=== PATIENT | female | born 1980 | race Caucasian/White ===

== ENCOUNTER 2020-11-27 22:05 | Emergency (ER) | payer BC ==
[2020-11-27 22:41] VITALS: BP 113/74; PULSE 91
--- NOTE | 2020-11-27 22:55 | EDM.PDOC ---
ED HPI GENERAL MEDICAL PROBLEM - General Chief Complaint: Gastrointestinal Problem Stated Complaint: VOMITING Time Seen by Provider: 11/27/20 22:55 - History of Present Illness INITIAL COMMENTS - FREE TEXT/NARRATIVE: 40-year-old female presents the emergency room with nausea and vomiting. This started earlier today progressively getting worse she has vomited several times. This became worse with the vomiting several hours ago. Patient denies any abdominal pain and is otherwise doing okay. She is not had any fevers or chills. No diarrhea. Headache Pain Score (Numeric/FACES): 7 - Related Data Allergies Allergy/AdvReac Type Severity Reaction Status Date / Time hydrocodone bitartrate Allergy Hives Verified 05/10/18 11:30 [From Vicodin] ibuprofen Allergy Hives Verified 05/10/18 11:30 nickel [Nickel] Allergy Rash Verified 05/10/18 11:30 cats Allergy Bronchospas Uncoded 05/10/18 11:30 ms mesh pants Allergy Rash Uncoded 05/10/18 11:30 Home Meds: Home Meds Acetaminophen [Pain Reliever] 2 tab PO Q4H PRN 01/19/14 [History] Albuterol Sulfate [Albuterol Sulfate HFA] 1 - 2 puff INH Q4HR PRN 01/19/14 [History] Levothyroxine [Synthroid] 1 tab PO QAM 01/19/14 [History] Multivitamin [Multivitamins] 1 tab PO DAILY 01/19/14 [History] Ondansetron [Zofran Odt] 8 mg PO Q6H PRN #8 tab.rapdis 11/28/20 [Rx] Past Medical History Respiratory History: Reports: Asthma Neurological History: Reports: Migraines Endocrine/Metabolic History: Reports: Hypothyroidism - Past Surgical History GI Surgical History: Reports: Cholecystectomy Female Surgical History: Reports: Section, Hysterectomy Social & Family History - Tobacco Use Tobacco Use Status *Q: Never Tobacco User - Caffeine Use Caffeine Use: Reports: Soda - Recreational Drug Use Recreational Drug Use: No ED ROS GENERAL - Review of Systems Review Of Systems: See Below Constitutional: Reports: No Symptoms HEENT: Reports: No Symptoms Respiratory: Reports: No Symptoms, Cough Endocrine: Reports: No Symptoms GI/Abdominal: Reports: Nausea, Vomiting. Denies: Abdominal Pain, Diarrhea : Reports: No Symptoms Musculoskeletal: Reports: No Symptoms Skin: Reports: No Symptoms ED EXAM, GENERAL - Physical Exam Exam: See Below Exam Limited By: No Limitations General Appearance: Alert, No Apparent Distress Head: Atraumatic, Normocephalic Neck: Normal Inspection, Supple, Non-Tender, Full Range of Motion Respiratory/Chest: No Respiratory Distress, Lungs Clear, Normal Breath Sounds Cardiovascular: Regular Rate, Rhythm, No Edema, No Murmur GI/Abdominal: Normal Bowel Sounds, Soft, Non-Tender, Other (Obese) Course - Vital Signs Last Recorded V/S: Last Vital Signs Temp 36.7 C 11/27/20 22:37 Pulse 91 11/27/20 22:37 Resp 20 11/27/20 22:37 BP 113/74 11/27/20 22:37 Pulse Ox 93 L 11/27/20 22:37 - Orders/Labs/Meds Meds: Medications Discontinued Medications Generic Name Dose Route Start Last Admin Trade Name Imani PRN Reason Stop Dose Admin Ondansetron HCl 4 mg 11/27/20 23:48 11/27/20 23:52 Ondansetron 4 Mg Tab.Dis PO 11/27/20 23:49 4 mg ONETIME ONE Administration - Re-Assessments/Exams Free Text/Narrative Re-Assessment/Exam: 11/28/20 00:44 After the initial evaluation roughly 30 to 45 minutes ago had a discussion and the patient decided to hold off on lab work which is reasonable at this point just give the Zofran to try. She is doing much better at this point she still little belching but she is keeping fluids down and is somewhat insistent on going home at this time. We will go ahead and give her 4 more milligrams of Zofran and send a prescription to her pharmacy. Departure - Departure Time of Disposition: 00:45 Disposition: Home, Self-Care 01 Clinical Impression: Nausea and vomiting - Discharge Information Referrals: Ava Morse PA-C [Primary Care Provider] - Forms: ED Department Discharge Additional Instructions: Return to the emergency room with any questions problems or worsening symptoms return in 24 hours if not improving. Use the Zofran, the nausea medication 1/2 to 1 tablet every 6 hours as needed. Clear liquid diet for the next 24 hours then slowly advance as tolerated. Sepsis Event Note (ED) - Evaluation Sepsis Screening Result: No Definite Risk - Focused Exam Vital Signs: Vital Signs Temp Pulse Resp BP Pulse Ox 05/16/21 22:37 36.7 C 91 20 113/74 93 L
[2020-11-27] MEDS ORDERED: Ondansetron 4 MG Tab.DIS PO ONE (23:48)
[2020-11-28] MEDS ORDERED: Ondansetron 4 MG Tab.DIS PO ONE (00:42)
== END 2020-11-28 01:00 | disposition home or self-care (01) ==
LOC: JD.ED 22:05
DX: R11.2 Nausea with vomiting, unspecified (principal); Z91.048 Other nonmedicinal substance allergy status; Z91.09 Other allergy status, other than to drugs and biological substances; Z88.8 Allergy status to other drugs, medicaments and biological substances; Z79.899 Other long term (current) drug therapy
CPT/HCPCS: 99283; A9270

== ENCOUNTER 2020-12-05 09:32 | Inpatient (IN) | payer BC ==
[2020-12-05] MEDS ORDERED: Sodium Chloride 0.9% 1,000 ML IV ONE (09:48)
[2020-12-05] MEDS ORDERED: Albuterol 6.7 GM Inhaler INH ONE (09:48)
[2020-12-05] MEDS ORDERED: Iopamidol 755 Mg/ML 100 ML Bottle IVPUSH ONE (09:49)
--- NOTE | 2020-12-05 09:51 | EDM.PDOC ---
ED HPI GENERAL MEDICAL PROBLEM - General Chief Complaint: Respiratory Problem Stated Complaint: [facility] Time Seen by Provider: 12/05/20 09:33 Source of Information: Reports: Patient, EMS, Old Records History Limitations: Reports: No Limitations - History of Present Illness INITIAL COMMENTS - FREE TEXT/NARRATIVE: She presents with increasing work of breathing shortness of breath and hypoxia. Patient was diagnosed with Covid on November 20. She thought she was maybe getting a little bit better however then over the last 2 to 3 days she has had increasing work of breathing shortness of breath not sleeping not having much of an appetite having some diarrhea denies any loss of smell or taste but has being a productive cough of green phlegm. No lightheadedness or fainting fainting spell just generally more weak and in condition. No current fevers chills or sweats. Denies , no history of any blood clot problems in the past. Denies any heart problems she does have a history of underlying asthma has not been using any inhalers. - Related Data Allergies Allergy/AdvReac Type Severity Reaction Status Date / Time hydrocodone bitartrate Allergy Hives Verified 12/05/20 09:42 [From Vicodin] ibuprofen Allergy Hives Verified 12/05/20 09:42 nickel [Nickel] Allergy Rash Verified 12/05/20 09:42 cats Allergy Bronchospas Uncoded 05/10/18 11:30 ms mesh pants Allergy Rash Uncoded 05/10/18 11:30 Home Meds: Home Meds Acetaminophen [Pain Reliever] 2 tab PO Q4H PRN 01/19/14 [History] Albuterol Sulfate [Albuterol Sulfate HFA] 1 - 2 puff INH Q4HR PRN 01/19/14 [History] Levothyroxine [Synthroid] 1 tab PO QAM 01/19/14 [History] Multivitamin [Multivitamins] 1 tab PO DAILY 01/19/14 [History] Ondansetron [Zofran Odt] 8 mg PO Q6H PRN #8 tab.rapdis 11/28/20 [Rx] Past Medical History Respiratory History: Reports: Asthma Neurological History: Reports: Migraines Endocrine/Metabolic History: Reports: Hypothyroidism - Past Surgical History GI Surgical History: Reports: Cholecystectomy Female Surgical History: Reports: Section, Hysterectomy Social & Family History - Caffeine Use Caffeine Use: Reports: Soda ED ROS GENERAL - Review of Systems Review Of Systems: See Below Constitutional: Denies: Fever, Chills, Diaphoresis HEENT: Reports: Rhinitis, Throat Pain Respiratory: Reports: Shortness of Breath, Cough, Sputum Cardiovascular: Reports: Dyspnea on Exertion, Orthopnea. Denies: Chest Pain, Edema, PND, Syncope GI/Abdominal: Reports: Diarrhea, Decreased Appetite, Nausea, Vomiting. Denies: Abdominal Pain : Denies: Dysuria, Frequency, Urgency Neurological: Reports: Headache, Weakness Psychiatric: Reports: No Symptoms ED EXAM, GENERAL - Physical Exam Exam: See Below Exam Limited By: No Limitations General Appearance: Alert, Anxious, Moderate Distress, Severe Distress Throat/Mouth: Normal Oropharynx Head: Atraumatic Neck: Supple. No: Lymphadenopathy (L), Lymphadenopathy (R) Respiratory/Chest: Decreased Breath Sounds, Rhonchi, Accessory Muscle Use Cardiovascular: Normal Peripheral Pulses, Regular Rate, Rhythm, No Edema Peripheral Pulses: 2+: Radial (R) GI/Abdominal: Normal Bowel Sounds, Soft, Non-Tender, No Mass Extremities: Normal Inspection Neurological: Alert, Oriented Psychiatric: Anxious Skin Exam: Warm #1 Interpretation EKG Date: 12/05/20 Time: 09:51 Rate (Beats/Min): 109 EKG Interpretation Comments: Reviewed EKG showing sinus tachycardia rate of 109 VT 171 QRS is 74 QT corrected 476 no acute ischemic changes are noted. Course - Vital Signs Text/Narrative:: History of recent Covid rule out Covid pneumonia, common pneumonia, CHF, PE hypoxia tachycardia. Was sent for a CT angiogram work-up and evaluation otherwise will be ruled out for other pneumonia, asthma exacerbation. Last Recorded V/S: Last Vital Signs Temp 98.3 F 12/05/20 09:39 Pulse 112 H 12/05/20 09:39 Resp 20 12/05/20 09:39 BP 119/70 12/05/20 09:39 Pulse Ox 94 L 12/05/20 10:51 - Orders/Labs/Meds Orders: Active Orders 24 hr Category Date Time Status Cardiac Monitoring [RC] . DIRECTED Care 12/05/20 09:47 Active EKG Documentation Completion [RC] STAT Care 12/05/20 09:40 Active Oxygen Therapy [RC] ASDIRECTED Care 12/05/20 10:52 Active RT Post Treatment Assessment [RC] Click to Edit Care 12/05/20 09:50 Active RT Pre-Treatment Assessment [RC] Click to Edit Care 12/05/20 09:50 Active BLOOD GAS VENOUS [BG] Stat Lab 12/05/20 09:47 Ordered FERRITIN [CHEM] Stat Lab 12/05/20 10:19 Received PROCALCITONIN [REF] Stat Lab 12/05/20 10:19 Received RESPIRATORY PANEL Stat Lab 12/05/20 10:25 Received Potassium Chloride [KCl in Water 10 MEQ/100 ML] 10 meq Med 12/05/20 11:45 Active Premix Bag 1 bag IV Q1H Remdesivir 200 mg Med 12/05/20 12:00 Active Sodium Chloride 0.9% [Normal Saline] 250 ml IV ONETIME Sodium Chloride 0.9% [Normal Saline] 100 ml Med 12/05/20 10:00 Active IV ASDIRECTED Sodium Chloride 0.9% [Saline Flush] Med 12/05/20 09:49 Active 10 ml FLUSH ONETIME PRN Isolation [COMM] Routine Oth 12/05/20 09:50 Ordered Medication Orders Sodium Chloride (Normal Saline) 100 mls @ 75 mls/hr IV ASDIRECTED ISAAC Last Admin: 12/05/20 10:14 Dose: 75 mls/hr Documented by: DONAVAN Remdesivir 200 mg/ Sodium (Chloride) 250 mls @ 250 mls/hr IV ONETIME ONE Stop: 12/05/20 12:59 Potassium Chloride 10 meq/ (Premix) 100 mls @ 100 mls/hr IV Q1H ISAAC Stop: 12/05/20 15:44 Sodium Chloride (Sodium Chloride 0.9% 10 Ml Syringe) 10 ml FLUSH ONETIME PRN PRN Reason: IV FLUSH Last Admin: 12/05/20 10:14 Dose: 10 ml Documented by: DONAVAN Labs: Laboratory Tests 12/05/20 12/05/20 12/05/20 Range/Units 09:39 10:19 10:19 WBC 5.92 (3.98-10.04) K/mm3 RBC 4.13 (3.98-5.22) M/mm3 Hgb 12.7 D (11.2-15.7) gm/dl Hct 38.6 (34.1-44.9) % MCV 93.5 D (79.4-94.8) fl MCH 30.8 (25.6-32.2) pg MCHC 32.9 (32.2-35.5) g/dl RDW Std Deviation 44.3 (36.4-46.3) fL Plt Count 256 (182-369) K/mm3 MPV 10.0 (9.4-12.3) fl Neut % (Auto) 65.9 (34.0-71.1) % Lymph % (Auto) 22.1 (19.3-51.7) % [place] % (Auto) 10.0 (4.7-12.5) % Eos % (Auto) 0 L (0.7-5.8) Baso % (Auto) 0.3 (0.1-1.2) % Neut # (Auto) 3.90 (1.56-6.13) K/mm3 Lymph # (Auto) 1.31 (1.18-3.74) K/mm3 [place] # (Auto) 0.59 H (0.24-0.36) K/mm3 Eos # (Auto) 0.00 L (0.04-0.36) K/mm3 Baso # (Auto) 0.02 (0.01-0.08) K/mm3 Manual Slide Review Normal smear D-Dimer, Quantitative (0.19-0.50) mg/L Puncture Site Rt radial ABG pH 7.50 H (7.35-7.45) ABG pCO2 34.8 L (35.0-45.0) mmHg ABG pO2 55.0 L (80.0-100.0) mmHg ABG HCO3 26.8 H (22.0-26.0) meq/L ABG O2 Saturation 90.3 L (96.0-97.0) % ABG Base Excess 4.2 H (-2-2.0) Boom Test Positive O2 Delivery Device Mask Oxygen Flow Rate 10.0 Sodium 131 L D (136-145) mEq/L Potassium 3.0 L (3.5-5.1) mEq/L Chloride 92 L D (98-107) mEq/L Carbon Dioxide 30 (21-32) mEq/L Anion Gap 12.0 (5-15) BUN 16 (7-18) mg/dL Creatinine 1.3 H (0.55-1.02) mg/dL Est Cr Clr Drug Dosing TNP Estimated GFR (MDRD) 45 (>60) mL/min BUN/Creatinine Ratio 12.3 L (14-18) Glucose 117 H (70-99) mg/dL Lactic Acid (0.4-2.0) mmol/L Calcium 8.0 L (8.5-10.1) mg/dL Total Bilirubin 0.6 (0.2-1.0) mg/dL AST 143 H (15-37) U/L ALT 91 H (14-59) U/L Alkaline Phosphatase 76 (46-116) U/L Troponin I < 0.017 (0.00-0.056) ng/mL C-Reactive Protein 26.4 H* (<1.0) mg/dL NT-Pro-B Natriuret Pep (0-125) pg/mL Total Protein 6.5 (6.4-8.2) g/dl Albumin 2.6 L (3.4-5.0) g/dl Globulin 3.9 gm/dL Albumin/Globulin Ratio 0.7 L (1-2) 12/05/20 12/05/20 12/05/20 Range/Units 10:19 10:19 10:19 WBC (3.98-10.04) K/mm3 RBC (3.98-5.22) M/mm3 Hgb (11.2-15.7) gm/dl Hct (34.1-44.9) % MCV (79.4-94.8) fl MCH (25.6-32.2) pg MCHC (32.2-35.5) g/dl RDW Std Deviation (36.4-46.3) fL Plt Count (182-369) K/mm3 MPV (9.4-12.3) fl Neut % (Auto) (34.0-71.1) % Lymph % (Auto) (19.3-51.7) % [place] % (Auto) (4.7-12.5) % Eos % (Auto) (0.7-5.8) Baso % (Auto) (0.1-1.2) % Neut # (Auto) (1.56-6.13) K/mm3 Lymph # (Auto) (1.18-3.74) K/mm3 [place] # (Auto) (0.24-0.36) K/mm3 Eos # (Auto) (0.04-0.36) K/mm3 Baso # (Auto) (0.01-0.08) K/mm3 Manual Slide Review D-Dimer, Quantitative 1.17 H (0.19-0.50) mg/L Puncture Site ABG pH (7.35-7.45) ABG pCO2 (35.0-45.0) mmHg ABG pO2 (80.0-100.0) mmHg ABG HCO3 (22.0-26.0) meq/L ABG O2 Saturation (96.0-97.0) % ABG Base Excess (-2-2.0) Boom Test O2 Delivery Device Oxygen Flow Rate Sodium (136-145) mEq/L Potassium (3.5-5.1) mEq/L Chloride (98-107) mEq/L Carbon Dioxide (21-32) mEq/L Anion Gap (5-15) BUN (7-18) mg/dL Creatinine (0.55-1.02) mg/dL Est Cr Clr Drug Dosing Estimated GFR (MDRD) (>60) mL/min BUN/Creatinine Ratio (14-18) Glucose (70-99) mg/dL Lactic Acid 1.5 (0.4-2.0) mmol/L Calcium (8.5-10.1) mg/dL Total Bilirubin (0.2-1.0) mg/dL AST (15-37) U/L ALT (14-59) U/L Alkaline Phosphatase (46-116) U/L Troponin I (0.00-0.056) ng/mL C-Reactive Protein (<1.0) mg/dL NT-Pro-B Natriuret Pep 120 (0-125) pg/mL Total Protein (6.4-8.2) g/dl Albumin (3.4-5.0) g/dl Globulin gm/dL Albumin/Globulin Ratio (1-2) Blood cell count 5.9 hemoglobin is 12.7 hematocrit 38.6 platelet count is 256,000 lymphocyte 1.31 monocyte 0.59 arterial blood gas shows a pH of 7.5 PCO2 34.8 PaO2 is 55 oxygen saturation is 90% on a nonrebreather mask Sodium 131 potassium 3 chloride 92 CO2 is 30 BUN is 618 creatinine is 1.3 glucose is 117 calcium 8 AST 143 ALT 91 troponin is negative C-reactive protein 26.4 D-dimer 1.17 lactic acid 1.5 BNP 120 Meds: Medications Generic Name Dose Route Start Last Admin Trade Name Freq PRN Reason Stop Dose Admin Sodium Chloride 100 mls @ 75 mls/hr 12/05/20 10:00 12/05/20 10:14 Normal Saline IV 75 mls/hr ASDIRECTED ISAAC Administration Remdesivir 200 mg/ Sodium 250 mls @ 250 mls/hr 12/05/20 12:00 Chloride IV 12/05/20 12:59 ONETIME ONE Potassium Chloride 10 meq/ 100 mls @ 100 mls/hr 12/05/20 11:45 Premix IV 12/05/20 15:44 Q1H ISAAC Sodium Chloride 10 ml 12/05/20 09:49 12/05/20 10:14 Sodium Chloride 0.9% 10 Ml Syringe FLUSH 10 ml ONETIME PRN Administration IV FLUSH Discontinued Medications Generic Name Dose Route Start Last Admin Trade Name Freq PRN Reason Stop Dose Admin Albuterol 0 gm 12/05/20 09:48 12/05/20 10:27 Albuterol 6.7 Gm Inhaler INH 12/05/20 09:49 2 inhalation Q2H ONE Administration Dexamethasone 10 mg 12/05/20 11:11 Dexamethasone 10 Mg/Ml Sdv IVPUSH 12/05/20 11:12 ONETIME ONE Sodium Chloride 1,000 mls @ 500 mls/hr 12/05/20 09:48 12/05/20 10:29 Normal Saline IV 12/05/20 11:47 500 mls/hr ONETIME ONE Administration Iopamidol 100 ml 12/05/20 09:49 12/05/20 10:14 Iopamidol 755 Mg/Ml 100 Ml Bottle IVPUSH 12/05/20 09:50 100 ml ONETIME ONE Administration - Radiology Interpretation Free Text/Narrative:: CT angiogram shows pulmonary artery slightly less and completely optimally opacified however no obvious indication of pulmonary embolism thoracic aorta shows no aneurysm mediastinum shows no adenopathy pericardial thickening is negative diffuse parenchymal densities noted throughout both sides of the chest no pleural effusions are noted no osseous abnormalities highly suspicious for Covid pneumonia. CT Results Date: 12/05/20 CT Results Time: 11:30 - Re-Assessments/Exams Free Text/Narrative Re-Assessment/Exam: 12/05/20 11:51 Patient currently is on high flow nasal cannula and tolerating it well with oxygen saturations stable, treated for Covid given her dose of Decadron 10 mg remdesivir 200 mg, discussed case with Dr. Greenfield for admission and further evaluation. Departure - Departure Time of Disposition: 11:45 Disposition: Admitted As Inpatient 64 Clinical Impression: COVID-19, Hypoxia, Asthma exacerbation - Discharge Information Referrals: Ava Morse PA-C [Primary Care Provider] - Forms: ED Department Discharge Sepsis Event Note (ED) - Evaluation Sepsis Screening Result: No Definite Risk - Focused Exam Vital Signs: Vital Signs Temp Pulse Resp BP Pulse Ox Pulse Ox Pulse Ox 12/05/20 10:51 94 L 12/05/20 10:28 90 L 12/05/20 09:39 98.3 F 112 H 20 119/70 91 L - My Orders Last 24 Hours: My Active Orders 12/05/20 09:40 EKG Documentation Completion [RC] STAT 12/05/20 09:47 Cardiac Monitoring [RC] . DIRECTED BLOOD GAS VENOUS [BG] Stat 12/05/20 09:49 Sodium Chloride 0.9% [Saline Flush] 10 ml FLUSH ONETIME PRN 12/05/20 09:50 RT Post Treatment Assessment [RC] Click to Edit RT Pre-Treatment Assessment [RC] Click to Edit Isolation [COMM] Routine 12/05/20 10:00 Sodium Chloride 0.9% [Normal Saline] 100 ml IV ASDIRECTED 12/05/20 10:19 FERRITIN [CHEM] Stat PROCALCITONIN [REF] Stat 12/05/20 10:25 RESPIRATORY PANEL Stat 12/05/20 10:52 Oxygen Therapy [RC] ASDIRECTED 12/05/20 11:45 Potassium Chloride [KCl in Water 10 MEQ/100 ML] 10 meq Premix Bag 1 bag IV Q1H 12/05/20 12:00 Remdesivir 200 mg Sodium Chloride 0.9% [Normal Saline] 250 ml IV ONETIME - Assessment/Plan Last 24 Hours: My Active Orders 12/05/20 09:40 EKG Documentation Completion [RC] STAT 12/05/20 09:47 Cardiac Monitoring [RC] . DIRECTED BLOOD GAS VENOUS [BG] Stat 12/05/20 09:49 Sodium Chloride 0.9% [Saline Flush] 10 ml FLUSH ONETIME PRN 12/05/20 09:50 RT Post Treatment Assessment [RC] Click to Edit RT Pre-Treatment Assessment [RC] Click to Edit Isolation [COMM] Routine 12/05/20 10:00 Sodium Chloride 0.9% [Normal Saline] 100 ml IV ASDIRECTED 12/05/20 10:19 FERRITIN [CHEM] Stat PROCALCITONIN [REF] Stat 12/05/20 10:25 RESPIRATORY PANEL Stat 12/05/20 10:52 Oxygen Therapy [RC] ASDIRECTED 12/05/20 11:45 Potassium Chloride [KCl in Water 10 MEQ/100 ML] 10 meq Premix Bag 1 bag IV Q1H 12/05/20 12:00 Remdesivir 200 mg Sodium Chloride 0.9% [Normal Saline] 250 ml IV ONETIME
[2020-12-05] MEDS ORDERED: Sodium Chloride 0.9% 100 ML IV SCH (10:00)
[2020-12-05] MEDS: Sodium Chloride 0.9% 10 ML Syringe FLUSH PRN (10:14)
--- NOTE | 2020-12-05 10:32 | CT ---
CT chest Technique: Multiple axial sections were obtained through the chest. Intravenous contrast was utilized. Study has been performed as a pulmonary angiogram protocol. Comparison: No prior chest imaging is available. Findings: Pulmonary arteries are slightly less than optimally opacified. No discrete filling defects are seen to indicate pulmonary embolism. Thoracic aorta shows no aneurysm. Mediastinum shows no adenopathy. No pericardial thickening is seen. Visualized upper abdominal structures appear within normal limits. Diffuse parenchymal densities are noted throughout both sides of the chest. No pleural effusions are noted. No acute osseous abnormality is appreciated. Impression: 1. Diffuse parenchymal densities throughout both sides of the chest raising the possibility of Covid pneumonia. Please correlate. 2. No definite findings of pulmonary embolism are seen. Diagnostic code #3
[2020-12-05] MEDS ORDERED: REMDESIVIR 200 MG in Sodium Chloride 0.9% 250 ML IV ONE ×2 (11:10→12:00)
[2020-12-05] MEDS ORDERED: Dexamethasone 10 MG/ML SDV IVPUSH ONE (11:11)
[2020-12-05] MEDS ORDERED: Potassium Chloride 10 MEQ in Premix Bag 1 BAG IV SCH (11:45)
[2020-12-05] MEDS ORDERED: Ondansetron 4 MG Tab.DIS PO PRN (12:17)
[2020-12-05] MEDS ORDERED: HYDROmorphone 0.5 MG/0.5 ML Syringe IVPUSH PRN (12:17)
[2020-12-05] MEDS ORDERED: Albuterol 0.083% 2.5 MG/3 ML Neb Soln NEB PRN (12:17)
[2020-12-05] MEDS ORDERED: Ketorolac 30 MG/ML SDV IVPUSH PRN (12:17)
--- NOTE | 2020-12-05 12:30 | PCM.HP.2 ---
H&P History of Present Illness - General Date of Service: 12/05/20 Admit Problem/Dx: Admission Diagnosis/Problem Admission Diagnosis/Problem Respiratory failure Source of Information: Patient History Limitations: Reports: No Limitations - History of Present Illness Initial Comments - Free Text/Narative: The patient is a 40-year-old lady who has presented to the emergency department with a complaint of shortness of breath. The patient was picked up by emergency medical services and when at home was found to have pulse oximetry around 60%. The patient did have COVID-19 at the beginning of the month. The patient says that she has had shortness of breath since then. Is gotten worse over the past day or 2. The patient was previously in the emergency department on November 27, 2020 with a complaint of nausea and vomiting. The patient has been complaining of nausea and vomiting and shorted with the shortness of breath. She says that this is pretty much resolved however she still has diarrhea to the point of fecal incontinence when coughing. The patient has denied any fever or chills. She reports that she has not lost her sense of taste or smell. She is coughing but this is been nonproductive of sputum. The patient does not use tobacco. The patient is on medications for nonspecific connective tissue disease to include Plaquenil and has been on methotrexate before. The patient has been taking Plaquenil as prescribed by her dental office assistant. Onset of Symptoms: Reports: Gradual Duration of Symptoms: Reports: Week(s):, Getting Worse Location: Reports: Chest, Abdomen Quality: Reports: Ache, Burning Severity: Moderate Improves with: Reports: Rest, Other (O2) Worsens with: Reports: Breathing Context: Reports: Other (COVID-19) Associated Symptoms: Reports: Cough, Nausea/Vomiting - Related Data Allergies/Adverse Reactions: Allergies Allergy/AdvReac Type Severity Reaction Status Date / Time hydrocodone bitartrate Allergy Hives Verified 12/05/20 09:42 [From Vicodin] ibuprofen Allergy Hives Verified 12/05/20 09:42 nickel [Nickel] Allergy Rash Verified 12/05/20 09:42 cats Allergy Bronchospas Uncoded 05/10/18 11:30 ms mesh pants Allergy Rash Uncoded 05/10/18 11:30 Home Medications: Home Meds Acetaminophen [Tylenol] 1 - 2 tab PO Q4H PRN 12/05/20 [History] Acetaminophen/Butalbital/Caff [Fioricet 325-50-40 MG] 1 - 2 tab PO Q4H PRN 12/05/20 [History] Albuterol [Ventolin HFA] 1 - 2 puff PO Q4H PRN 12/05/20 [History] Ascorbic Acid [C-500] 500 mg PO BID 12/05/20 [History] DULoxetine [Cymbalta] 60 mg PO BID 12/05/20 [History] EPINEPHrine [Epinephrine] 0.3 mg IM ASDIRECTED PRN 12/05/20 [History] Ferrous Sulfate 325 mg PO BID 12/05/20 [History] Folic Acid 1 mg PO DAILY 12/05/20 [History] Galcanezumab-Gnlm [Emgality Pen] 120 mg SUBCUT Q30D 12/05/20 [History] Hydroxychloroquine [Plaquenil] 200 mg PO BID 12/05/20 [History] Levothyroxine [Synthroid] 50 mcg PO ACBREAKFAST 12/05/20 [History] Multivitamin [Multi-Vitamin Daily] 1 tab PO DAILY 12/05/20 [History] Topiramate [Topamax] 100 mg PO BEDTIME 12/05/20 [History] diphenhydrAMINE [Benadryl] 25 mg PO DAILY PRN 12/05/20 [History] tiZANidine HCl [Tizanidine HCl] 4 - 6 mg PO BEDTIME PRN 12/05/20 [History] Past Medical History HEENT History: Reports: None Cardiovascular History: Reports: None Respiratory History: Reports: Asthma Gastrointestinal History: Reports: None Genitourinary History: Reports: None Musculoskeletal History: Reports: Connective Tissue Disease Neurological History: Reports: Migraines Psychiatric History: Reports: None Endocrine/Metabolic History: Reports: Hypothyroidism Hematologic History: Reports: None Immunologic History: Reports: None Oncologic (Cancer) History: Reports: None Dermatologic History: Reports: None - Infectious Disease History Infectious Disease History: Reports: Novel Coronavirus - Past Surgical History GI Surgical History: Reports: Cholecystectomy Female Surgical History: Reports: Section, Hysterectomy Social & Family History - Tobacco Use Tobacco Use Status *Q: Never Tobacco User - Caffeine Use Caffeine Use: Reports: Soda - Alcohol Use Alcohol Use History: No - Living Situation & Occupation Living situation: Reports: , with Spouse Occupation: Employed H&P Review of Systems - Review of Systems: Review Of Systems: See Below General: Reports: Weakness, Fatigue HEENT: Reports: Sore Throat Pulmonary: Reports: Shortness of Breath, Cough Cardiovascular: Reports: Chest Pain Gastrointestinal: Reports: Abdominal Pain, Diarrhea Exam - Exam Exam: See Below - Vital Signs Vital Signs: Last Vital Signs Temp 36.8 C 12/05/20 09:39 Pulse 112 H 12/05/20 09:39 Resp 20 12/05/20 09:39 BP 119/70 12/05/20 09:39 Pulse Ox 94 L 12/05/20 10:51 - Exam Quality Assessment: Supplemental Oxygen General: Alert, Oriented, Cooperative HEENT: Conjunctiva Clear, EACs Clear, EOMI, PERRLA. No: Mucosa Moist & Arp (Dry) Neck: Supple, Trachea Midline Lungs: Decreased Breath Sounds, Crackles, Rales Cardiovascular: Regular Rate, Regular Rhythm GI/Abdominal Exam: Normal Bowel Sounds, Soft, Non-Tender, No Distention (Female) Exam: Deferred Rectal (Female) Exam: Deferred Back Exam: Normal Inspection, Full Range of Motion Extremities: Normal Inspection, Normal Range of Motion, No Pedal Edema Skin: Warm, Dry, Intact Neurological: Cranial Nerves Intact Neuro Extensive - Mental Status: Alert Psychiatric: Alert, Normal Affect, Normal Mood - Patient Data Lab Results Last 24 hrs: Laboratory Results - last 24 hr 12/05/20 12/05/20 12/05/20 Range/Units 09:39 10:19 10:19 WBC 5.92 (3.98-10.04) K/mm3 RBC 4.13 (3.98-5.22) M/mm3 Hgb 12.7 D (11.2-15.7) gm/dl Hct 38.6 (34.1-44.9) % MCV 93.5 D (79.4-94.8) fl MCH 30.8 (25.6-32.2) pg MCHC 32.9 (32.2-35.5) g/dl RDW Std Deviation 44.3 (36.4-46.3) fL Plt Count 256 (182-369) K/mm3 MPV 10.0 (9.4-12.3) fl Neut % (Auto) 65.9 (34.0-71.1) % Lymph % (Auto) 22.1 (19.3-51.7) % [place] % (Auto) 10.0 (4.7-12.5) % Eos % (Auto) 0 L (0.7-5.8) Baso % (Auto) 0.3 (0.1-1.2) % Neut # (Auto) 3.90 (1.56-6.13) K/mm3 Lymph # (Auto) 1.31 (1.18-3.74) K/mm3 [place] # (Auto) 0.59 H (0.24-0.36) K/mm3 Eos # (Auto) 0.00 L (0.04-0.36) K/mm3 Baso # (Auto) 0.02 (0.01-0.08) K/mm3 Manual Slide Review Normal smear D-Dimer, Quantitative (0.19-0.50) mg/L Puncture Site Rt radial ABG pH 7.50 H (7.35-7.45) ABG pCO2 34.8 L (35.0-45.0) mmHg ABG pO2 55.0 L (80.0-100.0) mmHg ABG HCO3 26.8 H (22.0-26.0) meq/L ABG O2 Saturation 90.3 L (96.0-97.0) % ABG Base Excess 4.2 H (-2-2.0) Boom Test Positive O2 Delivery Device Mask Oxygen Flow Rate 10.0 Sodium 131 L D (136-145) mEq/L Potassium 3.0 L (3.5-5.1) mEq/L Chloride 92 L D (98-107) mEq/L Carbon Dioxide 30 (21-32) mEq/L Anion Gap 12.0 (5-15) BUN 16 (7-18) mg/dL Creatinine 1.3 H (0.55-1.02) mg/dL Est Cr Clr Drug Dosing TNP Estimated GFR (MDRD) 45 (>60) mL/min BUN/Creatinine Ratio 12.3 L (14-18) Glucose 117 H (70-99) mg/dL Lactic Acid (0.4-2.0) mmol/L Calcium 8.0 L (8.5-10.1) mg/dL Ferritin (8-252) ng/ml Total Bilirubin 0.6 (0.2-1.0) mg/dL AST 143 H (15-37) U/L ALT 91 H (14-59) U/L Alkaline Phosphatase 76 (46-116) U/L Troponin I < 0.017 (0.00-0.056) ng/mL C-Reactive Protein 26.4 H* (<1.0) mg/dL NT-Pro-B Natriuret Pep (0-125) pg/mL Total Protein 6.5 (6.4-8.2) g/dl Albumin 2.6 L (3.4-5.0) g/dl Globulin 3.9 gm/dL Albumin/Globulin Ratio 0.7 L (1-2) 12/05/20 12/05/20 12/05/20 Range/Units 10:19 10:19 10:19 WBC (3.98-10.04) K/mm3 RBC (3.98-5.22) M/mm3 Hgb (11.2-15.7) gm/dl Hct (34.1-44.9) % MCV (79.4-94.8) fl MCH (25.6-32.2) pg MCHC (32.2-35.5) g/dl RDW Std Deviation (36.4-46.3) fL Plt Count (182-369) K/mm3 MPV (9.4-12.3) fl Neut % (Auto) (34.0-71.1) % Lymph % (Auto) (19.3-51.7) % [place] % (Auto) (4.7-12.5) % Eos % (Auto) (0.7-5.8) Baso % (Auto) (0.1-1.2) % Neut # (Auto) (1.56-6.13) K/mm3 Lymph # (Auto) (1.18-3.74) K/mm3 [place] # (Auto) (0.24-0.36) K/mm3 Eos # (Auto) (0.04-0.36) K/mm3 Baso # (Auto) (0.01-0.08) K/mm3 Manual Slide Review D-Dimer, Quantitative 1.17 H (0.19-0.50) mg/L Puncture Site ABG pH (7.35-7.45) ABG pCO2 (35.0-45.0) mmHg ABG pO2 (80.0-100.0) mmHg ABG HCO3 (22.0-26.0) meq/L ABG O2 Saturation (96.0-97.0) % ABG Base Excess (-2-2.0) Boom Test O2 Delivery Device Oxygen Flow Rate Sodium (136-145) mEq/L Potassium (3.5-5.1) mEq/L Chloride (98-107) mEq/L Carbon Dioxide (21-32) mEq/L Anion Gap (5-15) BUN (7-18) mg/dL Creatinine (0.55-1.02) mg/dL Est Cr Clr Drug Dosing Estimated GFR (MDRD) (>60) mL/min BUN/Creatinine Ratio (14-18) Glucose (70-99) mg/dL Lactic Acid 1.5 (0.4-2.0) mmol/L Calcium (8.5-10.1) mg/dL Ferritin (8-252) ng/ml Total Bilirubin (0.2-1.0) mg/dL AST (15-37) U/L ALT (14-59) U/L Alkaline Phosphatase (46-116) U/L Troponin I (0.00-0.056) ng/mL C-Reactive Protein (<1.0) mg/dL NT-Pro-B Natriuret Pep 120 (0-125) pg/mL Total Protein (6.4-8.2) g/dl Albumin (3.4-5.0) g/dl Globulin gm/dL Albumin/Globulin Ratio (1-2) 12/05/20 Range/Units 10:19 WBC (3.98-10.04) K/mm3 RBC (3.98-5.22) M/mm3 Hgb (11.2-15.7) gm/dl Hct (34.1-44.9) % MCV (79.4-94.8) fl MCH (25.6-32.2) pg MCHC (32.2-35.5) g/dl RDW Std Deviation (36.4-46.3) fL Plt Count (182-369) K/mm3 MPV (9.4-12.3) fl Neut % (Auto) (34.0-71.1) % Lymph % (Auto) (19.3-51.7) % [place] % (Auto) (4.7-12.5) % Eos % (Auto) (0.7-5.8) Baso % (Auto) (0.1-1.2) % Neut # (Auto) (1.56-6.13) K/mm3 Lymph # (Auto) (1.18-3.74) K/mm3 [place] # (Auto) (0.24-0.36) K/mm3 Eos # (Auto) (0.04-0.36) K/mm3 Baso # (Auto) (0.01-0.08) K/mm3 Manual Slide Review D-Dimer, Quantitative (0.19-0.50) mg/L Puncture Site ABG pH (7.35-7.45) ABG pCO2 (35.0-45.0) mmHg ABG pO2 (80.0-100.0) mmHg ABG HCO3 (22.0-26.0) meq/L ABG O2 Saturation (96.0-97.0) % ABG Base Excess (-2-2.0) Boom Test O2 Delivery Device Oxygen Flow Rate Sodium (136-145) mEq/L Potassium (3.5-5.1) mEq/L Chloride (98-107) mEq/L Carbon Dioxide (21-32) mEq/L Anion Gap (5-15) BUN (7-18) mg/dL Creatinine (0.55-1.02) mg/dL Est Cr Clr Drug Dosing Estimated GFR (MDRD) (>60) mL/min BUN/Creatinine Ratio (14-18) Glucose (70-99) mg/dL Lactic Acid (0.4-2.0) mmol/L Calcium (8.5-10.1) mg/dL Ferritin 4038 H (8-252) ng/ml Total Bilirubin (0.2-1.0) mg/dL AST (15-37) U/L ALT (14-59) U/L Alkaline Phosphatase (46-116) U/L Troponin I (0.00-0.056) ng/mL C-Reactive Protein (<1.0) mg/dL NT-Pro-B Natriuret Pep (0-125) pg/mL Total Protein (6.4-8.2) g/dl Albumin (3.4-5.0) g/dl Globulin gm/dL Albumin/Globulin Ratio (1-2) Result Diagrams: 12/05/20 10:19 12/05/20 10:19 Sepsis Event Note - Evaluation Sepsis Screening Result: No Definite Risk - Focused Exam Vital Signs: Vital Signs Temp Pulse Resp BP Pulse Ox Pulse Ox Pulse Ox 12/05/20 10:51 94 L 12/05/20 10:28 90 L 12/05/20 09:39 36.8 C 112 H 20 119/70 91 L - Problem List (1) Acute respiratory failure SNOMED Code(s): 70962188 ICD Code: J96.00 - ACUTE RESPIRATORY FAILURE, UNSP W HYPOXIA OR HYPERCAPNIA Status: Acute Priority: High Current Visit: Yes Qualifiers: Respiratory failure complication: hypoxia Qualified Code(s): J96.01 - Acute respiratory failure with hypoxia (2) Pneumonia due to COVID-19 virus SNOMED Code(s): 553621562396954635 ICD Code: U07.1 - COVID-19; J12.82 - PNEUMONIA DUE TO CORONAVIRUS DISEASE 2019 Status: Acute Priority: High Current Visit: Yes (3) Hypoxia SNOMED Code(s): 954152987 ICD Code: R09.02 - HYPOXEMIA Status: Acute Current Visit: Yes (4) Connective tissue disease, undifferentiated SNOMED Code(s): 902405372 ICD Code: M35.9 - SYSTEMIC INVOLVEMENT OF CONNECTIVE TISSUE, UNSPECIFIED Status: Chronic Priority: High Current Visit: Yes (5) Hypokalemia due to excessive gastrointestinal loss of potassium SNOMED Code(s): 67424990 ICD Code: E87.6 - HYPOKALEMIA Status: Acute Priority: High Current Visit: Yes Problem List Initiated/Reviewed/Updated: Yes Orders Last 24hrs: Active Orders 24 hr Category Date Time Status Patient Status [ADT] Routine ADT 12/05/20 12:17 Ordered Cardiac Monitoring [RC] . DIRECTED Care 12/05/20 09:47 Active EKG Documentation Completion [RC] STAT Care 12/05/20 09:40 Active Oxygen Therapy [RC] ASDIRECTED Care 12/05/20 10:52 Active Oxygen Therapy [RC] PRN Care 12/05/20 12:17 Ordered Pulse Oximetry [RC] CONTINUOUS Care 12/05/20 12:19 Ordered RT Aerosol Therapy [RC] ASDIRECTED Care 12/05/20 12:21 Ordered RT Post Treatment Assessment [RC] Click to Edit Care 12/05/20 09:50 Active RT Pre-Treatment Assessment [RC] Click to Edit Care 12/05/20 09:50 Active Up ad Marguerite [RC] ASDIRECTED Care 12/05/20 12:17 Ordered VTE/DVT Education [RC] PER UNIT ROUTINE Care 12/05/20 12:17 Ordered Vital Signs [RC] Q4H Care 12/05/20 12:17 Ordered Respiratory Care Assess and Treatment [CONS] Routine Cons 12/05/20 12:17 Ordered Regular Diet [DIET] Diet 12/05/20 Dinner Ordered Chest 1V Frontal [CR] AM Exams 12/06/20 05:11 Ordered BLOOD GAS VENOUS [BG] Stat Lab 12/05/20 09:47 Ordered C-REACTIVE PROTEIN [CHEM] AM Lab 12/06/20 05:11 Ordered CBC WITH AUTO DIFF [HEME] AM Lab 12/06/20 05:11 Ordered COMPREHENSIVE METABOLIC PN,CMP [CHEM] AM Lab 12/06/20 05:11 Ordered PROCALCITONIN [REF] Stat Lab 12/05/20 10:19 Received RESPIRATORY PANEL Stat Lab 12/05/20 10:25 Received Acetaminophen [TylenoL] Med 12/05/20 12:17 Ordered 650 mg PO Q4H PRN Albuterol [Proventil Neb Soln] Med 12/05/20 12:17 Ordered 2.5 mg NEB Q2H PRN Azithromycin [Zithromax] 500 mg Med 12/05/20 12:30 Ordered Sodium Chloride 0.9% [Normal Saline (AdvBag)] 250 ml IV Q24H DULoxetine Med 12/05/20 21:00 Ordered 60 mg PO BID Docusate Sodium [Colace] Med 12/05/20 12:17 Ordered 100 mg PO BID PRN Enoxaparin [Lovenox] Med 12/05/20 12:30 Ordered 40 mg SUBCUT DAILY Folic Acid Med 12/06/20 09:00 Ordered 1 mg PO DAILY HYDROmorphone [Dilaudid] Med 12/05/20 12:17 Ordered 0.25 mg IVPUSH Q2H PRN Hydroxychloroquine [Plaquenil] Med 12/05/20 21:00 Ordered 200 mg PO BID Ketorolac [Toradol] Med 12/05/20 12:17 Ordered 30 mg IV Q6H PRN Levothyroxine [Synthroid] Med 12/06/20 06:00 Ordered 50 mcg PO ACBREAKFAST Ondansetron [Zofran ODT] Med 12/05/20 12:17 Ordered 4 mg PO Q4H PRN Potassium Chloride [KCl in Water 10 MEQ/100 ML] 10 meq Med 12/05/20 11:45 Active Premix Bag 1 bag IV Q1H Remdesivir 200 mg Med 12/05/20 12:00 Active Sodium Chloride 0.9% [Normal Saline] 250 ml IV ONETIME Sodium Chloride 0.9% [Normal Saline] 1,000 ml Med 12/05/20 12:30 Ordered IV ASDIRECTED Sodium Chloride 0.9% [Normal Saline] 100 ml Med 12/05/20 10:00 Active IV ASDIRECTED Sodium Chloride 0.9% [Saline Flush] Med 12/05/20 09:49 Active 10 ml FLUSH ONETIME PRN dexAMETHasone Med 12/05/20 12:30 Ordered 6 mg IV DAILY Isolation [COMM] Routine Oth 12/05/20 09:50 Ordered Resuscitation Status Routine Resus Stat 12/05/20 12:17 Ordered Medication Orders Acetaminophen (Acetaminophen 325 Mg Tab) 650 mg PO Q4H PRN PRN Reason: Pain (Mild 1-3)/fever Albuterol (Albuterol 0.083% 2.5 Mg/3 Ml Neb Soln) 2.5 mg NEB Q2H PRN PRN Reason: Shortness Of Breath/wheezing Dexamethasone (Dexamethasone 4 Mg/Ml 5 Ml Mdv) 6 mg IV DAILY [facility] Docusate Sodium (Docusate Sodium 100 Mg Cap) 100 mg PO BID PRN PRN Reason: Constipation Enoxaparin Sodium (Enoxaparin 40 Mg/0.4 Ml Syringe) 40 mg SUBCUT DAILY ISAAC Folic Acid (Folic Acid 1 Mg Tab) 1 mg PO DAILY ISAAC Hydromorphone HCl (Hydromorphone 0.5 Mg/0.5 Ml Syringe) 0.25 mg IVPUSH Q2H PRN PRN Reason: Pain (severe 7-10) Hydroxychloroquine Sulfate (Hydroxychloroquine 200 Mg Tab) 200 mg PO BID ISAAC Sodium Chloride (Normal Saline) 100 mls @ 75 mls/hr IV ASDIRECTED ISAAC Stop: 12/05/20 14:00 Last Admin: 12/05/20 10:14 Dose: 75 mls/hr Documented by: DONAVAN Remdesivir 200 mg/ Sodium (Chloride) 250 mls @ 250 mls/hr IV ONETIME ONE Stop: 12/05/20 12:59 Last Admin: 12/05/20 11:58 Dose: 250 mls/hr Documented by: GAYATHRI Potassium Chloride 10 meq/ (Premix) 100 mls @ 100 mls/hr IV Q1H ISAAC Stop: 12/05/20 15:44 Sodium Chloride (Normal Saline) 1,000 mls @ 75 mls/hr IV ASDIRECTED [facility] Azithromycin 500 mg/ Sodium (Chloride) 250 mls @ 250 mls/hr IV Q24H ISAAC Ketorolac Tromethamine (Ketorolac 30 Mg/Ml Sdv) 30 mg IV Q6H PRN PRN Reason: Pain (moderate 4-6) Levothyroxine Sodium (Levothyroxine 50 Mcg Tab) 50 mcg PO ACBREAKFAST [facility] Non-Formulary Medication (Duloxetine) 60 mg PO BID ISAAC Ondansetron HCl (Ondansetron 4 Mg Tab.Dis) 4 mg PO Q4H PRN PRN Reason: nausea, able to take PO Sodium Chloride (Sodium Chloride 0.9% 10 Ml Syringe) 10 ml FLUSH ONETIME PRN PRN Reason: IV FLUSH Last Admin: 12/05/20 10:14 Dose: 10 ml Documented by: DONAVAN Assessment/Plan Comment:: The patient is a 40-year-old lady who has been admitted to acute inpatient hospitalization primarily due to acute respiratory failure. The patient has been ordered to be on oxygen to keep her saturations around 92%. She does have pneumonia that has been associated with COVID-19. The patient has been placed on a azithromycin 500 mg IV on a daily basis along with dexamethasone. I do not feel that the patient would be a good candidate for remdesivir due to her having first symptoms at the beginning of the month. 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 The patient will be maintained on these and I have also ordered that the patient also continue with folic acid 1 mg p.o. daily. The patient will have regular diet as tolerated. She has been encouraged to ambulate. She is also been ordered to have Lovenox 40 mg subcutaneously daily for DVT prophylaxis. Repeat laboratory studies have been ordered. I have also ordered that the patient have replacement of her potassium. - Mortality Measure Prognosis:: Good
[2020-12-05] MEDS ORDERED: Potassium Chloride 20 MEQ Tab.ER PO ONE (13:17)
[2020-12-05] MEDS: Enoxaparin 40 MG/0.4 ML Syringe SUBCUT SCH (15:21)
[2020-12-05] MEDS: Azithromycin 500 MG in Sodium Chloride 0.9% 250 ML IV SCH (15:21)
[2020-12-05] MEDS: Potassium Chloride 10 MEQ in Premix Bag 1 BAG IV SCH ×4 (15:22→20:03)
[2020-12-05] MEDS: Sodium Chloride 0.9% 1,000 ML IV SCH (17:07)
[2020-12-05 19:47] LABS: BORDETELLA PARAPERT IS1001 Not Detected (Not Detected)
[2020-12-05] MEDS: DULoxetine 30 MG Cap PO SCH (20:04)
[2020-12-05] MEDS ORDERED: Hydroxychloroquine 200 MG Tab PO SCH (21:00)
[2020-12-06] MEDS: Levothyroxine 50 MCG Tab PO SCH (05:52)
[2020-12-06] MEDS: Sodium Chloride 0.9% 1,000 ML IV SCH ×2 (06:00→19:23)
[2020-12-06] MEDS: Folic Acid 1 MG Tab PO SCH (08:45)
[2020-12-06] MEDS: DULoxetine 30 MG Cap PO SCH ×2 (08:45→20:36)
[2020-12-06] MEDS: Enoxaparin 40 MG/0.4 ML Syringe SUBCUT SCH (08:46)
[2020-12-06] MEDS: Albuterol 6.7 GM Inhaler INH PRN ×3 (08:57→20:32)
--- NOTE | 2020-12-06 09:01 | CR ---
Chest: Portable view of the chest was obtained. Comparison: Prior chest CT study of 12/05/20, no prior chest x-ray is available. Diffuse increased density is seen throughout both sides of the chest. Findings are fairly similar to previous chest CT. Heart size and mediastinum are within normal limits for portable technique. No acute osseous abnormality is appreciated. Impression: 1. Findings compatible with fairly severe Covid pneumonia. 2. No appreciable change is seen from prior chest CT. Diagnostic code #3
--- NOTE | 2020-12-06 09:32 | PCM.PN ---
- General Info Date of Service: 12/06/20 Admission Dx/Problem (Free Text): Admission Diagnosis/Problem Admission Diagnosis/Problem Respiratory failure, COVID-19 Pneumonia Subjective Update: The patient is a 40-year-old lady who had been admitted yesterday secondary to COVID-19 pneumonia. She has been on high flow oxygen. The patient also had a viral panel that was completed in the emergency department which showed COVID-19 PCR positive. 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 The patient says that she has been doing somewhat better today. She is still feeling weak. Functional Status: Reports: Pain Controlled, Tolerating Diet - Review of Systems General: Reports: Weakness, Fatigue, Malaise HEENT: Reports: No Symptoms Pulmonary: Reports: Shortness of Breath Cardiovascular: Reports: No Symptoms Gastrointestinal: Reports: No Symptoms Genitourinary: Reports: No Symptoms Musculoskeletal: Reports: No Symptoms Skin: Reports: No Symptoms Neurological: Reports: No Symptoms Psychiatric: Reports: No Symptoms - Patient Data Vitals - Most Recent: Last Vital Signs Temp 36.8 C 12/06/20 08:00 Pulse 85 12/06/20 08:00 Resp 24 H 12/06/20 08:00 BP 124/67 12/06/20 08:00 Pulse Ox 94 L 12/06/20 08:59 Weight - Most Recent: 141.929 kg I&O - Last 24 Hours: Intake & Output 12/05/20 12/06/20 12/06/20 22:59 06:59 14:59 Intake Total 0 1354 Output Total 800 Balance 0 554 Lab Results Last 24 Hours: Laboratory Results - last 24 hr 12/05/20 12/05/20 12/05/20 Range/Units 09:39 10:19 10:19 WBC 5.92 (3.98-10.04) K/mm3 RBC 4.13 (3.98-5.22) M/mm3 Hgb 12.7 D (11.2-15.7) gm/dl Hct 38.6 (34.1-44.9) % MCV 93.5 D (79.4-94.8) fl MCH 30.8 (25.6-32.2) pg MCHC 32.9 (32.2-35.5) g/dl RDW Std Deviation 44.3 (36.4-46.3) fL Plt Count 256 (182-369) K/mm3 MPV 10.0 (9.4-12.3) fl Neut % (Auto) 65.9 (34.0-71.1) % Lymph % (Auto) 22.1 (19.3-51.7) % Foard % (Auto) 10.0 (4.7-12.5) % Eos % (Auto) 0 L (0.7-5.8) Baso % (Auto) 0.3 (0.1-1.2) % Neut # (Auto) 3.90 (1.56-6.13) K/mm3 Lymph # (Auto) 1.31 (1.18-3.74) K/mm3 Foard # (Auto) 0.59 H (0.24-0.36) K/mm3 Eos # (Auto) 0.00 L (0.04-0.36) K/mm3 Baso # (Auto) 0.02 (0.01-0.08) K/mm3 Manual Slide Review Normal smear D-Dimer, Quantitative (0.19-0.50) mg/L Puncture Site Rt radial ABG pH 7.50 H (7.35-7.45) ABG pCO2 34.8 L (35.0-45.0) mmHg ABG pO2 55.0 L (80.0-100.0) mmHg ABG HCO3 26.8 H (22.0-26.0) meq/L ABG O2 Saturation 90.3 L (96.0-97.0) % ABG Base Excess 4.2 H (-2-2.0) Boom Test Positive O2 Delivery Device Mask Oxygen Flow Rate 10.0 Sodium 131 L D (136-145) mEq/L Potassium 3.0 L (3.5-5.1) mEq/L Chloride 92 L D (98-107) mEq/L Carbon Dioxide 30 (21-32) mEq/L Anion Gap 12.0 (5-15) BUN 16 (7-18) mg/dL Creatinine 1.3 H (0.55-1.02) mg/dL Est Cr Clr Drug Dosing TNP Estimated GFR (MDRD) 45 (>60) mL/min BUN/Creatinine Ratio 12.3 L (14-18) Glucose 117 H (70-99) mg/dL Lactic Acid (0.4-2.0) mmol/L Calcium 8.0 L (8.5-10.1) mg/dL Ferritin (8-252) ng/ml Total Bilirubin 0.6 (0.2-1.0) mg/dL AST 143 H (15-37) U/L ALT 91 H (14-59) U/L Alkaline Phosphatase 76 (46-116) U/L Troponin I < 0.017 (0.00-0.056) ng/mL C-Reactive Protein 26.4 H* (<1.0) mg/dL NT-Pro-B Natriuret Pep (0-125) pg/mL Total Protein 6.5 (6.4-8.2) g/dl Albumin 2.6 L (3.4-5.0) g/dl Globulin 3.9 gm/dL Albumin/Globulin Ratio 0.7 L (1-2) Procalcitonin ng/mL Adenovirus (PCR) (Not Detected) B. pertussis DNA (PCR) (Not Detected) B.parapertussis DNA PCR (Not Detected) C. pneumoniae DNA (PCR) (Not Detected) Coronavirus OC43 (PCR) (Not Detected) Coronavirus HKU1 (PCR) (Not Detected) Coronavirus 229E (PCR) (Not Detected) Coronavirus NL63 (PCR) (Not Detected) Human Metapneumovir PCR (Not Detected) Influenza A (RT-PCR) (Not Detected) Influenza B (RT-PCR) (Not Detected) M. pneumoniae (PCR) (Not Detected) Parainfluenza 1 (PCR) (Not Detected) Parainfluenza 2 (PCR) (Not Detected) Parainfluenza 3 (PCR) (Not Detected) Parainfluenza 4 (PCR) (Not Detected) RSV (PCR) (Not Detected) Entero/Rhino (PCR) (Not Detected) SARS-CoV-2 (PCR) (Not Detected) 12/05/20 12/05/20 12/05/20 Range/Units 10:19 10:19 10:19 WBC (3.98-10.04) K/mm3 RBC (3.98-5.22) M/mm3 Hgb (11.2-15.7) gm/dl Hct (34.1-44.9) % MCV (79.4-94.8) fl MCH (25.6-32.2) pg MCHC (32.2-35.5) g/dl RDW Std Deviation (36.4-46.3) fL Plt Count (182-369) K/mm3 MPV (9.4-12.3) fl Neut % (Auto) (34.0-71.1) % Lymph % (Auto) (19.3-51.7) % Foard % (Auto) (4.7-12.5) % Eos % (Auto) (0.7-5.8) Baso % (Auto) (0.1-1.2) % Neut # (Auto) (1.56-6.13) K/mm3 Lymph # (Auto) (1.18-3.74) K/mm3 Foard # (Auto) (0.24-0.36) K/mm3 Eos # (Auto) (0.04-0.36) K/mm3 Baso # (Auto) (0.01-0.08) K/mm3 Manual Slide Review D-Dimer, Quantitative 1.17 H (0.19-0.50) mg/L Puncture Site ABG pH (7.35-7.45) ABG pCO2 (35.0-45.0) mmHg ABG pO2 (80.0-100.0) mmHg ABG HCO3 (22.0-26.0) meq/L ABG O2 Saturation (96.0-97.0) % ABG Base Excess (-2-2.0) Boom Test O2 Delivery Device Oxygen Flow Rate Sodium (136-145) mEq/L Potassium (3.5-5.1) mEq/L Chloride (98-107) mEq/L Carbon Dioxide (21-32) mEq/L Anion Gap (5-15) BUN (7-18) mg/dL Creatinine (0.55-1.02) mg/dL Est Cr Clr Drug Dosing Estimated GFR (MDRD) (>60) mL/min BUN/Creatinine Ratio (14-18) Glucose (70-99) mg/dL Lactic Acid (0.4-2.0) mmol/L Calcium (8.5-10.1) mg/dL Ferritin (8-252) ng/ml Total Bilirubin (0.2-1.0) mg/dL AST (15-37) U/L ALT (14-59) U/L Alkaline Phosphatase (46-116) U/L Troponin I (0.00-0.056) ng/mL C-Reactive Protein (<1.0) mg/dL NT-Pro-B Natriuret Pep 120 (0-125) pg/mL Total Protein (6.4-8.2) g/dl Albumin (3.4-5.0) g/dl Globulin gm/dL Albumin/Globulin Ratio (1-2) Procalcitonin 0.43 H ng/mL Adenovirus (PCR) (Not Detected) B. pertussis DNA (PCR) (Not Detected) B.parapertussis DNA PCR (Not Detected) C. pneumoniae DNA (PCR) (Not Detected) Coronavirus OC43 (PCR) (Not Detected) Coronavirus HKU1 (PCR) (Not Detected) Coronavirus 229E (PCR) (Not Detected) Coronavirus NL63 (PCR) (Not Detected) Human Metapneumovir PCR (Not Detected) Influenza A (RT-PCR) (Not Detected) Influenza B (RT-PCR) (Not Detected) M. pneumoniae (PCR) (Not Detected) Parainfluenza 1 (PCR) (Not Detected) Parainfluenza 2 (PCR) (Not Detected) Parainfluenza 3 (PCR) (Not Detected) Parainfluenza 4 (PCR) (Not Detected) RSV (PCR) (Not Detected) Entero/Rhino (PCR) (Not Detected) SARS-CoV-2 (PCR) (Not Detected) 12/05/20 12/05/20 12/05/20 Range/Units 10:19 10:19 10:25 WBC (3.98-10.04) K/mm3 RBC (3.98-5.22) M/mm3 Hgb (11.2-15.7) gm/dl Hct (34.1-44.9) % MCV (79.4-94.8) fl MCH (25.6-32.2) pg MCHC (32.2-35.5) g/dl RDW Std Deviation (36.4-46.3) fL Plt Count (182-369) K/mm3 MPV (9.4-12.3) fl Neut % (Auto) (34.0-71.1) % Lymph % (Auto) (19.3-51.7) % Foard % (Auto) (4.7-12.5) % Eos % (Auto) (0.7-5.8) Baso % (Auto) (0.1-1.2) % Neut # (Auto) (1.56-6.13) K/mm3 Lymph # (Auto) (1.18-3.74) K/mm3 Foard # (Auto) (0.24-0.36) K/mm3 Eos # (Auto) (0.04-0.36) K/mm3 Baso # (Auto) (0.01-0.08) K/mm3 Manual Slide Review D-Dimer, Quantitative (0.19-0.50) mg/L Puncture Site ABG pH (7.35-7.45) ABG pCO2 (35.0-45.0) mmHg ABG pO2 (80.0-100.0) mmHg ABG HCO3 (22.0-26.0) meq/L ABG O2 Saturation (96.0-97.0) % ABG Base Excess (-2-2.0) Boom Test O2 Delivery Device Oxygen Flow Rate Sodium (136-145) mEq/L Potassium (3.5-5.1) mEq/L Chloride (98-107) mEq/L Carbon Dioxide (21-32) mEq/L Anion Gap (5-15) BUN (7-18) mg/dL Creatinine (0.55-1.02) mg/dL Est Cr Clr Drug Dosing Estimated GFR (MDRD) (>60) mL/min BUN/Creatinine Ratio (14-18) Glucose (70-99) mg/dL Lactic Acid 1.5 (0.4-2.0) mmol/L Calcium (8.5-10.1) mg/dL Ferritin 4038 H (8-252) ng/ml Total Bilirubin (0.2-1.0) mg/dL AST (15-37) U/L ALT (14-59) U/L Alkaline Phosphatase (46-116) U/L Troponin I (0.00-0.056) ng/mL C-Reactive Protein (<1.0) mg/dL NT-Pro-B Natriuret Pep (0-125) pg/mL Total Protein (6.4-8.2) g/dl Albumin (3.4-5.0) g/dl Globulin gm/dL Albumin/Globulin Ratio (1-2) Procalcitonin ng/mL Adenovirus (PCR) Not detected (Not Detected) B. pertussis DNA (PCR) Not detected (Not Detected) B.parapertussis DNA PCR Not detected (Not Detected) C. pneumoniae DNA (PCR) Not detected (Not Detected) Coronavirus OC43 (PCR) Not detected (Not Detected) Coronavirus HKU1 (PCR) Not detected (Not Detected) Coronavirus 229E (PCR) Not detected (Not Detected) Coronavirus NL63 (PCR) Not detected (Not Detected) Human Metapneumovir PCR Not detected (Not Detected) Influenza A (RT-PCR) Not detected (Not Detected) Influenza B (RT-PCR) Not detected (Not Detected) M. pneumoniae (PCR) Not detected (Not Detected) Parainfluenza 1 (PCR) Not detected (Not Detected) Parainfluenza 2 (PCR) Not detected (Not Detected) Parainfluenza 3 (PCR) Not detected (Not Detected) Parainfluenza 4 (PCR) Not detected (Not Detected) RSV (PCR) Not detected (Not Detected) Entero/Rhino (PCR) Not detected (Not Detected) SARS-CoV-2 (PCR) Detected H (Not Detected) 12/06/20 12/06/20 Range/Units 05:14 05:14 WBC 5.19 (3.98-10.04) K/mm3 RBC 4.18 (3.98-5.22) M/mm3 Hgb 12.8 (11.2-15.7) gm/dl Hct 39.6 (34.1-44.9) % MCV 94.7 (79.4-94.8) fl MCH 30.6 (25.6-32.2) pg MCHC 32.3 (32.2-35.5) g/dl RDW Std Deviation 44.3 (36.4-46.3) fL Plt Count 287 (182-369) K/mm3 MPV 10.8 (9.4-12.3) fl Neut % (Auto) 66.8 (34.0-71.1) % Lymph % (Auto) 18.9 L (19.3-51.7) % Foard % (Auto) 10.6 (4.7-12.5) % Eos % (Auto) 0 L (0.7-5.8) Baso % (Auto) 0.4 (0.1-1.2) % Neut # (Auto) 3.47 (1.56-6.13) K/mm3 Lymph # (Auto) 0.98 L (1.18-3.74) K/mm3 Foard # (Auto) 0.55 H (0.24-0.36) K/mm3 Eos # (Auto) 0.00 L (0.04-0.36) K/mm3 Baso # (Auto) 0.02 (0.01-0.08) K/mm3 Manual Slide Review Normal smear D-Dimer, Quantitative (0.19-0.50) mg/L Puncture Site ABG pH (7.35-7.45) ABG pCO2 (35.0-45.0) mmHg ABG pO2 (80.0-100.0) mmHg ABG HCO3 (22.0-26.0) meq/L ABG O2 Saturation (96.0-97.0) % ABG Base Excess (-2-2.0) Boom Test O2 Delivery Device Oxygen Flow Rate Sodium 140 (136-145) mEq/L Potassium 3.7 (3.5-5.1) mEq/L Chloride 103 (98-107) mEq/L Carbon Dioxide 26 (21-32) mEq/L Anion Gap 14.7 (5-15) BUN 14 (7-18) mg/dL Creatinine 0.9 (0.55-1.02) mg/dL Est Cr Clr Drug Dosing 70.32 Estimated GFR (MDRD) > 60 (>60) mL/min BUN/Creatinine Ratio 15.6 (14-18) Glucose 129 H (70-99) mg/dL Lactic Acid (0.4-2.0) mmol/L Calcium 7.7 L (8.5-10.1) mg/dL Ferritin (8-252) ng/ml Total Bilirubin 0.4 (0.2-1.0) mg/dL AST 205 H (15-37) U/L ALT 140 H (14-59) U/L Alkaline Phosphatase 92 (46-116) U/L Troponin I (0.00-0.056) ng/mL C-Reactive Protein 21.3 H* (<1.0) mg/dL NT-Pro-B Natriuret Pep (0-125) pg/mL Total Protein 6.6 (6.4-8.2) g/dl Albumin 2.5 L (3.4-5.0) g/dl Globulin 4.1 gm/dL Albumin/Globulin Ratio 0.6 L (1-2) Procalcitonin ng/mL Adenovirus (PCR) (Not Detected) B. pertussis DNA (PCR) (Not Detected) B.parapertussis DNA PCR (Not Detected) C. pneumoniae DNA (PCR) (Not Detected) Coronavirus OC43 (PCR) (Not Detected) Coronavirus HKU1 (PCR) (Not Detected) Coronavirus 229E (PCR) (Not Detected) Coronavirus NL63 (PCR) (Not Detected) Human Metapneumovir PCR (Not Detected) Influenza A (RT-PCR) (Not Detected) Influenza B (RT-PCR) (Not Detected) M. pneumoniae (PCR) (Not Detected) Parainfluenza 1 (PCR) (Not Detected) Parainfluenza 2 (PCR) (Not Detected) Parainfluenza 3 (PCR) (Not Detected) Parainfluenza 4 (PCR) (Not Detected) RSV (PCR) (Not Detected) Entero/Rhino (PCR) (Not Detected) SARS-CoV-2 (PCR) (Not Detected) Med Orders - Current: Current Medications Acetaminophen (Acetaminophen 325 Mg Tab) 650 mg PO Q4H PRN PRN Reason: Pain (Mild 1-3)/fever Albuterol (Albuterol 6.7 Gm Inhaler) 0 gm INH Q2H PRN PRN Reason: SOB/WHEEZING Last Admin: 12/06/20 08:57 Dose: 2 puff Documented by: Dexamethasone (Dexamethasone 4 Mg/Ml Sdv) 6 mg IV DAILY [facility] Docusate Sodium (Docusate Sodium 100 Mg Cap) 100 mg PO BID PRN PRN Reason: Constipation Duloxetine HCl (Duloxetine 30 Mg Cap) 60 mg PO BID [facility] Last Admin: 12/06/20 08:45 Dose: 60 mg Documented by: Enoxaparin Sodium (Enoxaparin 40 Mg/0.4 Ml Syringe) 40 mg SUBCUT DAILY [facility] Last Admin: 12/06/20 08:46 Dose: 40 mg Documented by: Folic Acid (Folic Acid 1 Mg Tab) 1 mg PO DAILY [facility] Last Admin: 12/06/20 08:45 Dose: 1 mg Documented by: Hydromorphone HCl (Hydromorphone 0.5 Mg/0.5 Ml Syringe) 0.25 mg IVPUSH Q2H PRN PRN Reason: Pain (severe 7-10) Hydroxychloroquine Sulfate (Hydroxychloroquine 200 Mg Tab) 200 mg PO BID [facility] Sodium Chloride (Normal Saline) 1,000 mls @ 75 mls/hr IV ASDIRECTED [facility] Last Admin: 12/06/20 06:00 Dose: 75 mls/hr Documented by: Azithromycin 500 mg/ Sodium (Chloride) 250 mls @ 250 mls/hr IV Q24H [facility] Last Admin: 12/05/20 15:21 Dose: 250 mls/hr Documented by: Remdesivir 100 mg/ Sodium (Chloride) 100 mls @ 100 mls/hr IV Q24H [facility] Stop: 12/09/20 12:59 Ketorolac Tromethamine (Ketorolac 30 Mg/Ml Sdv) 30 mg IVPUSH Q6H PRN PRN Reason: Pain (moderate 4-6) Levothyroxine Sodium (Levothyroxine 50 Mcg Tab) 50 mcg PO ACBREAKFAST [facility] Last Admin: 12/06/20 05:52 Dose: 50 mcg Documented by: Ondansetron HCl (Ondansetron 4 Mg Tab.Dis) 4 mg PO Q4H PRN PRN Reason: nausea, able to take PO Sodium Chloride (Sodium Chloride 0.9% 10 Ml Syringe) 10 ml FLUSH ONETIME PRN PRN Reason: IV FLUSH Last Admin: 12/05/20 10:14 Dose: 10 ml Documented by: Discontinued Medications Albuterol (Albuterol 6.7 Gm Inhaler) 0 gm INH Q2H ONE Stop: 12/05/20 09:49 Last Admin: 12/05/20 10:27 Dose: 2 inhalation Documented by: Albuterol (Albuterol 0.083% 2.5 Mg/3 Ml Neb Soln) 2.5 mg NEB Q2H PRN PRN Reason: Shortness Of Breath/wheezing Dexamethasone (Dexamethasone 10 Mg/Ml Sdv) 10 mg IVPUSH ONETIME ONE Stop: 12/05/20 11:12 Last Admin: 12/05/20 11:56 Dose: 10 mg Documented by: Hydroxychloroquine Sulfate (Hydroxychloroquine 200 Mg Tab) 200 mg PO BID [facility] Last Admin: 12/05/20 20:05 Dose: 200 mg Documented by: Sodium Chloride (Normal Saline) 1,000 mls @ 500 mls/hr IV ONETIME ONE Stop: 12/05/20 11:47 Last Admin: 12/05/20 10:29 Dose: 500 mls/hr Documented by: Sodium Chloride (Normal Saline) 100 mls @ 75 mls/hr IV ASDIRECTED [facility] Stop: 12/05/20 14:00 Last Admin: 12/05/20 10:14 Dose: 75 mls/hr Documented by: Remdesivir 200 mg/ Sodium (Chloride) 250 mls @ 250 mls/hr IV ONETIME ONE Stop: 12/05/20 12:59 Last Admin: 12/05/20 11:58 Dose: 250 mls/hr Documented by: Potassium Chloride 10 meq/ (Premix) 100 mls @ 100 mls/hr IV Q1H [facility] Stop: 12/05/20 18:59 Last Admin: 12/05/20 20:03 Dose: 100 mls/hr Documented by: Iopamidol (Iopamidol 755 Mg/Ml 100 Ml Bottle) 100 ml IVPUSH ONETIME ONE Stop: 12/05/20 09:50 Last Admin: 12/05/20 10:14 Dose: 100 ml Documented by: Potassium Chloride (Potassium Chloride 20 Meq Tab.Er) 20 meq PO ONETIME ONE Stop: 12/05/20 13:18 Last Admin: 12/05/20 15:20 Dose: 20 meq Documented by: - Exam Quality Assessment: Supplemental Oxygen, DVT Prophylaxis General: Alert, Oriented, Cooperative, Other (Morbidly obese) HEENT: Pupils Equal, Pupils Reactive, EOMI, Mucous Membr. Moist/[place] Neck: Supple, Trachea Midline Lungs: Decreased Breath Sounds, Crackles, Rales (Scattered throughout) Cardiovascular: Regular Rate, Regular Rhythm GI/Abdominal Exam: Normal Bowel Sounds, Soft, No Distention (Female) Exam: Deferred Back Exam: Normal Inspection, Full Range of Motion Extremities: Normal Inspection, Normal Range of Motion, No Pedal Edema Skin: Warm, Dry, Intact Neurological: No New Focal Deficit Psy/Mental Status: Alert, Normal Affect - Patient Data Lab Results Last 24 hrs: Laboratory Results - last 24 hr 12/05/20 12/05/20 12/05/20 Range/Units 09:39 10:19 10:19 WBC 5.92 (3.98-10.04) K/mm3 RBC 4.13 (3.98-5.22) M/mm3 Hgb 12.7 D (11.2-15.7) gm/dl Hct 38.6 (34.1-44.9) % MCV 93.5 D (79.4-94.8) fl MCH 30.8 (25.6-32.2) pg MCHC 32.9 (32.2-35.5) g/dl RDW Std Deviation 44.3 (36.4-46.3) fL Plt Count 256 (182-369) K/mm3 MPV 10.0 (9.4-12.3) fl Neut % (Auto) 65.9 (34.0-71.1) % Lymph % (Auto) 22.1 (19.3-51.7) % Foard % (Auto) 10.0 (4.7-12.5) % Eos % (Auto) 0 L (0.7-5.8) Baso % (Auto) 0.3 (0.1-1.2) % Neut # (Auto) 3.90 (1.56-6.13) K/mm3 Lymph # (Auto) 1.31 (1.18-3.74) K/mm3 Foard # (Auto) 0.59 H (0.24-0.36) K/mm3 Eos # (Auto) 0.00 L (0.04-0.36) K/mm3 Baso # (Auto) 0.02 (0.01-0.08) K/mm3 Manual Slide Review Normal smear D-Dimer, Quantitative (0.19-0.50) mg/L Puncture Site Rt radial ABG pH 7.50 H (7.35-7.45) ABG pCO2 34.8 L (35.0-45.0) mmHg ABG pO2 55.0 L (80.0-100.0) mmHg ABG HCO3 26.8 H (22.0-26.0) meq/L ABG O2 Saturation 90.3 L (96.0-97.0) % ABG Base Excess 4.2 H (-2-2.0) Boom Test Positive O2 Delivery Device Mask Oxygen Flow Rate 10.0 Sodium 131 L D (136-145) mEq/L Potassium 3.0 L (3.5-5.1) mEq/L Chloride 92 L D (98-107) mEq/L Carbon Dioxide 30 (21-32) mEq/L Anion Gap 12.0 (5-15) BUN 16 (7-18) mg/dL Creatinine 1.3 H (0.55-1.02) mg/dL Est Cr Clr Drug Dosing TNP Estimated GFR (MDRD) 45 (>60) mL/min BUN/Creatinine Ratio 12.3 L (14-18) Glucose 117 H (70-99) mg/dL Lactic Acid (0.4-2.0) mmol/L Calcium 8.0 L (8.5-10.1) mg/dL Ferritin (8-252) ng/ml Total Bilirubin 0.6 (0.2-1.0) mg/dL AST 143 H (15-37) U/L ALT 91 H (14-59) U/L Alkaline Phosphatase 76 (46-116) U/L Troponin I < 0.017 (0.00-0.056) ng/mL C-Reactive Protein 26.4 H* (<1.0) mg/dL NT-Pro-B Natriuret Pep (0-125) pg/mL Total Protein 6.5 (6.4-8.2) g/dl Albumin 2.6 L (3.4-5.0) g/dl Globulin 3.9 gm/dL Albumin/Globulin Ratio 0.7 L (1-2) Procalcitonin ng/mL Adenovirus (PCR) (Not Detected) B. pertussis DNA (PCR) (Not Detected) B.parapertussis DNA PCR (Not Detected) C. pneumoniae DNA (PCR) (Not Detected) Coronavirus OC43 (PCR) (Not Detected) Coronavirus HKU1 (PCR) (Not Detected) Coronavirus 229E (PCR) (Not Detected) Coronavirus NL63 (PCR) (Not Detected) Human Metapneumovir PCR (Not Detected) Influenza A (RT-PCR) (Not Detected) Influenza B (RT-PCR) (Not Detected) M. pneumoniae (PCR) (Not Detected) Parainfluenza 1 (PCR) (Not Detected) Parainfluenza 2 (PCR) (Not Detected) Parainfluenza 3 (PCR) (Not Detected) Parainfluenza 4 (PCR) (Not Detected) RSV (PCR) (Not Detected) Entero/Rhino (PCR) (Not Detected) SARS-CoV-2 (PCR) (Not Detected) 12/05/20 12/05/20 12/05/20 Range/Units 10:19 10:19 10:19 WBC (3.98-10.04) K/mm3 RBC (3.98-5.22) M/mm3 Hgb (11.2-15.7) gm/dl Hct (34.1-44.9) % MCV (79.4-94.8) fl MCH (25.6-32.2) pg MCHC (32.2-35.5) g/dl RDW Std Deviation (36.4-46.3) fL Plt Count (182-369) K/mm3 MPV (9.4-12.3) fl Neut % (Auto) (34.0-71.1) % Lymph % (Auto) (19.3-51.7) % Foard % (Auto) (4.7-12.5) % Eos % (Auto) (0.7-5.8) Baso % (Auto) (0.1-1.2) % Neut # (Auto) (1.56-6.13) K/mm3 Lymph # (Auto) (1.18-3.74) K/mm3 Foard # (Auto) (0.24-0.36) K/mm3 Eos # (Auto) (0.04-0.36) K/mm3 Baso # (Auto) (0.01-0.08) K/mm3 Manual Slide Review D-Dimer, Quantitative 1.17 H (0.19-0.50) mg/L Puncture Site ABG pH (7.35-7.45) ABG pCO2 (35.0-45.0) mmHg ABG pO2 (80.0-100.0) mmHg ABG HCO3 (22.0-26.0) meq/L ABG O2 Saturation (96.0-97.0) % ABG Base Excess (-2-2.0) Boom Test O2 Delivery Device Oxygen Flow Rate Sodium (136-145) mEq/L Potassium (3.5-5.1) mEq/L Chloride (98-107) mEq/L Carbon Dioxide (21-32) mEq/L Anion Gap (5-15) BUN (7-18) mg/dL Creatinine (0.55-1.02) mg/dL Est Cr Clr Drug Dosing Estimated GFR (MDRD) (>60) mL/min BUN/Creatinine Ratio (14-18) Glucose (70-99) mg/dL Lactic Acid (0.4-2.0) mmol/L Calcium (8.5-10.1) mg/dL Ferritin (8-252) ng/ml Total Bilirubin (0.2-1.0) mg/dL AST (15-37) U/L ALT (14-59) U/L Alkaline Phosphatase (46-116) U/L Troponin I (0.00-0.056) ng/mL C-Reactive Protein (<1.0) mg/dL NT-Pro-B Natriuret Pep 120 (0-125) pg/mL Total Protein (6.4-8.2) g/dl Albumin (3.4-5.0) g/dl Globulin gm/dL Albumin/Globulin Ratio (1-2) Procalcitonin 0.43 H ng/mL Adenovirus (PCR) (Not Detected) B. pertussis DNA (PCR) (Not Detected) B.parapertussis DNA PCR (Not Detected) C. pneumoniae DNA (PCR) (Not Detected) Coronavirus OC43 (PCR) (Not Detected) Coronavirus HKU1 (PCR) (Not Detected) Coronavirus 229E (PCR) (Not Detected) Coronavirus NL63 (PCR) (Not Detected) Human Metapneumovir PCR (Not Detected) Influenza A (RT-PCR) (Not Detected) Influenza B (RT-PCR) (Not Detected) M. pneumoniae (PCR) (Not Detected) Parainfluenza 1 (PCR) (Not Detected) Parainfluenza 2 (PCR) (Not Detected) Parainfluenza 3 (PCR) (Not Detected) Parainfluenza 4 (PCR) (Not Detected) RSV (PCR) (Not Detected) Entero/Rhino (PCR) (Not Detected) SARS-CoV-2 (PCR) (Not Detected) 05/12/05/20 12/05/20 Range/Units 10:19 10:19 10:25 WBC (3.98-10.04) K/mm3 RBC (3.98-5.22) M/mm3 Hgb (11.2-15.7) gm/dl Hct (34.1-44.9) % MCV (79.4-94.8) fl MCH (25.6-32.2) pg MCHC (32.2-35.5) g/dl RDW Std Deviation (36.4-46.3) fL Plt Count (182-369) K/mm3 MPV (9.4-12.3) fl Neut % (Auto) (34.0-71.1) % Lymph % (Auto) (19.3-51.7) % Foard % (Auto) (4.7-12.5) % Eos % (Auto) (0.7-5.8) Baso % (Auto) (0.1-1.2) % Neut # (Auto) (1.56-6.13) K/mm3 Lymph # (Auto) (1.18-3.74) K/mm3 Foard # (Auto) (0.24-0.36) K/mm3 Eos # (Auto) (0.04-0.36) K/mm3 Baso # (Auto) (0.01-0.08) K/mm3 Manual Slide Review D-Dimer, Quantitative (0.19-0.50) mg/L Puncture Site ABG pH (7.35-7.45) ABG pCO2 (35.0-45.0) mmHg ABG pO2 (80.0-100.0) mmHg ABG HCO3 (22.0-26.0) meq/L ABG O2 Saturation (96.0-97.0) % ABG Base Excess (-2-2.0) Boom Test O2 Delivery Device Oxygen Flow Rate Sodium (136-145) mEq/L Potassium (3.5-5.1) mEq/L Chloride (98-107) mEq/L Carbon Dioxide (21-32) mEq/L Anion Gap (5-15) BUN (7-18) mg/dL Creatinine (0.55-1.02) mg/dL Est Cr Clr Drug Dosing Estimated GFR (MDRD) (>60) mL/min BUN/Creatinine Ratio (14-18) Glucose (70-99) mg/dL Lactic Acid 1.5 (0.4-2.0) mmol/L Calcium (8.5-10.1) mg/dL Ferritin 4038 H (8-252) ng/ml Total Bilirubin (0.2-1.0) mg/dL AST (15-37) U/L ALT (14-59) U/L Alkaline Phosphatase (46-116) U/L Troponin I (0.00-0.056) ng/mL C-Reactive Protein (<1.0) mg/dL NT-Pro-B Natriuret Pep (0-125) pg/mL Total Protein (6.4-8.2) g/dl Albumin (3.4-5.0) g/dl Globulin gm/dL Albumin/Globulin Ratio (1-2) Procalcitonin ng/mL Adenovirus (PCR) Not detected (Not Detected) B. pertussis DNA (PCR) Not detected (Not Detected) B.parapertussis DNA PCR Not detected (Not Detected) C. pneumoniae DNA (PCR) Not detected (Not Detected) Coronavirus OC43 (PCR) Not detected (Not Detected) Coronavirus HKU1 (PCR) Not detected (Not Detected) Coronavirus 229E (PCR) Not detected (Not Detected) Coronavirus NL63 (PCR) Not detected (Not Detected) Human Metapneumovir PCR Not detected (Not Detected) Influenza A (RT-PCR) Not detected (Not Detected) Influenza B (RT-PCR) Not detected (Not Detected) M. pneumoniae (PCR) Not detected (Not Detected) Parainfluenza 1 (PCR) Not detected (Not Detected) Parainfluenza 2 (PCR) Not detected (Not Detected) Parainfluenza 3 (PCR) Not detected (Not Detected) Parainfluenza 4 (PCR) Not detected (Not Detected) RSV (PCR) Not detected (Not Detected) Entero/Rhino (PCR) Not detected (Not Detected) SARS-CoV-2 (PCR) Detected H (Not Detected) 12/06/20 12/06/20 Range/Units 05:14 05:14 WBC 5.19 (3.98-10.04) K/mm3 RBC 4.18 (3.98-5.22) M/mm3 Hgb 12.8 (11.2-15.7) gm/dl Hct 39.6 (34.1-44.9) % MCV 94.7 (79.4-94.8) fl MCH 30.6 (25.6-32.2) pg MCHC 32.3 (32.2-35.5) g/dl RDW Std Deviation 44.3 (36.4-46.3) fL Plt Count 287 (182-369) K/mm3 MPV 10.8 (9.4-12.3) fl Neut % (Auto) 66.8 (34.0-71.1) % Lymph % (Auto) 18.9 L (19.3-51.7) % Foard % (Auto) 10.6 (4.7-12.5) % Eos % (Auto) 0 L (0.7-5.8) Baso % (Auto) 0.4 (0.1-1.2) % Neut # (Auto) 3.47 (1.56-6.13) K/mm3 Lymph # (Auto) 0.98 L (1.18-3.74) K/mm3 Foard # (Auto) 0.55 H (0.24-0.36) K/mm3 Eos # (Auto) 0.00 L (0.04-0.36) K/mm3 Baso # (Auto) 0.02 (0.01-0.08) K/mm3 Manual Slide Review Normal smear D-Dimer, Quantitative (0.19-0.50) mg/L Puncture Site ABG pH (7.35-7.45) ABG pCO2 (35.0-45.0) mmHg ABG pO2 (80.0-100.0) mmHg ABG HCO3 (22.0-26.0) meq/L ABG O2 Saturation (96.0-97.0) % ABG Base Excess (-2-2.0) Boom Test O2 Delivery Device Oxygen Flow Rate Sodium 140 (136-145) mEq/L Potassium 3.7 (3.5-5.1) mEq/L Chloride 103 (98-107) mEq/L Carbon Dioxide 26 (21-32) mEq/L Anion Gap 14.7 (5-15) BUN 14 (7-18) mg/dL Creatinine 0.9 (0.55-1.02) mg/dL Est Cr Clr Drug Dosing 70.32 Estimated GFR (MDRD) > 60 (>60) mL/min BUN/Creatinine Ratio 15.6 (14-18) Glucose 129 H (70-99) mg/dL Lactic Acid (0.4-2.0) mmol/L Calcium 7.7 L (8.5-10.1) mg/dL Ferritin (8-252) ng/ml Total Bilirubin 0.4 (0.2-1.0) mg/dL AST 205 H (15-37) U/L ALT 140 H (14-59) U/L Alkaline Phosphatase 92 (46-116) U/L Troponin I (0.00-0.056) ng/mL C-Reactive Protein 21.3 H* (<1.0) mg/dL NT-Pro-B Natriuret Pep (0-125) pg/mL Total Protein 6.6 (6.4-8.2) g/dl Albumin 2.5 L (3.4-5.0) g/dl Globulin 4.1 gm/dL Albumin/Globulin Ratio 0.6 L (1-2) Procalcitonin ng/mL Adenovirus (PCR) (Not Detected) B. pertussis DNA (PCR) (Not Detected) B.parapertussis DNA PCR (Not Detected) C. pneumoniae DNA (PCR) (Not Detected) Coronavirus OC43 (PCR) (Not Detected) Coronavirus HKU1 (PCR) (Not Detected) Coronavirus 229E (PCR) (Not Detected) Coronavirus NL63 (PCR) (Not Detected) Human Metapneumovir PCR (Not Detected) Influenza A (RT-PCR) (Not Detected) Influenza B (RT-PCR) (Not Detected) M. pneumoniae (PCR) (Not Detected) Parainfluenza 1 (PCR) (Not Detected) Parainfluenza 2 (PCR) (Not Detected) Parainfluenza 3 (PCR) (Not Detected) Parainfluenza 4 (PCR) (Not Detected) RSV (PCR) (Not Detected) Entero/Rhino (PCR) (Not Detected) SARS-CoV-2 (PCR) (Not Detected) Result Diagrams: 12/06/20 05:14 12/06/20 05:14 Sepsis Event Note - Evaluation Sepsis Screening Result: No Definite Risk - Focused Exam Vital Signs: Vital Signs Temp Pulse Resp BP Pulse Ox Pulse Ox 12/06/20 08:59 94 L 12/06/20 08:00 36.8 C 85 24 H 124/67 97 12/06/20 03:55 36.4 C 83 20 102/59 L 95 12/06/20 00:53 36.6 C 89 20 139/61 90 L - Problem List & Annotations (1) Acute respiratory failure SNOMED Code(s): 30346980 Code(s): J96.00 - ACUTE RESPIRATORY FAILURE, UNSP W HYPOXIA OR HYPERCAPNIA Status: Acute Priority: High Current Visit: Yes Qualifiers: Respiratory failure complication: hypoxia Qualified Code(s): J96.01 - Acute respiratory failure with hypoxia (2) Pneumonia due to COVID-19 virus SNOMED Code(s): 140412108319929158 Code(s): U07.1 - COVID-19; J12.82 - PNEUMONIA DUE TO CORONAVIRUS DISEASE 2019 Status: Acute Priority: High Current Visit: Yes (3) Hypoxia SNOMED Code(s): 463986364 Code(s): R09.02 - HYPOXEMIA Status: Acute Current Visit: Yes (4) Connective tissue disease, undifferentiated SNOMED Code(s): 468576263 Code(s): M35.9 - SYSTEMIC INVOLVEMENT OF CONNECTIVE TISSUE, UNSPECIFIED Status: Chronic Priority: High Current Visit: Yes (5) Hypokalemia due to excessive gastrointestinal loss of potassium SNOMED Code(s): 17377511 Code(s): E87.6 - HYPOKALEMIA Status: Acute Priority: High Current Visit: Yes - Problem List Review Problem List Initiated/Reviewed/Updated: Yes - My Orders Last 24 Hours: My Active Orders 12/05/20 12:17 Patient Status [ADT] Routine Oxygen Therapy [RC] PRN Up ad Marguerite [RC] ASDIRECTED VTE/DVT Education [RC] PER UNIT ROUTINE Respiratory Care Assess and Treatment [CONS] Routine Acetaminophen [TylenoL] 650 mg PO Q4H PRN Docusate Sodium [Colace] 100 mg PO BID PRN HYDROmorphone [Dilaudid] 0.25 mg IVPUSH Q2H PRN Ketorolac [Toradol] 30 mg IVPUSH Q6H PRN Ondansetron [Zofran ODT] 4 mg PO Q4H PRN Resuscitation Status Routine 12/05/20 12:19 Pulse Oximetry [RC] CONTINUOUS 12/05/20 12:21 RT Aerosol Therapy [RC] ASDIRECTED 12/05/20 12:30 Sodium Chloride 0.9% [Normal Saline] 1,000 ml IV ASDIRECTED 12/05/20 13:30 Enoxaparin [Lovenox] 40 mg SUBCUT DAILY 12/05/20 14:00 Azithromycin [Zithromax] 500 mg Sodium Chloride 0.9% [Normal Saline (AdvBag)] 250 ml IV Q24H 12/05/20 Dinner Regular Diet [DIET] 12/05/20 21:00 DULoxetine [Cymbalta] 60 mg PO BID 12/06/20 06:00 Levothyroxine [Synthroid] 50 mcg PO ACBREAKFAST 12/06/20 07:39 Chest Physiotherapy [RT Chest Physiotherapy] [RC] ASDIRECTED RT Incentive Spirometry [RC] ASDIRECTED 12/06/20 07:43 RT Post Treatment Assessment [RC] Click to Edit RT Pre-Treatment Assessment [RC] Click to Edit Albuterol [Proventil HFA] See Dose Instructions INH Q2H PRN 12/06/20 09:00 Folic Acid 1 mg PO DAILY Hydroxychloroquine [Plaquenil] 200 mg PO BID dexAMETHasone [Decadron] 6 mg IV DAILY 12/06/20 12:00 Remdesivir 100 mg Sodium Chloride 0.9% [Normal Saline] 100 ml IV Q24H - Assessment Assessment:: The patient is a 40-year-old lady who had a chest x-ray this morning which shows "rather severe" COVID-19 pneumonia as per radiology. I have decided to initiate remdesivir in addition to azithromycin and steroids. The patient's Plaquenil has been discontinued temporarily as there would be a drug drug interaction with remdesivir. The patient's oxygen will be continued to keep her saturations around 92%. She has been encouraged to ambulate. The patient's CRP has also been markedly elevated although is trending downward. The patient will have rep eat laboratory studies and repeat CRP. She is currently on Lovenox at 40 mg subcutaneously daily for DVT prophylaxis this will be continued. The patient should at least have 4 more days of remdesivir prior to discharge. The patient should be appropriate for discharge in 4 to 5 days. - Plan Plan:: The patient is a 40-year-old lady who has been admitted to acute inpatient hospitalization primarily due to acute respiratory failure. The patient has been ordered to be on oxygen to keep her saturations around 92%. She does have pneumonia that has been associated with COVID-19. The patient has been placed on a azithromycin 500 mg IV on a daily basis along with dexamethasone. I do not feel that the patient would be a good candidate for remdesivir due to her having first symptoms at the beginning of the month. 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 The patient will be maintained on these and I have also ordered that the patient also continue with folic acid 1 mg p.o. daily. The patient will have regular diet as tolerated. She has been encouraged to ambulate. She is also been ordered to have Lovenox 40 mg subcutaneously daily for DVT prophylaxis. Repeat laboratory studies have been ordered. I have also ordered that the patient have replacement of her potassium.
[2020-12-06] MEDS: Dexamethasone 4 MG/ML SDV IV SCH (09:52)
[2020-12-06] MEDS: REMDESIVIR 100 MG in Sodium Chloride 0.9% 100 ML IV SCH (12:23)
[2020-12-06] MEDS: Azithromycin 500 MG in Sodium Chloride 0.9% 250 ML IV SCH (14:44)
[2020-12-07] MEDS: Levothyroxine 50 MCG Tab PO SCH (05:52)
[2020-12-07] MEDS: Albuterol 6.7 GM Inhaler INH PRN ×2 (07:52→13:46)
--- NOTE | 2020-12-07 08:01 | PCM.PN ---
- General Info Date of Service: 12/07/20 Admission Dx/Problem (Free Text): Admission Diagnosis/Problem Admission Diagnosis/Problem Respiratory failure, COVID-19 Pneumonia Subjective Update: The patient is a 40-year-old lady who was admitted to acute hospitalization s econdary to COVID-19 pneumonia. The patient had been hypoxic and she had required high flow oxygen via nasal cannula. Chest x-ray yesterday showed severe patchy densities consistent with Covid pneumonia. The patient today says that she is doing better. She is breathing somewhat better. She is having a nonproductive cough. The patient has been tolerating her diet. She has denied any pain. Functional Status: Reports: Pain Controlled, Tolerating Diet, Incentive Zeferino metry - Review of Systems General: Reports: Weakness, Fatigue HEENT: Reports: No Symptoms Pulmonary: Reports: Shortness of Breath, Cough. Denies: Sputum Cardiovascular: Reports: No Symptoms, Chest Pain Gastrointestinal: Reports: No Symptoms Genitourinary: Reports: No Symptoms Musculoskeletal: Reports: Back Pain Skin: Reports: No Symptoms Neurological: Reports: No Symptoms Psychiatric: Reports: No Symptoms - Patient Data Vitals - Most Recent: Last Vital Signs Temp 36.6 C 12/07/20 05:54 Pulse 83 12/07/20 05:54 Resp 22 H 12/07/20 05:54 BP 120/60 12/07/20 05:54 Pulse Ox 97 12/07/20 07:53 Weight - Most Recent: 142.473 kg I&O - Last 24 Hours: Intake & Output 12/06/20 12/07/20 12/07/20 22:59 06:59 14:59 Intake Total 1515 300 Output Total 600 900 Balance 915 -600 Lab Results Last 24 Hours: Laboratory Results - last 24 hr 12/07/20 12/07/20 Range/Units 06:19 06:19 WBC 8.52 (3.98-10.04) K/mm3 RBC 4.16 (3.98-5.22) M/mm3 Hgb 12.8 (11.2-15.7) gm/dl Hct 39.9 (34.1-44.9) % MCV 95.9 H (79.4-94.8) fl MCH 30.8 (25.6-32.2) pg MCHC 32.1 L (32.2-35.5) g/dl RDW Std Deviation 45.6 (36.4-46.3) fL Plt Count 348 (182-369) K/mm3 MPV 10.2 (9.4-12.3) fl Neut % (Auto) 74.3 H (34.0-71.1) % Lymph % (Auto) 12.6 L (19.3-51.7) % Mcleod % (Auto) 9.9 (4.7-12.5) % Eos % (Auto) 0 L (0.7-5.8) Baso % (Auto) 0.6 (0.1-1.2) % Neut # (Auto) 6.34 H (1.56-6.13) K/mm3 Lymph # (Auto) 1.07 L (1.18-3.74) K/mm3 Mcleod # (Auto) 0.84 H (0.24-0.36) K/mm3 Eos # (Auto) 0.00 L (0.04-0.36) K/mm3 Baso # (Auto) 0.05 (0.01-0.08) K/mm3 Manual Slide Review Normal smear Sodium 141 (136-145) mEq/L Potassium 3.6 (3.5-5.1) mEq/L Chloride 106 (98-107) mEq/L Carbon Dioxide 27 (21-32) mEq/L Anion Gap 11.6 (5-15) BUN 15 (7-18) mg/dL Creatinine 0.9 (0.55-1.02) mg/dL Est Cr Clr Drug Dosing 70.32 mL/min Estimated GFR (MDRD) > 60 (>60) mL/min BUN/Creatinine Ratio 16.7 (14-18) Glucose 141 H (70-99) mg/dL Calcium 7.8 L (8.5-10.1) mg/dL Magnesium 2.4 (1.8-2.4) mg/dL Total Bilirubin 0.5 (0.2-1.0) mg/dL AST 92 H (15-37) U/L ALT 103 H (14-59) U/L Alkaline Phosphatase 86 (46-116) U/L C-Reactive Protein 9.5 H* (<1.0) mg/dL Total Protein 6.0 L (6.4-8.2) g/dl Albumin 2.4 L (3.4-5.0) g/dl Globulin 3.6 gm/dL Albumin/Globulin Ratio 0.7 L (1-2) Med Orders - Current: Current Medications Acetaminophen (Acetaminophen 325 Mg Tab) 650 mg PO Q4H PRN PRN Reason: Pain (Mild 1-3)/fever Albuterol (Albuterol 6.7 Gm Inhaler) 0 gm INH Q2H PRN PRN Reason: SOB/WHEEZING Last Admin: 12/07/20 07:52 Dose: 2 puff Documented by: Dexamethasone (Dexamethasone 4 Mg/Ml Sdv) 6 mg IV DAILY [facility] Last Admin: 12/06/20 09:52 Dose: 6 mg Documented by: Docusate Sodium (Docusate Sodium 100 Mg Cap) 100 mg PO BID PRN PRN Reason: Constipation Duloxetine HCl (Duloxetine 30 Mg Cap) 60 mg PO BID [facility] Last Admin: 12/06/20 20:36 Dose: 60 mg Documented by: Enoxaparin Sodium (Enoxaparin 40 Mg/0.4 Ml Syringe) 40 mg SUBCUT DAILY [facility] Last Admin: 12/06/20 08:46 Dose: 40 mg Documented by: Folic Acid (Folic Acid 1 Mg Tab) 1 mg PO DAILY [facility] Last Admin: 12/06/20 08:45 Dose: 1 mg Documented by: Hydromorphone HCl (Hydromorphone 0.5 Mg/0.5 Ml Syringe) 0.25 mg IVPUSH Q2H PRN PRN Reason: Pain (severe 7-10) Sodium Chloride (Normal Saline) 1,000 mls @ 75 mls/hr IV ASDIRECTED [facility] Last Admin: 12/06/20 19:23 Dose: 75 mls/hr Documented by: Azithromycin 500 mg/ Sodium (Chloride) 250 mls @ 250 mls/hr IV Q24H [facility] Last Admin: 12/06/20 14:44 Dose: 250 mls/hr Documented by: Remdesivir 100 mg/ Sodium (Chloride) 100 mls @ 100 mls/hr IV Q24H [facility] Stop: 12/09/20 12:59 Last Admin: 12/06/20 12:23 Dose: 100 mls/hr Documented by: Ketorolac Tromethamine (Ketorolac 30 Mg/Ml Sdv) 30 mg IVPUSH Q6H PRN PRN Reason: Pain (moderate 4-6) Levothyroxine Sodium (Levothyroxine 50 Mcg Tab) 50 mcg PO ACBREAKFAST IS[facility] Last Admin: 12/07/20 05:52 Dose: 50 mcg Documented by: Ondansetron HCl (Ondansetron 4 Mg Tab.Dis) 4 mg PO Q4H PRN PRN Reason: nausea, able to take PO Sodium Chloride (Sodium Chloride 0.9% 10 Ml Syringe) 10 ml FLUSH ONETIME PRN PRN Reason: IV FLUSH Last Admin: 12/05/20 10:14 Dose: 10 ml Documented by: Discontinued Medications Albuterol (Albuterol 6.7 Gm Inhaler) 0 gm INH Q2H ONE Stop: 12/05/20 09:49 Last Admin: 12/05/20 10:27 Dose: 2 inhalation Documented by: Albuterol (Albuterol 0.083% 2.5 Mg/3 Ml Neb Soln) 2.5 mg NEB Q2H PRN PRN Reason: Shortness Of Breath/wheezing Dexamethasone (Dexamethasone 10 Mg/Ml Sdv) 10 mg IVPUSH ONETIME ONE Stop: 12/05/20 11:12 Last Admin: 12/05/20 11:56 Dose: 10 mg Documented by: Hydroxychloroquine Sulfate (Hydroxychloroquine 200 Mg Tab) 200 mg PO BID [facility] Last Admin: 12/05/20 20:05 Dose: 200 mg Documented by: Hydroxychloroquine Sulfate (Hydroxychloroquine 200 Mg Tab) 200 mg PO BID [facility] Sodium Chloride (Normal Saline) 1,000 mls @ 500 mls/hr IV ONETIME ONE Stop: 12/05/20 11:47 Last Admin: 12/05/20 10:29 Dose: 500 mls/hr Documented by: Sodium Chloride (Normal Saline) 100 mls @ 75 mls/hr IV ASDIRECTED [facility] Stop: 12/05/20 14:00 Last Admin: 12/05/20 10:14 Dose: 75 mls/hr Documented by: Remdesivir 200 mg/ Sodium (Chloride) 250 mls @ 250 mls/hr IV ONETIME ONE Stop: 12/05/20 12:59 Last Admin: 12/05/20 11:58 Dose: 250 mls/hr Documented by: Potassium Chloride 10 meq/ (Premix) 100 mls @ 100 mls/hr IV Q1H [facility] Stop: 12/05/20 18:59 Last Admin: 12/05/20 20:03 Dose: 100 mls/hr Documented by: Iopamidol (Iopamidol 755 Mg/Ml 100 Ml Bottle) 100 ml IVPUSH ONETIME ONE Stop: 12/05/20 09:50 Last Admin: 12/05/20 10:14 Dose: 100 ml Documented by: Potassium Chloride (Potassium Chloride 20 Meq Tab.Er) 20 meq PO ONETIME ONE Stop: 12/05/20 13:18 Last Admin: 12/05/20 15:20 Dose: 20 meq Documented by: - Exam Quality Assessment: Supplemental Oxygen, DVT Prophylaxis General: Alert, Oriented, Cooperative, No Acute Distress HEENT: Pupils Equal, Pupils Reactive, EOMI, Mucous Membr. Moist/Shedd Neck: Supple, Trachea Midline Lungs: Decreased Breath Sounds (Improved from yesterday), Crackles, Rales Cardiovascular: Regular Rate, Regular Rhythm GI/Abdominal Exam: Normal Bowel Sounds, Soft, Non-Tender, No Distention (Female) Exam: Deferred Back Exam: Normal Inspection, Full Range of Motion Extremities: Normal Inspection, No Pedal Edema Skin: Warm, Dry, Intact Neurological: No New Focal Deficit Psy/Mental Status: Alert, Normal Affect, Normal Mood - Patient Data Lab Results Last 24 hrs: Laboratory Results - last 24 hr 12/07/20 12/07/20 Range/Units 06:19 06:19 WBC 8.52 (3.98-10.04) K/mm3 RBC 4.16 (3.98-5.22) M/mm3 Hgb 12.8 (11.2-15.7) gm/dl Hct 39.9 (34.1-44.9) % MCV 95.9 H (79.4-94.8) fl MCH 30.8 (25.6-32.2) pg MCHC 32.1 L (32.2-35.5) g/dl RDW Std Deviation 45.6 (36.4-46.3) fL Plt Count 348 (182-369) K/mm3 MPV 10.2 (9.4-12.3) fl Neut % (Auto) 74.3 H (34.0-71.1) % Lymph % (Auto) 12.6 L (19.3-51.7) % Mcleod % (Auto) 9.9 (4.7-12.5) % Eos % (Auto) 0 L (0.7-5.8) Baso % (Auto) 0.6 (0.1-1.2) % Neut # (Auto) 6.34 H (1.56-6.13) K/mm3 Lymph # (Auto) 1.07 L (1.18-3.74) K/mm3 Mcleod # (Auto) 0.84 H (0.24-0.36) K/mm3 Eos # (Auto) 0.00 L (0.04-0.36) K/mm3 Baso # (Auto) 0.05 (0.01-0.08) K/mm3 Manual Slide Review Normal smear Sodium 141 (136-145) mEq/L Potassium 3.6 (3.5-5.1) mEq/L Chloride 106 (98-107) mEq/L Carbon Dioxide 27 (21-32) mEq/L Anion Gap 11.6 (5-15) BUN 15 (7-18) mg/dL Creatinine 0.9 (0.55-1.02) mg/dL Est Cr Clr Drug Dosing 70.32 mL/min Estimated GFR (MDRD) > 60 (>60) mL/min BUN/Creatinine Ratio 16.7 (14-18) Glucose 141 H (70-99) mg/dL Calcium 7.8 L (8.5-10.1) mg/dL Magnesium 2.4 (1.8-2.4) mg/dL Total Bilirubin 0.5 (0.2-1.0) mg/dL AST 92 H (15-37) U/L ALT 103 H (14-59) U/L Alkaline Phosphatase 86 (46-116) U/L C-Reactive Protein 9.5 H* (<1.0) mg/dL Total Protein 6.0 L (6.4-8.2) g/dl Albumin 2.4 L (3.4-5.0) g/dl Globulin 3.6 gm/dL Albumin/Globulin Ratio 0.7 L (1-2) Result Diagrams: 12/07/20 06:19 12/07/20 06:19 Sepsis Event Note - Evaluation Sepsis Screening Result: No Definite Risk - Focused Exam Vital Signs: Vital Signs Temp Pulse Resp BP Pulse Ox Pulse Ox 12/07/20 07:53 97 12/07/20 07:52 97 12/07/20 06:20 96 12/07/20 05:54 36.6 C 83 22 H 120/60 92 L 12/06/20 22:41 98 12/06/20 20:32 97 - Problem List & Annotations (1) Acute respiratory failure SNOMED Code(s): 02300563 Code(s): J96.00 - ACUTE RESPIRATORY FAILURE, UNSP W HYPOXIA OR HYPERCAPNIA Status: Acute Priority: High Current Visit: Yes Qualifiers: Respiratory failure complication: hypoxia Qualified Code(s): J96.01 - Acute respiratory failure with hypoxia (2) Pneumonia due to COVID-19 virus SNOMED Code(s): 454617261118063627 Code(s): U07.1 - COVID-19; J12.82 - PNEUMONIA DUE TO CORONAVIRUS DISEASE 2019 Status: Acute Priority: High Current Visit: Yes (3) Hypoxia SNOMED Code(s): 170961429 Code(s): R09.02 - HYPOXEMIA Status: Acute Current Visit: Yes (4) Connective tissue disease, undifferentiated SNOMED Code(s): 000907059 Code(s): M35.9 - SYSTEMIC INVOLVEMENT OF CONNECTIVE TISSUE, UNSPECIFIED Status: Chronic Priority: High Current Visit: Yes (5) Hypokalemia due to excessive gastrointestinal loss of potassium SNOMED Code(s): 00860975 Code(s): E87.6 - HYPOKALEMIA Status: Acute Priority: High Current Visit: Yes - Problem List Review Problem List Initiated/Reviewed/Updated: Yes - My Orders Last 24 Hours: My Active Orders 12/06/20 07:39 Chest Physiotherapy [RT Chest Physiotherapy] [RC] ASDIRECTED RT Incentive Spirometry [RC] ASDIRECTED 12/06/20 07:43 RT Post Treatment Assessment [RC] Click to Edit RT Pre-Treatment Assessment [RC] Click to Edit Albuterol [Proventil HFA] See Dose Instructions INH Q2H PRN 12/06/20 09:00 Folic Acid 1 mg PO DAILY dexAMETHasone [Decadron] 6 mg IV DAILY 12/06/20 12:00 Remdesivir 100 mg Sodium Chloride 0.9% [Normal Saline] 100 ml IV Q24H - Assessment Assessment:: The patient is a 40-year-old lady who had a chest x-ray this morning which shows "rather severe" COVID-19 pneumonia as per radiology. I have decided to initiate remdesivir in addition to azithromycin and steroids. The patient's Plaquenil has been discontinued temporarily as there would be a drug drug interaction with remdesivir. The patient's oxygen will be continued to keep her saturations around 92%. She has been encouraged to ambulate. The patient's CRP has also been markedly elevated although is trending downward. The patient will have repeat laboratory studies and repeat CRP. She is currently on Lovenox at 40 mg subcutaneously daily for DVT prophylaxis this will be continued. The patient should at least have 4 more days of remdesivir prior to discharge. The patient should be appropriate for discharge in 4 to 5 days. 12/07/2020 The patient is a 40-year-old lady who is still undergoing antibiotics and remdesivir for COVID-19 pneumonia. The patient has had some improvement. The patient's azithromycin will be continued. I have ordered repeat laboratory studies for the morning. Patient's oxygen will continue and keep her saturations around 92%. The patient has been encouraged to ambulate. Patient's CRP has been trending down and I have ordered repeat of this in the morning. Repeat chest x-ray will likely be appropriate tomorrow morning. Patient is currently on Lovenox for DVT prophylaxis this will be continued. The patient should be appropriate for discharge in 4 days. - Plan Plan:: The patient is a 40-year-old lady who has been admitted to acute inpatient hospitalization primarily due to acute respiratory failure. The patient has been ordered to be on oxygen to keep her saturations around 92%. She does have pneumonia that has been associated with COVID-19. The patient has been placed on a azithromycin 500 mg IV on a daily basis along with dexamethasone. I do not feel that the patient would be a good candidate for remdesivir due to her having first symptoms at the beginning of the month. 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 The pa tient will be maintained on these and I have also ordered that the patient also continue with folic acid 1 mg p.o. daily. The patient will have regular diet as tolerated. She has been encouraged to ambulate. She is also been ordered to have Lovenox 40 mg subcutaneously daily for DVT prophylaxis. Repeat laboratory studies have been ordered. I have also ordered that the patient have replacement of her potassium.
[2020-12-07] MEDS: Sodium Chloride 0.9% 1,000 ML IV SCH ×2 (09:16→22:58)
[2020-12-07] MEDS: Folic Acid 1 MG Tab PO SCH (09:20)
[2020-12-07] MEDS: Enoxaparin 40 MG/0.4 ML Syringe SUBCUT SCH (09:20)
[2020-12-07] MEDS: DULoxetine 30 MG Cap PO SCH ×2 (09:20→20:40)
[2020-12-07] MEDS: Dexamethasone 4 MG/ML SDV IV SCH (09:21)
[2020-12-07] MEDS ORDERED: Sodium Chloride 0.9% 0 ML ONE (12:02)
[2020-12-07] MEDS: REMDESIVIR 100 MG in Sodium Chloride 0.9% 100 ML IV SCH (12:10)
[2020-12-07] MEDS: Azithromycin 250 MG Tab PO SCH (14:22)
[2020-12-08] MEDS: Levothyroxine 50 MCG Tab PO SCH (05:31)
[2020-12-08] MEDS: DULoxetine 30 MG Cap PO SCH ×2 (08:57→20:57)
[2020-12-08] MEDS: Folic Acid 1 MG Tab PO SCH (08:58)
[2020-12-08] MEDS: Dexamethasone 4 MG Tab PO SCH (08:58)
[2020-12-08] MEDS: Enoxaparin 40 MG/0.4 ML Syringe SUBCUT SCH (08:59)
--- NOTE | 2020-12-08 09:08 | PCM.PN ---
- General Info Date of Service: 12/08/20 Admission Dx/Problem (Free Text): Admission Diagnosis/Problem Admission Diagnosis/Problem Respiratory failure, COVID-19 Pneumonia Subjective Update: The patient is a 40-year-old lady who was admitted on December 05, 2020 for COVID-19 pneumonia. The patient still requires high flow oxygen but the patient overall is doing better. She had some nausea earlier but otherwise has been tolerating her diet. She is denied any pain. Functional Status: Reports: Pain Controlled, Tolerating Diet - Review of Systems General: Reports: Weakness, Fatigue HEENT: Reports: No Symptoms Pulmonary: Reports: Shortness of Breath Cardiovascular: Reports: No Symptoms Gastrointestinal: Reports: No Symptoms Genitourinary: Reports: No Symptoms Musculoskeletal: Reports: No Symptoms Skin: Reports: No Symptoms Neurological: Reports: No Symptoms Psychiatric: Reports: No Symptoms - Patient Data Vitals - Most Recent: Last Vital Signs Temp 36.9 C 12/08/20 05:33 Pulse 72 12/08/20 05:28 Resp 20 12/08/20 05:28 BP 126/73 12/08/20 05:33 Pulse Ox 95 12/08/20 06:14 Weight - Most Recent: 144.469 kg I&O - Last 24 Hours: Intake & Output 12/07/20 12/08/20 12/08/20 22:59 06:59 14:59 Intake Total 2020 1316 Output Total 700 300 Balance 1320 1016 Lab Results Last 24 Hours: Laboratory Results - last 24 hr 12/08/20 12/08/20 Range/Units 05:45 05:45 WBC 15.33 H (3.98-10.04) K/mm3 RBC 4.29 (3.98-5.22) M/mm3 Hgb 13.4 (11.2-15.7) gm/dl Hct 41.4 (34.1-44.9) % MCV 96.5 H (79.4-94.8) fl MCH 31.2 (25.6-32.2) pg MCHC 32.4 (32.2-35.5) g/dl RDW Std Deviation 46.3 (36.4-46.3) fL Plt Count 448 H D (182-369) K/mm3 MPV 10.3 (9.4-12.3) fl Neut % (Auto) 72.7 H (34.0-71.1) % Lymph % (Auto) 14.2 L (19.3-51.7) % Wells % (Auto) 7.4 (4.7-12.5) % Eos % (Auto) 0 L (0.7-5.8) Baso % (Auto) 0.3 (0.1-1.2) % Neut # (Auto) 11.14 H (1.56-6.13) K/mm3 Lymph # (Auto) 2.17 (1.18-3.74) K/mm3 Wells # (Auto) 1.14 H (0.24-0.36) K/mm3 Eos # (Auto) 0.00 L (0.04-0.36) K/mm3 Baso # (Auto) 0.05 (0.01-0.08) K/mm3 Manual Slide Review Normal smear Sodium 143 (136-145) mEq/L Potassium 3.3 L (3.5-5.1) mEq/L Chloride 106 (98-107) mEq/L Carbon Dioxide 26 (21-32) mEq/L Anion Gap 14.3 (5-15) BUN 16 (7-18) mg/dL Creatinine 1.2 H (0.55-1.02) mg/dL Est Cr Clr Drug Dosing 52.74 mL/min Estimated GFR (MDRD) 49 (>60) mL/min BUN/Creatinine Ratio 13.3 L (14-18) Glucose 97 (70-99) mg/dL Calcium 7.7 L (8.5-10.1) mg/dL Total Bilirubin 0.7 (0.2-1.0) mg/dL AST 55 H (15-37) U/L ALT 101 H (14-59) U/L Alkaline Phosphatase 89 (46-116) U/L C-Reactive Protein 5.9 H* (<1.0) mg/dL Total Protein 6.2 L (6.4-8.2) g/dl Albumin 2.6 L (3.4-5.0) g/dl Globulin 3.6 gm/dL Albumin/Globulin Ratio 0.7 L (1-2) Med Orders - Current: Current Medications Acetaminophen (Acetaminophen 325 Mg Tab) 650 mg PO Q4H PRN PRN Reason: Pain (Mild 1-3)/fever Albuterol (Albuterol 6.7 Gm Inhaler) 0 gm INH Q2H PRN PRN Reason: SOB/WHEEZING Last Admin: 12/07/20 13:46 Dose: 2 puff Documented by: Azithromycin (Azithromycin 250 Mg Tab) 500 mg PO Q24H [facility] Last Admin: 12/07/20 14:22 Dose: 500 mg Documented by: Dexamethasone (Dexamethasone 4 Mg Tab) 6 mg PO DAILY [facility] Stop: 12/14/20 09:01 Last Admin: 12/08/20 08:58 Dose: 6 mg Documented by: Docusate Sodium (Docusate Sodium 100 Mg Cap) 100 mg PO BID PRN PRN Reason: Constipation Duloxetine HCl (Duloxetine 30 Mg Cap) 60 mg PO BID [facility] Last Admin: 12/08/20 08:57 Dose: 60 mg Documented by: Enoxaparin Sodium (Enoxaparin 40 Mg/0.4 Ml Syringe) 40 mg SUBCUT DAILY [facility] Last Admin: 12/08/20 08:59 Dose: 40 mg Documented by: Folic Acid (Folic Acid 1 Mg Tab) 1 mg PO DAILY [facility] Last Admin: 12/08/20 08:58 Dose: 1 mg Documented by: Hydromorphone HCl (Hydromorphone 0.5 Mg/0.5 Ml Syringe) 0.25 mg IVPUSH Q2H PRN PRN Reason: Pain (severe 7-10) Sodium Chloride (Normal Saline) 1,000 mls @ 75 mls/hr IV ASDIRECTED [facility] Last Admin: 12/07/20 22:58 Dose: 75 mls/hr Documented by: Remdesivir 100 mg/ Sodium (Chloride) 100 mls @ 100 mls/hr IV Q24H [facility] Stop: 12/09/20 12:59 Last Admin: 12/07/20 12:10 Dose: 100 mls/hr Documented by: Ketorolac Tromethamine (Ketorolac 30 Mg/Ml Sdv) 30 mg IVPUSH Q6H PRN PRN Reason: Pain (moderate 4-6) Levothyroxine Sodium (Levothyroxine 50 Mcg Tab) 50 mcg PO ACBREAKFAST [facility] Last Admin: 12/08/20 05:31 Dose: 50 mcg Documented by: Ondansetron HCl (Ondansetron 4 Mg Tab.Dis) 4 mg PO Q4H PRN PRN Reason: nausea, able to take PO Sodium Chloride (Sodium Chloride 0.9% 10 Ml Syringe) 10 ml FLUSH ONETIME PRN PRN Reason: IV FLUSH Last Admin: 12/05/20 10:14 Dose: 10 ml Documented by: Discontinued Medications Albuterol (Albuterol 6.7 Gm Inhaler) 0 gm INH Q2H ONE Stop: 12/05/20 09:49 Last Admin: 12/05/20 10:27 Dose: 2 inhalation Documented by: Albuterol (Albuterol 0.083% 2.5 Mg/3 Ml Neb Soln) 2.5 mg NEB Q2H PRN PRN Reason: Shortness Of Breath/wheezing Dexamethasone (Dexamethasone 10 Mg/Ml Sdv) 10 mg IVPUSH ONETIME ONE Stop: 12/05/20 11:12 Last Admin: 12/05/20 11:56 Dose: 10 mg Documented by: Dexamethasone (Dexamethasone 4 Mg/Ml Sdv) 6 mg IV DAILY [facility] Last Admin: 12/07/20 09:21 Dose: 6 mg Documented by: Hydroxychloroquine Sulfate (Hydroxychloroquine 200 Mg Tab) 200 mg PO BID [facility] Last Admin: 12/05/20 20:05 Dose: 200 mg Documented by: Hydroxychloroquine Sulfate (Hydroxychloroquine 200 Mg Tab) 200 mg PO BID [facility] Sodium Chloride (Normal Saline) 1,000 mls @ 500 mls/hr IV ONETIME ONE Stop: 12/05/20 11:47 Last Admin: 12/05/20 10:29 Dose: 500 mls/hr Documented by: Sodium Chloride (Normal Saline) 100 mls @ 75 mls/hr IV ASDIRECTED [facility] Stop: 12/05/20 14:00 Last Admin: 12/05/20 10:14 Dose: 75 mls/hr Documented by: Remdesivir 200 mg/ Sodium (Chloride) 250 mls @ 250 mls/hr IV ONETIME ONE Stop: 12/05/20 12:59 Last Admin: 12/05/20 11:58 Dose: 250 mls/hr Documented by: Azithromycin 500 mg/ Sodium (Chloride) 250 mls @ 250 mls/hr IV Q24H [facility] Last Admin: 12/06/20 14:44 Dose: 250 mls/hr Documented by: Potassium Chloride 10 meq/ (Premix) 100 mls @ 100 mls/hr IV Q1H [facility] Stop: 12/05/20 18:59 Last Admin: 12/05/20 20:03 Dose: 100 mls/hr Documented by: Sodium Chloride (Normal Saline) Confirm Administered Dose 100 mls @ as directed .ROUTE .STK-MED ONE Stop: 12/07/20 12:03 Last Admin: 12/07/20 13:49 Dose: Not Given Documented by: Iopamidol (Iopamidol 755 Mg/Ml 100 Ml Bottle) 100 ml IVPUSH ONETIME ONE Stop: 12/05/20 09:50 Last Admin: 12/05/20 10:14 Dose: 100 ml Documented by: Potassium Chloride (Potassium Chloride 20 Meq Tab.Er) 20 meq PO ONETIME ONE Stop: 12/05/20 13:18 Last Admin: 12/05/20 15:20 Dose: 20 meq Documented by: - Exam Quality Assessment: Supplemental Oxygen, DVT Prophylaxis General: Alert, Oriented, Cooperative HEENT: Pupils Equal, Pupils Reactive, EOMI, Mucous Membr. Moist/[place] Neck: Supple, Trachea Midline Lungs: Clear to Auscultation (Markedly improved), Normal Respiratory Effort Cardiovascular: Regular Rate, Regular Rhythm GI/Abdominal Exam: Normal Bowel Sounds, Soft, Non-Tender, No Distention (Female) Exam: Deferred Back Exam: Normal Inspection, Full Range of Motion Extremities: Normal Inspection, Normal Range of Motion, No Pedal Edema Skin: Warm, Dry, Intact Neurological: No New Focal Deficit Psy/Mental Status: Alert, Normal Affect - Patient Data Lab Results Last 24 hrs: Laboratory Results - last 24 hr 12/08/20 12/08/20 Range/Units 05:45 05:45 WBC 15.33 H (3.98-10.04) K/mm3 RBC 4.29 (3.98-5.22) M/mm3 Hgb 13.4 (11.2-15.7) gm/dl Hct 41.4 (34.1-44.9) % MCV 96.5 H (79.4-94.8) fl MCH 31.2 (25.6-32.2) pg MCHC 32.4 (32.2-35.5) g/dl RDW Std Deviation 46.3 (36.4-46.3) fL Plt Count 448 H D (182-369) K/mm3 MPV 10.3 (9.4-12.3) fl Neut % (Auto) 72.7 H (34.0-71.1) % Lymph % (Auto) 14.2 L (19.3-51.7) % Wells % (Auto) 7.4 (4.7-12.5) % Eos % (Auto) 0 L (0.7-5.8) Baso % (Auto) 0.3 (0.1-1.2) % Neut # (Auto) 11.14 H (1.56-6.13) K/mm3 Lymph # (Auto) 2.17 (1.18-3.74) K/mm3 Wells # (Auto) 1.14 H (0.24-0.36) K/mm3 Eos # (Auto) 0.00 L (0.04-0.36) K/mm3 Baso # (Auto) 0.05 (0.01-0.08) K/mm3 Manual Slide Review Normal smear Sodium 143 (136-145) mEq/L Potassium 3.3 L (3.5-5.1) mEq/L Chloride 106 (98-107) mEq/L Carbon Dioxide 26 (21-32) mEq/L Anion Gap 14.3 (5-15) BUN 16 (7-18) mg/dL Creatinine 1.2 H (0.55-1.02) mg/dL Est Cr Clr Drug Dosing 52.74 mL/min Estimated GFR (MDRD) 49 (>60) mL/min BUN/Creatinine Ratio 13.3 L (14-18) Glucose 97 (70-99) mg/dL Calcium 7.7 L (8.5-10.1) mg/dL Total Bilirubin 0.7 (0.2-1.0) mg/dL AST 55 H (15-37) U/L ALT 101 H (14-59) U/L Alkaline Phosphatase 89 (46-116) U/L C-Reactive Protein 5.9 H* (<1.0) mg/dL Total Protein 6.2 L (6.4-8.2) g/dl Albumin 2.6 L (3.4-5.0) g/dl Globulin 3.6 gm/dL Albumin/Globulin Ratio 0.7 L (1-2) Result Diagrams: 12/08/20 05:45 12/08/20 05:45 Sepsis Event Note - Evaluation Sepsis Screening Result: No Definite Risk - Focused Exam Vital Signs: Vital Signs Temp Temp Pulse Resp BP Pulse Ox Pulse Ox 12/08/20 06:14 95 12/08/20 05:33 36.9 C 126/73 92 L 12/08/20 05:28 72 20 12/07/20 23:04 36.8 C 93 20 93 L - Problem List & Annotations (1) Acute respiratory failure SNOMED Code(s): 17608768 Code(s): J96.00 - ACUTE RESPIRATORY FAILURE, UNSP W HYPOXIA OR HYPERCAPNIA Status: Acute Priority: High Current Visit: Yes Qualifiers: Respiratory failure complication: hypoxia Qualified Code(s): J96.01 - Acute respiratory failure with hypoxia (2) Pneumonia due to COVID-19 virus SNOMED Code(s): 003987508746035398 Code(s): U07.1 - COVID-19; J12.82 - PNEUMONIA DUE TO CORONAVIRUS DISEASE 2019 Status: Acute Priority: High Current Visit: Yes (3) Hypoxia SNOMED Code(s): 935199475 Code(s): R09.02 - HYPOXEMIA Status: Acute Priority: High Current Visit: Yes (4) Connective tissue disease, undifferentiated SNOMED Code(s): 872346248 Code(s): M35.9 - SYSTEMIC INVOLVEMENT OF CONNECTIVE TISSUE, UNSPECIFIED Status: Chronic Priority: High Current Visit: Yes (5) Hypokalemia due to excessive gastrointestinal loss of potassium SNOMED Code(s): 98480014 Code(s): E87.6 - HYPOKALEMIA Status: Acute Priority: High Current Visit: Yes - Problem List Review Problem List Initiated/Reviewed/Updated: Yes - My Orders Last 24 Hours: My Active Orders 12/07/20 14:00 Azithromycin [Zithromax] 500 mg PO Q24H 12/08/20 08:00 CXR [Chest 1V Frontal] [CR] Routine 12/08/20 09:00 dexAMETHasone 6 mg PO DAILY - Assessment Assessment:: The patient is a 40-year-old lady who had a chest x-ray this morning which shows "rather severe" COVID-19 pneumonia as per radiology. I have decided to initiate remdesivir in addition to azithromycin and steroids. The patient's Plaquenil has been discontinued temporarily as there would be a drug drug interaction with remdesivir. The patient's oxygen will be continued to keep her saturations around 92%. She has been encouraged to ambulate. The patient's CRP has also been markedly elevated although is trending downward. The patient will have repeat laboratory studies and repeat CRP. She is currently on Lovenox at 40 mg subcutaneously daily for DVT prophylaxis this will be continued. The patient should at least have 4 more days of remdesivir prior to discharge. The patient should be appropriate for discharge in 4 to 5 days. 12/07/2020 The patient is a 40-year-old lady who is still undergoing antibiotics and remdesivir for COVID-19 pneumonia. The patient has had some improvement. The patient's azithromycin will be continued. I have ordered repeat laboratory studies for the morning. Patient's oxygen will continue and keep her saturations around 92%. The patient has been encouraged to ambulate. Patient's CRP has been trending down and I have ordered repeat of this in the morning. Repeat chest x-ray will likely be appropriate tomorrow morning. Patient is currently on Lovenox for DVT prophylaxis this will be continued. The patient should be appropriate for discharge in 4 days. 12/08/2020 The patient is a 40-year-old lady who is doing better today. She is still requiring oxygen at at least 2-1/2 L/min high flow. She says that she is feeling better today. Subjectively she has improved physical examination. I have reviewed her x-ray. The patient will continue to have diet as tolerated. She is also on remdesivir and this will be continued for at least 3 more days. I have ordered repeat laboratory studies. Patient has been encouraged to ambulate. The patient also be continued on appropriate diet. Vital signs will be monitored and her medications will be adjusted as needed. - Plan Plan:: The patient is a 40-year-old lady who has been admitted to acute inpatient [facility] primarily due to acute respiratory failure. The patient has been ordered to be on oxygen to keep her saturations around 92%. She does have pneumonia that has been associated with COVID-19. The patient has been placed on a azithromycin 500 mg IV on a daily basis along with dexamethasone. I do not feel that the patient would be a good candidate for remdesivir due to her having first symptoms at the beginning of the month. 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 The patient will be maintained on these and I have also ordered that the patient also continue with folic acid 1 mg p.o. daily. The patient will have regular diet as tolerated. She has been encouraged to ambulate. She is also been ordered to have Lovenox 40 mg subcutaneously daily for DVT prophylaxis. Repeat laboratory studies have been ordered. I have also ordered that the patient have replacement of her potassium.
--- NOTE | 2020-12-08 09:26 | CR ---
Chest: Portable view of the chest was obtained. Comparison: Prior chest x-ray of 12/06/20. Diffuse parenchymal change is seen within both lungs. Findings are felt to be fairly similar to prior study when allowing for differences in technique. Heart size and mediastinum are normal. Bony structures show nothing acute. Impression: 1. Diffuse parenchymal change within both lungs. Findings felt to be fairly stable from most recent chest x-ray. Findings are compatible with continuing Covid pneumonia. 2. Nothing acute is otherwise appreciated from prior chest x-ray. Diagnostic code #3
[2020-12-08] MEDS: REMDESIVIR 100 MG in Sodium Chloride 0.9% 100 ML IV SCH (11:58)
[2020-12-08] MEDS: Sodium Chloride 0.9% 1,000 ML IV SCH (11:58)
[2020-12-08] MEDS ORDERED: Potassium Bicarbonate/Cit Ac 20 MEQ Effervescent Tab PO ONE (12:00)
[2020-12-08] MEDS ORDERED: Potassium Chloride 20 MEQ Tab.ER PO ONE (12:00)
[2020-12-08] MEDS: Azithromycin 250 MG Tab PO SCH (13:14)
[2020-12-09] MEDS: Sodium Chloride 0.9% 1,000 ML IV SCH ×2 (01:20→14:56)
[2020-12-09] MEDS: Levothyroxine 50 MCG Tab PO SCH (05:46)
[2020-12-09] MEDS: DULoxetine 30 MG Cap PO SCH ×2 (08:13→20:02)
[2020-12-09] MEDS: Dexamethasone 4 MG Tab PO SCH (08:13)
[2020-12-09] MEDS: Folic Acid 1 MG Tab PO SCH (08:13)
[2020-12-09] MEDS: Enoxaparin 40 MG/0.4 ML Syringe SUBCUT SCH (08:14)
--- NOTE | 2020-12-09 09:37 | PCM.PN ---
- General Info Date of Service: 12/09/20 Admission Dx/Problem (Free Text): Admission Diagnosis/Problem Admission Diagnosis/Problem Respiratory failure, COVID-19 Pneumonia Subjective Update: The patient is a 40-year-old lady who was admitted to acute hospitalization for COVID-19 pneumonia. She was admitted on Dec 05 2020. The patient was started on high flow oxygen and she also has been started on remdesivir. The patient previously had monoclonal antibodies. The patient today says that she feels somewhat short of breath. She gets exhausted when walking to the bathroom. The patient says that she has been tolerating her diet. She has denied any pain. Functional Status: Reports: Pain Controlled, Tolerating Diet - Review of Systems General: Reports: Weakness, Fatigue HEENT: Reports: No Symptoms Pulmonary: Reports: Shortness of Breath, Cough. Denies: Sputum Cardiovascular: Reports: No Symptoms Gastrointestinal: Reports: No Symptoms Genitourinary: Reports: No Symptoms Musculoskeletal: Reports: No Symptoms Skin: Reports: No Symptoms Neurological: Reports: No Symptoms Psychiatric: Reports: No Symptoms - Patient Data Vitals - Most Recent: Last Vital Signs Temp 36.6 C 12/09/20 05:51 Pulse 85 12/09/20 05:51 Resp 22 H 12/09/20 05:51 BP 136/77 12/09/20 05:51 Pulse Ox 88 L 12/09/20 08:30 Weight - Most Recent: 144.016 kg I&O - Last 24 Hours: Intake & Output 12/08/20 12/09/20 12/09/20 22:59 06:59 14:59 Intake Total 1925 1664 Output Total 700 900 Balance 1225 764 Lab Results Last 24 Hours: Laboratory Results - last 24 hr 12/09/20 12/09/20 Range/Units 05:08 05:08 WBC 12.74 H (3.98-10.04) K/mm3 RBC 4.12 (3.98-5.22) M/mm3 Hgb 12.5 (11.2-15.7) gm/dl Hct 39.5 (34.1-44.9) % MCV 95.9 H (79.4-94.8) fl MCH 30.3 (25.6-32.2) pg MCHC 31.6 L (32.2-35.5) g/dl RDW Std Deviation 44.4 (36.4-46.3) fL Plt Count 311 D (182-369) K/mm3 MPV 10.1 (9.4-12.3) fl Neut % (Auto) 73.3 H (34.0-71.1) % Lymph % (Auto) 13.7 L (19.3-51.7) % [place] % (Auto) 7.2 (4.7-12.5) % Eos % (Auto) 0.2 L (0.7-5.8) Baso % (Auto) 0.3 (0.1-1.2) % Neut # (Auto) 9.34 H (1.56-6.13) K/mm3 Lymph # (Auto) 1.74 (1.18-3.74) K/mm3 [place] # (Auto) 0.92 H (0.24-0.36) K/mm3 Eos # (Auto) 0.02 L (0.04-0.36) K/mm3 Baso # (Auto) 0.04 (0.01-0.08) K/mm3 Manual Slide Review Abnormal smear Sodium 143 (136-145) mEq/L Potassium 3.6 (3.5-5.1) mEq/L Chloride 107 (98-107) mEq/L Carbon Dioxide 26 (21-32) mEq/L Anion Gap 13.6 (5-15) BUN 15 (7-18) mg/dL Creatinine 0.9 (0.55-1.02) mg/dL Est Cr Clr Drug Dosing 70.32 mL/min Estimated GFR (MDRD) > 60 (>60) mL/min BUN/Creatinine Ratio 16.7 (14-18) Glucose 91 (70-99) mg/dL Calcium 7.8 L (8.5-10.1) mg/dL Magnesium 1.9 (1.8-2.4) mg/dL Total Bilirubin 0.7 (0.2-1.0) mg/dL AST 34 (15-37) U/L ALT 72 H (14-59) U/L Alkaline Phosphatase 77 (46-116) U/L C-Reactive Protein 13.1 H* (<1.0) mg/dL Total Protein 6.0 L (6.4-8.2) g/dl Albumin 2.4 L (3.4-5.0) g/dl Globulin 3.6 gm/dL Albumin/Globulin Ratio 0.7 L (1-2) Med Orders - Current: Current Medications Acetaminophen (Acetaminophen 325 Mg Tab) 650 mg PO Q4H PRN PRN Reason: Pain (Mild 1-3)/fever Albuterol (Albuterol 6.7 Gm Inhaler) 0 gm INH Q2H PRN PRN Reason: SOB/WHEEZING Last Admin: 12/07/20 13:46 Dose: 2 puff Documented by: Azithromycin (Azithromycin 250 Mg Tab) 500 mg PO Q24H [facility] Last Admin: 12/08/20 13:14 Dose: 500 mg Documented by: Dexamethasone (Dexamethasone 4 Mg Tab) 6 mg PO DAILY [facility] Stop: 12/14/20 09:01 Last Admin: 12/09/20 08:13 Dose: 6 mg Documented by: Docusate Sodium (Docusate Sodium 100 Mg Cap) 100 mg PO BID PRN PRN Reason: Constipation Duloxetine HCl (Duloxetine 30 Mg Cap) 60 mg PO BID [facility] Last Admin: 12/09/20 08:13 Dose: 60 mg Documented by: Enoxaparin Sodium (Enoxaparin 40 Mg/0.4 Ml Syringe) 40 mg SUBCUT DAILY [facility] Last Admin: 12/09/20 08:14 Dose: 40 mg Documented by: Folic Acid (Folic Acid 1 Mg Tab) 1 mg PO DAILY [facility] Last Admin: 12/09/20 08:13 Dose: 1 mg Documented by: Hydromorphone HCl (Hydromorphone 0.5 Mg/0.5 Ml Syringe) 0.25 mg IVPUSH Q2H PRN PRN Reason: Pain (severe 7-10) Sodium Chloride (Normal Saline) 1,000 mls @ 75 mls/hr IV ASDIRECTED [facility] Last Admin: 12/09/20 01:20 Dose: 75 mls/hr Documented by: Remdesivir 100 mg/ Sodium (Chloride) 100 mls @ 100 mls/hr IV Q24H [facility] Stop: 12/09/20 12:59 Last Admin: 12/08/20 11:58 Dose: 100 mls/hr Documented by: Ketorolac Tromethamine (Ketorolac 30 Mg/Ml Sdv) 30 mg IVPUSH Q6H PRN PRN Reason: Pain (moderate 4-6) Levothyroxine Sodium (Levothyroxine 50 Mcg Tab) 50 mcg PO ACBREAKFAST [facility] Last Admin: 12/09/20 05:46 Dose: 50 mcg Documented by: Ondansetron HCl (Ondansetron 4 Mg Tab.Dis) 4 mg PO Q4H PRN PRN Reason: nausea, able to take PO Sodium Chloride (Sodium Chloride 0.9% 10 Ml Syringe) 10 ml FLUSH ONETIME PRN PRN Reason: IV FLUSH Last Admin: 12/05/20 10:14 Dose: 10 ml Documented by: Discontinued Medications Albuterol (Albuterol 6.7 Gm Inhaler) 0 gm INH Q2H ONE Stop: 12/05/20 09:49 Last Admin: 12/05/20 10:27 Dose: 2 inhalation Documented by: Albuterol (Albuterol 0.083% 2.5 Mg/3 Ml Neb Soln) 2.5 mg NEB Q2H PRN PRN Reason: Shortness Of Breath/wheezing Dexamethasone (Dexamethasone 10 Mg/Ml Sdv) 10 mg IVPUSH ONETIME ONE Stop: 12/05/20 11:12 Last Admin: 12/05/20 11:56 Dose: 10 mg Documented by: Dexamethasone (Dexamethasone 4 Mg/Ml Sdv) 6 mg IV DAILY [facility] Last Admin: 12/07/20 09:21 Dose: 6 mg Documented by: Hydroxychloroquine Sulfate (Hydroxychloroquine 200 Mg Tab) 200 mg PO BID [facility] Last Admin: 12/05/20 20:05 Dose: 200 mg Documented by: Hydroxychloroquine Sulfate (Hydroxychloroquine 200 Mg Tab) 200 mg PO BID [facility] Sodium Chloride (Normal Saline) 1,000 mls @ 500 mls/hr IV ONETIME ONE Stop: 12/05/20 11:47 Last Admin: 12/05/20 10:29 Dose: 500 mls/hr Documented by: Sodium Chloride (Normal Saline) 100 mls @ 75 mls/hr IV ASDIRECTED [facility] Stop: 12/05/20 14:00 Last Admin: 12/05/20 10:14 Dose: 75 mls/hr Documented by: Remdesivir 200 mg/ Sodium (Chloride) 250 mls @ 250 mls/hr IV ONETIME ONE Stop: 12/05/20 12:59 Last Admin: 12/05/20 11:58 Dose: 250 mls/hr Documented by: Azithromycin 500 mg/ Sodium (Chloride) 250 mls @ 250 mls/hr IV Q24H [facility] Last Admin: 12/06/20 14:44 Dose: 250 mls/hr Documented by: Potassium Chloride 10 meq/ (Premix) 100 mls @ 100 mls/hr IV Q1H [facility] Stop: 12/05/20 18:59 Last Admin: 12/05/20 20:03 Dose: 100 mls/hr Documented by: Sodium Chloride (Normal Saline) Confirm Administered Dose 100 mls @ as directed .ROUTE .STK-MED ONE Stop: 12/07/20 12:03 Last Admin: 12/07/20 13:49 Dose: Not Given Documented by: Iopamidol (Iopamidol 755 Mg/Ml 100 Ml Bottle) 100 ml IVPUSH ONETIME ONE Stop: 12/05/20 09:50 Last Admin: 12/05/20 10:14 Dose: 100 ml Documented by: Potassium Chloride (Potassium Chloride 20 Meq Tab.Er) 20 meq PO ONETIME ONE Stop: 12/05/20 13:18 Last Admin: 12/05/20 15:20 Dose: 20 meq Documented by: Potassium Chloride (Potassium Chloride 20 Meq Tab.Er) 20 meq PO ONETIME ONE Stop: 12/08/20 12:01 Last Admin: 12/08/20 11:58 Dose: 20 meq Documented by: - Exam Quality Assessment: Supplemental Oxygen, DVT Prophylaxis General: Alert, Oriented, Cooperative HEENT: Pupils Equal, Pupils Reactive, EOMI, Mucous Membr. Moist/[place]: Supple, Trachea Midline Lungs: Normal Respiratory Effort, Crackles, Rales Cardiovascular: Regular Rate, Regular Rhythm GI/Abdominal Exam: Normal Bowel Sounds, Soft, Non-Tender, No Distention (Female) Exam: Deferred Back Exam: Normal Inspection, Full Range of Motion Extremities: Normal Inspection, Normal Range of Motion, No Pedal Edema Skin: Warm, Dry, Intact Neurological: No New Focal Deficit Psy/Mental Status: Alert, Normal Affect, Normal Mood - Patient Data Lab Results Last 24 hrs: Laboratory Results - last 24 hr 12/09/20 12/09/20 Range/Units 05:08 05:08 WBC 12.74 H (3.98-10.04) K/mm3 RBC 4.12 (3.98-5.22) M/mm3 Hgb 12.5 (11.2-15.7) gm/dl Hct 39.5 (34.1-44.9) % MCV 95.9 H (79.4-94.8) fl MCH 30.3 (25.6-32.2) pg MCHC 31.6 L (32.2-35.5) g/dl RDW Std Deviation 44.4 (36.4-46.3) fL Plt Count 311 D (182-369) K/mm3 MPV 10.1 (9.4-12.3) fl Neut % (Auto) 73.3 H (34.0-71.1) % Lymph % (Auto) 13.7 L (19.3-51.7) % [place] % (Auto) 7.2 (4.7-12.5) % Eos % (Auto) 0.2 L (0.7-5.8) Baso % (Auto) 0.3 (0.1-1.2) % Neut # (Auto) 9.34 H (1.56-6.13) K/mm3 Lymph # (Auto) 1.74 (1.18-3.74) K/mm3 [place] # (Auto) 0.92 H (0.24-0.36) K/mm3 Eos # (Auto) 0.02 L (0.04-0.36) K/mm3 Baso # (Auto) 0.04 (0.01-0.08) K/mm3 Manual Slide Review Abnormal smear Sodium 143 (136-145) mEq/L Potassium 3.6 (3.5-5.1) mEq/L Chloride 107 (98-107) mEq/L Carbon Dioxide 26 (21-32) mEq/L Anion Gap 13.6 (5-15) BUN 15 (7-18) mg/dL Creatinine 0.9 (0.55-1.02) mg/dL Est Cr Clr Drug Dosing 70.32 mL/min Estimated GFR (MDRD) > 60 (>60) mL/min BUN/Creatinine Ratio 16.7 (14-18) Glucose 91 (70-99) mg/dL Calcium 7.8 L (8.5-10.1) mg/dL Magnesium 1.9 (1.8-2.4) mg/dL Total Bilirubin 0.7 (0.2-1.0) mg/dL AST 34 (15-37) U/L ALT 72 H (14-59) U/L Alkaline Phosphatase 77 (46-116) U/L C-Reactive Protein 13.1 H* (<1.0) mg/dL Total Protein 6.0 L (6.4-8.2) g/dl Albumin 2.4 L (3.4-5.0) g/dl Globulin 3.6 gm/dL Albumin/Globulin Ratio 0.7 L (1-2) Result Diagrams: 12/09/20 05:08 12/09/20 05:08 Sepsis Event Note - Evaluation Sepsis Screening Result: Sepsis Risk - Focused Exam Vital Signs: Vital Signs Temp Pulse Resp BP Pulse Ox Pulse Ox 12/09/20 08:30 88 L 12/09/20 08:25 86 L 12/09/20 06:07 93 L 12/09/20 05:51 36.6 C 85 22 H 136/77 89 L - Problem List & Annotations (1) Acute respiratory failure SNOMED Code(s): 92215294 Code(s): J96.00 - ACUTE RESPIRATORY FAILURE, UNSP W HYPOXIA OR HYPERCAPNIA Status: Acute Priority: High Current Visit: Yes Qualifiers: Respiratory failure complication: hypoxia Qualified Code(s): J96.01 - Acute respiratory failure with hypoxia (2) Pneumonia due to COVID-19 virus SNOMED Code(s): 122763468598470403 Code(s): U07.1 - COVID-19; J12.82 - PNEUMONIA DUE TO CORONAVIRUS DISEASE 2019 Status: Acute Priority: High Current Visit: Yes (3) Hypoxia SNOMED Code(s): 439520262 Code(s): R09.02 - HYPOXEMIA Status: Acute Priority: High Current Visit: Yes (4) Connective tissue disease, undifferentiated SNOMED Code(s): 917491010 Code(s): M35.9 - SYSTEMIC INVOLVEMENT OF CONNECTIVE TISSUE, UNSPECIFIED Status: Chronic Priority: High Current Visit: Yes (5) Hypokalemia due to excessive gastrointestinal loss of potassium SNOMED Code(s): 77694784 Code(s): E87.6 - HYPOKALEMIA Status: Acute Priority: High Current Visit: Yes - Problem List Review Problem List Initiated/Reviewed/Updated: Yes - My Orders Last 24 Hours: My Active Orders 12/08/20 09:00 dexAMETHasone 6 mg PO DAILY - Assessment Assessment:: The patient is a 40-year-old lady who had a chest x-ray this morning which shows "rather severe" COVID-19 pneumonia as per radiology. I have decided to initiate remdesivir in addition to azithromycin and steroids. The patient's Plaquenil has been discontinued temporarily as there would be a drug drug interaction with remdesivir. The patient's oxygen will be continued to keep her saturations around 92%. She has been encouraged to ambulate. The patient's CRP has also been markedly elevated although is trending downward. The patient will have repeat laboratory studies and repeat CRP. She is currently on Lovenox at 40 mg subcutaneously daily for DVT prophylaxis this will be continued. The patient should at least have 4 more days of remdesivir prior to discharge. The patient should be appropriate for discharge in 4 to 5 days. 12/07/2020 The patient is a 40-year-old lady who is still undergoing antibiotics and remdesivir for COVID-19 pneumonia. The patient has had some improvement. The patient's azithromycin will be continued. I have ordered repeat laboratory studies for the morning. Patient's oxygen will continue and keep her saturations around 92%. The patient has been encouraged to ambulate. Patient's CRP has been trending down and I have ordered repeat of this in the morning. Repeat chest x-ray will likely be appropriate tomorrow morning. Patient is currently on Lovenox for DVT prophylaxis this will be continued. The patient should be appropriate for discharge in 4 days. 12/08/2020 The patient is a 40-year-old lady who is doing better today. She is still requiring oxygen at at least 2-1/2 L/min high flow. She says that she is feeling better today. Subjectively she has improved physical examination. I lopez ve reviewed her x-ray. The patient will continue to have diet as tolerated. She is also on remdesivir and this will be continued for at least 3 more days. I have ordered repeat laboratory studies. Patient has been encouraged to ambulate. The patient also be continued on appropriate diet. Vital signs will be monitored and her medications will be adjusted as needed. 12/09/2020 The patient is a 40-year-old lady who is still requiring high flow oxygen. The oxygen will continue as per respiratory therapy to keep her saturations around 92%. I have ordered repeat chest x-ray for tomorrow. The patient should continue with her remdesivir, antibiotics and steroids. The patient has exhibited leukocytosis which is likely the result of steroid usage. DVT prophylaxis will continue for this patient. I have encouraged patient to ambulate. PT OT has also been ordered for the patient. Repeat laboratory studies have been ordered. The patient will have regular diet as tolerated. The patient may be appropriate for discharge in 1 to 2 days depending upon her oxygen needs or if she is worsening may have to consider intubation. We will continue to monitor the patient's work of breathing. - Plan Plan:: The patient is a 40-year-old lady who has been admitted to acute inpatient hospitalization primarily due to acute respiratory failure. The patient has been ordered to be on oxygen to keep her saturations around 92%. She does have pneumonia that has been associated with COVID-19. The patient has been placed on a azithromycin 500 mg IV on a daily basis along with dexamethasone. I do not feel that the patient would be a good candidate for remdesivir due to her having first symptoms at the beginning of the month. 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 The patient will be maintained on these and I have also ordered that the patient also continue with folic acid 1 mg p.o. daily. The patient will have regular diet as tolerated. She has been encouraged to ambulate. She is also been ordered to have Lovenox 40 mg subcutaneously daily for DVT prophylaxis. Repeat laboratory studies have been ordered. I have also ordered that the patient have replacement of her potassium.
[2020-12-09] MEDS: REMDESIVIR 100 MG in Sodium Chloride 0.9% 100 ML IV SCH (12:15)
[2020-12-09] MEDS: Azithromycin 250 MG Tab PO SCH (13:21)
[2020-12-10] MEDS: Sodium Chloride 0.9% 1,000 ML IV SCH (03:57)
[2020-12-10] MEDS: Levothyroxine 50 MCG Tab PO SCH (06:18)
--- NOTE | 2020-12-10 07:05 | PCM.PN ---
- General Info Date of Service: 12/10/20 Admission Dx/Problem (Free Text): Admission Diagnosis/Problem Admission Diagnosis/Problem Respiratory failure, COVID-19 Pneumonia Subjective Update: The patient is a 40-year-old lady who was admitted to acute hospitalization on December 05, 2020 due to acute respiratory failure due to COVID-19 pneumonia. The patient today is doing a little bit better. She is still requiring oxygen. The patient has been tolerating her diet. The patient says that she has no other pain issues. Functional Status: Reports: Pain Controlled, Tolerating Diet - Review of Systems General: Reports: Fatigue HEENT: Reports: No Symptoms Pulmonary: Reports: Shortness of Breath Cardiovascular: Reports: No Symptoms Gastrointestinal: Reports: No Symptoms Genitourinary: Reports: No Symptoms Musculoskeletal: Reports: No Symptoms Skin: Reports: No Symptoms Neurological: Reports: No Symptoms Psychiatric: Reports: No Symptoms - Patient Data Vitals - Most Recent: Last Vital Signs Temp 36.6 C 12/10/20 01:28 Pulse 90 12/10/20 01:28 Resp 20 12/10/20 01:28 BP 143/93 H 12/10/20 01:28 Pulse Ox 90 L 12/10/20 01:28 Weight - Most Recent: 145.331 kg I&O - Last 24 Hours: Intake & Output 12/09/20 12/10/20 12/10/20 22:59 06:59 14:59 Intake Total 1860 1500 Output Total 950 1100 Balance 910 400 Med Orders - Current: Current Medications Acetaminophen (Acetaminophen 325 Mg Tab) 650 mg PO Q4H PRN PRN Reason: Pain (Mild 1-3)/fever Albuterol (Albuterol 6.7 Gm Inhaler) 0 gm INH Q2H PRN PRN Reason: SOB/WHEEZING Last Admin: 12/07/20 13:46 Dose: 2 puff Documented by: Azithromycin (Azithromycin 250 Mg Tab) 500 mg PO Q24H ISAAC Last Admin: 12/09/20 13:21 Dose: 500 mg Documented by: Dexamethasone (Dexamethasone 4 Mg Tab) 6 mg PO DAILY [facility] Stop: 12/14/20 09:01 Last Admin: 12/09/20 08:13 Dose: 6 mg Documented by: Docusate Sodium (Docusate Sodium 100 Mg Cap) 100 mg PO BID PRN PRN Reason: Constipation Duloxetine HCl (Duloxetine 30 Mg Cap) 60 mg PO BID [facility] Last Admin: 12/09/20 20:02 Dose: 60 mg Documented by: Enoxaparin Sodium (Enoxaparin 40 Mg/0.4 Ml Syringe) 40 mg SUBCUT DAILY [facility] Last Admin: 12/09/20 08:14 Dose: 40 mg Documented by: Folic Acid (Folic Acid 1 Mg Tab) 1 mg PO DAILY [facility] Last Admin: 12/09/20 08:13 Dose: 1 mg Documented by: Hydromorphone HCl (Hydromorphone 0.5 Mg/0.5 Ml Syringe) 0.25 mg IVPUSH Q2H PRN PRN Reason: Pain (severe 7-10) Sodium Chloride (Normal Saline) 1,000 mls @ 75 mls/hr IV ASDIRECTED [facility] Last Admin: 12/10/20 03:57 Dose: 75 mls/hr Documented by: Ketorolac Tromethamine (Ketorolac 30 Mg/Ml Sdv) 30 mg IVPUSH Q6H PRN PRN Reason: Pain (moderate 4-6) Levothyroxine Sodium (Levothyroxine 50 Mcg Tab) 50 mcg PO ACBREAKFAST [facility] Last Admin: 12/10/20 06:18 Dose: 50 mcg Documented by: Ondansetron HCl (Ondansetron 4 Mg Tab.Dis) 4 mg PO Q4H PRN PRN Reason: nausea, able to take PO Sodium Chloride (Sodium Chloride 0.9% 10 Ml Syringe) 10 ml FLUSH ONETIME PRN PRN Reason: IV FLUSH Last Admin: 12/05/20 10:14 Dose: 10 ml Documented by: Discontinued Medications Albuterol (Albuterol 6.7 Gm Inhaler) 0 gm INH Q2H ONE Stop: 12/05/20 09:49 Last Admin: 12/05/20 10:27 Dose: 2 inhalation Documented by: Albuterol (Albuterol 0.083% 2.5 Mg/3 Ml Neb Soln) 2.5 mg NEB Q2H PRN PRN Reason: Shortness Of Breath/wheezing Dexamethasone (Dexamethasone 10 Mg/Ml Sdv) 10 mg IVPUSH ONETIME ONE Stop: 12/05/20 11:12 Last Admin: 12/05/20 11:56 Dose: 10 mg Documented by: Dexamethasone (Dexamethasone 4 Mg/Ml Sdv) 6 mg IV DAILY [facility] Last Admin: 12/07/20 09:21 Dose: 6 mg Documented by: Hydroxychloroquine Sulfate (Hydroxychloroquine 200 Mg Tab) 200 mg PO BID [facility] Last Admin: 12/05/20 20:05 Dose: 200 mg Documented by: Hydroxychloroquine Sulfate (Hydroxychloroquine 200 Mg Tab) 200 mg PO BID [facility] Sodium Chloride (Normal Saline) 1,000 mls @ 500 mls/hr IV ONETIME ONE Stop: 12/05/20 11:47 Last Admin: 12/05/20 10:29 Dose: 500 mls/hr Documented by: Sodium Chloride (Normal Saline) 100 mls @ 75 mls/hr IV ASDIRECTED [facility] Stop: 12/05/20 14:00 Last Admin: 12/05/20 10:14 Dose: 75 mls/hr Documented by: Remdesivir 200 mg/ Sodium (Chloride) 250 mls @ 250 mls/hr IV ONETIME ONE Stop: 12/05/20 12:59 Last Admin: 12/05/20 11:58 Dose: 250 mls/hr Documented by: Azithromycin 500 mg/ Sodium (Chloride) 250 mls @ 250 mls/hr IV Q24H [facility] Last Admin: 12/06/20 14:44 Dose: 250 mls/hr Documented by: Potassium Chloride 10 meq/ (Premix) 100 mls @ 100 mls/hr IV Q1H [facility] Stop: 12/05/20 18:59 Last Admin: 12/05/20 20:03 Dose: 100 mls/hr Documented by: Remdesivir 100 mg/ Sodium (Chloride) 100 mls @ 100 mls/hr IV Q24H [facility] Stop: 12/09/20 12:59 Last Admin: 12/09/20 12:15 Dose: 100 mls/hr Documented by: Sodium Chloride (Normal Saline) Confirm Administered Dose 100 mls @ as directed .ROUTE .STK-MED ONE Stop: 12/07/20 12:03 Last Admin: 12/07/20 13:49 Dose: Not Given Documented by: Iopamidol (Iopamidol 755 Mg/Ml 100 Ml Bottle) 100 ml IVPUSH ONETIME ONE Stop: 12/05/20 09:50 Last Admin: 12/05/20 10:14 Dose: 100 ml Documented by: Potassium Chloride (Potassium Chloride 20 Meq Tab.Er) 20 meq PO ONETIME ONE Stop: 12/05/20 13:18 Last Admin: 12/05/20 15:20 Dose: 20 meq Documented by: Potassium Chloride (Potassium Chloride 20 Meq Tab.Er) 20 meq PO ONETIME ONE Stop: 12/08/20 12:01 Last Admin: 12/08/20 11:58 Dose: 20 meq Documented by: - Exam Quality Assessment: Supplemental Oxygen, DVT Prophylaxis General: Alert, Oriented, Cooperative, No Acute Distress HEENT: Pupils Equal, Pupils Reactive, EOMI Neck: Supple, Trachea Midline Lungs: Decreased Breath Sounds, Crackles Cardiovascular: Regular Rate, Regular Rhythm GI/Abdominal Exam: Normal Bowel Sounds, Soft, Non-Tender, No Distention (Female) Exam: Deferred Back Exam: Normal Inspection, Full Range of Motion Extremities: Normal Inspection, Normal Range of Motion, No Pedal Edema Skin: Warm, Dry, Intact Neurological: No New Focal Deficit Psy/Mental Status: Alert, Normal Affect, Normal Mood - Patient Data Result Diagrams: 12/10/20 07:30 12/10/20 07:30 Sepsis Event Note - Evaluation Sepsis Screening Result: No Definite Risk - Focused Exam Vital Signs: Vital Signs Temp Pulse Resp BP Pulse Ox Pulse Ox 12/10/20 01:28 36.6 C 90 20 143/93 H 90 L 12/09/20 21:43 94 L 12/09/20 20:27 36.8 C 83 20 127/84 89 L - Problem List & Annotations (1) Acute respiratory failure SNOMED Code(s): 94004142 Code(s): J96.00 - ACUTE RESPIRATORY FAILURE, UNSP W HYPOXIA OR HYPERCAPNIA Status: Acute Priority: High Current Visit: Yes Qualifiers: Respiratory failure complication: hypoxia Qualified Code(s): J96.01 - Acute respiratory failure with hypoxia (2) Pneumonia due to COVID-19 virus SNOMED Code(s): 650895261110513313 Code(s): U07.1 - COVID-19; J12.82 - PNEUMONIA DUE TO CORONAVIRUS DISEASE 2019 Status: Acute Priority: High Current Visit: Yes (3) Hypoxia SNOMED Code(s): 772940490 Code(s): R09.02 - HYPOXEMIA Status: Acute Priority: High Current Visit: Yes (4) Connective tissue disease, undifferentiated SNOMED Code(s): 874448764 Code(s): M35.9 - SYSTEMIC INVOLVEMENT OF CONNECTIVE TISSUE, UNSPECIFIED Sta tus: Chronic Priority: High Current Visit: Yes (5) Hypokalemia due to excessive gastrointestinal loss of potassium SNOMED Code(s): 40550970 Code(s): E87.6 - HYPOKALEMIA Status: Acute Priority: High Current Visit: Yes - Problem List Review Problem List Initiated/Reviewed/Updated: Yes - My Orders Last 24 Hours: My Active Orders 12/09/20 09:49 OT Evaluation and Treatment [CONS] Routine PT Evaluation and Treatment [CONS] Routine 12/09/20 Lunch Regular Diet [DIET] 12/10/20 05:11 C-REACTIVE PROTEIN [CHEM] AM CBC WITH AUTO DIFF [HEME] AM COMPREHENSIVE METABOLIC PN,CMP [CHEM] AM MAGNESIUM [CHEM] AM 12/10/20 08:00 CXR [Chest 1V Frontal] [CR] Routine - Assessment Assessment:: The patient is a 40-year-old lady who had a chest x-ray this morning which shows "rather severe" COVID-19 pneumonia as per radiology. I have decided to initiate remdesivir in addition to azithromycin and steroids. The patient's Plaquenil has been discontinued temporarily as there would be a drug drug interaction with remdesivir. The patient's oxygen will be continued to keep her saturations around 92%. She has been encouraged to ambulate. The patient's CRP has also been markedly elevated although is trending downward. The patient will have repeat laboratory studies and repeat CRP. She is currently on Lovenox at 40 mg subcutaneously daily for DVT prophylaxis this will be continued. The patient should at least have 4 more days of remdesivir prior to discharge. The patient should be appropriate for discharge in 4 to 5 days. 12/07/2020 The patient is a 40-year-old lady who is still undergoing antibiotics and remdesivir for COVID-19 pneumonia. The patient has had some improvement. The patient's azithromycin will be continued. I have ordered repeat laboratory studies for the morning. Patient's oxygen will continue and keep her saturations around 92%. The patient has been encouraged to ambulate. Patient's CRP has been trending down and I have ordered repeat of this in the morning. Repeat chest x-ray will likely be appropriate tomorrow morning. Patient is currently on Lovenox for DVT prophylaxis this will be continued. The patient should be appropriate for discharge in 4 days. 12/08/2020 The patient is a 40-year-old lady who is doing better today. She is still requiring oxygen at at least 2-1/2 L/min high flow. She says that she is feeling better today. Subjectively she has improved physical examination. I have reviewed her x-ray. The patient will continue to have diet as tolerated. She is also on remdesivir and this will be continued for at least 3 more days. I have ordered repeat laboratory studies. Patient has been encouraged to ambulate. The patient also be continued on appropriate diet. Vital signs will be monitored and her medications will be adjusted as needed. 12/09/2020 The patient is a 40-year-old lady who is still requiring high flow oxygen. The oxygen will continue as per respiratory therapy to keep her saturations around 92%. I have ordered repeat chest x-ray for tomorrow. The patient should continue with her remdesivir, antibiotics and steroids. The patient has exhibited leukocytosis which is likely the result of steroid usage. DVT prophylaxis will continue for this patient. I have encouraged patient to ambulate. PT OT has also been ordered for the patient. Repeat laboratory studies have been ordered. The patient will have regular diet as tolerated. The patient may be appropriate for discharge in 1 to 2 days depending upon her oxygen needs or if she is worsening may have to consider intubation. We will continue to monitor the patient's work of breathing. 12/10/2020 The patient is a 40-year-old lady who is still having some shortness of breath. The patient had finished her remdesivir and she is still having shortness of breath. The patient's Plaquenil was held due to drug drug interaction with remdesivir. I have ordered restart of her Plaquenil. 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 I have ordered repeat laboratory studies for the morning. She should have a new chest x-ray tomorrow. The patient has been encouraged to ambulate. She is on DVT prophylaxis with the use of Lovenox. The patient should be appropriate for discharge once her oxygen demands have improved sufficiently. We will continue to titrate her oxygen to keep her saturations around 92%. - Plan Plan:: The patient is a 40-year-old lady who has been admitted to acute inpatient hospitalization primarily due to acute respiratory failure. The patient has been ordered to be on oxygen to keep her saturations around 92%. She does have pneumonia that has been associated with COVID-19. The patient has been placed on a azithromycin 500 mg IV on a daily basis along with dexamethasone. I do not feel that the patient would be a good candidate for remdesivir due to her having first symptoms at the beginning of the month. 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 The patient will be maintained on these and I have also ordered that the patient also continue with folic acid 1 mg p.o. daily. The patient will have regular diet as tolerated. She has been encouraged to ambulate. She is also been ordered to have Lovenox 40 mg subcutaneously daily for DVT prophylaxis. Repeat laboratory studies have been ordered. I have also ordered that the patient have replacement of her potassium.
[2020-12-10] MEDS: DULoxetine 30 MG Cap PO SCH ×2 (08:16→21:39)
[2020-12-10] MEDS: Dexamethasone 4 MG Tab PO SCH (08:18)
[2020-12-10] MEDS: Folic Acid 1 MG Tab PO SCH (08:18)
[2020-12-10] MEDS: Enoxaparin 40 MG/0.4 ML Syringe SUBCUT SCH (08:18)
[2020-12-10] MEDS ORDERED: Hydroxychloroquine 200 MG Tab PO SCH (09:00)
[2020-12-10] MEDS: Azithromycin 250 MG Tab PO SCH (15:23)
[2020-12-10] MEDS ORDERED: Potassium Chloride 20 MEQ Tab.ER PO ONE (17:21)
[2020-12-10] MEDS: Hydroxychloroquine 200 MG Tab PO SCH (21:59)
[2020-12-10] MEDS: Albuterol 6.7 GM Inhaler INH PRN (22:44)
[2020-12-11] MEDS: Levothyroxine 50 MCG Tab PO SCH (05:41)
--- NOTE | 2020-12-11 08:39 | PCM.PN ---
- General Info Date of Service: 12/11/20 Admission Dx/Problem (Free Text): Admission Diagnosis/Problem Admission Diagnosis/Problem Respiratory failure, COVID-19 Pneumonia Subjective Update: The patient is a 40-year-old lady who was admitted on 12/05/2020 due to COVID-19 pneumonia. The patient is still requiring high flow oxygen. Subjectively the patient says that she feels better. Less coughing. The patient had finished remdesivir. She was started back on the Plaquenil. She has been tolerating her diet. She has denied any pain. Functional Status: Reports: Pain Controlled, Tolerating Diet - Review of Systems General: Reports: Weakness, Fatigue HEENT: Reports: No Symptoms Pulmonary: Reports: Shortness of Breath Cardiovascular: Reports: No Symptoms Gastrointestinal: Reports: No Symptoms Genitourinary: Reports: No Symptoms Musculoskeletal: Reports: No Symptoms Skin: Reports: No Symptoms Neurological: Reports: No Symptoms Psychiatric: Reports: No Symptoms - Patient Data Vitals - Most Recent: Last Vital Signs Temp 36.8 C 12/11/20 08:26 Pulse 92 12/11/20 08:26 Resp 24 H 12/11/20 08:26 BP 147/68 H 12/11/20 08:26 Pulse Ox 93 L 12/11/20 08:11 Weight - Most Recent: 145.422 kg I&O - Last 24 Hours: Intake & Output 12/10/20 12/11/20 12/11/20 22:59 06:59 14:59 Intake Total 2560 400 Output Total 1800 1400 Balance 760 -1000 Lab Results Last 24 Hours: Laboratory Results - last 24 hr 12/10/20 Range/Units 07:30 Manual Slide Review Abnormal smear Med Orders - Current: Current Medications Acetaminophen (Acetaminophen 325 Mg Tab) 650 mg PO Q4H PRN PRN Reason: Pain (Mild 1-3)/fever Albuterol (Albuterol 6.7 Gm Inhaler) 0 gm INH Q2H PRN PRN Reason: SOB/WHEEZING Last Admin: 12/10/20 22:44 Dose: 2 puff Documented by: Azithromycin (Azithromycin 250 Mg Tab) 500 mg PO Q24H ISAAC Last Admin: 12/10/20 15:23 Dose: 500 mg Documented by: Dexamethasone (Dexamethasone 4 Mg Tab) 6 mg PO DAILY ISAAC Stop: 12/14/20 09:01 Last Admin: 12/10/20 08:18 Dose: 6 mg Documented by: Docusate Sodium (Docusate Sodium 100 Mg Cap) 100 mg PO BID PRN PRN Reason: Constipation Duloxetine HCl (Duloxetine 30 Mg Cap) 60 mg PO BID [facility] Last Admin: 12/10/20 21:39 Dose: 60 mg Documented by: Enoxaparin Sodium (Enoxaparin 40 Mg/0.4 Ml Syringe) 40 mg SUBCUT DAILY [facility] Last Admin: 12/10/20 08:18 Dose: 40 mg Documented by: Folic Acid (Folic Acid 1 Mg Tab) 1 mg PO DAILY [facility] Last Admin: 12/10/20 08:18 Dose: 1 mg Documented by: Hydromorphone HCl (Hydromorphone 0.5 Mg/0.5 Ml Syringe) 0.25 mg IVPUSH Q2H PRN PRN Reason: Pain (severe 7-10) Hydroxychloroquine Sulfate (Hydroxychloroquine 200 Mg Tab) 200 mg PO BID [facility] Last Admin: 12/10/20 21:59 Dose: Not Given Documented by: Ketorolac Tromethamine (Ketorolac 30 Mg/Ml Sdv) 30 mg IVPUSH Q6H PRN PRN Reason: Pain (moderate 4-6) Levothyroxine Sodium (Levothyroxine 50 Mcg Tab) 50 mcg PO ACBREAKFAST [facility] Last Admin: 12/11/20 05:41 Dose: 50 mcg Documented by: Ondansetron HCl (Ondansetron 4 Mg Tab.Dis) 4 mg PO Q4H PRN PRN Reason: nausea, able to take PO Sodium Chloride (Sodium Chloride 0.9% 10 Ml Syringe) 10 ml FLUSH ONETIME PRN PRN Reason: IV FLUSH Last Admin: 12/05/20 10:14 Dose: 10 ml Documented by: Discontinued Medications Albuterol (Albuterol 6.7 Gm Inhaler) 0 gm INH Q2H ONE Stop: 12/05/20 09:49 Last Admin: 12/05/20 10:27 Dose: 2 inhalation Documented by: Albuterol (Albuterol 0.083% 2.5 Mg/3 Ml Neb Soln) 2.5 mg NEB Q2H PRN PRN Reason: Shortness Of Breath/wheezing Dexamethasone (Dexamethasone 10 Mg/Ml Sdv) 10 mg IVPUSH ONETIME ONE Stop: 12/05/20 11:12 Last Admin: 12/05/20 11:56 Dose: 10 mg Documented by: Dexamethasone (Dexamethasone 4 Mg/Ml Sdv) 6 mg IV DAILY [facility] Last Admin: 12/07/20 09:21 Dose: 6 mg Documented by: Hydroxychloroquine Sulfate (Hydroxychloroquine 200 Mg Tab) 200 mg PO BID [facility] Last Admin: 12/05/20 20:05 Dose: 200 mg Documented by: Hydroxychloroquine Sulfate (Hydroxychloroquine 200 Mg Tab) 200 mg PO BID [facility] Sodium Chloride (Normal Saline) 1,000 mls @ 500 mls/hr IV ONETIME ONE Stop: 12/05/20 11:47 Last Admin: 12/05/20 10:29 Dose: 500 mls/hr Documented by: Sodium Chloride (Normal Saline) 100 mls @ 75 mls/hr IV ASDIRECTED [facility] Stop: 12/05/20 14:00 Last Admin: 12/05/20 10:14 Dose: 75 mls/hr Documented by: Remdesivir 200 mg/ Sodium (Chloride) 250 mls @ 250 mls/hr IV ONETIME ONE Stop: 12/05/20 12:59 Last Admin: 12/05/20 11:58 Dose: 250 mls/hr Documented by: Sodium Chloride (Normal Saline) 1,000 mls @ 75 mls/hr IV ASDIRECTED [facility] Last Admin: 12/10/20 03:57 Dose: 75 mls/hr Documented by: Azithromycin 500 mg/ Sodium (Chloride) 250 mls @ 250 mls/hr IV Q24H [facility] Last Admin: 12/06/20 14:44 Dose: 250 mls/hr Documented by: Potassium Chloride 10 meq/ (Premix) 100 mls @ 100 mls/hr IV Q1H [facility] Stop: 12/05/20 18:59 Last Admin: 12/05/20 20:03 Dose: 100 mls/hr Documented by: Remdesivir 100 mg/ Sodium (Chloride) 100 mls @ 100 mls/hr IV Q24H [facility] Stop: 12/09/20 12:59 Last Admin: 12/09/20 12:15 Dose: 100 mls/hr Documented by: Sodium Chloride (Normal Saline) Confirm Administered Dose 100 mls @ as directed .ROUTE .STK-MED ONE Stop: 12/07/20 12:03 Last Admin: 12/07/20 13:49 Dose: Not Given Documented by: Iopamidol (Iopamidol 755 Mg/Ml 100 Ml Bottle) 100 ml IVPUSH ONETIME ONE Stop: 12/05/20 09:50 Last Admin: 12/05/20 10:14 Dose: 100 ml Documented by: Potassium Chloride (Potassium Chloride 20 Meq Tab.Er) 20 meq PO ONETIME ONE Stop: 12/05/20 13:18 Last Admin: 12/05/20 15:20 Dose: 20 meq Documented by: Potassium Chloride (Potassium Chloride 20 Meq Tab.Er) 20 meq PO ONETIME ONE Stop: 12/08/20 12:01 Last Admin: 12/08/20 11:58 Dose: 20 meq Documented by: Potassium Chloride (Potassium Chloride 20 Meq Tab.Er) 20 meq PO ONETIME ONE Stop: 12/10/20 17:22 Last Admin: 12/10/20 17:38 Dose: 20 meq Documented by: - Exam Quality Assessment: Supplemental Oxygen, DVT Prophylaxis General: Alert, Oriented, Cooperative, No Acute Distress HEENT: Pupils Equal, Pupils Reactive, EOMI, Mucous Membr. Moist/[place] Neck: Supple, Trachea Midline Lungs: Normal Respiratory Effort, Crackles, Rales Cardiovascular: Regular Rate, Regular Rhythm GI/Abdominal Exam: Normal Bowel Sounds, Soft, Non-Tender, No Distention (Female) Exam: Deferred Back Exam: Normal Inspection, Full Range of Motion Extremities: Normal Inspection, No Pedal Edema Skin: Warm, Dry, Intact Neurological: No New Focal Deficit Psy/Mental Status: Alert, Normal Affect, Normal Mood - Patient Data Lab Results Last 24 hrs: Laboratory Results - last 24 hr 12/10/20 Range/Units 07:30 Manual Slide Review Abnormal smear Result Diagrams: 12/10/20 07:30 12/10/20 07:30 Sepsis Event Note - Evaluation Sepsis Screening Result: No Definite Risk - Focused Exam Vital Signs: Vital Signs Temp Pulse Pulse Resp BP Pulse Ox Pulse Ox 12/11/20 08:26 36.8 C 89 24 H 147/68 H 12/11/20 08:11 93 L 12/11/20 05:38 36.9 C 84 20 131/75 93 L 12/11/20 05:19 95 12/11/20 01:12 68 28 H 132/74 95 12/10/20 22:45 86 L 12/10/20 21:37 37.0 C 83 20 137/81 94 L 12/10/20 20:47 88 L - Problem List & Annotations (1) Acute respiratory failure SNOMED Code(s): 51971542 Code(s): J96.00 - ACUTE RESPIRATORY FAILURE, UNSP W HYPOXIA OR HYPERCAPNIA Status: Acute Priority: High Current Visit: Yes Qualifiers: Respiratory failure complication: hypoxia Qualified Code(s): J96.01 - Acute respiratory failure with hypoxia (2) Pneumonia due to COVID-19 virus SNOMED Code(s): 905320280782123591 Code(s): U07.1 - COVID-19; J12.82 - PNEUMONIA DUE TO CORONAVIRUS DISEASE 2019 Status: Acute Priority: High Current Visit: Yes (3) Hypoxia SNOMED Code(s): 924071183 Code(s): R09.02 - HYPOXEMIA Status: Acute Priority: High Current Visit: Yes (4) Connective tissue disease, undifferentiated SNOMED Code(s): 654031941 Code(s): M35.9 - SYSTEMIC INVOLVEMENT OF CONNECTIVE TISSUE, UNSPECIFIED Status: Chronic Priority: High Current Visit: Yes (5) Hypokalemia due to excessive gastrointestinal loss of potassium SNOMED Code(s): 54527040 Code(s): E87.6 - HYPOKALEMIA Status: Acute Priority: High Current Visit: Yes - Problem List Review Problem List Initiated/Reviewed/Updated: Yes - My Orders Last 24 Hours: My Active Orders 12/10/20 08:00 CXR [Chest 1V Frontal] [CR] Routine 12/10/20 21:00 Hydroxychloroquine [Plaquenil] 200 mg PO BID - Assessment Assessment:: The patient is a 40-year-old lady who had a chest x-ray this morning which shows "rather severe" COVID-19 pneumonia as per radiology. I have decided to initiate remdesivir in addition to azithromycin and steroids. The patient's Plaquenil has been discontinued temporarily as there would be a drug drug interaction with remdesivir. The patient's oxygen will be continued to keep her saturations around 92%. She has been encouraged to ambulate. The patient's CRP has also been markedly elevated although is trending downward. The patient will have repeat laboratory studies and repeat CRP. She is currently on Lovenox at 40 mg subcutaneously daily for DVT prophylaxis this will be continued. The patient should at least have 4 more days of remdesivir prior to discharge. The patient should be appropriate for discharge in 4 to 5 days. 12/07/2020 The patient is a 40-year-old lady who is still undergoing antibiotics and remdesivir for COVID-19 pneumonia. The patient has had some improvement. The patient's azithromycin will be continued. I have ordered repeat laboratory studies for the morning. Patient's oxygen will continue and keep her saturations around 92%. The patient has been encouraged to ambulate. Patient's CRP has been trending down and I have ordered repeat of this in the morning. Repeat chest x-ray will likely be appropriate tomorrow morning. Patient is currently on Lovenox for DVT prophylaxis this will be continued. The patient should be appropriate for discharge in 4 days. 12/08/2020 The patient is a 40-year-old lady who is doing better today. She is still requiring oxygen at at least 2-1/2 L/min high flow. She says that she is feeling better today. Subjectively she has improved physical examination. I have reviewed her x-ray. The patient will continue to have diet as tolerated. She is also on remdesivir and this will be continued for at least 3 more days. I have ordered repeat laboratory studies. Patient has been encouraged to ambulate. The patient also be continued on appropriate diet. Vital signs will be monitored and her medications will be adjusted as needed. 12/09/2020 The patient is a 40-year-old lady who is still requiring high flow oxygen. The oxygen will continue as per respiratory therapy to keep her saturations around 92%. I have ordered repeat chest x-ray for tomorrow. The patient should continue with her remdesivir, antibiotics and steroids. The patient has exhibited leukocytosis which is likely the result of steroid usage. DVT prophylaxis will continue for this patient. I have encouraged patient to ambulate. PT OT has also been ordered for the patient. Repeat laboratory studies have been ordered. The patient will have regular diet as tolerated. The patient may be appropriate for discharge in 1 to 2 days depending upon her oxygen needs or if she is worsening may have to consider intubation. We will continue to monitor the patient's work of breathing. 12/10/2020 The patient is a 40-year-old lady who is still having some shortness of breath. The patient had finished her remdesivir and she is still having shortness of breath. The patient's Plaquenil was held due to drug drug interaction with remdesivir. I have ordered restart of her Plaquenil. 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 I have ordered repeat laboratory studies for the morning. She should have a new chest x-ray tomorrow. The patient has been encouraged to ambulate. She is on DVT prophylaxis with the use of Lovenox. The patient should be appropriate for discharge once her oxygen demands have improved sufficiently. We will continue to titrate her oxygen to keep her saturations around 92%. - Plan Plan:: The patient is a 40-year-old lady who has been admitted to acute inpatient hospitalization primarily due to acute respiratory failure. The patient has bee n ordered to be on oxygen to keep her saturations around 92%. She does have pneumonia that has been associated with COVID-19. The patient has been placed on a azithromycin 500 mg IV on a daily basis along with dexamethasone. I do not feel that the patient would be a good candidate for remdesivir due to her having first symptoms at the beginning of the month. 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 The patient will be maintained on these and I have also ordered that the patient also continue with folic acid 1 mg p.o. daily. The patient will have regular diet as tolerated. She has been encouraged to ambulate. She is also been ordered to have Lovenox 40 mg subcutaneously daily for DVT prophylaxis. Repeat laboratory studies have been ordered. I have also ordered that the patient have replacement of her potassium. 12/11/2020 The patient is a 40-year-old lady who is still requiring high flow oxygen. We will continue the patient's Plaquenil. The patient's antibiotics have also been discontinued. She has been encouraged to ambulate. The patient will have replacement of her electrolytes as necessary. I have ordered repeat laboratories for the morning. The patient should be appropriate for discharged after her oxygen requirements have decreased. She is also on DVT prophylaxis with 40 mg of Lovenox subcutaneous daily. The patient's oxygen will be continued to keep her saturations around 92%. Regular diet as tolerated.
[2020-12-11] MEDS: Dexamethasone 4 MG Tab PO SCH (08:40)
[2020-12-11] MEDS: Hydroxychloroquine 200 MG Tab PO SCH ×2 (08:40→20:43)
[2020-12-11] MEDS: Enoxaparin 40 MG/0.4 ML Syringe SUBCUT SCH (08:40)
[2020-12-11] MEDS: Folic Acid 1 MG Tab PO SCH (08:41)
[2020-12-11] MEDS: DULoxetine 30 MG Cap PO SCH ×2 (08:41→20:43)
[2020-12-11] MEDS: Azithromycin 250 MG Tab PO SCH (13:49)
--- NOTE | 2020-12-11 17:04 | CR ---
Chest: Portable view of the chest was obtained. Comparison: Prior chest x-ray of 12/08/20. Diffuse increased density is seen on both sides of the chest, worse on the right side. Findings have increased in prominence from previous study on the right side. Left side appears fairly stable. Heart size and mediastinum are normal. No acute osseous finding is appreciated. Impression: 1. Diffuse increased density on both sides of the chest, worse on the right side. 2. Findings on the right side have slightly increased in prominence from prior chest x-ray. Diagnostic code #3 Minimally disagree with preliminary report from [facility], finalized on 12/10/20, 10:49 AM CDT, code 2
[2020-12-11] MEDS: Albuterol 6.7 GM Inhaler INH PRN (20:35)
[2020-12-12] MEDS: Albuterol 6.7 GM Inhaler INH PRN ×2 (05:27→21:01)
[2020-12-12] MEDS: Levothyroxine 50 MCG Tab PO SCH (05:55)
[2020-12-12] MEDS: Folic Acid 1 MG Tab PO SCH (09:28)
[2020-12-12] MEDS: Dexamethasone 4 MG Tab PO SCH (09:28)
[2020-12-12] MEDS: DULoxetine 30 MG Cap PO SCH ×2 (09:28→20:36)
[2020-12-12] MEDS: Enoxaparin 40 MG/0.4 ML Syringe SUBCUT SCH (09:29)
[2020-12-12] MEDS: Hydroxychloroquine 200 MG Tab PO SCH ×2 (09:29→20:36)
--- NOTE | 2020-12-12 09:30 | CR ---
Chest: Portable view of the chest was obtained. Comparison: Prior chest x-ray on 11/30/20. Diffuse parenchymal densities are seen throughout both lungs, worse on the right side. Findings are fairly stable from prior exam when allowing for slight differences in technique. Heart size and mediastinum are normal. Bony structures are grossly intact. Impression: 1. Diffuse parenchymal change within both lungs which appears to be fairly stable from prior chest x-ray when allowing for slight differences in technique. 2. Nothing acute is otherwise seen when compared to prior chest x-ray. Diagnostic code #3
--- NOTE | 2020-12-12 10:37 | PCM.PN ---
- General Info Date of Service: 12/12/20 Admission Dx/Problem (Free Text): Admission Diagnosis/Problem Admission Diagnosis/Problem Respiratory failure, COVID-19 Pneumonia Subjective Update: The patient is a 40-year-old lady who had been admitted to acute hospitalization secondary to Covid pneumonia. She has had a slow recovery. The patient is currently on oxygen via nasal cannula at 6 L/min. Patient says that she is breathing somewhat better. She has been tolerating her diet. She has denied any pain today. Functional Status: Reports: Pain Controlled, Tolerating Diet - Review of Systems General: Reports: No Symptoms HEENT: Reports: No Symptoms Pulmonary: Reports: Shortness of Breath, Cough Cardiovascular: Reports: No Symptoms Gastrointestinal: Reports: No Symptoms Genitourinary: Reports: No Symptoms Musculoskeletal: Reports: No Symptoms Skin: Reports: No Symptoms Neurological: Reports: No Symptoms Psychiatric: Reports: No Symptoms - Patient Data Vitals - Most Recent: Last Vital Signs Temp 36.9 C 12/12/20 07:49 Pulse 88 12/12/20 07:49 Resp 24 H 12/12/20 07:49 BP 130/76 12/12/20 07:49 Pulse Ox 93 L 12/12/20 08:54 Weight - Most Recent: 145.104 kg I&O - Last 24 Hours: Intake & Output 12/11/20 12/12/20 12/12/20 22:59 06:59 14:59 Intake Total 840 600 Output Total 400 1100 Balance 440 -500 Lab Results Last 24 Hours: Laboratory Results - last 24 hr 12/12/20 12/12/20 Range/Units 05:38 05:38 WBC 14.42 H (3.98-10.04) K/mm3 RBC 4.02 (3.98-5.22) M/mm3 Hgb 12.2 (11.2-15.7) gm/dl Hct 38.6 (34.1-44.9) % MCV 96.0 H (79.4-94.8) fl MCH 30.3 (25.6-32.2) pg MCHC 31.6 L (32.2-35.5) g/dl RDW Std Deviation 45.6 (36.4-46.3) fL Plt Count 355 (182-369) K/mm3 MPV 10.2 (9.4-12.3) fl Neut % (Auto) 78.8 H (34.0-71.1) % Lymph % (Auto) 8.5 L (19.3-51.7) % [place] % (Auto) 7.7 (4.7-12.5) % Eos % (Auto) 0.3 L (0.7-5.8) Baso % (Auto) 0.2 (0.1-1.2) % Neut # (Auto) 11.37 H (1.56-6.13) K/mm3 Lymph # (Auto) 1.22 (1.18-3.74) K/mm3 [place] # (Auto) 1.11 H (0.24-0.36) K/mm3 Eos # (Auto) 0.04 (0.04-0.36) K/mm3 Baso # (Auto) 0.03 (0.01-0.08) K/mm3 Manual Slide Review Abnormal smear Sodium 139 (136-145) mEq/L Potassium 3.9 (3.5-5.1) mEq/L Chloride 105 (98-107) mEq/L Carbon Dioxide 28 (21-32) mEq/L Anion Gap 9.9 (5-15) BUN 14 (7-18) mg/dL Creatinine 0.9 (0.55-1.02) mg/dL Est Cr Clr Drug Dosing 70.32 mL/min Estimated GFR (MDRD) > 60 (>60) mL/min BUN/Creatinine Ratio 15.6 (14-18) Glucose 106 H (70-99) mg/dL Calcium 8.4 L (8.5-10.1) mg/dL Magnesium 2.1 (1.8-2.4) mg/dL Total Bilirubin 0.5 (0.2-1.0) mg/dL AST 39 H (15-37) U/L ALT 66 H (14-59) U/L Alkaline Phosphatase 65 (46-116) U/L C-Reactive Protein 17.4 H* (<1.0) mg/dL Total Protein 6.3 L (6.4-8.2) g/dl Albumin 2.1 L (3.4-5.0) g/dl Globulin 4.2 gm/dL Albumin/Globulin Ratio 0.5 L (1-2) Med Orders - Current: Current Medications Acetaminophen (Acetaminophen 325 Mg Tab) 650 mg PO Q4H PRN PRN Reason: Pain (Mild 1-3)/fever Albuterol (Albuterol 6.7 Gm Inhaler) 0 gm INH Q2H PRN PRN Reason: SOB/WHEEZING Last Admin: 12/12/20 05:27 Dose: 2 puff Documented by: Azithromycin (Azithromycin 250 Mg Tab) 500 mg PO Q24H [facility] Last Admin: 12/11/20 13:49 Dose: 500 mg Documented by: Dexamethasone (Dexamethasone 4 Mg Tab) 6 mg PO DAILY [facility] Stop: 12/14/20 09:01 Last Admin: 12/12/20 09:28 Dose: 6 mg Documented by: Docusate Sodium (Docusate Sodium 100 Mg Cap) 100 mg PO BID PRN PRN Reason: Constipation Duloxetine HCl (Duloxetine 30 Mg Cap) 60 mg PO BID [facility] Last Admin: 12/12/20 09:28 Dose: 60 mg Documented by: Enoxaparin Sodium (Enoxaparin 40 Mg/0.4 Ml Syringe) 40 mg SUBCUT DAILY [facility] Last Admin: 12/12/20 09:29 Dose: 40 mg Documented by: Folic Acid (Folic Acid 1 Mg Tab) 1 mg PO DAILY [facility] Last Admin: 12/12/20 09:28 Dose: 1 mg Documented by: Hydromorphone HCl (Hydromorphone 0.5 Mg/0.5 Ml Syringe) 0.25 mg IVPUSH Q2H PRN PRN Reason: Pain (severe 7-10) Hydroxychloroquine Sulfate (Hydroxychloroquine 200 Mg Tab) 200 mg PO BID [facility] Last Admin: 12/12/20 09:29 Dose: 200 mg Documented by: Ketorolac Tromethamine (Ketorolac 30 Mg/Ml Sdv) 30 mg IVPUSH Q6H PRN PRN Reason: Pain (moderate 4-6) Levothyroxine Sodium (Levothyroxine 50 Mcg Tab) 50 mcg PO ACBREAKFAST [facility] Last Admin: 12/12/20 05:55 Dose: 50 mcg Documented by: Ondansetron HCl (Ondansetron 4 Mg Tab.Dis) 4 mg PO Q4H PRN PRN Reason: nausea, able to take PO Sodium Chloride (Sodium Chloride 0.9% 10 Ml Syringe) 10 ml FLUSH ONETIME PRN PRN Reason: IV FLUSH Last Admin: 12/05/20 10:14 Dose: 10 ml Documented by: Discontinued Medications Albuterol (Albuterol 6.7 Gm Inhaler) 0 gm INH Q2H ONE Stop: 12/05/20 09:49 Last Admin: 12/05/20 10:27 Dose: 2 inhalation Documented by: Albuterol (Albuterol 0.083% 2.5 Mg/3 Ml Neb Soln) 2.5 mg NEB Q2H PRN PRN Reason: Shortness Of Breath/wheezing Dexamethasone (Dexamethasone 10 Mg/Ml Sdv) 10 mg IVPUSH ONETIME ONE Stop: 12/05/20 11:12 Last Admin: 12/05/20 11:56 Dose: 10 mg Documented by: Dexamethasone (Dexamethasone 4 Mg/Ml Sdv) 6 mg IV DAILY [facility] Last Admin: 12/07/20 09:21 Dose: 6 mg Documented by: Hydroxychloroquine Sulfate (Hydroxychloroquine 200 Mg Tab) 200 mg PO BID [facility] Last Admin: 12/05/20 20:05 Dose: 200 mg Documented by: Hydroxychloroquine Sulfate (Hydroxychloroquine 200 Mg Tab) 200 mg PO BID [facility] Sodium Chloride (Normal Saline) 1,000 mls @ 500 mls/hr IV ONETIME ONE Stop: 12/05/20 11:47 Last Admin: 12/05/20 10:29 Dose: 500 mls/hr Documented by: Sodium Chloride (Normal Saline) 100 mls @ 75 mls/hr IV ASDIRECTED [facility] Stop: 12/05/20 14:00 Last Admin: 12/05/20 10:14 Dose: 75 mls/hr Documented by: Remdesivir 200 mg/ Sodium (Chloride) 250 mls @ 250 mls/hr IV ONETIME ONE Stop: 12/05/20 12:59 Last Admin: 12/05/20 11:58 Dose: 250 mls/hr Documented by: Sodium Chloride (Normal Saline) 1,000 mls @ 75 mls/hr IV ASDIRECTED [facility] Last Admin: 12/10/20 03:57 Dose: 75 mls/hr Documented by: Azithromycin 500 mg/ Sodium (Chloride) 250 mls @ 250 mls/hr IV Q24H [facility] Last Admin: 12/06/20 14:44 Dose: 250 mls/hr Documented by: Potassium Chloride 10 meq/ (Premix) 100 mls @ 100 mls/hr IV Q1H [facility] Stop: 12/05/20 18:59 Last Admin: 12/05/20 20:03 Dose: 100 mls/hr Documented by: Remdesivir 100 mg/ Sodium (Chloride) 100 mls @ 100 mls/hr IV Q24H [facility] Stop: 12/09/20 12:59 Last Admin: 12/09/20 12:15 Dose: 100 mls/hr Documented by: Sodium Chloride (Normal Saline) Confirm Administered Dose 100 mls @ as directed .ROUTE .STK-MED ONE Stop: 12/07/20 12:03 Last Admin: 12/07/20 13:49 Dose: Not Given Documented by: Iopamidol (Iopamidol 755 Mg/Ml 100 Ml Bottle) 100 ml IVPUSH ONETIME ONE Stop: 12/05/20 09:50 Last Admin: 12/05/20 10:14 Dose: 100 ml Documented by: Potassium Chloride (Potassium Chloride 20 Meq Tab.Er) 20 meq PO ONETIME ONE Stop: 12/05/20 13:18 Last Admin: 12/05/20 15:20 Dose: 20 meq Documented by: Potassium Chloride (Potassium Chloride 20 Meq Tab.Er) 20 meq PO ONETIME ONE Stop: 12/08/20 12:01 Last Admin: 12/08/20 11:58 Dose: 20 meq Documented by: Potassium Chloride (Potassium Chloride 20 Meq Tab.Er) 20 meq PO ONETIME ONE Stop: 12/10/20 17:22 Last Admin: 12/10/20 17:38 Dose: 20 meq Documented by: - Exam Quality Assessment: Supplemental Oxygen, DVT Prophylaxis General: Alert, Oriented, Cooperative, No Acute Distress HEENT: Pupils Equal, Pupils Reactive, EOMI, Mucous Membr. Moist/[place] Neck: Supple, Trachea Midline Lungs: Decreased Breath Sounds, Crackles, Rales (Bibasilar) Cardiovascular: Regular Rate, Regular Rhythm GI/Abdominal Exam: Normal Bowel Sounds, Soft, Non-Tender, No Distention (Female) Exam: Deferred Back Exam: Normal Inspection, Full Range of Motion Extremities: Normal Inspection, Normal Range of Motion, No Pedal Edema Skin: Warm, Dry, Intact Neurological: No New Focal Deficit, Normal Gait, Normal Speech Psy/Mental Status: Alert, Normal Affect, Normal Mood - Patient Data Lab Results Last 24 hrs: Laboratory Results - last 24 hr 12/12/20 12/12/20 Range/Units 05:38 05:38 WBC 14.42 H (3.98-10.04) K/mm3 RBC 4.02 (3.98-5.22) M/mm3 Hgb 12.2 (11.2-15.7) gm/dl Hct 38.6 (34.1-44.9) % MCV 96.0 H (79.4-94.8) fl MCH 30.3 (25.6-32.2) pg MCHC 31.6 L (32.2-35.5) g/dl RDW Std Deviation 45.6 (36.4-46.3) fL Plt Count 355 (182-369) K/mm3 MPV 10.2 (9.4-12.3) fl Neut % (Auto) 78.8 H (34.0-71.1) % Lymph % (Auto) 8.5 L (19.3-51.7) % [place] % (Auto) 7.7 (4.7-12.5) % Eos % (Auto) 0.3 L (0.7-5.8) Baso % (Auto) 0.2 (0.1-1.2) % Neut # (Auto) 11.37 H (1.56-6.13) K/mm3 Lymph # (Auto) 1.22 (1.18-3.74) K/mm3 [place] # (Auto) 1.11 H (0.24-0.36) K/mm3 Eos # (Auto) 0.04 (0.04-0.36) K/mm3 Baso # (Auto) 0.03 (0.01-0.08) K/mm3 Manual Slide Review Abnormal smear Sodium 139 (136-145) mEq/L Potassium 3.9 (3.5-5.1) mEq/L Chloride 105 (98-107) mEq/L Carbon Dioxide 28 (21-32) mEq/L Anion Gap 9.9 (5-15) BUN 14 (7-18) mg/dL Creatinine 0.9 (0.55-1.02) mg/dL Est Cr Clr Drug Dosing 70.32 mL/min Estimated GFR (MDRD) > 60 (>60) mL/min BUN/Creatinine Ratio 15.6 (14-18) Glucose 106 H (70-99) mg/dL Calcium 8.4 L (8.5-10.1) mg/dL Magnesium 2.1 (1.8-2.4) mg/dL Total Bilirubin 0.5 (0.2-1.0) mg/dL AST 39 H (15-37) U/L ALT 66 H (14-59) U/L Alkaline Phosphatase 65 (46-116) U/L C-Reactive Protein 17.4 H* (<1.0) mg/dL Total Protein 6.3 L (6.4-8.2) g/dl Albumin 2.1 L (3.4-5.0) g/dl Globulin 4.2 gm/dL Albumin/Globulin Ratio 0.5 L (1-2) Result Diagrams: 12/12/20 05:38 12/12/20 05:38 Sepsis Event Note - Evaluation Sepsis Screening Result: Sepsis Risk - Focused Exam Vital Signs: Vital Signs Temp Pulse Resp BP Pulse Ox Pulse Ox Pulse Ox 12/12/20 08:54 93 L 12/12/20 07:49 36.9 C 88 24 H 130/76 94 L 12/12/20 05:28 88 L 12/12/20 04:02 36.8 C 77 24 H 132/72 91 L 12/11/20 23:56 36.9 C 85 22 H 125/83 96 - Problem List & Annotations (1) Acute respiratory failure SNOMED Code(s): 74929660 Code(s): J96.00 - ACUTE RESPIRATORY FAILURE, UNSP W HYPOXIA OR HYPERCAPNIA Status: Acute Priority: High Current Visit: Yes Qualifiers: Respiratory failure complication: hypoxia Qualified Code(s): J96.01 - Acute respiratory failure with hypoxia (2) Pneumonia due to COVID-19 virus SNOMED Code(s): 632356487915303461 Code(s): U07.1 - COVID-19; J12.82 - PNEUMONIA DUE TO CORONAVIRUS DISEASE 2019 Status: Acute Priority: High Current Visit: Yes (3) Hypoxia SNOMED Code(s): 014534642 Code(s): R09.02 - HYPOXEMIA Status: Acute Priority: High Current Visit: Yes (4) Connective tissue disease, undifferentiated SNOMED Code(s): 048290089 Code(s): M35.9 - SYSTEMIC INVOLVEMENT OF CONNECTIVE TISSUE, UNSPECIFIED Status: Chronic Priority: High Current Visit: Yes (5) Hypokalemia due to excessive gastrointestinal loss of potassium SNOMED Code(s): 40260324 Code(s): E87.6 - HYPOKALEMIA Status: Acute Priority: High Current Visit: Yes - Problem List Review Problem List Initiated/Reviewed/Updated: Yes - Assessment Assessment:: The patient is a 40-year-old lady who had a chest x-ray this morning which shows "rather severe" COVID-19 pneumonia as per radiology. I have decided to initiate remdesivir in addition to azithromycin and steroids. The patient's Plaquenil has been discontinued temporarily as there would be a drug drug interaction with remdesivir. The patient's oxygen will be continued to keep her saturations around 92%. She has been encouraged to ambulate. The patient's CRP has also be en markedly elevated although is trending downward. The patient will have repeat laboratory studies and repeat CRP. She is currently on Lovenox at 40 mg subcutaneously daily for DVT prophylaxis this will be continued. The patient should at least have 4 more days of remdesivir prior to discharge. The patient should be appropriate for discharge in 4 to 5 days. 12/07/2020 The patient is a 40-year-old lady who is still undergoing antibiotics and remdesivir for COVID-19 pneumonia. The patient has had some improvement. The patient's azithromycin will be continued. I have ordered repeat laboratory studies for the morning. Patient's oxygen will continue and keep her saturations around 92%. The patient has been encouraged to ambulate. Patient's CRP has been trending down and I have ordered repeat of this in the morning. Repeat chest x-ray will likely be appropriate tomorrow morning. Patient is currently on Lovenox for DVT prophylaxis this will be continued. The patient should be appropriate for discharge in 4 days. 12/08/2020 The patient is a 40-year-old lady who is doing better today. She is still requiring oxygen at at least 2-1/2 L/min high flow. She says that she is feeling better today. Subjectively she has improved physical examination. I have reviewed her x-ray. The patient will continue to have diet as tolerated. She is also on remdesivir and this will be continued for at least 3 more days. I have ordered repeat laboratory studies. Patient has been encouraged to ambulate. The patient also be continued on appropriate diet. Vital signs will be monitored and her medications will be adjusted as needed. 12/09/2020 The patient is a 40-year-old lady who is still requiring high flow oxygen. The oxygen will continue as per respiratory therapy to keep her saturations around 9 2%. I have ordered repeat chest x-ray for tomorrow. The patient should continue with her remdesivir, antibiotics and steroids. The patient has exhibited leukocytosis which is likely the result of steroid usage. DVT prophylaxis will continue for this patient. I have encouraged patient to ambulate. PT OT has also been ordered for the patient. Repeat laboratory studies have been ordered. The patient will have regular diet as tolerated. The patient may be appropriate for discharge in 1 to 2 days depending upon her oxygen needs or if she is worsening may have to consider intubation. We will continue to monitor the patient's work of breathing. 12/10/2020 The patient is a 40-year-old lady who is still having some shortness of breath. The patient had finished her remdesivir and she is still having shortness of breath. The patient's Plaquenil was held due to drug drug interaction with remdesivir. I have ordered restart of her Plaquenil. 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 I have ordered repeat laboratory studies for the morning. She should have a new chest x-ray tomorrow. The patient has been encouraged to ambulate. She is on DVT prophylaxis with the use of Lovenox. The patient should be appropriate for discharge once her oxygen demands have improved sufficiently. We will continue to titrate her oxygen to keep her saturations around 92%. - Plan Plan:: The patient is a 40-year-old lady who has been admitted to acute inpatient hospitalization primarily due to acute respiratory failure. The patient has been ordered to be on oxygen to keep her saturations around 92%. She does have pneumonia that has been associated with COVID-19. The patient has been placed on a azithromycin 500 mg IV on a daily basis along with dexamethasone. I do not feel that the patient would be a good candidate for remdesivir due to her having first symptoms at the beginning of the month. 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 The patient will be maintained on these and I have also ordered that the patient also continue with folic acid 1 mg p.o. daily. The patient will have regular diet as tolerated. She has been encouraged to ambulate. She is also been ordered to have Lovenox 40 mg subcutaneously daily for DVT prophylaxis. Repeat laboratory studies have been ordered. I have also ordered that the patient have replacement of her potassium. 12/11/2020 The patient is a 40-year-old lady who is still requiring high flow oxygen. We will continue the patient's Plaquenil. The patient's antibiotics have also been discontinued. She has been encouraged to ambulate. The patient will have replacement of her electrolytes as necessary. I have ordered repeat labor atories for the morning. The patient should be appropriate for discharged after her oxygen requirements have decreased. She is also on DVT prophylaxis with 40 mg of Lovenox subcutaneous daily. The patient's oxygen will be continued to keep her saturations around 92%. Regular diet as tolerated. 12/12/2020 The patient is a 40-year-old lady who is improving very slowly. She is still requiring high oxygen levels via nasal cannula. Yesterday the patient's Plaquenil was started for her connective tissue disease and she has been tolerating this. Repeat laboratory studies have been ordered for the morning. Her electrolytes will be replaced as necessary. The patient is also having DVT prophylaxis with the use of Lovenox at 40 mg subcutaneous daily. Patient's oxy gen will be titrated to help wean her off the oxygen by nasal cannula. Once the patient has been able to tolerate low oxygen flows she should be appropriate for discharge. This may take 1 to 2 days.
[2020-12-12] MEDS: Azithromycin 250 MG Tab PO SCH (14:38)
[2020-12-13] MEDS: Levothyroxine 50 MCG Tab PO SCH (05:30)
[2020-12-13] MEDS: Enoxaparin 40 MG/0.4 ML Syringe SUBCUT SCH (08:17)
[2020-12-13] MEDS: Hydroxychloroquine 200 MG Tab PO SCH ×2 (08:17→21:57)
[2020-12-13] MEDS: Folic Acid 1 MG Tab PO SCH (08:17)
[2020-12-13] MEDS: DULoxetine 30 MG Cap PO SCH ×2 (08:18→21:57)
[2020-12-13] MEDS: Dexamethasone 4 MG Tab PO SCH (08:18)
[2020-12-13] MEDS: Azithromycin 250 MG Tab PO SCH (13:34)
--- NOTE | 2020-12-13 16:05 | PCM.PN ---
- General Info Date of Service: 12/13/20 Subjective Update: patient oxygen requirements on 4-5 liters supplemental oxygen SOB and cough improved denies chest pain no fever overnight - Review of Systems Pulmonary: Reports: Shortness of Breath, Pleuritic Chest Pain, Cough Cardiovascular: Reports: No Symptoms Genitourinary: Reports: No Symptoms Skin: Reports: No Symptoms Neurological: Reports: No Symptoms - Patient Data Vitals - Most Recent: Last Vital Signs Temp 98.4 F 12/13/20 15:47 Pulse 93 12/13/20 15:47 Resp 18 12/13/20 15:47 BP 118/70 12/13/20 15:47 Pulse Ox 95 12/13/20 15:47 Weight - Most Recent: 308 lb I&O - Last 24 Hours: Intake & Output 12/13/20 12/13/20 12/13/20 06:59 14:59 22:59 Intake Total 600 Output Total 1300 Balance -700 Lab Results Last 24 Hours: Laboratory Results - last 24 hr 12/13/20 12/13/20 Range/Units 05:27 05:27 WBC 12.83 H (3.98-10.04) K/mm3 RBC 3.67 L (3.98-5.22) M/mm3 Hgb 11.4 (11.2-15.7) gm/dl Hct 35.7 (34.1-44.9) % MCV 97.3 H (79.4-94.8) fl MCH 31.1 (25.6-32.2) pg MCHC 31.9 L (32.2-35.5) g/dl RDW Std Deviation 45.3 (36.4-46.3) fL Plt Count 332 (182-369) K/mm3 MPV 10.3 (9.4-12.3) fl Neut % (Auto) 74.2 H (34.0-71.1) % Lymph % (Auto) 11.5 L (19.3-51.7) % [place] % (Auto) 10.1 (4.7-12.5) % Eos % (Auto) 0.2 L (0.7-5.8) Baso % (Auto) 0.2 (0.1-1.2) % Neut # (Auto) 9.52 H (1.56-6.13) K/mm3 Lymph # (Auto) 1.47 (1.18-3.74) K/mm3 [place] # (Auto) 1.30 H (0.24-0.36) K/mm3 Eos # (Auto) 0.03 L (0.04-0.36) K/mm3 Baso # (Auto) 0.02 (0.01-0.08) K/mm3 Manual Slide Review Abnormal smear Sodium 141 (136-145) mEq/L Potassium 3.9 (3.5-5.1) mEq/L Chloride 105 (98-107) mEq/L Carbon Dioxide 29 (21-32) mEq/L Anion Gap 10.9 (5-15) BUN 12 (7-18) mg/dL Creatinine 0.8 (0.55-1.02) mg/dL Est Cr Clr Drug Dosing 79.11 mL/min Estimated GFR (MDRD) > 60 (>60) mL/min BUN/Creatinine Ratio 15.0 (14-18) Glucose 91 (70-99) mg/dL Calcium 8.1 L (8.5-10.1) mg/dL Magnesium 2.0 (1.8-2.4) mg/dL Total Bilirubin 0.5 (0.2-1.0) mg/dL AST 28 (15-37) U/L ALT 58 (14-59) U/L Alkaline Phosphatase 67 (46-116) U/L C-Reactive Protein 16.7 H* (<1.0) mg/dL Total Protein 6.0 L (6.4-8.2) g/dl Albumin 2.0 L (3.4-5.0) g/dl Globulin 4.0 gm/dL Albumin/Globulin Ratio 0.5 L (1-2) Med Orders - Current: Current Medications Acetaminophen (Acetaminophen 325 Mg Tab) 650 mg PO Q4H PRN PRN Reason: Pain (Mild 1-3)/fever Albuterol (Albuterol 6.7 Gm Inhaler) 0 gm INH Q2H PRN PRN Reason: SOB/WHEEZING Last Admin: 12/12/20 21:01 Dose: 2 puff Documented by: Azithromycin (Azithromycin 250 Mg Tab) 500 mg PO Q24H ISAAC Last Admin: 12/13/20 13:34 Dose: 500 mg Documented by: Dexamethasone (Dexamethasone 4 Mg Tab) 6 mg PO DAILY [facility] Stop: 12/14/20 09:01 Last Admin: 12/13/20 08:18 Dose: 6 mg Documented by: Docusate Sodium (Docusate Sodium 100 Mg Cap) 100 mg PO BID PRN PRN Reason: Constipation Duloxetine HCl (Duloxetine 30 Mg Cap) 60 mg PO BID [facility] Last Admin: 12/13/20 08:18 Dose: 60 mg Documented by: Enoxaparin Sodium (Enoxaparin 40 Mg/0.4 Ml Syringe) 40 mg SUBCUT DAILY [facility] Last Admin: 12/13/20 08:17 Dose: 40 mg Documented by: Folic Acid (Folic Acid 1 Mg Tab) 1 mg PO DAILY [facility] Last Admin: 12/13/20 08:17 Dose: 1 mg Documented by: Hydromorphone HCl (Hydromorphone 0.5 Mg/0.5 Ml Syringe) 0.25 mg IVPUSH Q2H PRN PRN Reason: Pain (severe 7-10) Hydroxychloroquine Sulfate (Hydroxychloroquine 200 Mg Tab) 200 mg PO BID [facility] Last Admin: 12/13/20 08:17 Dose: 200 mg Documented by: Ketorolac Tromethamine (Ketorolac 30 Mg/Ml Sdv) 30 mg IVPUSH Q6H PRN PRN Reason: Pain (moderate 4-6) Levothyroxine Sodium (Levothyroxine 50 Mcg Tab) 50 mcg PO ACBREAKFAST [facility] Last Admin: 12/13/20 05:30 Dose: 50 mcg Documented by: Ondansetron HCl (Ondansetron 4 Mg Tab.Dis) 4 mg PO Q4H PRN PRN Reason: nausea, able to take PO Sodium Chloride (Sodium Chloride 0.9% 10 Ml Syringe) 10 ml FLUSH ONETIME PRN PRN Reason: IV FLUSH Last Admin: 12/05/20 10:14 Dose: 10 ml Documented by: Discontinued Medications Albuterol (Albuterol 6.7 Gm Inhaler) 0 gm INH Q2H ONE Stop: 12/05/20 09:49 Last Admin: 12/05/20 10:27 Dose: 2 inhalation Documented by: Albuterol (Albuterol 0.083% 2.5 Mg/3 Ml Neb Soln) 2.5 mg NEB Q2H PRN PRN Reason: Shortness Of Breath/wheezing Dexamethasone (Dexamethasone 10 Mg/Ml Sdv) 10 mg IVPUSH ONETIME ONE Stop: 12/05/20 11:12 Last Admin: 12/05/20 11:56 Dose: 10 mg Documented by: Dexamethasone (Dexamethasone 4 Mg/Ml Sdv) 6 mg IV DAILY [facility] Last Admin: 12/07/20 09:21 Dose: 6 mg Documented by: Hydroxychloroquine Sulfate (Hydroxychloroquine 200 Mg Tab) 200 mg PO BID [facility] Last Admin: 12/05/20 20:05 Dose: 200 mg Documented by: Hydroxychloroquine Sulfate (Hydroxychloroquine 200 Mg Tab) 200 mg PO BID [facility] Sodium Chloride (Normal Saline) 1,000 mls @ 500 mls/hr IV ONETIME ONE Stop: 12/05/20 11:47 Last Admin: 12/05/20 10:29 Dose: 500 mls/hr Documented by: Sodium Chloride (Normal Saline) 100 mls @ 75 mls/hr IV ASDIRECTED [facility] Stop: 12/05/20 14:00 Last Admin: 12/05/20 10:14 Dose: 75 mls/hr Documented by: Remdesivir 200 mg/ Sodium (Chloride) 250 mls @ 250 mls/hr IV ONETIME ONE Stop: 12/05/20 12:59 Last Admin: 12/05/20 11:58 Dose: 250 mls/hr Documented by: Sodium Chloride (Normal Saline) 1,000 mls @ 75 mls/hr IV ASDIRECTED [facility] Last Admin: 12/10/20 03:57 Dose: 75 mls/hr Documented by: Azithromycin 500 mg/ Sodium (Chloride) 250 mls @ 250 mls/hr IV Q24H [facility] Last Admin: 12/06/20 14:44 Dose: 250 mls/hr Documented by: Potassium Chloride 10 meq/ (Premix) 100 mls @ 100 mls/hr IV Q1H [facility] Stop: 12/05/20 18:59 Last Admin: 12/05/20 20:03 Dose: 100 mls/hr Documented by: Remdesivir 100 mg/ Sodium (Chloride) 100 mls @ 100 mls/hr IV Q24H [facility] Stop: 12/09/20 12:59 Last Admin: 12/09/20 12:15 Dose: 100 mls/hr Documented by: Sodium Chloride (Normal Saline) Confirm Administered Dose 100 mls @ as directed .ROUTE .STK-MED ONE Stop: 12/07/20 12:03 Last Admin: 12/07/20 13:49 Dose: Not Given Documented by: Iopamidol (Iopamidol 755 Mg/Ml 100 Ml Bottle) 100 ml IVPUSH ONETIME ONE Stop: 12/05/20 09:50 Last Admin: 12/05/20 10:14 Dose: 100 ml Documented by: Potassium Chloride (Potassium Chloride 20 Meq Tab.Er) 20 meq PO ONETIME ONE Stop: 12/05/20 13:18 Last Admin: 12/05/20 15:20 Dose: 20 meq Documented by: Potassium Chloride (Potassium Chloride 20 Meq Tab.Er) 20 meq PO ONETIME ONE Stop: 12/08/20 12:01 Last Admin: 12/08/20 11:58 Dose: 20 meq Documented by: Potassium Chloride (Potassium Chloride 20 Meq Tab.Er) 20 meq PO ONETIME ONE Stop: 12/10/20 17:22 Last Admin: 12/10/20 17:38 Dose: 20 meq Documented by: - Exam Physical Findings Comments:: Gen: no acute distress HEENT: NCAT EOMI MMM CV: RRR normal s1 s2 Lungs: Coarse breath sounds Neuro: AOX3 nonfocal screening exam - Patient Data Lab Results Last 24 hrs: Laboratory Results - last 24 hr 12/13/20 12/13/20 Range/Units 05:27 05:27 WBC 12.83 H (3.98-10.04) K/mm3 RBC 3.67 L (3.98-5.22) M/mm3 Hgb 11.4 (11.2-15.7) gm/dl Hct 35.7 (34.1-44.9) % MCV 97.3 H (79.4-94.8) fl MCH 31.1 (25.6-32.2) pg MCHC 31.9 L (32.2-35.5) g/dl RDW Std Deviation 45.3 (36.4-46.3) fL Plt Count 332 (182-369) K/mm3 MPV 10.3 (9.4-12.3) fl Neut % (Auto) 74.2 H (34.0-71.1) % Lymph % (Auto) 11.5 L (19.3-51.7) % [place] % (Auto) 10.1 (4.7-12.5) % Eos % (Auto) 0.2 L (0.7-5.8) Baso % (Auto) 0.2 (0.1-1.2) % Neut # (Auto) 9.52 H (1.56-6.13) K/mm3 Lymph # (Auto) 1.47 (1.18-3.74) K/mm3 [place] # (Auto) 1.30 H (0.24-0.36) K/mm3 Eos # (Auto) 0.03 L (0.04-0.36) K/mm3 Baso # (Auto) 0.02 (0.01-0.08) K/mm3 Manual Slide Review Abnormal smear Sodium 141 (136-145) mEq/L Potassium 3.9 (3.5-5.1) mEq/L Chloride 105 (98-107) mEq/L Carbon Dioxide 29 (21-32) mEq/L Anion Gap 10.9 (5-15) BUN 12 (7-18) mg/dL Creatinine 0.8 (0.55-1.02) mg/dL Est Cr Clr Drug Dosing 79.11 mL/min Estimated GFR (MDRD) > 60 (>60) mL/min BUN/Creatinine Ratio 15.0 (14-18) Glucose 91 (70-99) mg/dL Calcium 8.1 L (8.5-10.1) mg/dL Magnesium 2.0 (1.8-2.4) mg/dL Total Bilirubin 0.5 (0.2-1.0) mg/dL AST 28 (15-37) U/L ALT 58 (14-59) U/L Alkaline Phosphatase 67 (46-116) U/L C-Reactive Protein 16.7 H* (<1.0) mg/dL Total Protein 6.0 L (6.4-8.2) g/dl Albumin 2.0 L (3.4-5.0) g/dl Globulin 4.0 gm/dL Albumin/Globulin Ratio 0.5 L (1-2) Result Diagrams: 12/13/20 05:27 12/13/20 05:27 Sepsis Event Note - Evaluation Sepsis Screening Result: No Definite Risk - Focused Exam Vital Signs: Vital Signs Temp Pulse Resp BP Pulse Ox Pulse Ox 12/13/20 15:47 98.4 F 93 18 118/70 95 12/13/20 13:35 98.6 F 106 H 18 129/74 93 L 12/13/20 13:11 93 L 12/13/20 13:00 92 L 12/13/20 08:38 93 L 12/13/20 08:18 98.1 F 87 20 138/79 91 L 12/13/20 04:28 98.2 F 77 20 117/73 92 L - Problem List Review Problem List Initiated/Reviewed/Updated: Yes - Assessment Assessment:: The patient is a 40-year-old lady who had a chest x-ray this morning which shows "rather severe" COVID-19 pneumonia as per radiology. I have decided to initiate remdesivir in addition to azithromycin and steroids. The patient's Plaquenil has been discontinued temporarily as there would be a drug drug interaction with remdesivir. The patient's oxygen will be continued to keep her saturations around 92%. She has been encouraged to ambulate. The patient's CRP has also been markedly elevated although is trending downward. The patient will have repeat laboratory studies and repeat CRP. She is currently on Lovenox at 40 mg subcutaneously daily for DVT prophylaxis this will be continued. The patient should at least have 4 more days of remdesivir prior to discharge. The patient should be appropriate for discharge in 4 to 5 days. 12/07/2020 The patient is a 40-year-old lady who is still undergoing antibiotics and remdesivir for COVID-19 pneumonia. The patient has had some improvement. The patient's azithromycin will be continued. I have ordered repeat laboratory studies for the morning. Patient's oxygen will continue and keep her saturations around 92%. The patient has been encouraged to ambulate. Patient's CRP has been trending down and I have ordered repeat of this in the morning. Repeat chest x-ray will likely be appropriate tomorrow morning. Patient is currently on Lovenox for DVT prophylaxis this will be continued. The patient should be appropriate for discharge in 4 days. 12/08/2020 The patient is a 40-year-old lady who is doing better today. She is still requiring oxygen at at least 2-1/2 L/min high flow. She says that she is feeling better today. Subjectively she has improved physical examination. I have reviewed her x-ray. The patient will continue to have diet as tolerated. She is also on remdesivir and this will be continued for at least 3 more days. I have ordered repeat laboratory studies. Patient has been encouraged to ambulate. The patient also be continued on appropriate diet. Vital signs will be monitored and her medications will be adjusted as needed. 12/09/2020 The patient is a 40-year-old lady who is still requiring high flow oxygen. The oxygen will continue as per respiratory therapy to keep her saturations around 92%. I have ordered repeat chest x-ray for tomorrow. The patient should continue with her remdesivir, antibiotics and steroids. The patient has exh ibited leukocytosis which is likely the result of steroid usage. DVT prophylaxis will continue for this patient. I have encouraged patient to ambulate. PT OT has also been ordered for the patient. Repeat laboratory studies have been ordered. The patient will have regular diet as tolerated. The patient may be appropriate for discharge in 1 to 2 days depending upon her oxygen needs or if she is worsening may have to consider intubation. We will continue to monitor the patient's work of breathing. 12/10/2020 The patient is a 40-year-old lady who is still having some shortness of breath. The patient had finished her remdesivir and she is still having shortness of breath. The patient's Plaquenil was held due to drug drug interaction with remdesivir. I have ordered restart of her Plaquenil. 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 I have ordered repeat laboratory studies for the morning. She should have a new chest x-ray tomorrow. The patient has been encouraged to ambulate. She is on DVT prophylaxis with the use of Lovenox. The patient should be appropriate for discharge once her oxygen demands have improved sufficiently. We will continue to titrate her oxygen to keep her saturations around 92%. - Plan Plan:: The patient is a 40-year-old lady who has been admitted to acute inpatient hospitalization primarily due to acute respiratory failure. The patient has been ordered to be on oxygen to keep her saturations around 92%. She does have pneumonia that has been associated with COVID-19. The patient has been placed on a azithromycin 500 mg IV on a daily basis along with dexamethasone. I do not feel that the patient would be a good candidate for remdesivir due to her having first symptoms at the beginning of the month. 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 The patient will be maintained on these and I have also ordered that the patient also continue with folic acid 1 mg p.o. daily. The patient will have regular diet as tolerated. She has been encouraged to ambulate. She is also been ordered to have Lovenox 40 mg subcutaneously daily for DVT prophylaxis. Repeat laboratory studies have been ordered. I have also ordered that the patient have replacement of her potassium. 12/11/2020 The patient is a 40-year-old lady who is still requiring high flow oxygen. We will continue the patient's Plaquenil. The patient's antibiotics have also been discontinued. She has been encouraged to ambulate. The patient will have replacement of her electrolytes as necessary. I have ordered repeat laboratories for the morning. The patient should be appropriate for discharged after her oxygen requirements have decreased. She is also on DVT prophylaxis with 40 mg of Lovenox subcutaneous daily. The patient's oxygen will be continued to keep her saturations around 92%. Regular diet as tolerated. 12/12/2020 The patient is a 40-year-old lady who is improving very slowly. She is still requiring high oxygen levels via nasal cannula. Yesterday the patient's Plaquenil was started for her connective tissue disease and she has been tolerating this. Repeat laboratory studies have been ordered for the morning. Her electrolytes will be replaced as necessary. The patient is also having DVT prophylaxis with the use of Lovenox at 40 mg subcutaneous daily. Patient's oxygen will be titrated to help wean her off the oxygen by nasal cannula. Once the patient has been able to tolerate low oxygen flows she should be appropriate for discharge. This may take 1 to 2 days. 12/13/20 1. Acute hypoxic respiratory failure secondary to COVID 19 PNA -continue weaning supplemental oxygen -RT following -may need home oxygen -may consider repeat CXR in AM pending oxygen levels 2. Hx of MCTD -continue plaquenil 3. DVT ppx -lovenox 4. Code status-Full code 5. Dispo: likely home 1-2 days once on room air or may require home oxygen therapy; would like to see oxygen requirements around 1-2 liters prior to discharge
[2020-12-14] MEDS: Levothyroxine 50 MCG Tab PO SCH (05:17)
[2020-12-14] MEDS: Enoxaparin 40 MG/0.4 ML Syringe SUBCUT SCH (08:18)
[2020-12-14] MEDS: Hydroxychloroquine 200 MG Tab PO SCH ×2 (08:18→21:21)
[2020-12-14] MEDS: DULoxetine 30 MG Cap PO SCH ×2 (08:18→21:20)
[2020-12-14] MEDS: Dexamethasone 4 MG Tab PO SCH (08:18)
[2020-12-14] MEDS: Folic Acid 1 MG Tab PO SCH (08:18)
[2020-12-14] MEDS: Albuterol 6.7 GM Inhaler INH PRN (08:29)
--- NOTE | 2020-12-14 12:43 | PCM.PN ---
- General Info Date of Service: 12/14/20 Admission Dx/Problem (Free Text): SUBJECTIVE patient down to 4 liters of oxygen endorses JONES and SOB endorses pleuritic chest pain denies calf pain cough unchanged - Review of Systems Systems Review Comment:: negative except as noted in hpi - Patient Data Vitals - Most Recent: Last Vital Signs Temp 98.2 F 12/14/20 08:13 Pulse 92 12/14/20 08:13 Resp 16 12/14/20 08:13 BP 138/62 12/14/20 08:13 Pulse Ox 91 L 12/14/20 08:29 Weight - Most Recent: 310 lb 14.4 oz I&O - Last 24 Hours: Intake & Output 12/13/20 12/14/20 12/14/20 22:59 06:59 14:59 Intake Total 480 1300 Output Total 1900 Balance 480 -600 Lab Results Last 24 Hours: Laboratory Results - last 24 hr 12/14/20 12/14/20 Range/Units 04:42 04:42 WBC 14.61 H (3.98-10.04) K/mm3 RBC 3.81 L (3.98-5.22) M/mm3 Hgb 11.7 (11.2-15.7) gm/dl Hct 36.9 (34.1-44.9) % MCV 96.9 H (79.4-94.8) fl MCH 30.7 (25.6-32.2) pg MCHC 31.7 L (32.2-35.5) g/dl RDW Std Deviation 45.0 (36.4-46.3) fL Plt Count 323 (182-369) K/mm3 MPV 10.4 (9.4-12.3) fl Sodium 140 (136-145) mEq/L Potassium 4.1 (3.5-5.1) mEq/L Chloride 104 (98-107) mEq/L Carbon Dioxide 30 (21-32) mEq/L Anion Gap 10.1 (5-15) BUN 12 (7-18) mg/dL Creatinine 0.8 (0.55-1.02) mg/dL Est Cr Clr Drug Dosing 79.11 mL/min Estimated GFR (MDRD) > 60 (>60) mL/min BUN/Creatinine Ratio 15.0 (14-18) Glucose 88 (70-99) mg/dL Calcium 8.2 L (8.5-10.1) mg/dL Med Orders - Current: Current Medications Acetaminophen (Acetaminophen 325 Mg Tab) 650 mg PO Q4H PRN PRN Reason: Pain (Mild 1-3)/fever Albuterol (Albuterol 6.7 Gm Inhaler) 0 gm INH Q2H PRN PRN Reason: SOB/WHEEZING Last Admin: 12/14/20 08:29 Dose: 2 puff Documented by: Docusate Sodium (Docusate Sodium 100 Mg Cap) 100 mg PO BID PRN PRN Reason: Constipation Duloxetine HCl (Duloxetine 30 Mg Cap) 60 mg PO BID [facility] Last Admin: 12/14/20 08:18 Dose: 60 mg Documented by: Enoxaparin Sodium (Enoxaparin 40 Mg/0.4 Ml Syringe) 40 mg SUBCUT DAILY [facility] Last Admin: 12/14/20 08:18 Dose: 40 mg Documented by: Folic Acid (Folic Acid 1 Mg Tab) 1 mg PO DAILY [facility] Last Admin: 12/14/20 08:18 Dose: 1 mg Documented by: Hydromorphone HCl (Hydromorphone 0.5 Mg/0.5 Ml Syringe) 0.25 mg IVPUSH Q2H PRN PRN Reason: Pain (severe 7-10) Hydroxychloroquine Sulfate (Hydroxychloroquine 200 Mg Tab) 200 mg PO BID [facility] Last Admin: 12/14/20 08:18 Dose: 200 mg Documented by: Ketorolac Tromethamine (Ketorolac 30 Mg/Ml Sdv) 30 mg IVPUSH Q6H PRN PRN Reason: Pain (moderate 4-6) Levothyroxine Sodium (Levothyroxine 50 Mcg Tab) 50 mcg PO ACBREAKFAST [facility] Last Admin: 12/14/20 05:17 Dose: 50 mcg Documented by: Ondansetron HCl (Ondansetron 4 Mg Tab.Dis) 4 mg PO Q4H PRN PRN Reason: nausea, able to take PO Sodium Chloride (Sodium Chloride 0.9% 10 Ml Syringe) 10 ml FLUSH ONETIME PRN PRN Reason: IV FLUSH Last Admin: 12/05/20 10:14 Dose: 10 ml Documented by: Discontinued Medications Albuterol (Albuterol 6.7 Gm Inhaler) 0 gm INH Q2H ONE Stop: 12/05/20 09:49 Last Admin: 12/05/20 10:27 Dose: 2 inhalation Documented by: Albuterol (Albuterol 0.083% 2.5 Mg/3 Ml Neb Soln) 2.5 mg NEB Q2H PRN PRN Reason: Shortness Of Breath/wheezing Azithromycin (Azithromycin 250 Mg Tab) 500 mg PO Q24H [facility] Last Admin: 12/13/20 13:34 Dose: 500 mg Documented by: Dexamethasone (Dexamethasone 10 Mg/Ml Sdv) 10 mg IVPUSH ONETIME ONE Stop: 12/05/20 11:12 Last Admin: 12/05/20 11:56 Dose: 10 mg Documented by: Dexamethasone (Dexamethasone 4 Mg/Ml Sdv) 6 mg IV DAILY [facility] Last Admin: 12/07/20 09:21 Dose: 6 mg Documented by: Dexamethasone (Dexamethasone 4 Mg Tab) 6 mg PO DAILY [facility] Stop: 12/14/20 09:01 Last Admin: 12/14/20 08:18 Dose: 6 mg Documented by: Hydroxychloroquine Sulfate (Hydroxychloroquine 200 Mg Tab) 200 mg PO BID [facility] Last Admin: 12/05/20 20:05 Dose: 200 mg Documented by: Hydroxychloroquine Sulfate (Hydroxychloroquine 200 Mg Tab) 200 mg PO BID [facility] Sodium Chloride (Normal Saline) 1,000 mls @ 500 mls/hr IV ONETIME ONE Stop: 12/05/20 11:47 Last Admin: 12/05/20 10:29 Dose: 500 mls/hr Documented by: Sodium Chloride (Normal Saline) 100 mls @ 75 mls/hr IV ASDIRECTED [facility] Stop: 12/05/20 14:00 Last Admin: 12/05/20 10:14 Dose: 75 mls/hr Documented by: Remdesivir 200 mg/ Sodium (Chloride) 250 mls @ 250 mls/hr IV ONETIME ONE Stop: 12/05/20 12:59 Last Admin: 12/05/20 11:58 Dose: 250 mls/hr Documented by: Sodium Chloride (Normal Saline) 1,000 mls @ 75 mls/hr IV ASDIRECTED [facility] Last Admin: 12/10/20 03:57 Dose: 75 mls/hr Documented by: Azithromycin 500 mg/ Sodium (Chloride) 250 mls @ 250 mls/hr IV Q24H [facility] Last Admin: 12/06/20 14:44 Dose: 250 mls/hr Documented by: Potassium Chloride 10 meq/ (Premix) 100 mls @ 100 mls/hr IV Q1H [facility] Stop: 12/05/20 18:59 Last Admin: 12/05/20 20:03 Dose: 100 mls/hr Documented by: Remdesivir 100 mg/ Sodium (Chloride) 100 mls @ 100 mls/hr IV Q24H [facility] Stop: 12/09/20 12:59 Last Admin: 12/09/20 12:15 Dose: 100 mls/hr Documented by: Sodium Chloride (Normal Saline) Confirm Administered Dose 100 mls @ as directed .ROUTE .STK-MED ONE Stop: 12/07/20 12:03 Last Admin: 12/07/20 13:49 Dose: Not Given Documented by: Iopamidol (Iopamidol 755 Mg/Ml 100 Ml Bottle) 100 ml IVPUSH ONETIME ONE Stop: 12/05/20 09:50 Last Admin: 12/05/20 10:14 Dose: 100 ml Documented by: Potassium Chloride (Potassium Chloride 20 Meq Tab.Er) 20 meq PO ONETIME ONE Stop: 12/05/20 13:18 Last Admin: 12/05/20 15:20 Dose: 20 meq Documented by: Potassium Chloride (Potassium Chloride 20 Meq Tab.Er) 20 meq PO ONETIME ONE Stop: 12/08/20 12:01 Last Admin: 12/08/20 11:58 Dose: 20 meq Documented by: Potassium Chloride (Potassium Chloride 20 Meq Tab.Er) 20 meq PO ONETIME ONE Stop: 12/10/20 17:22 Last Admin: 12/10/20 17:38 Dose: 20 meq Documented by: - Patient Data Lab Results Last 24 hrs: Laboratory Results - last 24 hr 12/14/20 12/14/20 Range/Units 04:42 04:42 WBC 14.61 H (3.98-10.04) K/mm3 RBC 3.81 L (3.98-5.22) M/mm3 Hgb 11.7 (11.2-15.7) gm/dl Hct 36.9 (34.1-44.9) % MCV 96.9 H (79.4-94.8) fl MCH 30.7 (25.6-32.2) pg MCHC 31.7 L (32.2-35.5) g/dl RDW Std Deviation 45.0 (36.4-46.3) fL Plt Count 323 (182-369) K/mm3 MPV 10.4 (9.4-12.3) fl Sodium 140 (136-145) mEq/L Potassium 4.1 (3.5-5.1) mEq/L Chloride 104 (98-107) mEq/L Carbon Dioxide 30 (21-32) mEq/L Anion Gap 10.1 (5-15) BUN 12 (7-18) mg/dL Creatinine 0.8 (0.55-1.02) mg/dL Est Cr Clr Drug Dosing 79.11 mL/min Estimated GFR (MDRD) > 60 (>60) mL/min BUN/Creatinine Ratio 15.0 (14-18) Glucose 88 (70-99) mg/dL Calcium 8.2 L (8.5-10.1) mg/dL Result Diagrams: 12/14/20 04:42 12/14/20 04:42 Sepsis Event Note - Evaluation Sepsis Screening Result: Sepsis Risk - Focused Exam Vital Signs: Vital Signs Temp Pulse Resp BP Pulse Ox Pulse Ox 12/14/20 08:29 91 L 12/14/20 08:13 98.2 F 92 16 138/62 90 L 12/14/20 07:07 91 L 12/14/20 05:21 98.2 F 98 20 124/68 82 L 12/14/20 00:46 98.2 F 77 20 128/74 91 L - Problem List Review Problem List Initiated/Reviewed/Updated: Yes - Assessment Assessment:: The patient is a 40-year-old lady who had a chest x-ray this morning which shows "rather severe" COVID-19 pneumonia as per radiology. I have decided to initiate remdesivir in addition to azithromycin and steroids. The patient's Plaquenil has been discontinued temporarily as there would be a drug drug interaction with remdesivir. The patient's oxygen will be continued to keep her saturations around 92%. She has been encouraged to ambulate. The patient's CRP has also been markedly elevated although is trending downward. The patient will have repeat laboratory studies and repeat CRP. She is currently on Lovenox at 40 mg subcutaneously daily for DVT prophylaxis this will be continued. The patient should at least have 4 more days of remdesivir prior to discharge. The patient should be appropriate for discharge in 4 to 5 days. 12/07/2020 The patient is a 40-year-old lady who is still undergoing antibiotics and remdesivir for COVID-19 pneumonia. The patient has had some improvement. The patient's azithromycin will be continued. I have ordered repeat laboratory studies for the morning. Patient's oxygen will continue and keep her saturations around 92%. The patient has been encouraged to ambulate. Patient's CRP has been trending down and I have ordered repeat of this in the morning. Repeat chest x-ray will likely be appropriate tomorrow morning. Patient is currently on Lovenox for DVT prophylaxis this will be continued. The patient should be appropriate for discharge in 4 days. 12/08/2020 The patient is a 40-year-old lady who is doing better today. She is still requiring oxygen at at least 2-1/2 L/min high flow. She says that she is feeling better today. Subjectively she has improved physical examination. I have reviewed her x-ray. The patient will continue to have diet as tolerated. She is also on remdesivir and this will be continued for at least 3 more days. I have ordered repeat laboratory studies. Patient has been encouraged to ambulate. The patient also be continued on appropriate diet. Vital signs will be monitored and her medications will be adjusted as needed. 12/09/2020 The patient is a 40-year-old lady who is still requiring high flow oxygen. The oxygen will continue as per respiratory therapy to keep her saturations around 92%. I have ordered repeat chest x-ray for tomorrow. The patient should continue with her remdesivir, antibiotics and steroids. The patient has exhibited leukocytosis which is likely the result of steroid usage. DVT prophylaxis will continue for this patient. I have encouraged patient to ambulate. PT OT has also been ordered for the patient. Repeat laboratory stud ies have been ordered. The patient will have regular diet as tolerated. The patient may be appropriate for discharge in 1 to 2 days depending upon her oxygen needs or if she is worsening may have to consider intubation. We will continue to monitor the patient's work of breathing. 12/10/2020 The patient is a 40-year-old lady who is still having some shortness of breath. The patient had finished her remdesivir and she is still having shortness of breath. The patient's Plaquenil was held due to drug drug interaction with remdesivir. I have ordered restart of her Plaquenil. 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 I have ordered repeat laboratory studies for the morning. She should have a new chest x-ray tomorrow. The patient has been encouraged to ambulate. She is on DVT prophylaxis with the use of Lovenox. The patient should be appropriate for discharge once her oxygen demands have improved sufficiently. We will continue to titrate her oxygen to keep her saturations around 92%. - Plan Plan:: The patient is a 40-year-old lady who has been admitted to acute inpatient hospitalization primarily due to acute respiratory failure. The patient has been ordered to be on oxygen to keep her saturations around 92%. She does have pneumonia that has been associated with COVID-19. The patient has been placed on a azithromycin 500 mg IV on a daily basis along with dexamethasone. I do not feel that the patient would be a good candidate for remdesivir due to her having first symptoms at the beginning of the month. 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 The patient will be maintained on these and I have also ordered that the patient also continue with folic acid 1 mg p.o. daily. The patient will have regular diet as tolerated. She has been encouraged to ambulate. She is also been ordered to have Lovenox 40 mg subcutaneously daily for DVT prophylaxis. Repeat laboratory studies have been ordered. I have also ordered that the patient have replacement of her potassium. 12/11/2020 The patient is a 40-year-old lady who is still requiring high flow oxygen. We will continue the patient's Plaquenil. The patient's antibiotics have also been discontinued. She has been encouraged to ambulate. The patient will have replacement of her electrolytes as necessary. I have ordered repeat laboratories for the morning. The patient should be appropriate for discharged after her oxygen requirements have decreased. She is also on DVT prophylaxis with 40 mg of Lovenox subcutaneous daily. The patient's oxygen will be continued to keep her saturations around 92%. Regular diet as tolerated. 12/12/2020 The patient is a 40-year-old lady who is improving very slowly. She is still requiring high oxygen levels via nasal cannula. Yesterday the patient's Plaquenil was started for her connective tissue disease and she has been tolerating this. Repeat laboratory studies have been ordered for the morning. Her electrolytes will be replaced as necessary. The patient is also having DVT prophylaxis with the use of Lovenox at 40 mg subcutaneous daily. Patient's oxygen will be titrated to help wean her off the oxygen by nasal cannula. Once the patient has been able to tolerate low oxygen flows she should be appropriate for discharge. This may take 1 to 2 days. 12/14/20 1. Acute hypoxic respiratory failure secondary to COVID 19 PNA -continue weaning supplemental oxygen -RT following -may need home oxygen -CT PE study to rule out PE given pleuritic chest pain 2. Hx of MCTD -continue plaquenil 3. DVT ppx -lovenox 4. Code status-Full code 5. Dispo: likely home 1-2 days once on room air or may require home oxygen therapy; would like to see oxygen requirements around 1-2 liters prior to discharge
[2020-12-14] MEDS ORDERED: Iopamidol 755 Mg/ML 100 ML Bottle IVPUSH ONE (12:54)
[2020-12-14] MEDS ORDERED: Sodium Chloride 0.9% 10 ML Syringe FLUSH ONE (12:54)
[2020-12-14] MEDS ORDERED: Sodium Chloride 0.9% 100 ML IV SCH (13:00)
[2020-12-14] MEDS: Sodium Chloride 0.9% 10 ML Syringe FLUSH PRN (13:06)
--- NOTE | 2020-12-14 13:42 | CT ---
CT chest Technique: Multiple axial sections through the chest were obtained. Intravenous contrast was utilized. Study has been performed as a pulmonary angiogram protocol. Comparison: Prior chest CT study of 12/05/20. Findings: Small filling defects are seen within the segmental and subsegmental branch of the left lower lung compatible with pulmonary embolism. No other discrete filling defects are seen within the pulmonary arteries. Thoracic aorta shows no aneurysm. No mediastinal adenopathy is seen. No pericardial thickening is seen. Visualized upper abdominal structures show prior cholecystectomy without acute abnormality. Small bilateral pleural effusions are noted. Diffuse parenchymal densities are seen throughout both sides of the chest, worse on the right side. Impression: 1. Mild areas of pulmonary embolism within the left lower lung segmental and subsegmental pulmonary arterial branches. These findings are an interval change from prior chest CT. 2. Diffuse parenchymal infiltrates are seen on both sides of the chest, worse on the right side. Parenchymal change has slightly worsened from prior chest CT on the right side but slightly improved on the left side from prior chest CT. 3. Small bilateral pleural effusions. Pleural effusions have also slightly increased from prior chest CT. Diagnostic code #5
[2020-12-14] MEDS: Apixaban 5 MG Tab PO SCH (21:20)
[2020-12-14] MEDS: Acetaminophen 325 MG Tab PO PRN (21:27)
[2020-12-15] MEDS: Albuterol 6.7 GM Inhaler INH PRN ×3 (02:27→14:21)
[2020-12-15] MEDS: Levothyroxine 50 MCG Tab PO SCH (05:12)
[2020-12-15] MEDS: DULoxetine 30 MG Cap PO SCH ×2 (08:02→21:05)
[2020-12-15] MEDS: Hydroxychloroquine 200 MG Tab PO SCH ×2 (08:03→21:06)
[2020-12-15] MEDS: Apixaban 5 MG Tab PO SCH ×2 (08:03→21:05)
[2020-12-15] MEDS: Folic Acid 1 MG Tab PO SCH (08:03)
--- NOTE | 2020-12-15 09:23 | PCM.PN ---
- General Info Date of Service: 12/15/20 Admission Dx/Problem (Free Text): Acute hypoxic respiratory failure. COVID-19 pneumonitis Subjective Update: No acute overnight events. No new nursing concerns. CT examination of the chest indicates acute pulmonary embolism. Started on full anticoagulation with Eliquis yesterday. Patient continues to complain about pleuritic chest discomfort. Oxygen therapy remains at 4 to 5 L per nasal cannula. Patient continues to have cough but without sputum or hematemesis. Denies any nausea/vomiting, abdominal discomfort or difficulties with voiding. Functional Status: Reports: Tolerating Diet - Review of Systems Pulmonary: Reports: Shortness of Breath, Pleuritic Chest Pain, Cough. Denies: Sputum, Hemoptysis, Wheezing Cardiovascular: Reports: No Symptoms Gastrointestinal: Reports: No Symptoms - Patient Data Vitals - Most Recent: Last Vital Signs Temp 98.2 F 12/15/20 08:11 Pulse 88 12/15/20 08:11 Resp 19 12/15/20 08:11 BP 134/69 12/15/20 08:11 Pulse Ox 72 L 12/15/20 09:10 Weight - Most Recent: 313 lb 1.6 oz I&O - Last 24 Hours: Intake & Output 12/14/20 12/15/20 12/15/20 22:59 06:59 14:59 Intake Total 2200 1300 Output Total 850 1800 Balance 1350 -500 Lab Results Last 24 Hours: Laboratory Results - last 24 hr 12/15/20 12/15/20 Range/Units 06:30 06:30 WBC 14.84 H (3.98-10.04) K/mm3 RBC 3.89 L (3.98-5.22) M/mm3 Hgb 11.9 (11.2-15.7) gm/dl Hct 37.7 (34.1-44.9) % MCV 96.9 H (79.4-94.8) fl MCH 30.6 (25.6-32.2) pg MCHC 31.6 L (32.2-35.5) g/dl RDW Std Deviation 45.7 (36.4-46.3) fL Plt Count 323 (182-369) K/mm3 MPV 10.2 (9.4-12.3) fl Neut % (Auto) 78.5 H (34.0-71.1) % Lymph % (Auto) 9.8 L (19.3-51.7) % [place] % (Auto) 8.5 (4.7-12.5) % Eos % (Auto) 0.5 L (0.7-5.8) Baso % (Auto) 0.1 (0.1-1.2) % Neut # (Auto) 11.64 H (1.56-6.13) K/mm3 Lymph # (Auto) 1.46 (1.18-3.74) K/mm3 [place] # (Auto) 1.26 H (0.24-0.36) K/mm3 Eos # (Auto) 0.07 (0.04-0.36) K/mm3 Baso # (Auto) 0.02 (0.01-0.08) K/mm3 Manual Slide Review Abnormal smear Sodium 138 (136-145) mEq/L Potassium 4.2 (3.5-5.1) mEq/L Chloride 104 (98-107) mEq/L Carbon Dioxide 28 (21-32) mEq/L Anion Gap 10.2 (5-15) BUN 13 (7-18) mg/dL Creatinine 0.8 (0.55-1.02) mg/dL Est Cr Clr Drug Dosing 79.11 mL/min Estimated GFR (MDRD) > 60 (>60) mL/min BUN/Creatinine Ratio 16.3 (14-18) Glucose 90 (70-99) mg/dL Calcium 8.5 (8.5-10.1) mg/dL Med Orders - Current: Current Medications Acetaminophen (Acetaminophen 325 Mg Tab) 650 mg PO Q4H PRN PRN Reason: Pain (Mild 1-3)/fever Last Admin: 12/14/20 21:27 Dose: 650 mg Documented by: Albuterol (Albuterol 6.7 Gm Inhaler) 0 gm INH Q2H PRN PRN Reason: SOB/WHEEZING Last Admin: 12/15/20 09:01 Dose: 2 puff Documented by: Apixaban (Apixaban 5 Mg Tab) 10 mg PO BID [facility] Last Admin: 12/15/20 08:03 Dose: 10 mg Documented by: Ascorbic Acid (Ascorbic Acid 500 Mg Tab) 500 mg PO BID [facility] Docusate Sodium (Docusate Sodium 100 Mg Cap) 100 mg PO BID PRN PRN Reason: Constipation Duloxetine HCl (Duloxetine 30 Mg Cap) 60 mg PO BID [facility] Last Admin: 12/15/20 08:02 Dose: 60 mg Documented by: Folic Acid (Folic Acid 1 Mg Tab) 1 mg PO DAILY [facility] Last Admin: 12/15/20 08:03 Dose: 1 mg Documented by: Hydromorphone HCl (Hydromorphone 0.5 Mg/0.5 Ml Syringe) 0.25 mg IVPUSH Q2H PRN PRN Reason: Pain (severe 7-10) Hydroxychloroquine Sulfate (Hydroxychloroquine 200 Mg Tab) 200 mg PO BID [facility] Last Admin: 12/15/20 08:03 Dose: 200 mg Documented by: Levothyroxine Sodium (Levothyroxine 50 Mcg Tab) 50 mcg PO ACBREAKFAST [facility] Last Admin: 12/15/20 05:12 Dose: 50 mcg Documented by: Ondansetron HCl (Ondansetron 4 Mg Tab.Dis) 4 mg PO Q4H PRN PRN Reason: nausea, able to take PO Zinc Sulfate (Zinc Sulfate 220 Mg Cap) 220 mg PO DAILY [facility] Discontinued Medications Albuterol (Albuterol 6.7 Gm Inhaler) 0 gm INH Q2H ONE Stop: 12/05/20 09:49 Last Admin: 12/05/20 10:27 Dose: 2 inhalation Documented by: Albuterol (Albuterol 0.083% 2.5 Mg/3 Ml Neb Soln) 2.5 mg NEB Q2H PRN PRN Reason: Shortness Of Breath/wheezing Azithromycin (Azithromycin 250 Mg Tab) 500 mg PO Q24H [facility] Last Admin: 12/13/20 13:34 Dose: 500 mg Documented by: Dexamethasone (Dexamethasone 10 Mg/Ml Sdv) 10 mg IVPUSH ONETIME ONE Stop: 12/05/20 11:12 Last Admin: 12/05/20 11:56 Dose: 10 mg Documented by: Dexamethasone (Dexamethasone 4 Mg/Ml Sdv) 6 mg IV DAILY [facility] Last Admin: 12/07/20 09:21 Dose: 6 mg Documented by: Dexamethasone (Dexamethasone 4 Mg Tab) 6 mg PO DAILY [facility] Stop: 12/14/20 09:01 Last Admin: 12/14/20 08:18 Dose: 6 mg Documented by: Enoxaparin Sodium (Enoxaparin 40 Mg/0.4 Ml Syringe) 40 mg SUBCUT DAILY [facility] Last Admin: 12/14/20 08:18 Dose: 40 mg Documented by: Hydroxychloroquine Sulfate (Hydroxychloroquine 200 Mg Tab) 200 mg PO BID [facility] Last Admin: 12/05/20 20:05 Dose: 200 mg Documented by: Hydroxychloroquine Sulfate (Hydroxychloroquine 200 Mg Tab) 200 mg PO BID [facility] Sodium Chloride (Normal Saline) 1,000 mls @ 500 mls/hr IV ONETIME ONE Stop: 12/05/20 11:47 Last Admin: 12/05/20 10:29 Dose: 500 mls/hr Documented by: Sodium Chloride (Normal Saline) 100 mls @ 75 mls/hr IV ASDIRECTED [facility] Stop: 12/05/20 14:00 Last Admin: 12/05/20 10:14 Dose: 75 mls/hr Documented by: Remdesivir 200 mg/ Sodium (Chloride) 250 mls @ 250 mls/hr IV ONETIME ONE Stop: 12/05/20 12:59 Last Admin: 12/05/20 11:58 Dose: 250 mls/hr Documented by: Sodium Chloride (Normal Saline) 1,000 mls @ 75 mls/hr IV ASDIRECTED [facility] Last Admin: 12/10/20 03:57 Dose: 75 mls/hr Documented by: Azithromycin 500 mg/ Sodium (Chloride) 250 mls @ 250 mls/hr IV Q24H [facility] Last Admin: 12/06/20 14:44 Dose: 250 mls/hr Documented by: Potassium Chloride 10 meq/ (Premix) 100 mls @ 100 mls/hr IV Q1H [facility] Stop: 12/05/20 18:59 Last Admin: 12/05/20 20:03 Dose: 100 mls/hr Documented by: Remdesivir 100 mg/ Sodium (Chloride) 100 mls @ 100 mls/hr IV Q24H [facility] Stop: 12/09/20 12:59 Last Admin: 12/09/20 12:15 Dose: 100 mls/hr Documented by: Sodium Chloride (Normal Saline) Confirm Administered Dose 100 mls @ as directed .ROUTE .STK-MED ONE Stop: 12/07/20 12:03 Last Admin: 12/07/20 13:49 Dose: Not Given Documented by: Sodium Chloride (Normal Saline) 100 mls @ 60 mls/hr IV ASDIRECTED [facility] Last Admin: 12/14/20 13:06 Dose: 60 mls/hr Documented by: Iopamidol (Iopamidol 755 Mg/Ml 100 Ml Bottle) 100 ml IVPUSH ONETIME ONE Stop: 12/05/20 09:50 Last Admin: 12/05/20 10:14 Dose: 100 ml Documented by: Iopamidol (Iopamidol 755 Mg/Ml 100 Ml Bottle) 100 ml IVPUSH ONETIME ONE Stop: 12/14/20 12:55 Last Admin: 12/14/20 13:06 Dose: 100 ml Documented by: Ketorolac Tromethamine (Ketorolac 30 Mg/Ml Sdv) 30 mg IVPUSH Q6H PRN PRN Reason: Pain (moderate 4-6) Potassium Chloride (Potassium Chloride 20 Meq Tab.Er) 20 meq PO ONETIME ONE Stop: 12/05/20 13:18 Last Admin: 12/05/20 15:20 Dose: 20 meq Documented by: Potassium Chloride (Potassium Chloride 20 Meq Tab.Er) 20 meq PO ONETIME ONE Stop: 12/08/20 12:01 Last Admin: 12/08/20 11:58 Dose: 20 meq Documented by: Potassium Chloride (Potassium Chloride 20 Meq Tab.Er) 20 meq PO ONETIME ONE Stop: 12/10/20 17:22 Last Admin: 12/10/20 17:38 Dose: 20 meq Documented by: Sodium Chloride (Sodium Chloride 0.9% 10 Ml Syringe) 10 ml FLUSH ONETIME PRN PRN Reason: IV FLUSH Last Admin: 12/14/20 13:06 Dose: 10 ml Documented by: Sodium Chloride (Sodium Chloride 0.9% 10 Ml Syringe) 10 ml FLUSH ONETIME ONE Stop: 12/14/20 12:55 Last Admin: 12/14/20 18:38 Dose: Not Given Documented by: - Exam Quality Assessment: Supplemental Oxygen General: Alert, No Acute Distress HEENT: Mucous Membr. Moist/Reservoir Neck: Supple, Trachea Midline (No stridor) Lungs: Clear to Auscultation, Decreased Breath Sounds Cardiovascular: Tachycardia (Tachycardia) GI/Abdominal Exam: Normal Bowel Sounds, Soft, Non-Tender Extremities: Normal Inspection, No Pedal Edema Skin: Warm, Dry Psy/Mental Status: Alert, Normal Mood - Patient Data Lab Results Last 24 hrs: Laboratory Results - last 24 hr 12/15/20 12/15/20 Range/Units 06:30 06:30 WBC 14.84 H (3.98-10.04) K/mm3 RBC 3.89 L (3.98-5.22) M/mm3 Hgb 11.9 (11.2-15.7) gm/dl Hct 37.7 (34.1-44.9) % MCV 96.9 H (79.4-94.8) fl MCH 30.6 (25.6-32.2) pg MCHC 31.6 L (32.2-35.5) g/dl RDW Std Deviation 45.7 (36.4-46.3) fL Plt Count 323 (182-369) K/mm3 MPV 10.2 (9.4-12.3) fl Neut % (Auto) 78.5 H (34.0-71.1) % Lymph % (Auto) 9.8 L (19.3-51.7) % [place] % (Auto) 8.5 (4.7-12.5) % Eos % (Auto) 0.5 L (0.7-5.8) Baso % (Auto) 0.1 (0.1-1.2) % Neut # (Auto) 11.64 H (1.56-6.13) K/mm3 Lymph # (Auto) 1.46 (1.18-3.74) K/mm3 [place] # (Auto) 1.26 H (0.24-0.36) K/mm3 Eos # (Auto) 0.07 (0.04-0.36) K/mm3 Baso # (Auto) 0.02 (0.01-0.08) K/mm3 Manual Slide Review Abnormal smear Sodium 138 (136-145) mEq/L Potassium 4.2 (3.5-5.1) mEq/L Chloride 104 (98-107) mEq/L Carbon Dioxide 28 (21-32) mEq/L Anion Gap 10.2 (5-15) BUN 13 (7-18) mg/dL Creatinine 0.8 (0.55-1.02) mg/dL Est Cr Clr Drug Dosing 79.11 mL/min Estimated GFR (MDRD) > 60 (>60) mL/min BUN/Creatinine Ratio 16.3 (14-18) Glucose 90 (70-99) mg/dL Calcium 8.5 (8.5-10.1) mg/dL Result Diagrams: 12/15/20 06:30 12/15/20 06:30 Sepsis Event Note - Evaluation Sepsis Screening Result: No Definite Risk - Focused Exam Vital Signs: Vital Signs Temp Pulse Resp BP Pulse Ox Pulse Ox 12/15/20 09:10 72 L 12/15/20 09:01 60 L 12/15/20 08:11 98.2 F 88 19 134/69 91 L 12/15/20 05:12 98.2 F 83 16 117/73 88 L 12/15/20 02:28 90 L 12/15/20 02:09 79 89 L - Problem List Review Problem List Initiated/Reviewed/Updated: Yes - My Orders Last 24 Hours: My Active Orders 12/15/20 21:00 Ascorbic Acid [Vitamin C] 500 mg PO BID 12/16/20 09:00 Zinc Sulfate [Zincate] 220 mg PO DAILY - Plan Plan:: 12/15/2020. 1. Acute hypoxic respiratory failure 2. Acute COVID-19 pneumonitis 3. Acute pulmonary embolus associated with hypercoagulable state in setting of acute COVID-19 Patient continues to require oxygen. Would at this point anticipate discharge planning for temporary home oxygen. Continue Tylenol and will add on tramadol for pleuritic chest discomfort. Continue incentive spirometry and RT treatments. Status post remdesivir, corticosteroids, and currently receiving hydroxychloroquine. She did not receive convalescent plasma or Tocilizumab. We will add on supplemental zinc and vitamin C. Continue Eliquis for 6 to 9 months with follow-up with PCP for acute pulmonary embolus. CODE STATUS: Full code. DVT prophylaxis; systemic anticoagulation with Eliquis.
--- NOTE | 2020-12-15 09:27 | US ---
Bilateral lower extremity deep venous ultrasound: Duplex and color Doppler evaluation was obtained of the right and left common femoral, proximal greater saphenous, superficial femoral, popliteal, posterior tibial and peroneal veins. Comparison: Prior CT pulmonary angiogram is 12/14/20, no prior venous imaging is available Findings: Normal phasic flow, augmentation and compression is seen. Impression: 1. No findings of deep venous thrombosis is seen within the right or left lower extremity. Diagnostic code #1
[2020-12-15] MEDS: Zinc Sulfate 220 MG Cap PO SCH (12:48)
[2020-12-15] MEDS: Acetaminophen 325 MG Tab PO PRN (12:54)
[2020-12-15] MEDS: Lidocaine 4% 1 each Patch TOP SCH (14:54)
[2020-12-15] MEDS: Ascorbic Acid 500 MG Tab PO SCH (21:05)
[2020-12-16] MEDS: Levothyroxine 50 MCG Tab PO SCH (05:16)
[2020-12-16] MEDS: Albuterol 6.7 GM Inhaler INH PRN (08:52)
[2020-12-16] MEDS: Apixaban 5 MG Tab PO SCH ×2 (09:09→20:37)
[2020-12-16] MEDS: Folic Acid 1 MG Tab PO SCH (09:10)
[2020-12-16] MEDS: Ascorbic Acid 500 MG Tab PO SCH ×2 (09:10→20:38)
[2020-12-16] MEDS: Acetaminophen 325 MG Tab PO PRN ×2 (09:10→15:48)
[2020-12-16] MEDS ORDERED: Furosemide 40 MG/4 ML VIAL IVPUSH ONE (09:10)
[2020-12-16] MEDS: Lidocaine 4% 1 each Patch TOP SCH (09:11)
[2020-12-16] MEDS: DULoxetine 30 MG Cap PO SCH ×2 (09:12→20:37)
--- NOTE | 2020-12-16 09:20 | PCM.PN ---
- General Info Date of Service: 12/16/20 Admission Dx/Problem (Free Text): Acute hypoxic respiratory failure. COVID-19 related pneumonitis Subjective Update: No acute overnight events. No new nursing concerns. Continues to have significant desaturations with mild activity, even including going to the bathroom. Prolonged times of recovery. No recorded fever. Remains tachypneic. Patient laid prone gently throughout the night. Never for more than 20 minutes at a time. Sign has denied any pleuritic chest discomfort. Has not required another lidocaine patch. Repeat inflammatory present studies are pending this morning. Repeat chest x-ray for maintenance examination pending this morning. Functional Status: Reports: Pain Controlled - Review of Systems Pulmonary: Reports: Shortness of Breath, Cough. Denies: Pleuritic Chest Pain, Sputum, Hemoptysis, Wheezing - Patient Data Vitals - Most Recent: Last Vital Signs Temp 98.2 F 12/16/20 05:20 Pulse 106 H 12/16/20 05:20 Resp 20 12/16/20 05:20 BP 130/40 L 12/16/20 05:20 Pulse Ox 88 L 12/16/20 08:52 Weight - Most Recent: 312 lb 6.4 oz I&O - Last 24 Hours: Intake & Output 12/15/20 12/16/20 12/16/20 22:59 06:59 14:59 Intake Total 590 1000 Output Total 900 900 Balance -310 100 Med Orders - Current: Current Medications Acetaminophen (Acetaminophen 325 Mg Tab) 650 mg PO Q4H PRN PRN Reason: Pain (Mild 1-3)/fever Last Admin: 12/16/20 09:10 Dose: 650 mg Documented by: Albuterol (Albuterol 6.7 Gm Inhaler) 0 gm INH Q2H PRN PRN Reason: SOB/WHEEZING Last Admin: 12/16/20 08:52 Dose: 2 puff Documented by: Apixaban (Apixaban 5 Mg Tab) 10 mg PO BID [facility] Last Admin: 12/16/20 09:09 Dose: 10 mg Documented by: Ascorbic Acid (Ascorbic Acid 500 Mg Tab) 500 mg PO BID [facility] Last Admin: 12/16/20 09:10 Dose: 500 mg Documented by: Docusate Sodium (Docusate Sodium 100 Mg Cap) 100 mg PO BID PRN PRN Reason: Constipation Duloxetine HCl (Duloxetine 30 Mg Cap) 60 mg PO BID [facility] Last Admin: 12/16/20 09:12 Dose: 60 mg Documented by: Folic Acid (Folic Acid 1 Mg Tab) 1 mg PO DAILY [facility] Last Admin: 12/16/20 09:10 Dose: 1 mg Documented by: Hydromorphone HCl (Hydromorphone 0.5 Mg/0.5 Ml Syringe) 0.25 mg IVPUSH Q2H PRN PRN Reason: Pain (severe 7-10) Hydroxychloroquine Sulfate (Hydroxychloroquine 200 Mg Tab) 200 mg PO BID [facility] Last Admin: 12/15/20 21:06 Dose: 200 mg Documented by: Levothyroxine Sodium (Levothyroxine 50 Mcg Tab) 50 mcg PO ACBREAKFAST [facility] Last Admin: 12/16/20 05:16 Dose: 50 mcg Documented by: Lidocaine (Lidocaine 4% 1 Each Patch) 1 each TOP DAILY [facility] Last Admin: 12/16/20 09:11 Dose: 1 each Documented by: Miscellaneous Information (Remove Lidocaine Patch) 1 ea TRDERM Q24H [facility] Last Admin: 12/15/20 21:06 Dose: 1 ea Documented by: Ondansetron HCl (Ondansetron 4 Mg Tab.Dis) 4 mg PO Q4H PRN PRN Reason: nausea, able to take PO Zinc Sulfate (Zinc Sulfate 220 Mg Cap) 220 mg PO 1200 [facility] Last Admin: 12/15/20 12:48 Dose: 220 mg Documented by: Discontinued Medications Albuterol (Albuterol 6.7 Gm Inhaler) 0 gm INH Q2H ONE Stop: 12/05/20 09:49 Last Admin: 12/05/20 10:27 Dose: 2 inhalation Documented by: Albuterol (Albuterol 0.083% 2.5 Mg/3 Ml Neb Soln) 2.5 mg NEB Q2H PRN PRN Reason: Shortness Of Breath/wheezing Azithromycin (Azithromycin 250 Mg Tab) 500 mg PO Q24H [facility] Last Admin: 12/13/20 13:34 Dose: 500 mg Documented by: Dexamethasone (Dexamethasone 10 Mg/Ml Sdv) 10 mg IVPUSH ONETIME ONE Stop: 12/05/20 11:12 Last Admin: 12/05/20 11:56 Dose: 10 mg Documented by: Dexamethasone (Dexamethasone 4 Mg/Ml Sdv) 6 mg IV DAILY [facility] Last Admin: 12/07/20 09:21 Dose: 6 mg Documented by: Dexamethasone (Dexamethasone 4 Mg Tab) 6 mg PO DAILY [facility] Stop: 12/14/20 09:01 Last Admin: 12/14/20 08:18 Dose: 6 mg Documented by: Enoxaparin Sodium (Enoxaparin 40 Mg/0.4 Ml Syringe) 40 mg SUBCUT DAILY [facility] Last Admin: 12/14/20 08:18 Dose: 40 mg Documented by: Furosemide (Furosemide 40 Mg/4 Ml Vial) 40 mg IVPUSH NOW ONE Stop: 12/16/20 09:11 Hydroxychloroquine Sulfate (Hydroxychloroquine 200 Mg Tab) 200 mg PO BID [facility] Last Admin: 12/05/20 20:05 Dose: 200 mg Documented by: Hydroxychloroquine Sulfate (Hydroxychloroquine 200 Mg Tab) 200 mg PO BID [facility] Sodium Chloride (Normal Saline) 1,000 mls @ 500 mls/hr IV ONETIME ONE Stop: 12/05/20 11:47 Last Admin: 12/05/20 10:29 Dose: 500 mls/hr Documented by: Sodium Chloride (Normal Saline) 100 mls @ 75 mls/hr IV ASDIRECTED [facility] Stop: 12/05/20 14:00 Last Admin: 12/05/20 10:14 Dose: 75 mls/hr Documented by: Remdesivir 200 mg/ Sodium (Chloride) 250 mls @ 250 mls/hr IV ONETIME ONE Stop: 12/05/20 12:59 Last Admin: 12/05/20 11:58 Dose: 250 mls/hr Documented by: Sodium Chloride (Normal Saline) 1,000 mls @ 75 mls/hr IV ASDIRECTED [facility] Last Admin: 12/10/20 03:57 Dose: 75 mls/hr Documented by: Azithromycin 500 mg/ Sodium (Chloride) 250 mls @ 250 mls/hr IV Q24H [facility] Last Admin: 12/06/20 14:44 Dose: 250 mls/hr Documented by: Potassium Chloride 10 meq/ (Premix) 100 mls @ 100 mls/hr IV Q1H [facility] Stop: 12/05/20 18:59 Last Admin: 12/05/20 20:03 Dose: 100 mls/hr Documented by: Remdesivir 100 mg/ Sodium (Chloride) 100 mls @ 100 mls/hr IV Q24H [facility] Stop: 12/09/20 12:59 Last Admin: 12/09/20 12:15 Dose: 100 mls/hr Documented by: Sodium Chloride (Normal Saline) Confirm Administered Dose 100 mls @ as directed .ROUTE .STK-MED ONE Stop: 12/07/20 12:03 Last Admin: 12/07/20 13:49 Dose: Not Given Documented by: Sodium Chloride (Normal Saline) 100 mls @ 60 mls/hr IV ASDIRECTED [facility] Last Admin: 12/14/20 13:06 Dose: 60 mls/hr Documented by: Iopamidol (Iopamidol 755 Mg/Ml 100 Ml Bottle) 100 ml IVPUSH ONETIME ONE Stop: 12/05/20 09:50 Last Admin: 12/05/20 10:14 Dose: 100 ml Documented by: Iopamidol (Iopamidol 755 Mg/Ml 100 Ml Bottle) 100 ml IVPUSH ONETIME ONE Stop: 12/14/20 12:55 Last Admin: 12/14/20 13:06 Dose: 100 ml Documented by: Ketorolac Tromethamine (Ketorolac 30 Mg/Ml Sdv) 30 mg IVPUSH Q6H PRN PRN Reason: Pain (moderate 4-6) Potassium Chloride (Potassium Chloride 20 Meq Tab.Er) 20 meq PO ONETIME ONE Stop: 12/05/20 13:18 Last Admin: 12/05/20 15:20 Dose: 20 meq Documented by: Potassium Chloride (Potassium Chloride 20 Meq Tab.Er) 20 meq PO ONETIME ONE Stop: 12/08/20 12:01 Last Admin: 12/08/20 11:58 Dose: 20 meq Documented by: Potassium Chloride (Potassium Chloride 20 Meq Tab.Er) 20 meq PO ONETIME ONE Stop: 12/10/20 17:22 Last Admin: 12/10/20 17:38 Dose: 20 meq Documented by: Sodium Chloride (Sodium Chloride 0.9% 10 Ml Syringe) 10 ml FLUSH ONETIME PRN PRN Reason: IV FLUSH Last Admin: 12/14/20 13:06 Dose: 10 ml Documented by: Sodium Chloride (Sodium Chloride 0.9% 10 Ml Syringe) 10 ml FLUSH ONETIME ONE Stop: 12/14/20 12:55 Last Admin: 12/14/20 18:38 Dose: Not Given Documented by: - Exam Quality Assessment: Supplemental Oxygen, DVT Prophylaxis General: Alert Lungs: Decreased Breath Sounds, Rales (Lateral lower kline). No: Normal Respiratory Effort (Tachypneic), Wheezing Cardiovascular: Regular Rate GI/Abdominal Exam: Normal Bowel Sounds, Soft, Non-Tender, Other (Morbidly obese) Extremities: Normal Inspection, No Pedal Edema Skin: Warm, Dry Psy/Mental Status: Depressed - Patient Data Result Diagrams: 12/15/20 06:30 12/15/20 06:30 Sepsis Event Note - Evaluation Sepsis Screening Result: Sepsis Risk - Focused Exam Vital Signs: Vital Signs Temp Pulse Resp BP Pulse Ox Pulse Ox 12/16/20 08:52 88 L 12/16/20 06:04 91 L 12/16/20 05:20 98.2 F 106 H 20 130/40 L 90 L 12/15/20 21:22 95 - Problem List Review Problem List Initiated/Reviewed/Updated: Yes - My Orders Last 24 Hours: My Active Orders 12/15/20 12:00 Zinc Sulfate [Zincate] 220 mg PO 1200 12/15/20 14:00 Chest Physiotherapy [RT Chest Physiotherapy] [RC] ASDIRECTED 12/15/20 14:30 Lidocaine 4% [Aspercreme 4%] 1 each TOP DAILY 12/15/20 21:00 Ascorbic Acid [Vitamin C] 500 mg PO BID Remove Patch 1 ea TRDERM Q24H 12/16/20 09:11 C-REACTIVE PROTEIN [CHEM] Stat D-DIMER QUANTITATIVE [COAG] Stat FERRITIN [CHEM] Routine LACTATE DEHYDROGENASE,LDH [CHEM] Stat PROCALCITONIN [REF] Stat PTT,PARTIAL THROMBOPLSTIN TIME [COAG] Routine 12/16/20 09:13 Chest 1V Frontal [CR] Stat INR,PT,PROTHROMBIN TIME [COAG] Routine 12/17/20 06:00 CBC WITH AUTO DIFF [HEME] Routine CMP [COMPREHENSIVE METABOLIC PN,CMP] [CHEM] Routine - Plan Plan:: 1. Acute hypoxic respiratory failure 2. Acute COVID-19 pneumonitis 3. Acute pulmonary embolus associated with hypercoagulable state in setting of acute COVID-19 4. Bilateral pleural effusions Patient continues to require oxygen wean 4 and 6 L/min. Would at this point anticipate discharge planning for temporary home oxygen. Continue Tylenol and will add on tramadol for pleuritic chest discomfort, as well as as needed lidocaine patch Continue incentive spirometry and RT treatments, will change from albuterol to DuoNeb's. Status post remdesivir, corticosteroids, and currently receiving hydroxychloroquine. She did not receive convalescent plasma or Tocilizumab. Sinew supplemental zinc and vitamin C Continue Eliquis for 6 to 9 months with follow-up with PCP for acute pulmonary embolus. Inflammatory markers today. Repeat chest x-ray for maintenance examination. Milligrams IV Lasix administered this morning for increasing bilateral pleural effusions and rales on auscultative exam. Your proning is much as possible. CODE STATUS: Full code. DVT prophylaxis; systemic anticoagulation with Eliquis.
[2020-12-16] MEDS: Hydroxychloroquine 200 MG Tab PO SCH ×2 (09:29→20:38)
--- NOTE | 2020-12-16 10:00 | CR ---
Chest: Portable view of the chest was obtained. Comparison: Prior chest x-ray of 12/12/20. Diffuse increased density is seen throughout both sides of the chest. Findings remain fairly similar to prior chest x-ray. Heart size and mediastinum are normal. Bony structures are grossly intact. Impression: 1. Stable chest x-ray from prior exam of 04/12/21. 2. Nothing acute is otherwise seen. Diagnostic code #3
[2020-12-16] MEDS: Zinc Sulfate 220 MG Cap PO SCH (12:00)
[2020-12-16] MEDS: Docusate Sodium 100 MG Cap PO PRN (20:39)
[2020-12-17] MEDS: Levothyroxine 50 MCG Tab PO SCH (06:55)
--- NOTE | 2020-12-17 08:16 | PCM.PN ---
- General Info Date of Service: 12/17/20 Admission Dx/Problem (Free Text): Acute hypoxic respiratory failure. COVID-19 related pneumonitis Subjective Update: Patient seen and examined at bedside. Hospital day 12. Continues to have significant desaturations with minimal activity, up to the bat hroom. Which has been expected. Chest x-ray shows improvement in comparison to original time of admission. Still with significant interstitial infiltrates. Requiring anywhere between 8 to 10 L supplemental oxygen. Patient feels comfortable. No pleurisy. Continues with nonproductive cough. Sometimes with central chest discomfort because of it. Antitussives seem to be helping. No fever. Appetite is good. Patient continues to do prone multiple times a day for prolonged periods of time. No specific new nursing concerns. - Patient Data Vitals - Most Recent: Last Vital Signs Temp 98.2 F 12/17/20 02:44 Pulse 97 12/17/20 02:44 Resp 22 H 12/17/20 02:44 BP 143/94 H 12/17/20 02:44 Pulse Ox 92 L 12/17/20 06:10 Weight - Most Recent: 301 lb 3.2 oz I&O - Last 24 Hours: Intake & Output 12/16/20 12/17/20 12/17/20 22:59 06:59 14:59 Intake Total 1290 800 Output Total 800 1250 Balance 490 -450 Lab Results Last 24 Hours: Laboratory Results - last 24 hr 12/16/20 12/16/20 12/16/20 Range/Units 09:36 09:36 09:36 WBC (3.98-10.04) K/mm3 RBC (3.98-5.22) M/mm3 Hgb (11.2-15.7) gm/dl Hct (34.1-44.9) % MCV (79.4-94.8) fl MCH (25.6-32.2) pg MCHC (32.2-35.5) g/dl RDW Std Deviation (36.4-46.3) fL Plt Count (182-369) K/mm3 MPV (9.4-12.3) fl Neut % (Auto) (34.0-71.1) % Lymph % (Auto) (19.3-51.7) % [place] % (Auto) (4.7-12.5) % Eos % (Auto) (0.7-5.8) Baso % (Auto) (0.1-1.2) % Neut # (Auto) (1.56-6.13) K/mm3 Lymph # (Auto) (1.18-3.74) K/mm3 [place] # (Auto) (0.24-0.36) K/mm3 Eos # (Auto) (0.04-0.36) K/mm3 Baso # (Auto) (0.01-0.08) K/mm3 Manual Slide Review PT (9.7-12.0) SECONDS INR APTT 31.4 (21.7-31.4) SECONDS D-Dimer, Quantitative 4.23 H (0.19-0.50) mg/L Sodium (136-145) mEq/L Potassium (3.5-5.1) mEq/L Chloride (98-107) mEq/L Carbon Dioxide (21-32) mEq/L Anion Gap (5-15) BUN (7-18) mg/dL Creatinine (0.55-1.02) mg/dL Est Cr Clr Drug Dosing mL/min Estimated GFR (MDRD) (>60) mL/min BUN/Creatinine Ratio (14-18) Glucose (70-99) mg/dL Calcium (8.5-10.1) mg/dL Ferritin 1620 H (8-252) ng/ml Total Bilirubin (0.2-1.0) mg/dL AST (15-37) U/L ALT (14-59) U/L Alkaline Phosphatase (46-116) U/L Lactate Dehydrogenase (81-234) U/L C-Reactive Protein (<1.0) mg/dL Total Protein (6.4-8.2) g/dl Albumin (3.4-5.0) g/dl Globulin gm/dL Albumin/Globulin Ratio (1-2) Procalcitonin ng/mL 12/16/20 12/16/20 12/16/20 Range/Units 09:36 09:36 09:36 WBC (3.98-10.04) K/mm3 RBC (3.98-5.22) M/mm3 Hgb (11.2-15.7) gm/dl Hct (34.1-44.9) % MCV (79.4-94.8) fl MCH (25.6-32.2) pg MCHC (32.2-35.5) g/dl RDW Std Deviation (36.4-46.3) fL Plt Count (182-369) K/mm3 MPV (9.4-12.3) fl Neut % (Auto) (34.0-71.1) % Lymph % (Auto) (19.3-51.7) % [place] % (Auto) (4.7-12.5) % Eos % (Auto) (0.7-5.8) Baso % (Auto) (0.1-1.2) % Neut # (Auto) (1.56-6.13) K/mm3 Lymph # (Auto) (1.18-3.74) K/mm3 [place] # (Auto) (0.24-0.36) K/mm3 Eos # (Auto) (0.04-0.36) K/mm3 Baso # (Auto) (0.01-0.08) K/mm3 Manual Slide Review PT 12.3 H (9.7-12.0) SECONDS INR 1.15 APTT (21.7-31.4) SECONDS D-Dimer, Quantitative (0.19-0.50) mg/L Sodium (136-145) mEq/L Potassium (3.5-5.1) mEq/L Chloride (98-107) mEq/L Carbon Dioxide (21-32) mEq/L Anion Gap (5-15) BUN (7-18) mg/dL Creatinine (0.55-1.02) mg/dL Est Cr Clr Drug Dosing mL/min Estimated GFR (MDRD) (>60) mL/min BUN/Creatinine Ratio (14-18) Glucose (70-99) mg/dL Calcium (8.5-10.1) mg/dL Ferritin (8-252) ng/ml Total Bilirubin (0.2-1.0) mg/dL AST (15-37) U/L ALT (14-59) U/L Alkaline Phosphatase (46-116) U/L Lactate Dehydrogenase 419 H (81-234) U/L C-Reactive Protein 24.8 H* (<1.0) mg/dL Total Protein (6.4-8.2) g/dl Albumin (3.4-5.0) g/dl Globulin gm/dL Albumin/Globulin Ratio (1-2) Procalcitonin 0.12 H ng/mL 12/17/20 12/17/20 Range/Units 05:45 05:45 WBC 11.21 H (3.98-10.04) K/mm3 RBC 4.18 (3.98-5.22) M/mm3 Hgb 12.7 (11.2-15.7) gm/dl Hct 41.1 (34.1-44.9) % MCV 98.3 H (79.4-94.8) fl MCH 30.4 (25.6-32.2) pg MCHC 30.9 L (32.2-35.5) g/dl RDW Std Deviation 47.5 H (36.4-46.3) fL Plt Count 267 (182-369) K/mm3 MPV 10.2 (9.4-12.3) fl Neut % (Auto) 75.8 H (34.0-71.1) % Lymph % (Auto) 12.8 L (19.3-51.7) % [place] % (Auto) 5.5 (4.7-12.5) % Eos % (Auto) 3.5 (0.7-5.8) Baso % (Auto) 0.3 (0.1-1.2) % Neut # (Auto) 8.50 H (1.56-6.13) K/mm3 Lymph # (Auto) 1.44 (1.18-3.74) K/mm3 [place] # (Auto) 0.62 H (0.24-0.36) K/mm3 Eos # (Auto) 0.39 H (0.04-0.36) K/mm3 Baso # (Auto) 0.03 (0.01-0.08) K/mm3 Manual Slide Review Abnormal smear PT (9.7-12.0) SECONDS INR APTT (21.7-31.4) SECONDS D-Dimer, Quantitative (0.19-0.50) mg/L Sodium 138 (136-145) mEq/L Potassium 4.4 (3.5-5.1) mEq/L Chloride 103 (98-107) mEq/L Carbon Dioxide 30 (21-32) mEq/L Anion Gap 9.4 (5-15) BUN 11 (7-18) mg/dL Creatinine 0.9 (0.55-1.02) mg/dL Est Cr Clr Drug Dosing 70.32 mL/min Estimated GFR (MDRD) > 60 (>60) mL/min BUN/Creatinine Ratio 12.2 L (14-18) Glucose 101 H (70-99) mg/dL Calcium 8.8 (8.5-10.1) mg/dL Ferritin (8-252) ng/ml Total Bilirubin 0.4 (0.2-1.0) mg/dL AST 43 H (15-37) U/L ALT 90 H (14-59) U/L Alkaline Phosphatase 87 (46-116) U/L Lactate Dehydrogenase (81-234) U/L C-Reactive Protein (<1.0) mg/dL Total Protein 6.8 (6.4-8.2) g/dl Albumin 2.2 L (3.4-5.0) g/dl Globulin 4.6 gm/dL Albumin/Globulin Ratio 0.5 L (1-2) Procalcitonin ng/mL Med Orders - Current: Current Medications Acetaminophen (Acetaminophen 325 Mg Tab) 650 mg PO Q4H PRN PRN Reason: Pain (Mild 1-3)/fever Last Admin: 12/16/20 15:48 Dose: 650 mg Documented by: Albuterol (Albuterol 6.7 Gm Inhaler) 0 gm INH Q2H PRN PRN Reason: SOB/WHEEZING Last Admin: 12/16/20 08:52 Dose: 2 puff Documented by: Apixaban (Apixaban 5 Mg Tab) 10 mg PO BID [facility] Last Admin: 12/16/20 20:37 Dose: 10 mg Documented by: Ascorbic Acid (Ascorbic Acid 500 Mg Tab) 500 mg PO BID [facility] Last Admin: 12/16/20 20:38 Dose: 500 mg Documented by: Docusate Sodium (Docusate Sodium 100 Mg Cap) 100 mg PO BID PRN PRN Reason: Constipation Last Admin: 12/16/20 20:39 Dose: 100 mg Documented by: Duloxetine HCl (Duloxetine 30 Mg Cap) 60 mg PO BID [facility] Last Admin: 12/16/20 20:37 Dose: 60 mg Documented by: Folic Acid (Folic Acid 1 Mg Tab) 1 mg PO DAILY [facility] Last Admin: 12/16/20 09:10 Dose: 1 mg Documented by: Hydromorphone HCl (Hydromorphone 0.5 Mg/0.5 Ml Syringe) 0.25 mg IVPUSH Q2H PRN PRN Reason: Pain (severe 7-10) Hydroxychloroquine Sulfate (Hydroxychloroquine 200 Mg Tab) 200 mg PO BID [facility] Last Admin: 12/16/20 20:38 Dose: 200 mg Documented by: Levothyroxine Sodium (Levothyroxine 50 Mcg Tab) 50 mcg PO ACBREAKFAST [facility] Last Admin: 12/17/20 06:55 Dose: 50 mcg Documented by: Lidocaine (Lidocaine 4% 1 Each Patch) 1 each TOP DAILY [facility] Last Admin: 12/16/20 09:11 Dose: 1 each Documented by: Miscellaneous Information (Remove Lidocaine Patch) 1 ea TRDERM Q24H [facility] Last Admin: 12/16/20 20:38 Dose: 1 ea Documented by: Ondansetron HCl (Ondansetron 4 Mg Tab.Dis) 4 mg PO Q4H PRN PRN Reason: nausea, able to take PO Zinc Sulfate (Zinc Sulfate 220 Mg Cap) 220 mg PO 1200 [facility] Last Admin: 12/16/20 12:00 Dose: 220 mg Documented by: Discontinued Medications Albuterol (Albuterol 6.7 Gm Inhaler) 0 gm INH Q2H ONE Stop: 12/05/20 09:49 Last Admin: 12/05/20 10:27 Dose: 2 inhalation Documented by: Albuterol (Albuterol 0.083% 2.5 Mg/3 Ml Neb Soln) 2.5 mg NEB Q2H PRN PRN Reason: Shortness Of Breath/wheezing Azithromycin (Azithromycin 250 Mg Tab) 500 mg PO Q24H [facility] Last Admin: 12/13/20 13:34 Dose: 500 mg Documented by: Dexamethasone (Dexamethasone 10 Mg/Ml Sdv) 10 mg IVPUSH ONETIME ONE Stop: 12/05/20 11:12 Last Admin: 12/05/20 11:56 Dose: 10 mg Documented by: Dexamethasone (Dexamethasone 4 Mg/Ml Sdv) 6 mg IV DAILY [facility] Last Admin: 12/07/20 09:21 Dose: 6 mg Documented by: Dexamethasone (Dexamethasone 4 Mg Tab) 6 mg PO DAILY [facility] Stop: 12/14/20 09:01 Last Admin: 12/14/20 08:18 Dose: 6 mg Documented by: Enoxaparin Sodium (Enoxaparin 40 Mg/0.4 Ml Syringe) 40 mg SUBCUT DAILY [facility] Last Admin: 12/14/20 08:18 Dose: 40 mg Documented by: Furosemide (Furosemide 40 Mg/4 Ml Vial) 40 mg IVPUSH NOW ONE Stop: 12/16/20 09:11 Last Admin: 12/16/20 09:29 Dose: 40 mg Documented by: Hydroxychloroquine Sulfate (Hydroxychloroquine 200 Mg Tab) 200 mg PO BID [facility] Last Admin: 12/05/20 20:05 Dose: 200 mg Documented by: Hydroxychloroquine Sulfate (Hydroxychloroquine 200 Mg Tab) 200 mg PO BID [facility] Sodium Chloride (Normal Saline) 1,000 mls @ 500 mls/hr IV ONETIME ONE Stop: 12/05/20 11:47 Last Admin: 12/05/20 10:29 Dose: 500 mls/hr Documented by: Sodium Chloride (Normal Saline) 100 mls @ 75 mls/hr IV ASDIRECTED [facility] Stop: 12/05/20 14:00 Last Admin: 12/05/20 10:14 Dose: 75 mls/hr Documented by: Remdesivir 200 mg/ Sodium (Chloride) 250 mls @ 250 mls/hr IV ONETIME ONE Stop: 12/05/20 12:59 Last Admin: 12/05/20 11:58 Dose: 250 mls/hr Documented by: Sodium Chloride (Normal Saline) 1,000 mls @ 75 mls/hr IV ASDIRECTED [facility] Last Admin: 12/10/20 03:57 Dose: 75 mls/hr Documented by: Azithromycin 500 mg/ Sodium (Chloride) 250 mls @ 250 mls/hr IV Q24H [facility] Last Admin: 12/06/20 14:44 Dose: 250 mls/hr Documented by: Potassium Chloride 10 meq/ (Premix) 100 mls @ 100 mls/hr IV Q1H [facility] Stop: 12/05/20 18:59 Last Admin: 12/05/20 20:03 Dose: 100 mls/hr Documented by: Remdesivir 100 mg/ Sodium (Chloride) 100 mls @ 100 mls/hr IV Q24H [facility] Stop: 12/09/20 12:59 Last Admin: 12/09/20 12:15 Dose: 100 mls/hr Documented by: Sodium Chloride (Normal Saline) Confirm Administered Dose 100 mls @ as directed .ROUTE .STK-MED ONE Stop: 12/07/20 12:03 Last Admin: 12/07/20 13:49 Dose: Not Given Documented by: Sodium Chloride (Normal Saline) 100 mls @ 60 mls/hr IV ASDIRECTED ISAAC Last Admin: 12/14/20 13:06 Dose: 60 mls/hr Documented by: Tocilizumab 800 mg/ Sodium (Chloride) 100 mls @ 100 mls/hr IV ONETIME ONE Stop: 12/16/20 11:29 Last Admin: 12/16/20 10:59 Dose: 100 mls/hr Documented by: Iopamidol (Iopamidol 755 Mg/Ml 100 Ml Bottle) 100 ml IVPUSH ONETIME ONE Stop: 12/05/20 09:50 Last Admin: 12/05/20 10:14 Dose: 100 ml Documented by: Iopamidol (Iopamidol 755 Mg/Ml 100 Ml Bottle) 100 ml IVPUSH ONETIME ONE Stop: 12/14/20 12:55 Last Admin: 12/14/20 13:06 Dose: 100 ml Documented by: Ketorolac Tromethamine (Ketorolac 30 Mg/Ml Sdv) 30 mg IVPUSH Q6H PRN PRN Reason: Pain (moderate 4-6) Potassium Chloride (Potassium Chloride 20 Meq Tab.Er) 20 meq PO ONETIME ONE Stop: 12/05/20 13:18 Last Admin: 12/05/20 15:20 Dose: 20 meq Documented by: Potassium Chloride (Potassium Chloride 20 Meq Tab.Er) 20 meq PO ONETIME ONE Stop: 12/08/20 12:01 Last Admin: 12/08/20 11:58 Dose: 20 meq Documented by: Potassium Chloride (Potassium Chloride 20 Meq Tab.Er) 20 meq PO ONETIME ONE Stop: 12/10/20 17:22 Last Admin: 12/10/20 17:38 Dose: 20 meq Documented by: Sodium Chloride (Sodium Chloride 0.9% 10 Ml Syringe) 10 ml FLUSH ONETIME PRN PRN Reason: IV FLUSH Last Admin: 12/14/20 13:06 Dose: 10 ml Documented by: Sodium Chloride (Sodium Chloride 0.9% 10 Ml Syringe) 10 ml FLUSH ONETIME ONE Stop: 12/14/20 12:55 Last Admin: 12/14/20 18:38 Dose: Not Given Documented by: - Exam General: Alert Lungs: Decreased Breath Sounds (Mostly in right lung kline today. Left lung improved.), Crackles Cardiovascular: Regular Rate GI/Abdominal Exam: Normal Bowel Sounds, Soft, Non-Tender Extremities: Normal Inspection, No Pedal Edema Skin: Warm, Dry - Patient Data Lab Results Last 24 hrs: Laboratory Results - last 24 hr 12/16/20 12/16/20 12/16/20 Range/Units 09:36 09:36 09:36 WBC (3.98-10.04) K/mm3 RBC (3.98-5.22) M/mm3 Hgb (11.2-15.7) gm/dl Hct (34.1-44.9) % MCV (79.4-94.8) fl MCH (25.6-32.2) pg MCHC (32.2-35.5) g/dl RDW Std Deviation (36.4-46.3) fL Plt Count (182-369) K/mm3 MPV (9.4-12.3) fl Neut % (Auto) (34.0-71.1) % Lymph % (Auto) (19.3-51.7) % [place] % (Auto) (4.7-12.5) % Eos % (Auto) (0.7-5.8) Baso % (Auto) (0.1-1.2) % Neut # (Auto) (1.56-6.13) K/mm3 Lymph # (Auto) (1.18-3.74) K/mm3 [place] # (Auto) (0.24-0.36) K/mm3 Eos # (Auto) (0.04-0.36) K/mm3 Baso # (Auto) (0.01-0.08) K/mm3 Manual Slide Review PT (9.7-12.0) SECONDS INR APTT 31.4 (21.7-31.4) SECONDS D-Dimer, Quantitative 4.23 H (0.19-0.50) mg/L Sodium (136-145) mEq/L Potassium (3.5-5.1) mEq/L Chloride (98-107) mEq/L Carbon Dioxide (21-32) mEq/L Anion Gap (5-15) BUN (7-18) mg/dL Creatinine (0.55-1.02) mg/dL Est Cr Clr Drug Dosing mL/min Estimated GFR (MDRD) (>60) mL/min BUN/Creatinine Ratio (14-18) Glucose (70-99) mg/dL Calcium (8.5-10.1) mg/dL Ferritin 1620 H (8-252) ng/ml Total Bilirubin (0.2-1.0) mg/dL AST (15-37) U/L ALT (14-59) U/L Alkaline Phosphatase (46-116) U/L Lactate Dehydrogenase (81-234) U/L C-Reactive Protein (<1.0) mg/dL Total Protein (6.4-8.2) g/dl Albumin (3.4-5.0) g/dl Globulin gm/dL Albumin/Globulin Ratio (1-2) Procalcitonin ng/mL 12/16/20 12/16/20 12/16/20 Range/Units 09:36 09:36 09:36 WBC (3.98-10.04) K/mm3 RBC (3.98-5.22) M/mm3 Hgb (11.2-15.7) gm/dl Hct (34.1-44.9) % MCV (79.4-94.8) fl MCH (25.6-32.2) pg MCHC (32.2-35.5) g/dl RDW Std Deviation (36.4-46.3) fL Plt Count (182-369) K/mm3 MPV (9.4-12.3) fl Neut % (Auto) (34.0-71.1) % Lymph % (Auto) (19.3-51.7) % [place] % (Auto) (4.7-12.5) % Eos % (Auto) (0.7-5.8) Baso % (Auto) (0.1-1.2) % Neut # (Auto) (1.56-6.13) K/mm3 Lymph # (Auto) (1.18-3.74) K/mm3 [place] # (Auto) (0.24-0.36) K/mm3 Eos # (Auto) (0.04-0.36) K/mm3 Baso # (Auto) (0.01-0.08) K/mm3 Manual Slide Review PT 12.3 H (9.7-12.0) SECONDS INR 1.15 APTT (21.7-31.4) SECONDS D-Dimer, Quantitative (0.19-0.50) mg/L Sodium (136-145) mEq/L Potassium (3.5-5.1) mEq/L Chloride (98-107) mEq/L Carbon Dioxide (21-32) mEq/L Anion Gap (5-15) BUN (7-18) mg/dL Creatinine (0.55-1.02) mg/dL Est Cr Clr Drug Dosing mL/min Estimated GFR (MDRD) (>60) mL/min BUN/Creatinine Ratio (14-18) Glucose (70-99) mg/dL Calcium (8.5-10.1) mg/dL Ferritin (8-252) ng/ml Total Bilirubin (0.2-1.0) mg/dL AST (15-37) U/L ALT (14-59) U/L Alkaline Phosphatase (46-116) U/L Lactate Dehydrogenase 419 H (81-234) U/L C-Reactive Protein 24.8 H* (<1.0) mg/dL Total Protein (6.4-8.2) g/dl Albumin (3.4-5.0) g/dl Globulin gm/dL Albumin/Globulin Ratio (1-2) Procalcitonin 0.12 H ng/mL 12/17/20 12/17/20 Range/Units 05:45 05:45 WBC 11.21 H (3.98-10.04) K/mm3 RBC 4.18 (3.98-5.22) M/mm3 Hgb 12.7 (11.2-15.7) gm/dl Hct 41.1 (34.1-44.9) % MCV 98.3 H (79.4-94.8) fl MCH 30.4 (25.6-32.2) pg MCHC 30.9 L (32.2-35.5) g/dl RDW Std Deviation 47.5 H (36.4-46.3) fL Plt Count 267 (182-369) K/mm3 MPV 10.2 (9.4-12.3) fl Neut % (Auto) 75.8 H (34.0-71.1) % Lymph % (Auto) 12.8 L (19.3-51.7) % [place] % (Auto) 5.5 (4.7-12.5) % Eos % (Auto) 3.5 (0.7-5.8) Baso % (Auto) 0.3 (0.1-1.2) % Neut # (Auto) 8.50 H (1.56-6.13) K/mm3 Lymph # (Auto) 1.44 (1.18-3.74) K/mm3 [place] # (Auto) 0.62 H (0.24-0.36) K/mm3 Eos # (Auto) 0.39 H (0.04-0.36) K/mm3 Baso # (Auto) 0.03 (0.01-0.08) K/mm3 Manual Slide Review Abnormal smear PT (9.7-12.0) SECONDS INR APTT (21.7-31.4) SECONDS D-Dimer, Quantitative (0.19-0.50) mg/L Sodium 138 (136-145) mEq/L Potassium 4.4 (3.5-5.1) mEq/L Chloride 103 (98-107) mEq/L Carbon Dioxide 30 (21-32) mEq/L Anion Gap 9.4 (5-15) BUN 11 (7-18) mg/dL Creatinine 0.9 (0.55-1.02) mg/dL Est Cr Clr Drug Dosing 70.32 mL/min Estimated GFR (MDRD) > 60 (>60) mL/min BUN/Creatinine Ratio 12.2 L (14-18) Glucose 101 H (70-99) mg/dL Calcium 8.8 (8.5-10.1) mg/dL Ferritin (8-252) ng/ml Total Bilirubin 0.4 (0.2-1.0) mg/dL AST 43 H (15-37) U/L ALT 90 H (14-59) U/L Alkaline Phosphatase 87 (46-116) U/L Lactate Dehydrogenase (81-234) U/L C-Reactive Protein (<1.0) mg/dL Total Protein 6.8 (6.4-8.2) g/dl Albumin 2.2 L (3.4-5.0) g/dl Globulin 4.6 gm/dL Albumin/Globulin Ratio 0.5 L (1-2) Procalcitonin ng/mL Result Diagrams: 12/17/20 05:45 12/17/20 05:45 Sepsis Event Note - Evaluation Sepsis Screening Result: Sepsis Risk - Focused Exam Vital Signs: Vital Signs Temp Pulse Resp BP BP Pulse Ox Pulse Ox 12/17/20 06:10 92 L 12/17/20 02:52 88 L 12/17/20 02:44 98.2 F 97 22 H 143/94 H 83 L 12/16/20 23:58 93 L 12/16/20 20:34 98.1 F 93 18 143/97 H 92 L - Problem List Review Problem List Initiated/Reviewed/Updated: Yes - Plan Plan:: 1. Acute hypoxic respiratory failure 2. Acute COVID-19 pneumonitis 3. Acute pulmonary embolus associated with hypercoagulable state in setting of acute COVID-19 4. Bilateral pleural effusions Patient continues to require supplemental oxygen. Sometimes exceeding 8 to 10 L.. Would at this point anticipate discharge planning for temporary home oxygen. Continue Tylenol and tramadol for pleuritic chest discomfort, as well as as needed lidocaine patch Continue incentive spirometry and RT treatments, will change from albuterol to DuoNeb's. Status post remdesivir, corticosteroids, and currently receiving hydroxychloroquine. She did not receive convalescent plasma upon admission. Patient administered Tocilizumab yesterday without any reaction. Tolerated well. Continue supplemental zinc and vitamin C Continue Eliquis for 6 to 9 months with follow-up with PCP for acute pulmonary embolus. Repeat chest x-ray on Saturday for maintenance examination. Continue proning is much as possible. CODE STATUS: Full code. DVT prophylaxis; systemic anticoagulation with Eliquis.
[2020-12-17] MEDS: Hydroxychloroquine 200 MG Tab PO SCH ×2 (09:50→20:43)
[2020-12-17] MEDS: Apixaban 5 MG Tab PO SCH ×2 (09:50→20:43)
[2020-12-17] MEDS: Folic Acid 1 MG Tab PO SCH (09:50)
[2020-12-17] MEDS: DULoxetine 30 MG Cap PO SCH ×2 (09:50→20:43)
[2020-12-17] MEDS: Ascorbic Acid 500 MG Tab PO SCH ×2 (09:50→20:44)
[2020-12-17] MEDS: Lidocaine 4% 1 each Patch TOP SCH (09:51)
[2020-12-17] MEDS: Docusate Sodium 100 MG Cap PO PRN (11:45)
[2020-12-17] MEDS: Zinc Sulfate 220 MG Cap PO SCH (11:45)
[2020-12-17] MEDS: Albuterol 6.7 GM Inhaler INH PRN (21:38)
[2020-12-18] MEDS: Levothyroxine 50 MCG Tab PO SCH (05:11)
--- NOTE | 2020-12-18 08:17 | PCM.PN ---
- General Info Date of Service: 12/18/20 Admission Dx/Problem (Free Text): Acute hypoxic respiratory failure. COVID-19 related pneumonitis Subjective Update: Patient seen and examined at bedside. Hospital day 13. No acute events overnight. No new nursing concerns. Still has prolonged periods of desaturation with ambulation to and from the bathroom. Patient does not feel any worse while this occurs. Patient feels somewhat status quo and perhaps a little bit better in comparison to the past couple of days. Producing more sputum at this point. No evidence of hemoptysis. - Patient Data Vitals - Most Recent: Last Vital Signs Temp 98.2 F 12/18/20 05:09 Pulse 97 12/18/20 05:09 Resp 18 12/18/20 05:09 BP 114/66 12/18/20 05:09 Pulse Ox 94 L 12/18/20 05:09 Weight - Most Recent: 302 lb 6.4 oz I&O - Last 24 Hours: Intake & Output 12/17/20 12/18/20 12/18/20 22:59 06:59 14:59 Intake Total 380 600 Output Total 300 1000 Balance 80 -400 Med Orders - Current: Current Medications Acetaminophen (Acetaminophen 325 Mg Tab) 650 mg PO Q4H PRN PRN Reason: Pain (Mild 1-3)/fever Last Admin: 12/16/20 15:48 Dose: 650 mg Documented by: Albuterol (Albuterol 6.7 Gm Inhaler) 0 gm INH Q2H PRN PRN Reason: SOB/WHEEZING Last Admin: 12/17/20 21:38 Dose: 2 puff Documented by: Apixaban (Apixaban 5 Mg Tab) 10 mg PO BID REPLACED BY [facility] Last Admin: 12/17/20 20:43 Dose: 10 mg Documented by: Ascorbic Acid (Ascorbic Acid 500 Mg Tab) 500 mg PO BID REPLACED BY [facility] Last Admin: 12/17/20 20:44 Dose: 500 mg Documented by: Docusate Sodium (Docusate Sodium 100 Mg Cap) 100 mg PO BID PRN PRN Reason: Constipation Last Admin: 12/17/20 11:45 Dose: 100 mg Documented by: Duloxetine HCl (Duloxetine 30 Mg Cap) 60 mg PO BID REPLACED BY [facility] Last Admin: 12/17/20 20:43 Dose: 60 mg Documented by: Folic Acid (Folic Acid 1 Mg Tab) 1 mg PO DAILY REPLACED BY [facility] Last Admin: 12/17/20 09:50 Dose: 1 mg Documented by: Hydromorphone HCl (Hydromorphone 0.5 Mg/0.5 Ml Syringe) 0.25 mg IVPUSH Q2H PRN PRN Reason: Pain (severe 7-10) Hydroxychloroquine Sulfate (Hydroxychloroquine 200 Mg Tab) 200 mg PO BID REPLACED BY [facility] Last Admin: 12/17/20 20:43 Dose: 200 mg Documented by: Levothyroxine Sodium (Levothyroxine 50 Mcg Tab) 50 mcg PO ACBREAKFAST REPLACED BY [facility] Last Admin: 12/18/20 05:11 Dose: 50 mcg Documented by: Lidocaine (Lidocaine 4% 1 Each Patch) 1 each TOP DAILY REPLACED BY [facility] Last Admin: 12/17/20 09:51 Dose: 1 each Documented by: Miscellaneous Information (Remove Lidocaine Patch) 1 ea TRDERM Q24H REPLACED BY [facility] Last Admin: 12/17/20 20:44 Dose: 1 ea Documented by: Ondansetron HCl (Ondansetron 4 Mg Tab.Dis) 4 mg PO Q4H PRN PRN Reason: nausea, able to take PO Zinc Sulfate (Zinc Sulfate 220 Mg Cap) 220 mg PO 1200 REPLACED BY [facility] Last Admin: 12/17/20 11:45 Dose: 220 mg Documented by: Discontinued Medications Albuterol (Albuterol 6.7 Gm Inhaler) 0 gm INH Q2H ONE Stop: 12/05/20 09:49 Last Admin: 12/05/20 10:27 Dose: 2 inhalation Documented by: Albuterol (Albuterol 0.083% 2.5 Mg/3 Ml Neb Soln) 2.5 mg NEB Q2H PRN PRN Reason: Shortness Of Breath/wheezing Azithromycin (Azithromycin 250 Mg Tab) 500 mg PO Q24H REPLACED BY [facility] Last Admin: 12/13/20 13:34 Dose: 500 mg Documented by: Dexamethasone (Dexamethasone 10 Mg/Ml Sdv) 10 mg IVPUSH ONETIME ONE Stop: 12/05/20 11:12 Last Admin: 12/05/20 11:56 Dose: 10 mg Documented by: Dexamethasone (Dexamethasone 4 Mg/Ml Sdv) 6 mg IV DAILY REPLACED BY [facility] Last Admin: 12/07/20 09:21 Dose: 6 mg Documented by: Dexamethasone (Dexamethasone 4 Mg Tab) 6 mg PO DAILY REPLACED BY [facility] Stop: 12/14/20 09:01 Last Admin: 12/14/20 08:18 Dose: 6 mg Documented by: Enoxaparin Sodium (Enoxaparin 40 Mg/0.4 Ml Syringe) 40 mg SUBCUT DAILY REPLACED BY [facility] Last Admin: 12/14/20 08:18 Dose: 40 mg Documented by: Furosemide (Furosemide 40 Mg/4 Ml Vial) 40 mg IVPUSH NOW ONE Stop: 12/16/20 09:11 Last Admin: 12/16/20 09:29 Dose: 40 mg Documented by: Hydroxychloroquine Sulfate (Hydroxychloroquine 200 Mg Tab) 200 mg PO BID REPLACED BY [facility] Last Admin: 12/05/20 20:05 Dose: 200 mg Documented by: Hydroxychloroquine Sulfate (Hydroxychloroquine 200 Mg Tab) 200 mg PO BID REPLACED BY [facility] Sodium Chloride (Normal Saline) 1,000 mls @ 500 mls/hr IV ONETIME ONE Stop: 12/05/20 11:47 Last Admin: 12/05/20 10:29 Dose: 500 mls/hr Documented by: Sodium Chloride (Normal Saline) 100 mls @ 75 mls/hr IV ASDIRECTED REPLACED BY [facility] Stop: 12/05/20 14:00 Last Admin: 12/05/20 10:14 Dose: 75 mls/hr Documented by: Remdesivir 200 mg/ Sodium (Chloride) 250 mls @ 250 mls/hr IV ONETIME ONE Stop: 12/05/20 12:59 Last Admin: 12/05/20 11:58 Dose: 250 mls/hr Documented by: Sodium Chloride (Normal Saline) 1,000 mls @ 75 mls/hr IV ASDIRECTED REPLACED BY [facility] Last Admin: 12/10/20 03:57 Dose: 75 mls/hr Documented by: Azithromycin 500 mg/ Sodium (Chloride) 250 mls @ 250 mls/hr IV Q24H REPLACED BY [facility] Last Admin: 12/06/20 14:44 Dose: 250 mls/hr Documented by: Potassium Chloride 10 meq/ (Premix) 100 mls @ 100 mls/hr IV Q1H REPLACED BY [facility] Stop: 12/05/20 18:59 Last Admin: 12/05/20 20:03 Dose: 100 mls/hr Documented by: Remdesivir 100 mg/ Sodium (Chloride) 100 mls @ 100 mls/hr IV Q24H REPLACED BY [facility] Stop: 12/09/20 12:59 Last Admin: 12/09/20 12:15 Dose: 100 mls/hr Documented by: Sodium Chloride (Normal Saline) Confirm Administered Dose 100 mls @ as directed .ROUTE .STK-MED ONE Stop: 12/07/20 12:03 Last Admin: 12/07/20 13:49 Dose: Not Given Documented by: Sodium Chloride (Normal Saline) 100 mls @ 60 mls/hr IV ASDIRECTED [facility] Last Admin: 12/14/20 13:06 Dose: 60 mls/hr Documented by: Tocilizumab 800 mg/ Sodium (Chloride) 100 mls @ 100 mls/hr IV ONETIME ONE Stop: 12/16/20 11:29 Last Admin: 12/16/20 10:59 Dose: 100 mls/hr Documented by: Iopamidol (Iopamidol 755 Mg/Ml 100 Ml Bottle) 100 ml IVPUSH ONETIME ONE Stop: 12/05/20 09:50 Last Admin: 12/05/20 10:14 Dose: 100 ml Documented by: Iopamidol (Iopamidol 755 Mg/Ml 100 Ml Bottle) 100 ml IVPUSH ONETIME ONE Stop: 12/14/20 12:55 Last Admin: 12/14/20 13:06 Dose: 100 ml Documented by: Ketorolac Tromethamine (Ketorolac 30 Mg/Ml Sdv) 30 mg IVPUSH Q6H PRN PRN Reason: Pain (moderate 4-6) Potassium Chloride (Potassium Chloride 20 Meq Tab.Er) 20 meq PO ONETIME ONE Stop: 12/05/20 13:18 Last Admin: 12/05/20 15:20 Dose: 20 meq Documented by: Potassium Chloride (Potassium Chloride 20 Meq Tab.Er) 20 meq PO ONETIME ONE Stop: 12/08/20 12:01 Last Admin: 12/08/20 11:58 Dose: 20 meq Documented by: Potassium Chloride (Potassium Chloride 20 Meq Tab.Er) 20 meq PO ONETIME ONE Stop: 12/10/20 17:22 Last Admin: 12/10/20 17:38 Dose: 20 meq Documented by: Sodium Chloride (Sodium Chloride 0.9% 10 Ml Syringe) 10 ml FLUSH ONETIME PRN PRN Reason: IV FLUSH Last Admin: 12/14/20 13:06 Dose: 10 ml Documented by: Sodium Chloride (Sodium Chloride 0.9% 10 Ml Syringe) 10 ml FLUSH ONETIME ONE Stop: 12/14/20 12:55 Last Admin: 12/14/20 18:38 Dose: Not Given Documented by: - Exam General: Alert Lungs: Decreased Breath Sounds (At bases with rales.), Rales, Other (Overall better air movement both with inspiration and expiration in the upper and middle kline bilaterally.) GI/Abdominal Exam: Normal Bowel Sounds, Soft, Non-Tender Extremities: Normal Inspection, No Pedal Edema Skin: Warm Psy/Mental Status: Normal Affect, Normal Mood - Patient Data Result Diagrams: 12/17/20 05:45 12/17/20 05:45 Sepsis Event Note - Evaluation Sepsis Screening Result: No Definite Risk - Focused Exam Vital Signs: Vital Signs Temp Pulse Pulse Resp BP Pulse Ox Pulse Ox 12/18/20 05:09 98.2 F 97 18 114/66 94 L 12/18/20 00:00 102 H 18 91 L 12/17/20 21:40 94 L 12/17/20 20:40 98.2 F 99 20 93 L - Problem List Review Problem List Initiated/Reviewed/Updated: Yes - Plan Plan:: 1. Acute hypoxic respiratory failure 2. Acute COVID-19 pneumonitis 3. Acute pulmonary embolus associated with hypercoagulable state in setting of acute COVID-19 4. Bilateral pleural effusions Requiring 8 to 10 L. Will be more proactive with trying to wean today. Would anticipate the need for home O2 at time of discharge. Continue Tylenol and tramadol for pleuritic chest discomfort, as well as as needed lidocaine patch Continue incentive spirometry and RT treatments. Status post remdesivir, corticosteroids, and currently receiving hydroxychloroquine. She did not receive convalescent plasma upon admission. Administered Tocilizumab 12/16/2020 without any reaction. Tolerated well. Continue supplemental zinc and vitamin C Continue Eliquis for 6 to 9 months with follow-up with PCP for acute pulmonary embolus. Repeat chest x-ray tomorrow for maintenance examination. Continue proning is much as possible. CODE STATUS: Full code. DVT prophylaxis; systemic anticoagulation with Eliquis.
[2020-12-18] MEDS: DULoxetine 30 MG Cap PO SCH ×2 (08:50→20:45)
[2020-12-18] MEDS: Hydroxychloroquine 200 MG Tab PO SCH ×2 (08:50→20:44)
[2020-12-18] MEDS: Ascorbic Acid 500 MG Tab PO SCH ×2 (08:51→20:44)
[2020-12-18] MEDS: Folic Acid 1 MG Tab PO SCH (08:51)
[2020-12-18] MEDS: Apixaban 5 MG Tab PO SCH ×2 (08:51→20:44)
[2020-12-18] MEDS: Lidocaine 4% 1 each Patch TOP SCH (08:51)
[2020-12-18] MEDS: Zinc Sulfate 220 MG Cap PO SCH (13:02)
[2020-12-18] MEDS: Albuterol 6.7 GM Inhaler INH PRN (20:33)
[2020-12-18] MEDS: Acetaminophen 325 MG Tab PO PRN (20:48)
[2020-12-19] MEDS: Levothyroxine 50 MCG Tab PO SCH (07:04)
--- NOTE | 2020-12-19 08:03 | CR ---
Chest: Portable view of the chest was obtained. Comparison: Prior chest x-ray of 12/16/20. Diffuse increased density is seen on both sides of the chest. Findings are felt to be fairly stable from most recent exam. Heart size and mediastinum are normal. No acute osseous abnormality is appreciated. Impression: 1. Diffuse increased density on both sides of the chest compatible with stable Covid 19 pneumonia. 2. Nothing acute is otherwise seen. Diagnostic code #3
[2020-12-19] MEDS: Lidocaine 4% 1 each Patch TOP SCH (08:58)
--- NOTE | 2020-12-19 08:58 | PCM.PN ---
- General Info Date of Service: 12/19/20 Admission Dx/Problem (Free Text): Acute hypoxic respiratory failure. COVID-19 related pneumonitis Subjective Update: Patient seen and examined at bedside. Hospital day 14. No acute events overnight. No new nursing concerns. Overall no change in respiratory status. Still requiring 8 to 10 L. Patient feels better wearing a simple mask rather than nasal cannula. Repeat chest x-ray this morning in comparison to 3 days ago shows stable bilateral husain 19 related pneumonitis with perhaps some increase in densities bilaterally. Overall the same. Patient denies any fever. Pleurisy is not as painful now. Continues to prone as much as possible. - Patient Data Vitals - Most Recent: Last Vital Signs Temp 98.2 F 12/19/20 04:18 Pulse 92 12/19/20 07:51 Resp 16 12/19/20 07:51 BP 146/94 H 12/19/20 07:51 Pulse Ox 90 L 12/19/20 07:51 Weight - Most Recent: 301 lb 14.4 oz I&O - Last 24 Hours: Intake & Output 12/18/20 12/19/20 12/19/20 22:59 06:59 14:59 Intake Total 900 400 Output Total 1000 650 Balance -100 -250 Med Orders - Current: Current Medications Acetaminophen (Acetaminophen 325 Mg Tab) 650 mg PO Q4H PRN PRN Reason: Pain (Mild 1-3)/fever Last Admin: 12/18/20 20:48 Dose: 650 mg Documented by: Albuterol (Albuterol 6.7 Gm Inhaler) 0 gm INH Q2H PRN PRN Reason: SOB/WHEEZING Last Admin: 12/18/20 20:33 Dose: 2 puff Documented by: Apixaban (Apixaban 5 Mg Tab) 10 mg PO BID [facility] Last Admin: 12/18/20 20:44 Dose: 10 mg Documented by: Ascorbic Acid (Ascorbic Acid 500 Mg Tab) 500 mg PO BID [facility] Last Admin: 12/18/20 20:44 Dose: 500 mg Documented by: Docusate Sodium (Docusate Sodium 100 Mg Cap) 100 mg PO BID PRN PRN Reason: Constipation Last Admin: 12/17/20 11:45 Dose: 100 mg Documented by: Duloxetine HCl (Duloxetine 30 Mg Cap) 60 mg PO BID [facility] Last Admin: 12/18/20 20:45 Dose: 60 mg Documented by: Folic Acid (Folic Acid 1 Mg Tab) 1 mg PO DAILY [facility] Last Admin: 12/18/20 08:51 Dose: 1 mg Documented by: Hydromorphone HCl (Hydromorphone 0.5 Mg/0.5 Ml Syringe) 0.25 mg IVPUSH Q2H PRN PRN Reason: Pain (severe 7-10) Hydroxychloroquine Sulfate (Hydroxychloroquine 200 Mg Tab) 200 mg PO BID [facility] Last Admin: 12/18/20 20:44 Dose: 200 mg Documented by: Levothyroxine Sodium (Levothyroxine 50 Mcg Tab) 50 mcg PO ACBREAKFAST [facility] Last Admin: 12/19/20 07:04 Dose: 50 mcg Documented by: Lidocaine (Lidocaine 4% 1 Each Patch) 1 each TOP DAILY [facility] Last Admin: 12/18/20 08:51 Dose: 1 each Documented by: Miscellaneous Information (Remove Lidocaine Patch) 1 ea TRDERM Q24H [facility] Last Admin: 12/18/20 20:45 Dose: 1 ea Documented by: Ondansetron HCl (Ondansetron 4 Mg Tab.Dis) 4 mg PO Q4H PRN PRN Reason: nausea, able to take PO Zinc Sulfate (Zinc Sulfate 220 Mg Cap) 220 mg PO 1200 [facility] Last Admin: 12/18/20 13:02 Dose: 220 mg Documented by: Discontinued Medications Albuterol (Albuterol 6.7 Gm Inhaler) 0 gm INH Q2H ONE Stop: 12/05/20 09:49 Last Admin: 12/05/20 10:27 Dose: 2 inhalation Documented by: Albuterol (Albuterol 0.083% 2.5 Mg/3 Ml Neb Soln) 2.5 mg NEB Q2H PRN PRN Reason: Shortness Of Breath/wheezing Azithromycin (Azithromycin 250 Mg Tab) 500 mg PO Q24H [facility] Last Admin: 12/13/20 13:34 Dose: 500 mg Documented by: Dexamethasone (Dexamethasone 10 Mg/Ml Sdv) 10 mg IVPUSH ONETIME ONE Stop: 12/05/20 11:12 Last Admin: 12/05/20 11:56 Dose: 10 mg Documented by: Dexamethasone (Dexamethasone 4 Mg/Ml Sdv) 6 mg IV DAILY [facility] Last Admin: 12/07/20 09:21 Dose: 6 mg Documented by: Dexamethasone (Dexamethasone 4 Mg Tab) 6 mg PO DAILY [facility] Stop: 12/14/20 09:01 Last Admin: 12/14/20 08:18 Dose: 6 mg Documented by: Enoxaparin Sodium (Enoxaparin 40 Mg/0.4 Ml Syringe) 40 mg SUBCUT DAILY [facility] Last Admin: 12/14/20 08:18 Dose: 40 mg Documented by: Furosemide (Furosemide 40 Mg/4 Ml Vial) 40 mg IVPUSH NOW ONE Stop: 12/16/20 09:11 Last Admin: 12/16/20 09:29 Dose: 40 mg Documented by: Hydroxychloroquine Sulfate (Hydroxychloroquine 200 Mg Tab) 200 mg PO BID [facility] Last Admin: 12/05/20 20:05 Dose: 200 mg Documented by: Hydroxychloroquine Sulfate (Hydroxychloroquine 200 Mg Tab) 200 mg PO BID [facility] Sodium Chloride (Normal Saline) 1,000 mls @ 500 mls/hr IV ONETIME ONE Stop: 12/05/20 11:47 Last Admin: 12/05/20 10:29 Dose: 500 mls/hr Documented by: Sodium Chloride (Normal Saline) 100 mls @ 75 mls/hr IV ASDIRECTED [facility] Stop: 12/05/20 14:00 Last Admin: 12/05/20 10:14 Dose: 75 mls/hr Documented by: Remdesivir 200 mg/ Sodium (Chloride) 250 mls @ 250 mls/hr IV ONETIME ONE Stop: 12/05/20 12:59 Last Admin: 12/05/20 11:58 Dose: 250 mls/hr Documented by: Sodium Chloride (Normal Saline) 1,000 mls @ 75 mls/hr IV ASDIRECTED [facility] Last Admin: 12/10/20 03:57 Dose: 75 mls/hr Documented by: Azithromycin 500 mg/ Sodium (Chloride) 250 mls @ 250 mls/hr IV Q24H [facility] Last Admin: 12/06/20 14:44 Dose: 250 mls/hr Documented by: Potassium Chloride 10 meq/ (Premix) 100 mls @ 100 mls/hr IV Q1H [facility] Stop: 12/05/20 18:59 Last Admin: 12/05/20 20:03 Dose: 100 mls/hr Documented by: Remdesivir 100 mg/ Sodium (Chloride) 100 mls @ 100 mls/hr IV Q24H [facility] Stop: 12/09/20 12:59 Last Admin: 12/09/20 12:15 Dose: 100 mls/hr Documented by: Sodium Chloride (Normal Saline) Confirm Administered Dose 100 mls @ as directed .ROUTE .STK-MED ONE Stop: 12/07/20 12:03 Last Admin: 12/07/20 13:49 Dose: Not Given Documented by: Sodium Chloride (Normal Saline) 100 mls @ 60 mls/hr IV ASDIRECTED [facility] Last Admin: 12/14/20 13:06 Dose: 60 mls/hr Documented by: Tocilizumab 800 mg/ Sodium (Chloride) 100 mls @ 100 mls/hr IV ONETIME ONE Stop: 12/16/20 11:29 Last Admin: 12/16/20 10:59 Dose: 100 mls/hr Documented by: Iopamidol (Iopamidol 755 Mg/Ml 100 Ml Bottle) 100 ml IVPUSH ONETIME ONE Stop: 12/05/20 09:50 Last Admin: 12/05/20 10:14 Dose: 100 ml Documented by: Iopamidol (Iopamidol 755 Mg/Ml 100 Ml Bottle) 100 ml IVPUSH ONETIME ONE Stop: 12/14/20 12:55 Last Admin: 12/14/20 13:06 Dose: 100 ml Documented by: Ketorolac Tromethamine (Ketorolac 30 Mg/Ml Sdv) 30 mg IVPUSH Q6H PRN PRN Reason: Pain (moderate 4-6) Potassium Chloride (Potassium Chloride 20 Meq Tab.Er) 20 meq PO ONETIME ONE Stop: 12/05/20 13:18 Last Admin: 12/05/20 15:20 Dose: 20 meq Documented by: Potassium Chloride (Potassium Chloride 20 Meq Tab.Er) 20 meq PO ONETIME ONE Stop: 12/08/20 12:01 Last Admin: 12/08/20 11:58 Dose: 20 meq Documented by: Potassium Chloride (Potassium Chloride 20 Meq Tab.Er) 20 meq PO ONETIME ONE Stop: 12/10/20 17:22 Last Admin: 12/10/20 17:38 Dose: 20 meq Documented by: Sodium Chloride (Sodium Chloride 0.9% 10 Ml Syringe) 10 ml FLUSH ONETIME PRN PRN Reason: IV FLUSH Last Admin: 12/14/20 13:06 Dose: 10 ml Documented by: Sodium Chloride (Sodium Chloride 0.9% 10 Ml Syringe) 10 ml FLUSH ONETIME ONE Stop: 12/14/20 12:55 Last Admin: 12/14/20 18:38 Dose: Not Given Documented by: - Exam Quality Assessment: Supplemental Oxygen, DVT Prophylaxis General: Alert, No Acute Distress Lungs: Decreased Breath Sounds, Rales (Bilaterally in mid and lower kline.) Cardiovascular: Regular Rate GI/Abdominal Exam: Normal Bowel Sounds, Soft, Non-Tender Skin: Warm, Dry Psy/Mental Status: Depressed - Patient Data Result Diagrams: 12/17/20 05:45 12/17/20 05:45 Sepsis Event Note - Evaluation Sepsis Screening Result: No Definite Risk - Focused Exam Vital Signs: Vital Signs Temp Pulse Pulse Resp BP BP Pulse Ox 12/19/20 07:51 89 16 146/94 H 90 L 12/19/20 04:18 98.2 F 99 18 105/60 95 12/19/20 00:00 98 20 92 L - Problem List Review Problem List Initiated/Reviewed/Updated: Yes - Plan Plan:: 1. Acute hypoxic respiratory failure 2. Acute COVID-19 pneumonitis 3. Acute pulmonary embolus associated with hypercoagulable state in setting of acute COVID-19 4. Bilateral pleural effusions Still requiring 8 to 10 L, without any obvious overall improvement radiographically. Continue Tylenol and tramadol for pleuritic chest discomfort, as well as as needed lidocaine patch Continue incentive spirometry and RT treatments. Status post remdesivir, corticosteroids, and currently receiving hydroxychloroquine. She did not receive convalescent plasma upon admission. Administered Tocilizumab 12/16/2020 without any reaction. Tolerated well. Continue supplemental zinc and vitamin C Continue Eliquis for 6 to 9 months with follow-up with PCP for acute pulmonary embolus. Repeat chest x-ray in 3 days for maintenance evaluation. Continue proning is much as possible. Echocardiogram reviewed. Patient has normal ejection fraction. No concerning valvulopathy's. CODE STATUS: Full code. DVT prophylaxis; systemic anticoagulation with Eliquis.
[2020-12-19] MEDS: Ascorbic Acid 500 MG Tab PO SCH ×2 (09:00→20:56)
[2020-12-19] MEDS: Apixaban 5 MG Tab PO SCH ×2 (09:01→20:55)
[2020-12-19] MEDS: Folic Acid 1 MG Tab PO SCH (09:01)
[2020-12-19] MEDS: DULoxetine 30 MG Cap PO SCH ×2 (09:01→20:55)
[2020-12-19] MEDS: Hydroxychloroquine 200 MG Tab PO SCH ×2 (09:01→20:56)
[2020-12-19] MEDS: methylPREDNISolone Sodium Succinate 40 MG/1 ML SDV IVPUSH SCH ×3 (09:49→20:55)
[2020-12-19] MEDS: Albuterol 6.7 GM Inhaler INH PRN ×3 (09:53→20:14)
[2020-12-19] MEDS: Zinc Sulfate 220 MG Cap PO SCH (12:13)
[2020-12-20] MEDS: Levothyroxine 50 MCG Tab PO SCH (05:12)
[2020-12-20] MEDS: methylPREDNISolone Sodium Succinate 40 MG/1 ML SDV IVPUSH SCH ×4 (05:12→22:11)
--- NOTE | 2020-12-20 08:19 | PCM.PN ---
- General Info Date of Service: 12/20/20 Admission Dx/Problem (Free Text): Acute hypoxic respiratory failure. COVID-19 related pneumonitis Subjective Update: No acute events overnight. No new nursing concerns. For the first time that I have been seeing this patient, she states that she is feeling better quite better today. Still complaining of cough but is happy that she is bringing up sputum. No discoloration or hemoptysis noted. Has been up to the chair during the day. Will desaturate significantly but will recover. Denies any fever. Occasional mild pleuritic chest discomfort associated with PE. - Patient Data Vitals - Most Recent: Last Vital Signs Temp 98.1 F 12/20/20 07:46 Pulse 89 12/20/20 07:46 Resp 36 H 12/20/20 07:46 BP 129/86 12/20/20 07:46 Pulse Ox 87 L 12/20/20 08:14 Weight - Most Recent: 303 lb 3.2 oz I&O - Last 24 Hours: Intake & Output 12/19/20 12/20/20 12/20/20 22:59 06:59 14:59 Intake Total 1040 400 Output Total 800 700 Balance 240 -300 Med Orders - Current: Current Medications Acetaminophen (Acetaminophen 325 Mg Tab) 650 mg PO Q4H PRN PRN Reason: Pain (Mild 1-3)/fever Last Admin: 12/18/20 20:48 Dose: 650 mg Documented by: Albuterol (Albuterol 6.7 Gm Inhaler) 0 gm INH Q2H PRN PRN Reason: SOB/WHEEZING Last Admin: 12/19/20 20:14 Dose: 2 puff Documented by: Apixaban (Apixaban 5 Mg Tab) 10 mg PO BID [facility] Last Admin: 12/19/20 20:55 Dose: 10 mg Documented by: Ascorbic Acid (Ascorbic Acid 500 Mg Tab) 500 mg PO BID [facility] Last Admin: 12/19/20 20:56 Dose: 500 mg Documented by: Docusate Sodium (Docusate Sodium 100 Mg Cap) 100 mg PO BID PRN PRN Reason: Constipation Last Admin: 12/17/20 11:45 Dose: 100 mg Documented by: Duloxetine HCl (Duloxetine 30 Mg Cap) 60 mg PO BID [facility] Last Admin: 12/19/20 20:55 Dose: 60 mg Documented by: Folic Acid (Folic Acid 1 Mg Tab) 1 mg PO DAILY [facility] Last Admin: 12/19/20 09:01 Dose: 1 mg Documented by: Hydromorphone HCl (Hydromorphone 0.5 Mg/0.5 Ml Syringe) 0.25 mg IVPUSH Q2H PRN PRN Reason: Pain (severe 7-10) Hydroxychloroquine Sulfate (Hydroxychloroquine 200 Mg Tab) 200 mg PO BID [facility] Last Admin: 12/19/20 20:56 Dose: 200 mg Documented by: Levothyroxine Sodium (Levothyroxine 50 Mcg Tab) 50 mcg PO ACBREAKFAST [facility] Last Admin: 12/20/20 05:12 Dose: 50 mcg Documented by: Lidocaine (Lidocaine 4% 1 Each Patch) 1 each TOP DAILY [facility] Last Admin: 12/19/20 08:58 Dose: 1 each Documented by: Methylprednisolone Sodium Succinate (Methylprednisolone Sodium Succinate 40 Mg/1 Ml Sdv) 60 mg IVPUSH Q6H [facility] Last Admin: 12/20/20 05:12 Dose: 60 mg Documented by: Miscellaneous Information (Remove Lidocaine Patch) 1 ea TRDERM Q24H [facility] Last Admin: 12/19/20 20:56 Dose: 1 ea Documented by: Ondansetron HCl (Ondansetron 4 Mg Tab.Dis) 4 mg PO Q4H PRN PRN Reason: nausea, able to take PO Zinc Sulfate (Zinc Sulfate 220 Mg Cap) 220 mg PO 1200 [facility] Last Admin: 12/19/20 12:13 Dose: 220 mg Documented by: Discontinued Medications Albuterol (Albuterol 6.7 Gm Inhaler) 0 gm INH Q2H ONE Stop: 12/05/20 09:49 Last Admin: 12/05/20 10:27 Dose: 2 inhalation Documented by: Albuterol (Albuterol 0.083% 2.5 Mg/3 Ml Neb Soln) 2.5 mg NEB Q2H PRN PRN Reason: Shortness Of Breath/wheezing Azithromycin (Azithromycin 250 Mg Tab) 500 mg PO Q24H [facility] Last Admin: 12/13/20 13:34 Dose: 500 mg Documented by: Dexamethasone (Dexamethasone 10 Mg/Ml Sdv) 10 mg IVPUSH ONETIME ONE Stop: 12/05/20 11:12 Last Admin: 12/05/20 11:56 Dose: 10 mg Documented by: Dexamethasone (Dexamethasone 4 Mg/Ml Sdv) 6 mg IV DAILY [facility] Last Admin: 12/07/20 09:21 Dose: 6 mg Documented by: Dexamethasone (Dexamethasone 4 Mg Tab) 6 mg PO DAILY [facility] Stop: 12/14/20 09:01 Last Admin: 12/14/20 08:18 Dose: 6 mg Documented by: Enoxaparin Sodium (Enoxaparin 40 Mg/0.4 Ml Syringe) 40 mg SUBCUT DAILY [facility] Last Admin: 12/14/20 08:18 Dose: 40 mg Documented by: Furosemide (Furosemide 40 Mg/4 Ml Vial) 40 mg IVPUSH NOW ONE Stop: 12/16/20 09:11 Last Admin: 12/16/20 09:29 Dose: 40 mg Documented by: Hydroxychloroquine Sulfate (Hydroxychloroquine 200 Mg Tab) 200 mg PO BID [facility] Last Admin: 12/05/20 20:05 Dose: 200 mg Documented by: Hydroxychloroquine Sulfate (Hydroxychloroquine 200 Mg Tab) 200 mg PO BID [facility] Sodium Chloride (Normal Saline) 1,000 mls @ 500 mls/hr IV ONETIME ONE Stop: 12/05/20 11:47 Last Admin: 12/05/20 10:29 Dose: 500 mls/hr Documented by: Sodium Chloride (Normal Saline) 100 mls @ 75 mls/hr IV ASDIRECTED [facility] Stop: 12/05/20 14:00 Last Admin: 12/05/20 10:14 Dose: 75 mls/hr Documented by: Remdesivir 200 mg/ Sodium (Chloride) 250 mls @ 250 mls/hr IV ONETIME ONE Stop: 12/05/20 12:59 Last Admin: 12/05/20 11:58 Dose: 250 mls/hr Documented by: Sodium Chloride (Normal Saline) 1,000 mls @ 75 mls/hr IV ASDIRECTED [facility] Last Admin: 12/10/20 03:57 Dose: 75 mls/hr Documented by: Azithromycin 500 mg/ Sodium (Chloride) 250 mls @ 250 mls/hr IV Q24H [facility] Last Admin: 12/06/20 14:44 Dose: 250 mls/hr Documented by: Potassium Chloride 10 meq/ (Premix) 100 mls @ 100 mls/hr IV Q1H [facility] Stop: 12/05/20 18:59 Last Admin: 12/05/20 20:03 Dose: 100 mls/hr Documented by: Remdesivir 100 mg/ Sodium (Chloride) 100 mls @ 100 mls/hr IV Q24H [facility] Stop: 12/09/20 12:59 Last Admin: 12/09/20 12:15 Dose: 100 mls/hr Documented by: Sodium Chloride (Normal Saline) Confirm Administered Dose 100 mls @ as directed .ROUTE .STK-MED ONE Stop: 12/07/20 12:03 Last Admin: 12/07/20 13:49 Dose: Not Given Documented by: Sodium Chloride (Normal Saline) 100 mls @ 60 mls/hr IV ASDIRECTED [facility] Last Admin: 12/14/20 13:06 Dose: 60 mls/hr Documented by: Tocilizumab 800 mg/ Sodium (Chloride) 100 mls @ 100 mls/hr IV ONETIME ONE Stop: 12/16/20 11:29 Last Admin: 12/16/20 10:59 Dose: 100 mls/hr Documented by: Iopamidol (Iopamidol 755 Mg/Ml 100 Ml Bottle) 100 ml IVPUSH ONETIME ONE Stop: 12/05/20 09:50 Last Admin: 12/05/20 10:14 Dose: 100 ml Documented by: Iopamidol (Iopamidol 755 Mg/Ml 100 Ml Bottle) 100 ml IVPUSH ONETIME ONE Stop: 12/14/20 12:55 Last Admin: 12/14/20 13:06 Dose: 100 ml Documented by: Ketorolac Tromethamine (Ketorolac 30 Mg/Ml Sdv) 30 mg IVPUSH Q6H PRN PRN Reason: Pain (moderate 4-6) Potassium Chloride (Potassium Chloride 20 Meq Tab.Er) 20 meq PO ONETIME ONE Stop: 12/05/20 13:18 Last Admin: 12/05/20 15:20 Dose: 20 meq Documented by: Potassium Chloride (Potassium Chloride 20 Meq Tab.Er) 20 meq PO ONETIME ONE Stop: 12/08/20 12:01 Last Admin: 12/08/20 11:58 Dose: 20 meq Documented by: Potassium Chloride (Potassium Chloride 20 Meq Tab.Er) 20 meq PO ONETIME ONE Stop: 12/10/20 17:22 Last Admin: 12/10/20 17:38 Dose: 20 meq Documented by: Sodium Chloride (Sodium Chloride 0.9% 10 Ml Syringe) 10 ml FLUSH ONETIME PRN PRN Reason: IV FLUSH Last Admin: 12/14/20 13:06 Dose: 10 ml Documented by: Sodium Chloride (Sodium Chloride 0.9% 10 Ml Syringe) 10 ml FLUSH ONETIME ONE Stop: 12/14/20 12:55 Last Admin: 12/14/20 18:38 Dose: Not Given Documented by: - Exam Quality Assessment: Supplemental Oxygen, DVT Prophylaxis General: Alert Lungs: Decreased Breath Sounds, Rales Cardiovascular: Regular Rate, Regular Rhythm GI/Abdominal Exam: Normal Bowel Sounds, Soft, Non-Tender Extremities: Normal Inspection, No Pedal Edema Skin: Warm, Dry Psy/Mental Status: Normal Mood - Patient Data Result Diagrams: 12/17/20 05:45 12/17/20 05:45 Sepsis Event Note - Evaluation Sepsis Screening Result: No Definite Risk - Focused Exam Vital Signs: Vital Signs Temp Pulse Resp BP Pulse Ox Pulse Ox 12/20/20 08:14 87 L 12/20/20 07:46 98.1 F 89 36 H 129/86 89 L 12/20/20 05:50 89 L 12/20/20 05:18 92 114/59 L 90 L 12/20/20 02:08 102 H 88 L 12/19/20 21:07 117 H 89 L 12/19/20 21:04 98.1 F 119 H 20 137/65 85 L - Problem List Review Problem List Initiated/Reviewed/Updated: Yes - My Orders Last 24 Hours: My Active Orders 12/19/20 09:45 methylPREDNISolone Sod Succ [Solu-MEDROL] 60 mg IVPUSH Q6H - Plan Plan:: 1. Acute hypoxic respiratory failure 2. Acute COVID-19 pneumonitis 3. Acute pulmonary embolus associated with hypercoagulable state in setting of acute COVID-19 4. Bilateral pleural effusions Still requiring 8L O2. Continue Tylenol and tramadol for pleuritic chest discomfort, as well as as needed lidocaine patch Continue incentive spirometry and RT treatments. Status post remdesivir, and currently receiving hydroxychloroquine. She did not receive convalescent plasma upon admission. Administered Tocilizumab 12/16/2020 without any reaction. Tolerated well. Continue supplemental zinc and vitamin C Continue Eliquis for 6 to 9 months with follow-up with PCP for acute pulmonary embolus. Repeat chest x-ray in 2 days for maintenance evaluation. Continue proning is much as possible. Initiated high-dose Solu-Medrol with the hopes that in conjunction with Tocilizumab she may start to turn around. CODE STATUS: Full code. DVT prophylaxis; systemic anticoagulation with Eliquis.
[2020-12-20] MEDS: Lidocaine 4% 1 each Patch TOP SCH (09:30)
[2020-12-20] MEDS: Apixaban 5 MG Tab PO SCH ×2 (09:30→22:11)
[2020-12-20] MEDS: Hydroxychloroquine 200 MG Tab PO SCH ×2 (09:31→22:12)
[2020-12-20] MEDS: Ascorbic Acid 500 MG Tab PO SCH ×2 (09:31→22:12)
[2020-12-20] MEDS: DULoxetine 30 MG Cap PO SCH ×2 (09:31→22:12)
[2020-12-20] MEDS: Folic Acid 1 MG Tab PO SCH (09:31)
[2020-12-20] MEDS: Zinc Sulfate 220 MG Cap PO SCH (12:31)
[2020-12-20] MEDS: Albuterol 6.7 GM Inhaler INH PRN (19:47)
[2020-12-21] MEDS: methylPREDNISolone Sodium Succinate 40 MG/1 ML SDV IVPUSH SCH ×4 (03:12→21:22)
[2020-12-21] MEDS: Levothyroxine 50 MCG Tab PO SCH (06:13)
[2020-12-21] MEDS: Apixaban 5 MG Tab PO SCH ×2 (08:23→21:22)
[2020-12-21] MEDS: DULoxetine 30 MG Cap PO SCH ×2 (08:24→21:22)
[2020-12-21] MEDS: Folic Acid 1 MG Tab PO SCH (08:24)
[2020-12-21] MEDS: Ascorbic Acid 500 MG Tab PO SCH ×2 (08:24→21:21)
[2020-12-21] MEDS: Hydroxychloroquine 200 MG Tab PO SCH ×2 (08:24→21:21)
[2020-12-21] MEDS: Lidocaine 4% 1 each Patch TOP SCH (08:24)
--- NOTE | 2020-12-21 08:53 | PCM.PN ---
- General Info Date of Service: 12/21/20 Admission Dx/Problem (Free Text): Acute hypoxic respiratory failure. COVID-19 related pneumonitis Subjective Update: No acute events overnight. No new nursing concerns. Still requiring high amounts of oxygen, but the patient feels significantly better this morning. She has noticed that she is getting more words out at a time without having to take a deep breath. Pleurisy is less. Denies any fever. Continues to expectorate thick white sputum. She has not appeared toxic to nursing staff. Continues to prone at night. Having a little difficulty sleeping since starting high-dose steroids. - Patient Data Vitals - Most Recent: Last Vital Signs Temp 98.1 F 12/21/20 04:05 Pulse 72 12/21/20 04:05 Resp 20 12/21/20 04:05 BP 122/51 L 12/21/20 04:05 Pulse Ox 91 L 12/21/20 06:08 Weight - Most Recent: 297 lb 12.8 oz I&O - Last 24 Hours: Intake & Output 12/20/20 12/21/20 12/21/20 22:59 06:59 14:59 Intake Total 1060 300 Output Total 1300 200 Balance -240 100 Lab Results Last 24 Hours: Laboratory Results - last 24 hr 12/21/20 12/21/20 Range/Units 05:45 05:45 WBC 24.08 H (3.98-10.04) K/mm3 RBC 4.14 (3.98-5.22) M/mm3 Hgb 12.9 (11.2-15.7) gm/dl Hct 40.5 (34.1-44.9) % MCV 97.8 H (79.4-94.8) fl MCH 31.2 (25.6-32.2) pg MCHC 31.9 L (32.2-35.5) g/dl RDW Std Deviation 45.7 (36.4-46.3) fL Plt Count 302 (182-369) K/mm3 MPV 9.8 (9.4-12.3) fl Neut % (Auto) 87.4 H (34.0-71.1) % Lymph % (Auto) 7.7 L (19.3-51.7) % Whiteside % (Auto) 3.9 L (4.7-12.5) % Eos % (Auto) 0 L (0.7-5.8) Baso % (Auto) 0.0 L (0.1-1.2) % Neut # (Auto) 21.04 H (1.56-6.13) K/mm3 Lymph # (Auto) 1.85 (1.18-3.74) K/mm3 Whiteside # (Auto) 0.93 H (0.24-0.36) K/mm3 Eos # (Auto) 0.00 L (0.04-0.36) K/mm3 Baso # (Auto) 0.01 (0.01-0.08) K/mm3 Manual Slide Review Abnormal smear Sodium 139 (136-145) mEq/L Potassium 5.2 H (3.5-5.1) mEq/L Chloride 103 (98-107) mEq/L Carbon Dioxide 29 (21-32) mEq/L Anion Gap 12.2 (5-15) BUN 16 (7-18) mg/dL Creatinine 1.0 (0.55-1.02) mg/dL Est Cr Clr Drug Dosing 63.28 mL/min Estimated GFR (MDRD) > 60 (>60) mL/min BUN/Creatinine Ratio 16.0 (14-18) Glucose 144 H (70-99) mg/dL Calcium 9.1 (8.5-10.1) mg/dL Med Orders - Current: Current Medications Acetaminophen (Acetaminophen 325 Mg Tab) 650 mg PO Q4H PRN PRN Reason: Pain (Mild 1-3)/fever Last Admin: 12/18/20 20:48 Dose: 650 mg Documented by: Albuterol (Albuterol 6.7 Gm Inhaler) 0 gm INH Q2H PRN PRN Reason: SOB/WHEEZING Last Admin: 12/20/20 19:47 Dose: 2 puff Documented by: Apixaban (Apixaban 5 Mg Tab) 10 mg PO BID [facility] Stop: 12/21/20 09:01 Last Admin: 12/21/20 08:23 Dose: 10 mg Documented by: Apixaban (Apixaban 5 Mg Tab) 5 mg PO BID [facility] Ascorbic Acid (Ascorbic Acid 500 Mg Tab) 500 mg PO BID [facility] Last Admin: 12/21/20 08:24 Dose: 500 mg Documented by: Docusate Sodium (Docusate Sodium 100 Mg Cap) 100 mg PO BID PRN PRN Reason: Constipation Last Admin: 12/17/20 11:45 Dose: 100 mg Documented by: Duloxetine HCl (Duloxetine 30 Mg Cap) 60 mg PO BID [facility] Last Admin: 12/21/20 08:24 Dose: 60 mg Documented by: Folic Acid (Folic Acid 1 Mg Tab) 1 mg PO DAILY [facility] Last Admin: 12/21/20 08:24 Dose: 1 mg Documented by: Hydromorphone HCl (Hydromorphone 0.5 Mg/0.5 Ml Syringe) 0.25 mg IVPUSH Q2H PRN PRN Reason: Pain (severe 7-10) Hydroxychloroquine Sulfate (Hydroxychloroquine 200 Mg Tab) 200 mg PO BID [facility] Last Admin: 12/21/20 08:24 Dose: 200 mg Documented by: Levothyroxine Sodium (Levothyroxine 50 Mcg Tab) 50 mcg PO ACBREAKFAST [facility] Last Admin: 12/21/20 06:13 Dose: 50 mcg Documented by: Lidocaine (Lidocaine 4% 1 Each Patch) 1 each TOP DAILY [facility] Last Admin: 12/21/20 08:24 Dose: 1 each Documented by: Methylprednisolone Sodium Succinate (Methylprednisolone Sodium Succinate 40 Mg/1 Ml Sdv) 60 mg IVPUSH Q6H [facility] Last Admin: 12/21/20 03:12 Dose: 60 mg Documented by: Miscellaneous Information (Remove Lidocaine Patch) 1 ea TRDERM Q24H [facility] Last Admin: 12/20/20 22:13 Dose: 1 ea Documented by: Ondansetron HCl (Ondansetron 4 Mg Tab.Dis) 4 mg PO Q4H PRN PRN Reason: nausea, able to take PO Zinc Sulfate (Zinc Sulfate 220 Mg Cap) 220 mg PO 1200 [facility] Last Admin: 12/20/20 12:31 Dose: 220 mg Documented by: Discontinued Medications Albuterol (Albuterol 6.7 Gm Inhaler) 0 gm INH Q2H ONE Stop: 12/05/20 09:49 Last Admin: 12/05/20 10:27 Dose: 2 inhalation Documented by: Albuterol (Albuterol 0.083% 2.5 Mg/3 Ml Neb Soln) 2.5 mg NEB Q2H PRN PRN Reason: Shortness Of Breath/wheezing Azithromycin (Azithromycin 250 Mg Tab) 500 mg PO Q24H [facility] Last Admin: 12/13/20 13:34 Dose: 500 mg Documented by: Dexamethasone (Dexamethasone 10 Mg/Ml Sdv) 10 mg IVPUSH ONETIME ONE Stop: 12/05/20 11:12 Last Admin: 12/05/20 11:56 Dose: 10 mg Documented by: Dexamethasone (Dexamethasone 4 Mg/Ml Sdv) 6 mg IV DAILY [facility] Last Admin: 12/07/20 09:21 Dose: 6 mg Documented by: Dexamethasone (Dexamethasone 4 Mg Tab) 6 mg PO DAILY [facility] Stop: 12/14/20 09:01 Last Admin: 12/14/20 08:18 Dose: 6 mg Documented by: Enoxaparin Sodium (Enoxaparin 40 Mg/0.4 Ml Syringe) 40 mg SUBCUT DAILY [facility] Last Admin: 12/14/20 08:18 Dose: 40 mg Documented by: Furosemide (Furosemide 40 Mg/4 Ml Vial) 40 mg IVPUSH NOW ONE Stop: 12/16/20 09:11 Last Admin: 12/16/20 09:29 Dose: 40 mg Documented by: Hydroxychloroquine Sulfate (Hydroxychloroquine 200 Mg Tab) 200 mg PO BID [facility] Last Admin: 12/05/20 20:05 Dose: 200 mg Documented by: Hydroxychloroquine Sulfate (Hydroxychloroquine 200 Mg Tab) 200 mg PO BID [facility] Sodium Chloride (Normal Saline) 1,000 mls @ 500 mls/hr IV ONETIME ONE Stop: 12/05/20 11:47 Last Admin: 12/05/20 10:29 Dose: 500 mls/hr Documented by: Sodium Chloride (Normal Saline) 100 mls @ 75 mls/hr IV ASDIRECTED [facility] Stop: 12/05/20 14:00 Last Admin: 12/05/20 10:14 Dose: 75 mls/hr Documented by: Remdesivir 200 mg/ Sodium (Chloride) 250 mls @ 250 mls/hr IV ONETIME ONE Stop: 12/05/20 12:59 Last Admin: 12/05/20 11:58 Dose: 250 mls/hr Documented by: Sodium Chloride (Normal Saline) 1,000 mls @ 75 mls/hr IV ASDIRECTED [facility] Last Admin: 12/10/20 03:57 Dose: 75 mls/hr Documented by: Azithromycin 500 mg/ Sodium (Chloride) 250 mls @ 250 mls/hr IV Q24H [facility] Last Admin: 12/06/20 14:44 Dose: 250 mls/hr Documented by: Potassium Chloride 10 meq/ (Premix) 100 mls @ 100 mls/hr IV Q1H [facility] Stop: 12/05/20 18:59 Last Admin: 12/05/20 20:03 Dose: 100 mls/hr Documented by: Remdesivir 100 mg/ Sodium (Chloride) 100 mls @ 100 mls/hr IV Q24H [facility] Stop: 12/09/20 12:59 Last Admin: 12/09/20 12:15 Dose: 100 mls/hr Documented by: Sodium Chloride (Normal Saline) Confirm Administered Dose 100 mls @ as directed .ROUTE .STK-MED ONE Stop: 12/07/20 12:03 Last Admin: 12/07/20 13:49 Dose: Not Given Documented by: Sodium Chloride (Normal Saline) 100 mls @ 60 mls/hr IV ASDIRECTED [facility] Last Admin: 12/14/20 13:06 Dose: 60 mls/hr Documented by: Tocilizumab 800 mg/ Sodium (Chloride) 100 mls @ 100 mls/hr IV ONETIME ONE Stop: 12/16/20 11:29 Last Admin: 12/16/20 10:59 Dose: 100 mls/hr Documented by: Iopamidol (Iopamidol 755 Mg/Ml 100 Ml Bottle) 100 ml IVPUSH ONETIME ONE Stop: 12/05/20 09:50 Last Admin: 12/05/20 10:14 Dose: 100 ml Documented by: Iopamidol (Iopamidol 755 Mg/Ml 100 Ml Bottle) 100 ml IVPUSH ONETIME ONE Stop: 12/14/20 12:55 Last Admin: 12/14/20 13:06 Dose: 100 ml Documented by: Ketorolac Tromethamine (Ketorolac 30 Mg/Ml Sdv) 30 mg IVPUSH Q6H PRN PRN Reason: Pain (moderate 4-6) Potassium Chloride (Potassium Chloride 20 Meq Tab.Er) 20 meq PO ONETIME ONE Stop: 12/05/20 13:18 Last Admin: 12/05/20 15:20 Dose: 20 meq Documented by: Potassium Chloride (Potassium Chloride 20 Meq Tab.Er) 20 meq PO ONETIME ONE Stop: 12/08/20 12:01 Last Admin: 12/08/20 11:58 Dose: 20 meq Documented by: Potassium Chloride (Potassium Chloride 20 Meq Tab.Er) 20 meq PO ONETIME ONE Stop: 12/10/20 17:22 Last Admin: 12/10/20 17:38 Dose: 20 meq Documented by: Sodium Chloride (Sodium Chloride 0.9% 10 Ml Syringe) 10 ml FLUSH ONETIME PRN PRN Reason: IV FLUSH Last Admin: 12/14/20 13:06 Dose: 10 ml Documented by: Sodium Chloride (Sodium Chloride 0.9% 10 Ml Syringe) 10 ml FLUSH ONETIME ONE Stop: 12/14/20 12:55 Last Admin: 12/14/20 18:38 Dose: Not Given Documented by: - Exam Quality Assessment: Supplemental Oxygen, DVT Prophylaxis General: Alert Lungs: Decreased Breath Sounds, Rales (At bases only) Cardiovascular: Regular Rate, Regular Rhythm, Murmurs GI/Abdominal Exam: Normal Bowel Sounds, Soft Extremities: Normal Inspection, No Pedal Edema Skin: Warm, Dry Psy/Mental Status: Other (Seems more upbeat and jovial today.) - Patient Data Lab Results Last 24 hrs: Laboratory Results - last 24 hr 12/21/20 12/21/20 Range/Units 05:45 05:45 WBC 24.08 H (3.98-10.04) K/mm3 RBC 4.14 (3.98-5.22) M/mm3 Hgb 12.9 (11.2-15.7) gm/dl Hct 40.5 (34.1-44.9) % MCV 97.8 H (79.4-94.8) fl MCH 31.2 (25.6-32.2) pg MCHC 31.9 L (32.2-35.5) g/dl RDW Std Deviation 45.7 (36.4-46.3) fL Plt Count 302 (182-369) K/mm3 MPV 9.8 (9.4-12.3) fl Neut % (Auto) 87.4 H (34.0-71.1) % Lymph % (Auto) 7.7 L (19.3-51.7) % Whiteside % (Auto) 3.9 L (4.7-12.5) % Eos % (Auto) 0 L (0.7-5.8) Baso % (Auto) 0.0 L (0.1-1.2) % Neut # (Auto) 21.04 H (1.56-6.13) K/mm3 Lymph # (Auto) 1.85 (1.18-3.74) K/mm3 Whiteside # (Auto) 0.93 H (0.24-0.36) K/mm3 Eos # (Auto) 0.00 L (0.04-0.36) K/mm3 Baso # (Auto) 0.01 (0.01-0.08) K/mm3 Manual Slide Review Abnormal smear Sodium 139 (136-145) mEq/L Potassium 5.2 H (3.5-5.1) mEq/L Chloride 103 (98-107) mEq/L Carbon Dioxide 29 (21-32) mEq/L Anion Gap 12.2 (5-15) BUN 16 (7-18) mg/dL Creatinine 1.0 (0.55-1.02) mg/dL Est Cr Clr Drug Dosing 63.28 mL/min Estimated GFR (MDRD) > 60 (>60) mL/min BUN/Creatinine Ratio 16.0 (14-18) Glucose 144 H (70-99) mg/dL Calcium 9.1 (8.5-10.1) mg/dL Result Diagrams: 12/21/20 05:45 12/21/20 05:45 Sepsis Event Note - Evaluation Sepsis Screening Result: No Definite Risk - Focused Exam Vital Signs: Vital Signs Temp Pulse Resp BP Pulse Ox Pulse Ox 12/21/20 06:08 91 L 12/21/20 04:05 98.1 F 72 20 122/51 L 95 12/21/20 01:54 92 L 12/20/20 22:54 98.2 F 80 20 143/61 H 94 L - Problem List Review Problem List Initiated/Reviewed/Updated: Yes - My Orders Last 24 Hours: My Active Orders 12/21/20 08:46 CULTURE SPUTUM + SMEAR [RM] Routine - Plan Plan:: 1. Acute hypoxic respiratory failure 2. Acute COVID-19 pneumonitis 3. Acute pulmonary embolus associated with hypercoagulable state in setting of acute COVID-19 4. Bilateral pleural effusions Continues to require significant amount of supplemental oxygen. Continue Tylenol and tramadol for pleuritic chest discomfort, as well as as ne eded lidocaine patch Continue incentive spirometry and RT treatments. Status post remdesivir, and currently receiving hydroxychloroquine. She did not receive convalescent plasma upon admission. Administered Tocilizumab 12/16/2020 without any reaction. Tolerated well. Continue supplemental zinc and vitamin C Continue Eliquis for 6 to 9 months with follow-up with PCP for acute pulmonary embolus. Repeat chest x-ray tomorrow for maintenance evaluation. Continue proning is much as possible. Initiated high-dose Solu-Medrol 12/19/2020 with the hopes that in conjunction with Tocilizumab she may start to turn around. Patient had a significant jump in white blood cell count. We will attribute this to steroid use at this time. Patient has not had a fever. She has not look toxic. We will hold off on antibiotics for now unless she develops fever or has change in sputum. Sputum culture requested. CODE STATUS: Full code. DVT prophylaxis; systemic anticoagulation with Eliquis.
[2020-12-21] MEDS: Zinc Sulfate 220 MG Cap PO SCH (12:14)
[2020-12-22] MEDS: Levothyroxine 50 MCG Tab PO SCH (05:29)
[2020-12-22] MEDS: methylPREDNISolone Sodium Succinate 40 MG/1 ML SDV IVPUSH SCH ×4 (05:29→20:47)
[2020-12-22] MEDS: Hydroxychloroquine 200 MG Tab PO SCH ×2 (08:26→20:48)
[2020-12-22] MEDS: Apixaban 5 MG Tab PO SCH ×2 (08:26→20:48)
[2020-12-22] MEDS: Folic Acid 1 MG Tab PO SCH (08:26)
[2020-12-22] MEDS: Lidocaine 4% 1 each Patch TOP SCH (08:26)
[2020-12-22] MEDS: DULoxetine 30 MG Cap PO SCH ×2 (08:26→20:48)
[2020-12-22] MEDS: Ascorbic Acid 500 MG Tab PO SCH ×2 (08:26→20:48)
--- NOTE | 2020-12-22 10:30 | PCM.PN ---
- General Info Date of Service: 12/22/20 Admission Dx/Problem (Free Text): Acute hypoxic respiratory failure. COVID-19 related pneumonitis Subjective Update: No acute events overnight. No new nursing concerns. Patient states that she continues to feel better. Has a tough time sleeping due to the steroids. Usually at the beginning of the night. Continues to prone at night. Still expectorating sputum. No color change. No hemoptysis. No fever. No overall change in oxygen demand. - Patient Data Vitals - Most Recent: Last Vital Signs Temp 97.9 F 12/22/20 08:31 Pulse 90 12/22/20 08:31 Resp 18 12/22/20 08:31 BP 129/72 12/22/20 08:31 Pulse Ox 94 L 12/22/20 09:10 Weight - Most Recent: 298 lb 3.2 oz I&O - Last 24 Hours: Intake & Output 12/21/20 12/22/20 12/22/20 22:59 06:59 14:59 Intake Total 1080 800 Output Total 850 950 Balance 230 -150 Reg Results Last 24 Hours: Microbiology 12/21/20 14:50 Gram Stain - Final Sputum - Expectorated Sputum Culture - Final Med Orders - Current: Current Medications Acetaminophen (Acetaminophen 325 Mg Tab) 650 mg PO Q4H PRN PRN Reason: Pain (Mild 1-3)/fever Last Admin: 12/18/20 20:48 Dose: 650 mg Documented by: Albuterol (Albuterol 6.7 Gm Inhaler) 0 gm INH Q2H PRN PRN Reason: SOB/WHEEZING Last Admin: 12/20/20 19:47 Dose: 2 puff Documented by: Apixaban (Apixaban 5 Mg Tab) 5 mg PO BID [facility] Last Admin: 12/22/20 08:26 Dose: 5 mg Documented by: Ascorbic Acid (Ascorbic Acid 500 Mg Tab) 500 mg PO BID [facility] Last Admin: 12/22/20 08:26 Dose: 500 mg Documented by: Docusate Sodium (Docusate Sodium 100 Mg Cap) 100 mg PO BID PRN PRN Reason: Constipation Last Admin: 12/17/20 11:45 Dose: 100 mg Documented by: Duloxetine HCl (Duloxetine 30 Mg Cap) 60 mg PO BID [facility] Last Admin: 12/22/20 08:26 Dose: 60 mg Documented by: Folic Acid (Folic Acid 1 Mg Tab) 1 mg PO DAILY [facility] Last Admin: 12/22/20 08:26 Dose: 1 mg Documented by: Hydromorphone HCl (Hydromorphone 0.5 Mg/0.5 Ml Syringe) 0.25 mg IVPUSH Q2H PRN PRN Reason: Pain (severe 7-10) Hydroxychloroquine Sulfate (Hydroxychloroquine 200 Mg Tab) 200 mg PO BID [facility] Last Admin: 12/22/20 08:26 Dose: 200 mg Documented by: Levothyroxine Sodium (Levothyroxine 50 Mcg Tab) 50 mcg PO ACBREAKFAST [facility] Last Admin: 12/22/20 05:29 Dose: 50 mcg Documented by: Lidocaine (Lidocaine 4% 1 Each Patch) 1 each TOP DAILY [facility] Last Admin: 12/22/20 08:26 Dose: 1 each Documented by: Methylprednisolone Sodium Succinate (Methylprednisolone Sodium Succinate 40 Mg/1 Ml Sdv) 60 mg IVPUSH Q6H [facility] Last Admin: 12/22/20 09:30 Dose: 60 mg Documented by: Miscellaneous Information (Remove Lidocaine Patch) 1 ea TRDERM Q24H [facility] Last Admin: 12/21/20 21:22 Dose: 1 ea Documented by: Ondansetron HCl (Ondansetron 4 Mg Tab.Dis) 4 mg PO Q4H PRN PRN Reason: nausea, able to take PO Zinc Sulfate (Zinc Sulfate 220 Mg Cap) 220 mg PO 1200 [facility] Last Admin: 12/21/20 12:14 Dose: 220 mg Documented by: Discontinued Medications Albuterol (Albuterol 6.7 Gm Inhaler) 0 gm INH Q2H ONE Stop: 12/05/20 09:49 Last Admin: 12/05/20 10:27 Dose: 2 inhalation Documented by: Albuterol (Albuterol 0.083% 2.5 Mg/3 Ml Neb Soln) 2.5 mg NEB Q2H PRN PRN Reason: Shortness Of Breath/wheezing Apixaban (Apixaban 5 Mg Tab) 10 mg PO BID [facility] Stop: 12/21/20 09:01 Last Admin: 12/21/20 08:23 Dose: 10 mg Documented by: Azithromycin (Azithromycin 250 Mg Tab) 500 mg PO Q24H [facility] Last Admin: 12/13/20 13:34 Dose: 500 mg Documented by: Dexamethasone (Dexamethasone 10 Mg/Ml Sdv) 10 mg IVPUSH ONETIME ONE Stop: 12/05/20 11:12 Last Admin: 12/05/20 11:56 Dose: 10 mg Documented by: Dexamethasone (Dexamethasone 4 Mg/Ml Sdv) 6 mg IV DAILY [facility] Last Admin: 12/07/20 09:21 Dose: 6 mg Documented by: Dexamethasone (Dexamethasone 4 Mg Tab) 6 mg PO DAILY [facility] Stop: 12/14/20 09:01 Last Admin: 12/14/20 08:18 Dose: 6 mg Documented by: Enoxaparin Sodium (Enoxaparin 40 Mg/0.4 Ml Syringe) 40 mg SUBCUT DAILY [facility] Last Admin: 12/14/20 08:18 Dose: 40 mg Documented by: Furosemide (Furosemide 40 Mg/4 Ml Vial) 40 mg IVPUSH NOW ONE Stop: 12/16/20 09:11 Last Admin: 12/16/20 09:29 Dose: 40 mg Documented by: Hydroxychloroquine Sulfate (Hydroxychloroquine 200 Mg Tab) 200 mg PO BID [facility] Last Admin: 12/05/20 20:05 Dose: 200 mg Documented by: Hydroxychloroquine Sulfate (Hydroxychloroquine 200 Mg Tab) 200 mg PO BID [facility] Sodium Chloride (Normal Saline) 1,000 mls @ 500 mls/hr IV ONETIME ONE Stop: 12/05/20 11:47 Last Admin: 12/05/20 10:29 Dose: 500 mls/hr Documented by: Sodium Chloride (Normal Saline) 100 mls @ 75 mls/hr IV ASDIRECTED [facility] Stop: 12/05/20 14:00 Last Admin: 12/05/20 10:14 Dose: 75 mls/hr Documented by: Remdesivir 200 mg/ Sodium (Chloride) 250 mls @ 250 mls/hr IV ONETIME ONE Stop: 12/05/20 12:59 Last Admin: 12/05/20 11:58 Dose: 250 mls/hr Documented by: Sodium Chloride (Normal Saline) 1,000 mls @ 75 mls/hr IV ASDIRECTED [facility] Last Admin: 12/10/20 03:57 Dose: 75 mls/hr Documented by: Azithromycin 500 mg/ Sodium (Chloride) 250 mls @ 250 mls/hr IV Q24H [facility] Last Admin: 12/06/20 14:44 Dose: 250 mls/hr Documented by: Potassium Chloride 10 meq/ (Premix) 100 mls @ 100 mls/hr IV Q1H [facility] Stop: 12/05/20 18:59 Last Admin: 12/05/20 20:03 Dose: 100 mls/hr Documented by: Remdesivir 100 mg/ Sodium (Chloride) 100 mls @ 100 mls/hr IV Q24H [facility] Stop: 12/09/20 12:59 Last Admin: 12/09/20 12:15 Dose: 100 mls/hr Documented by: Sodium Chloride (Normal Saline) Confirm Administered Dose 100 mls @ as directed .ROUTE .STK-MED ONE Stop: 12/07/20 12:03 Last Admin: 12/07/20 13:49 Dose: Not Given Documented by: Sodium Chloride (Normal Saline) 100 mls @ 60 mls/hr IV ASDIRECTED [facility] Last Admin: 12/14/20 13:06 Dose: 60 mls/hr Documented by: Tocilizumab 800 mg/ Sodium (Chloride) 100 mls @ 100 mls/hr IV ONETIME ONE Stop: 12/16/20 11:29 Last Admin: 12/16/20 10:59 Dose: 100 mls/hr Documented by: Iopamidol (Iopamidol 755 Mg/Ml 100 Ml Bottle) 100 ml IVPUSH ONETIME ONE Stop: 12/05/20 09:50 Last Admin: 12/05/20 10:14 Dose: 100 ml Documented by: Iopamidol (Iopamidol 755 Mg/Ml 100 Ml Bottle) 100 ml IVPUSH ONETIME ONE Stop: 12/14/20 12:55 Last Admin: 12/14/20 13:06 Dose: 100 ml Documented by: Ketorolac Tromethamine (Ketorolac 30 Mg/Ml Sdv) 30 mg IVPUSH Q6H PRN PRN Reason: Pain (moderate 4-6) Potassium Chloride (Potassium Chloride 20 Meq Tab.Er) 20 meq PO ONETIME ONE Stop: 12/05/20 13:18 Last Admin: 12/05/20 15:20 Dose: 20 meq Documented by: Potassium Chloride (Potassium Chloride 20 Meq Tab.Er) 20 meq PO ONETIME ONE Stop: 12/08/20 12:01 Last Admin: 12/08/20 11:58 Dose: 20 meq Documented by: Potassium Chloride (Potassium Chloride 20 Meq Tab.Er) 20 meq PO ONETIME ONE Stop: 12/10/20 17:22 Last Admin: 12/10/20 17:38 Dose: 20 meq Documented by: Sodium Chloride (Sodium Chloride 0.9% 10 Ml Syringe) 10 ml FLUSH ONETIME PRN PRN Reason: IV FLUSH Last Admin: 12/14/20 13:06 Dose: 10 ml Documented by: Sodium Chloride (Sodium Chloride 0.9% 10 Ml Syringe) 10 ml FLUSH ONETIME ONE Stop: 12/14/20 12:55 Last Admin: 12/14/20 18:38 Dose: Not Given Documented by: - Exam Quality Assessment: Supplemental Oxygen General: Alert Lungs: Decreased Breath Sounds, Rales (Mild rales bilaterally in the lower kline). No: Rhonchi, Stridor, Wheezing Cardiovascular: Regular Rate GI/Abdominal Exam: Normal Bowel Sounds, Soft, Non-Tender Extremities: Normal Inspection, No Pedal Edema Skin: Warm, Dry - Patient Data Result Diagrams: 12/21/20 05:45 12/21/20 05:45 Reg Results Last 24 hrs: Microbiology 12/21/20 14:50 Gram Stain - Final Sputum - Expectorated Sputum Culture - Final Sepsis Event Note - Evaluation Sepsis Screening Result: No Definite Risk - Focused Exam Vital Signs: Vital Signs Temp Pulse Resp BP Pulse Ox Pulse Ox 12/22/20 09:10 94 L 12/22/20 08:31 97.9 F 90 18 129/72 94 L 12/22/20 06:13 93 L 12/22/20 05:32 97.5 F 75 16 122/76 92 L 12/22/20 01:04 95 - Problem List Review Problem List Initiated/Reviewed/Updated: Yes - Plan Plan:: 1. Acute hypoxic respiratory failure 2. Acute COVID-19 pneumonitis 3. Acute pulmonary embolus associated with hypercoagulable state in setting of acute COVID-19 4. Bilateral pleural effusions No overall change in supplemental oxygen requirement. Continue Tylenol and tramadol for pleuritic chest discomfort, as well as as ne eded lidocaine patch the RN. Continue incentive spirometry and RT treatments. Status post remdesivir, and currently receiving hydroxychloroquine. She did not receive convalescent plasma upon admission. Administered Tocilizumab 12/16/2020 without any reaction. Tolerated well. Continue supplemental zinc and vitamin C Continue Eliquis for 6 to 9 months with follow-up with PCP for acute pulmonary embolus. Repeat chest x-ray for maintenance evaluation. Continue proning is much as possible. Initiated high-dose Solu-Medrol 12/19/2020 with the hopes that in conjunction with Tocilizumab she may start to turn around. We will start prednisone taper today. Patient had a significant jump in white blood cell count. We will attribute this to steroid use at this time. Patient has not had a fever. She has not looked toxic. We will continue to hold off on antibiotics for now unless she develops fever or has change in sputum. Sputum culture requested. CODE STATUS: Full code. DVT prophylaxis; systemic anticoagulation with Eliquis.
--- NOTE | 2020-12-22 11:39 | CR ---
Chest: Portable view of the chest was obtained. Comparison: Prior chest x-ray of 12/19/20. Lung markings are diffusely increased on both sides of the chest. Parenchymal densities that were noted on prior chest x-ray show evidence of significant interval improvement on current study. Heart is slightly prominent which most likely relates to portable technique. Upper mediastinum is normal. Bony structures are grossly intact. Impression: 1. Increased central lung markings. Parenchymal densities that were noted on prior chest x-ray show significant improvement on current study. 2. No acute abnormality is otherwise seen. Diagnostic code #2
[2020-12-22] MEDS: Zinc Sulfate 220 MG Cap PO SCH (11:55)
[2020-12-23] MEDS: Levothyroxine 50 MCG Tab PO SCH ×2 (05:23→05:34)
[2020-12-23] MEDS: methylPREDNISolone Sodium Succinate 40 MG/1 ML SDV IVPUSH SCH ×4 (05:24→21:06)
--- NOTE | 2020-12-23 08:16 | PCM.PN ---
- General Info Date of Service: 12/23/20 Admission Dx/Problem (Free Text): Acute hypoxic respiratory failure. COVID-19 related pneumonitis Subjective Update: No acute events overnight. No specific new nursing concerns. Respiratory therapy continuing to wean oxygen. Patient continues to state that she feels better every morning. Significant improvement in airspace recruitment according to imaging. Ultimately decided to continue high-dose steroids considering improvement. - Patient Data Vitals - Most Recent: Last Vital Signs Temp 97.7 F 12/23/20 05:31 Pulse 59 L 12/23/20 05:31 Resp 20 12/23/20 05:31 BP 108/76 12/23/20 05:31 Pulse Ox 94 L 12/23/20 08:07 Weight - Most Recent: 302 lb I&O - Last 24 Hours: Intake & Output 12/22/20 12/23/20 12/23/20 22:59 06:59 14:59 Intake Total 1300 800 Output Total 700 1200 Balance 600 -400 Med Orders - Current: Current Medications Acetaminophen (Acetaminophen 325 Mg Tab) 650 mg PO Q4H PRN PRN Reason: Pain (Mild 1-3)/fever Last Admin: 12/18/20 20:48 Dose: 650 mg Documented by: Albuterol (Albuterol 6.7 Gm Inhaler) 0 gm INH Q2H PRN PRN Reason: SOB/WHEEZING Last Admin: 12/20/20 19:47 Dose: 2 puff Documented by: Apixaban (Apixaban 5 Mg Tab) 5 mg PO BID [facility] Last Admin: 12/22/20 20:48 Dose: 5 mg Documented by: Ascorbic Acid (Ascorbic Acid 500 Mg Tab) 500 mg PO BID [facility] Last Admin: 12/22/20 20:48 Dose: 500 mg Documented by: Docusate Sodium (Docusate Sodium 100 Mg Cap) 100 mg PO BID PRN PRN Reason: Constipation Last Admin: 12/17/20 11:45 Dose: 100 mg Documented by: Duloxetine HCl (Duloxetine 30 Mg Cap) 60 mg PO BID [facility] Last Admin: 12/22/20 20:48 Dose: 60 mg Documented by: Folic Acid (Folic Acid 1 Mg Tab) 1 mg PO DAILY [facility] Last Admin: 12/22/20 08:26 Dose: 1 mg Documented by: Hydromorphone HCl (Hydromorphone 0.5 Mg/0.5 Ml Syringe) 0.25 mg IVPUSH Q2H PRN PRN Reason: Pain (severe 7-10) Hydroxychloroquine Sulfate (Hydroxychloroquine 200 Mg Tab) 200 mg PO BID [facility] Last Admin: 12/22/20 20:48 Dose: 200 mg Documented by: Levothyroxine Sodium (Levothyroxine 50 Mcg Tab) 50 mcg PO ACBREAKFAST [facility] Last Admin: 12/23/20 05:34 Dose: 50 mcg Documented by: Lidocaine (Lidocaine 4% 1 Each Patch) 1 each TOP DAILY [facility] Last Admin: 12/22/20 08:26 Dose: 1 each Documented by: Methylprednisolone Sodium Succinate (Methylprednisolone Sodium Succinate 40 Mg/1 Ml Sdv) 60 mg IVPUSH Q6H [facility] Last Admin: 12/23/20 05:24 Dose: 60 mg Documented by: Miscellaneous Information (Remove Lidocaine Patch) 1 ea TRDERM Q24H [facility] Last Admin: 12/22/20 20:48 Dose: 1 ea Documented by: Ondansetron HCl (Ondansetron 4 Mg Tab.Dis) 4 mg PO Q4H PRN PRN Reason: nausea, able to take PO Zinc Sulfate (Zinc Sulfate 220 Mg Cap) 220 mg PO 1200 [facility] Last Admin: 12/22/20 11:55 Dose: 220 mg Documented by: Discontinued Medications Albuterol (Albuterol 6.7 Gm Inhaler) 0 gm INH Q2H ONE Stop: 12/05/20 09:49 Last Admin: 12/05/20 10:27 Dose: 2 inhalation Documented by: Albuterol (Albuterol 0.083% 2.5 Mg/3 Ml Neb Soln) 2.5 mg NEB Q2H PRN PRN Reason: Shortness Of Breath/wheezing Apixaban (Apixaban 5 Mg Tab) 10 mg PO BID [facility] Stop: 12/21/20 09:01 Last Admin: 12/21/20 08:23 Dose: 10 mg Documented by: Azithromycin (Azithromycin 250 Mg Tab) 500 mg PO Q24H [facility] Last Admin: 12/13/20 13:34 Dose: 500 mg Documented by: Dexamethasone (Dexamethasone 10 Mg/Ml Sdv) 10 mg IVPUSH ONETIME ONE Stop: 12/05/20 11:12 Last Admin: 12/05/20 11:56 Dose: 10 mg Documented by: Dexamethasone (Dexamethasone 4 Mg/Ml Sdv) 6 mg IV DAILY [facility] Last Admin: 12/07/20 09:21 Dose: 6 mg Documented by: Dexamethasone (Dexamethasone 4 Mg Tab) 6 mg PO DAILY [facility] Stop: 12/14/20 09:01 Last Admin: 12/14/20 08:18 Dose: 6 mg Documented by: Enoxaparin Sodium (Enoxaparin 40 Mg/0.4 Ml Syringe) 40 mg SUBCUT DAILY [facility] Last Admin: 12/14/20 08:18 Dose: 40 mg Documented by: Furosemide (Furosemide 40 Mg/4 Ml Vial) 40 mg IVPUSH NOW ONE Stop: 12/16/20 09:11 Last Admin: 12/16/20 09:29 Dose: 40 mg Documented by: Hydroxychloroquine Sulfate (Hydroxychloroquine 200 Mg Tab) 200 mg PO BID [facility] Last Admin: 12/05/20 20:05 Dose: 200 mg Documented by: Hydroxychloroquine Sulfate (Hydroxychloroquine 200 Mg Tab) 200 mg PO BID [facility] Sodium Chloride (Normal Saline) 1,000 mls @ 500 mls/hr IV ONETIME ONE Stop: 12/05/20 11:47 Last Admin: 12/05/20 10:29 Dose: 500 mls/hr Documented by: Sodium Chloride (Normal Saline) 100 mls @ 75 mls/hr IV ASDIRECTED [facility] Stop: 12/05/20 14:00 Last Admin: 12/05/20 10:14 Dose: 75 mls/hr Documented by: Remdesivir 200 mg/ Sodium (Chloride) 250 mls @ 250 mls/hr IV ONETIME ONE Stop: 12/05/20 12:59 Last Admin: 12/05/20 11:58 Dose: 250 mls/hr Documented by: Sodium Chloride (Normal Saline) 1,000 mls @ 75 mls/hr IV ASDIRECTED [facility] Last Admin: 12/10/20 03:57 Dose: 75 mls/hr Documented by: Azithromycin 500 mg/ Sodium (Chloride) 250 mls @ 250 mls/hr IV Q24H [facility] Last Admin: 12/06/20 14:44 Dose: 250 mls/hr Documented by: Potassium Chloride 10 meq/ (Premix) 100 mls @ 100 mls/hr IV Q1H [facility] Stop: 12/05/20 18:59 Last Admin: 12/05/20 20:03 Dose: 100 mls/hr Documented by: Remdesivir 100 mg/ Sodium (Chloride) 100 mls @ 100 mls/hr IV Q24H [facility] Stop: 12/09/20 12:59 Last Admin: 12/09/20 12:15 Dose: 100 mls/hr Documented by: Sodium Chloride (Normal Saline) Confirm Administered Dose 100 mls @ as directed .ROUTE .STK-MED ONE Stop: 12/07/20 12:03 Last Admin: 12/07/20 13:49 Dose: Not Given Documented by: Sodium Chloride (Normal Saline) 100 mls @ 60 mls/hr IV ASDIRECTED [facility] Last Admin: 12/14/20 13:06 Dose: 60 mls/hr Documented by: Tocilizumab 800 mg/ Sodium (Chloride) 100 mls @ 100 mls/hr IV ONETIME ONE Stop: 12/16/20 11:29 Last Admin: 12/16/20 10:59 Dose: 100 mls/hr Documented by: Iopamidol (Iopamidol 755 Mg/Ml 100 Ml Bottle) 100 ml IVPUSH ONETIME ONE Stop: 12/05/20 09:50 Last Admin: 12/05/20 10:14 Dose: 100 ml Documented by: Iopamidol (Iopamidol 755 Mg/Ml 100 Ml Bottle) 100 ml IVPUSH ONETIME ONE Stop: 12/14/20 12:55 Last Admin: 12/14/20 13:06 Dose: 100 ml Documented by: Ketorolac Tromethamine (Ketorolac 30 Mg/Ml Sdv) 30 mg IVPUSH Q6H PRN PRN Reason: Pain (moderate 4-6) Potassium Chloride (Potassium Chloride 20 Meq Tab.Er) 20 meq PO ONETIME ONE Stop: 12/05/20 13:18 Last Admin: 12/05/20 15:20 Dose: 20 meq Documented by: Potassium Chloride (Potassium Chloride 20 Meq Tab.Er) 20 meq PO ONETIME ONE Stop: 12/08/20 12:01 Last Admin: 12/08/20 11:58 Dose: 20 meq Documented by: Potassium Chloride (Potassium Chloride 20 Meq Tab.Er) 20 meq PO ONETIME ONE Stop: 12/10/20 17:22 Last Admin: 12/10/20 17:38 Dose: 20 meq Documented by: Sodium Chloride (Sodium Chloride 0.9% 10 Ml Syringe) 10 ml FLUSH ONETIME PRN PRN Reason: IV FLUSH Last Admin: 12/14/20 13:06 Dose: 10 ml Documented by: Sodium Chloride (Sodium Chloride 0.9% 10 Ml Syringe) 10 ml FLUSH ONETIME ONE Stop: 12/14/20 12:55 Last Admin: 12/14/20 18:38 Dose: Not Given Documented by: - Exam Quality Assessment: Supplemental Oxygen, DVT Prophylaxis General: Alert Lungs: Decreased Breath Sounds Cardiovascular: Regular Rate, Regular Rhythm GI/Abdominal Exam: Normal Bowel Sounds, Soft, Non-Tender, No Distention Extremities: Normal Inspection, No Pedal Edema Skin: Warm - Patient Data Result Diagrams: 12/21/20 05:45 12/21/20 05:45 Sepsis Event Note - Evaluation Sepsis Screening Result: No Definite Risk - Focused Exam Vital Signs: Vital Signs Temp Pulse Resp BP Pulse Ox Pulse Ox 12/23/20 08:07 94 L 12/23/20 06:25 96 12/23/20 05:31 97.7 F 59 L 20 108/76 97 12/22/20 20:55 98.2 F 85 20 112/62 95 - Problem List Review Problem List Initiated/Reviewed/Updated: Yes - My Orders Last 24 Hours: My Active Orders 12/24/20 06:00 BASIC METABOLIC PANEL,BMP [CHEM] Routine CBC WITH AUTO DIFF [HEME] Routine - Plan Plan:: 1. Acute hypoxic respiratory failure 2. Acute COVID-19 pneumonitis 3. Acute pulmonary embolus associated with hypercoagulable state in setting of acute COVID-19 4. Bilateral pleural effusions Continuing to wean oxygen as tolerated. Continue Tylenol and tramadol for pleuritic chest discomfort, as well as as needed lidocaine patch the RN. Continue incentive spirometry and RT treatments. Status post remdesivir, and currently receiving hydroxychloroquine. She did not receive convalescent plasma upon admission. Administered Tocilizumab 12/16/2020 without any reaction. Tolerated well. Continue supplemental zinc and vitamin C Continue Eliquis for 6 to 9 months with follow-up with PCP for acute pulmonary embolus. Repeat chest x-ray 12/22/2020 with great improvement and noticeable recruitment of airspace. Repeat imaging in 3 days. Continue proning is much as possible. Initiated high-dose Solu-Medrol 12/19/2020 with the hopes that in conjunction with Tocilizumab she may start to turn around. We will continue this regimen for now. Recommend long taper of steroids to begin within the next couple of days. Patient had a significant jump in white blood cell count. Continuing to attribute this to steroid use at this time. Patient has not had a fever. She has not looked toxic. We will continue to hold off on antibiotics for now unle ss she develops fever or has change in sputum. Sputum culture requested multiple times however she is not able to produce a large enough sample. Case to be personally signed out to oncoming provider who will take over her care tomorrow 12/24/2020. CODE STATUS: Full code. DVT prophylaxis; systemic anticoagulation with Eliquis.
[2020-12-23] MEDS: DULoxetine 30 MG Cap PO SCH ×2 (09:11→21:03)
[2020-12-23] MEDS: Folic Acid 1 MG Tab PO SCH (09:11)
[2020-12-23] MEDS: Ascorbic Acid 500 MG Tab PO SCH ×2 (09:11→21:03)
[2020-12-23] MEDS: Apixaban 5 MG Tab PO SCH ×2 (09:11→21:03)
[2020-12-23] MEDS: Hydroxychloroquine 200 MG Tab PO SCH ×2 (09:11→21:17)
[2020-12-23] MEDS: Lidocaine 4% 1 each Patch TOP SCH (09:12)
[2020-12-23] MEDS: Zinc Sulfate 220 MG Cap PO SCH (11:50)
[2020-12-24] MEDS: methylPREDNISolone Sodium Succinate 40 MG/1 ML SDV IVPUSH SCH ×4 (05:42→20:55)
[2020-12-24] MEDS: Levothyroxine 50 MCG Tab PO SCH (05:45)
[2020-12-24] MEDS: Hydroxychloroquine 200 MG Tab PO SCH ×2 (09:32→20:54)
[2020-12-24] MEDS: DULoxetine 30 MG Cap PO SCH ×2 (09:32→20:53)
[2020-12-24] MEDS: Folic Acid 1 MG Tab PO SCH (09:32)
[2020-12-24] MEDS: Ascorbic Acid 500 MG Tab PO SCH ×2 (09:32→20:54)
[2020-12-24] MEDS: Lidocaine 4% 1 each Patch TOP SCH ×2 (09:32→14:09)
[2020-12-24] MEDS: Apixaban 5 MG Tab PO SCH ×2 (09:32→20:54)
[2020-12-24] MEDS: Zinc Sulfate 220 MG Cap PO SCH (12:47)
--- NOTE | 2020-12-24 17:36 | PCM.PN ---
- General Info Date of Service: 12/24/20 Admission Dx/Problem (Free Text): Patient feels a lot better today and thinks that she may be able to go home tomorrow. She is able to maintain her sats at 90% and above on 3 to 4 L nasal cannula. She did require 4 to 6 L of nasal cannula when she ambulated. - Patient Data Vitals - Most Recent: Last Vital Signs Temp 97.5 F 12/24/20 16:37 Pulse 82 12/24/20 16:37 Resp 20 12/24/20 16:37 BP 124/62 12/24/20 16:37 Pulse Ox 94 L 12/24/20 16:37 Weight - Most Recent: 295 lb 12.8 oz I&O - Last 24 Hours: Intake & Output 12/24/20 12/24/20 12/24/20 06:59 14:59 22:59 Intake Total 700 240 740 Output Total 600 600 Balance 100 240 140 Lab Results Last 24 Hours: Laboratory Results - last 24 hr 12/24/20 12/24/20 Range/Units 06:05 06:05 WBC 21.64 H (3.98-10.04) K/mm3 RBC 4.50 (3.98-5.22) M/mm3 Hgb 13.9 (11.2-15.7) gm/dl Hct 43.5 (34.1-44.9) % MCV 96.7 H (79.4-94.8) fl MCH 30.9 (25.6-32.2) pg MCHC 32.0 L (32.2-35.5) g/dl RDW Std Deviation 45.8 (36.4-46.3) fL Plt Count 230 (182-369) K/mm3 MPV 10.5 (9.4-12.3) fl Neut % (Auto) 83.9 H (34.0-71.1) % Lymph % (Auto) 7.9 L (19.3-51.7) % Drew % (Auto) 5.9 (4.7-12.5) % Eos % (Auto) 0 L (0.7-5.8) Baso % (Auto) 0.1 (0.1-1.2) % Neut # (Auto) 18.16 H (1.56-6.13) K/mm3 Lymph # (Auto) 1.70 (1.18-3.74) K/mm3 Drew # (Auto) 1.28 H (0.24-0.36) K/mm3 Eos # (Auto) 0.00 L (0.04-0.36) K/mm3 Baso # (Auto) 0.02 (0.01-0.08) K/mm3 Manual Slide Review Abnormal smear Sodium 146 H (136-145) mEq/L Potassium 5.5 H (3.5-5.1) mEq/L Chloride 109 H (98-107) mEq/L Carbon Dioxide 28 (21-32) mEq/L Anion Gap 14.5 (5-15) BUN 19 H (7-18) mg/dL Creatinine 0.9 (0.55-1.02) mg/dL Est Cr Clr Drug Dosing 70.32 mL/min Estimated GFR (MDRD) > 60 (>60) mL/min BUN/Creatinine Ratio 21.1 H (14-18) Glucose 132 H (70-99) mg/dL Calcium 8.7 (8.5-10.1) mg/dL Med Orders - Current: Current Medications Acetaminophen (Acetaminophen 325 Mg Tab) 650 mg PO Q4H PRN PRN Reason: Pain (Mild 1-3)/fever Last Admin: 12/18/20 20:48 Dose: 650 mg Documented by: Albuterol (Albuterol 6.7 Gm Inhaler) 0 gm INH Q2H PRN PRN Reason: SOB/WHEEZING Last Admin: 12/20/20 19:47 Dose: 2 puff Documented by: Apixaban (Apixaban 5 Mg Tab) 5 mg PO BID [facility] Last Admin: 12/24/20 09:32 Dose: 5 mg Documented by: Ascorbic Acid (Ascorbic Acid 500 Mg Tab) 500 mg PO BID [facility] Last Admin: 12/24/20 09:32 Dose: 500 mg Documented by: Docusate Sodium (Docusate Sodium 100 Mg Cap) 100 mg PO BID PRN PRN Reason: Constipation Last Admin: 12/17/20 11:45 Dose: 100 mg Documented by: Duloxetine HCl (Duloxetine 30 Mg Cap) 60 mg PO BID [facility] Last Admin: 12/24/20 09:32 Dose: 60 mg Documented by: Folic Acid (Folic Acid 1 Mg Tab) 1 mg PO DAILY [facility] Last Admin: 12/24/20 09:32 Dose: 1 mg Documented by: Hydromorphone HCl (Hydromorphone 0.5 Mg/0.5 Ml Syringe) 0.25 mg IVPUSH Q2H PRN PRN Reason: Pain (severe 7-10) Hydroxychloroquine Sulfate (Hydroxychloroquine 200 Mg Tab) 200 mg PO BID [facility] Last Admin: 12/24/20 09:32 Dose: 200 mg Documented by: Levothyroxine Sodium (Levothyroxine 50 Mcg Tab) 50 mcg PO ACBREAKFAST [facility] Last Admin: 12/24/20 05:45 Dose: 50 mcg Documented by: Lidocaine (Lidocaine 4% 1 Each Patch) 1 each TOP DAILY [facility] Last Admin: 12/24/20 14:09 Dose: 1 each Documented by: Methylprednisolone Sodium Succinate (Methylprednisolone Sodium Succinate 40 Mg/1 Ml Sdv) 60 mg IVPUSH Q6H [facility] Last Admin: 12/24/20 15:27 Dose: 60 mg Documented by: Miscellaneous Information (Remove Lidocaine Patch) 1 ea TRDERM Q24H [facility] Last Admin: 12/23/20 21:05 Dose: 1 ea Documented by: Ondansetron HCl (Ondansetron 4 Mg Tab.Dis) 4 mg PO Q4H PRN PRN Reason: nausea, able to take PO Zinc Sulfate (Zinc Sulfate 220 Mg Cap) 220 mg PO 1200 [facility] Last Admin: 12/24/20 12:47 Dose: 220 mg Documented by: Discontinued Medications Albuterol (Albuterol 6.7 Gm Inhaler) 0 gm INH Q2H ONE Stop: 12/05/20 09:49 Last Admin: 12/05/20 10:27 Dose: 2 inhalation Documented by: Albuterol (Albuterol 0.083% 2.5 Mg/3 Ml Neb Soln) 2.5 mg NEB Q2H PRN PRN Reason: Shortness Of Breath/wheezing Apixaban (Apixaban 5 Mg Tab) 10 mg PO BID [facility] Stop: 12/21/20 09:01 Last Admin: 12/21/20 08:23 Dose: 10 mg Documented by: Azithromycin (Azithromycin 250 Mg Tab) 500 mg PO Q24H [facility] Last Admin: 12/13/20 13:34 Dose: 500 mg Documented by: Dexamethasone (Dexamethasone 10 Mg/Ml Sdv) 10 mg IVPUSH ONETIME ONE Stop: 12/05/20 11:12 Last Admin: 12/05/20 11:56 Dose: 10 mg Documented by: Dexamethasone (Dexamethasone 4 Mg/Ml Sdv) 6 mg IV DAILY [facility] Last Admin: 12/07/20 09:21 Dose: 6 mg Documented by: Dexamethasone (Dexamethasone 4 Mg Tab) 6 mg PO DAILY [facility] Stop: 12/14/20 09:01 Last Admin: 12/14/20 08:18 Dose: 6 mg Documented by: Enoxaparin Sodium (Enoxaparin 40 Mg/0.4 Ml Syringe) 40 mg SUBCUT DAILY [facility] Last Admin: 12/14/20 08:18 Dose: 40 mg Documented by: Furosemide (Furosemide 40 Mg/4 Ml Vial) 40 mg IVPUSH NOW ONE Stop: 12/16/20 09:11 Last Admin: 12/16/20 09:29 Dose: 40 mg Documented by: Hydroxychloroquine Sulfate (Hydroxychloroquine 200 Mg Tab) 200 mg PO BID [facility] Last Admin: 12/05/20 20:05 Dose: 200 mg Documented by: Hydroxychloroquine Sulfate (Hydroxychloroquine 200 Mg Tab) 200 mg PO BID [facility] Sodium Chloride (Normal Saline) 1,000 mls @ 500 mls/hr IV ONETIME ONE Stop: 12/05/20 11:47 Last Admin: 12/05/20 10:29 Dose: 500 mls/hr Documented by: Sodium Chloride (Normal Saline) 100 mls @ 75 mls/hr IV ASDIRECTED [facility] Stop: 12/05/20 14:00 Last Admin: 12/05/20 10:14 Dose: 75 mls/hr Documented by: Remdesivir 200 mg/ Sodium (Chloride) 250 mls @ 250 mls/hr IV ONETIME ONE Stop: 12/05/20 12:59 Last Admin: 12/05/20 11:58 Dose: 250 mls/hr Documented by: Sodium Chloride (Normal Saline) 1,000 mls @ 75 mls/hr IV ASDIRECTED [facility] Last Admin: 12/10/20 03:57 Dose: 75 mls/hr Documented by: Azithromycin 500 mg/ Sodium (Chloride) 250 mls @ 250 mls/hr IV Q24H [facility] Last Admin: 12/06/20 14:44 Dose: 250 mls/hr Documented by: Potassium Chloride 10 meq/ (Premix) 100 mls @ 100 mls/hr IV Q1H [facility] Stop: 12/05/20 18:59 Last Admin: 12/05/20 20:03 Dose: 100 mls/hr Documented by: Remdesivir 100 mg/ Sodium (Chloride) 100 mls @ 100 mls/hr IV Q24H [facility] Stop: 12/09/20 12:59 Last Admin: 12/09/20 12:15 Dose: 100 mls/hr Documented by: Sodium Chloride (Normal Saline) Confirm Administered Dose 100 mls @ as directed .ROUTE .STK-MED ONE Stop: 12/07/20 12:03 Last Admin: 12/07/20 13:49 Dose: Not Given Documented by: Sodium Chloride (Normal Saline) 100 mls @ 60 mls/hr IV ASDIRECTED [facility] Last Admin: 12/14/20 13:06 Dose: 60 mls/hr Documented by: Tocilizumab 800 mg/ Sodium (Chloride) 100 mls @ 100 mls/hr IV ONETIME ONE Stop: 12/16/20 11:29 Last Admin: 12/16/20 10:59 Dose: 100 mls/hr Documented by: Iopamidol (Iopamidol 755 Mg/Ml 100 Ml Bottle) 100 ml IVPUSH ONETIME ONE Stop: 12/05/20 09:50 Last Admin: 12/05/20 10:14 Dose: 100 ml Documented by: Iopamidol (Iopamidol 755 Mg/Ml 100 Ml Bottle) 100 ml IVPUSH ONETIME ONE Stop: 12/14/20 12:55 Last Admin: 12/14/20 13:06 Dose: 100 ml Documented by: Ketorolac Tromethamine (Ketorolac 30 Mg/Ml Sdv) 30 mg IVPUSH Q6H PRN PRN Reason: Pain (moderate 4-6) Potassium Chloride (Potassium Chloride 20 Meq Tab.Er) 20 meq PO ONETIME ONE Stop: 12/05/20 13:18 Last Admin: 12/05/20 15:20 Dose: 20 meq Documented by: Potassium Chloride (Potassium Chloride 20 Meq Tab.Er) 20 meq PO ONETIME ONE Stop: 12/08/20 12:01 Last Admin: 12/08/20 11:58 Dose: 20 meq Documented by: Potassium Chloride (Potassium Chloride 20 Meq Tab.Er) 20 meq PO ONETIME ONE Stop: 12/10/20 17:22 Last Admin: 12/10/20 17:38 Dose: 20 meq Documented by: Sodium Chloride (Sodium Chloride 0.9% 10 Ml Syringe) 10 ml FLUSH ONETIME PRN PRN Reason: IV FLUSH Last Admin: 12/14/20 13:06 Dose: 10 ml Documented by: Sodium Chloride (Sodium Chloride 0.9% 10 Ml Syringe) 10 ml FLUSH ONETIME ONE Stop: 12/14/20 12:55 Last Admin: 12/14/20 18:38 Dose: Not Given Documented by: - Exam Physical Findings Comments:: General: Obese female. Sitting up in bed. Awake alert and oriented x3. In no distress CVS: S1S2 is appreciated. regular rhythm and rhythm, no murmurs, rubs or gallops Lungs: Clear without any rales or wheezes Abdomen: Obese, soft, nontender, bowel sounds are present Extremities: There is no clubbing cyanosis edema Pulses 2+. Neuro exam is nonfocal - Patient Data Lab Results Last 24 hrs: Laboratory Results - last 24 hr 12/24/20 12/24/20 Range/Units 06:05 06:05 WBC 21.64 H (3.98-10.04) K/mm3 RBC 4.50 (3.98-5.22) M/mm3 Hgb 13.9 (11.2-15.7) gm/dl Hct 43.5 (34.1-44.9) % MCV 96.7 H (79.4-94.8) fl MCH 30.9 (25.6-32.2) pg MCHC 32.0 L (32.2-35.5) g/dl RDW Std Deviation 45.8 (36.4-46.3) fL Plt Count 230 (182-369) K/mm3 MPV 10.5 (9.4-12.3) fl Neut % (Auto) 83.9 H (34.0-71.1) % Lymph % (Auto) 7.9 L (19.3-51.7) % Drew % (Auto) 5.9 (4.7-12.5) % Eos % (Auto) 0 L (0.7-5.8) Baso % (Auto) 0.1 (0.1-1.2) % Neut # (Auto) 18.16 H (1.56-6.13) K/mm3 Lymph # (Auto) 1.70 (1.18-3.74) K/mm3 Drew # (Auto) 1.28 H (0.24-0.36) K/mm3 Eos # (Auto) 0.00 L (0.04-0.36) K/mm3 Baso # (Auto) 0.02 (0.01-0.08) K/mm3 Manual Slide Review Abnormal smear Sodium 146 H (136-145) mEq/L Potassium 5.5 H (3.5-5.1) mEq/L Chloride 109 H (98-107) mEq/L Carbon Dioxide 28 (21-32) mEq/L Anion Gap 14.5 (5-15) BUN 19 H (7-18) mg/dL Creatinine 0.9 (0.55-1.02) mg/dL Est Cr Clr Drug Dosing 70.32 mL/min Estimated GFR (MDRD) > 60 (>60) mL/min BUN/Creatinine Ratio 21.1 H (14-18) Glucose 132 H (70-99) mg/dL Calcium 8.7 (8.5-10.1) mg/dL Result Diagrams: 12/24/20 06:05 12/24/20 06:05 Sepsis Event Note - Evaluation Sepsis Screening Result: Sepsis Risk - Focused Exam Vital Signs: Vital Signs Temp Pulse Resp BP Pulse Ox Pulse Ox 12/24/20 16:37 97.5 F 82 20 124/62 94 L 12/24/20 15:05 92 L 12/24/20 12:48 98.4 F 104 H 22 H 124/53 L 92 L 12/24/20 11:40 95 12/24/20 09:31 98.1 F 96 20 97/63 96 12/24/20 09:06 95 12/24/20 08:02 89 L 12/24/20 05:41 97.9 F 56 L 20 123/81 98 - Problem List & Annotations (1) COVID-19 SNOMED Code(s): 738300493 Code(s): U07.1 - COVID-19 Status: Acute Priority: High Current Visit: Yes (2) Hypoxia SNOMED Code(s): 283277704 Code(s): R09.02 - HYPOXEMIA Status: Acute Priority: High Current Visit: Yes - Problem List Review Problem List Initiated/Reviewed/Updated: Yes - Assessment Assessment:: The patient is a 40-year-old lady who had a chest x-ray this morning which shows "rather severe" COVID-19 pneumonia as per radiology. I have decided to initiate remdesivir in addition to azithromycin and steroids. The patient's Plaquenil has been discontinued temporarily as there would be a drug drug interaction with remdesivir. The patient's oxygen will be continued to keep her saturations around 92%. She has been encouraged to ambulate. The patient's CRP has also been markedly elevated although is trending downward. The patient will have repeat laboratory studies and repeat CRP. She is currently on Lovenox at 40 mg subcutaneously daily for DVT prophylaxis this will be continued. The patient should at least have 4 more days of remdesivir prior to discharge. The patient should be appropriate for discharge in 4 to 5 days. 12/07/2020 The patient is a 40-year-old lady who is still undergoing antibiotics and remdesivir for COVID-19 pneumonia. The patient has had some improvement. The patient's azithromycin will be continued. I have ordered repeat laboratory studies for the morning. Patient's oxygen will continue and keep her s aturations around 92%. The patient has been encouraged to ambulate. Patient's CRP has been trending down and I have ordered repeat of this in the morning. Repeat chest x-ray will likely be appropriate tomorrow morning. Patient is currently on Lovenox for DVT prophylaxis this will be continued. The patient should be appropriate for discharge in 4 days. 12/08/2020 The patient is a 40-year-old lady who is doing better today. She is still requiring oxygen at at least 2-1/2 L/min high flow. She says that she is feeling better today. Subjectively she has improved physical examination. I have reviewed her x-ray. The patient will continue to have diet as tolerated. She is also on remdesivir and this will be continued for at least 3 more days. I have ordered repeat laboratory studies. Patient has been encouraged to ambulate. The patient also be continued on appropriate diet. Vital signs will be monitored and her medications will be adjusted as needed. 12/09/2020 The patient is a 40-year-old lady who is still requiring high flow oxygen. The oxygen will continue as per respiratory therapy to keep her saturations around 92%. I have ordered repeat chest x-ray for tomorrow. The patient should continue with her remdesivir, antibiotics and steroids. The patient has exhibited leukocytosis which is likely the result of steroid usage. DVT prophylaxis will continue for this patient. I have encouraged patient to ambulate. PT OT has also been ordered for the patient. Repeat laboratory studies have been ordered. The patient will have regular diet as tolerated. The patient may be appropriate for discharge in 1 to 2 days depending upon her oxygen needs or if she is worsening may have to consider intubation. We will continue to monitor the patient's work of breathing. 12/10/2020 The patient is a 40-year-old lady who is still having some shortness of breath. The patient had finished her remdesivir and she is still having shortness of breath. The patient's Plaquenil was held due to drug drug interaction with remdesivir. I have ordered restart of her Plaquenil. 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 I have ordered repeat laboratory studies for the morning. She should have a new chest x-ray tomorrow. The patient has been encouraged to ambulate. She is on DVT prophylaxis with the use of Lovenox. The patient should be appropriate for discharge once her oxygen demands have improved sufficiently. We will continue to titrate her oxygen to keep her saturations around 92%. - Plan Plan:: 1. Acute hypoxic respiratory failure-secondary to recent COVID-19 pneumonia. O2 requirements slowly trending down. Will likely discharge patient home tomorrow with home oxygen. 2. Acute COVID-19 pneumonitis-on steroids. Completed treatment with remdesivir and Tocilizumab. Patient will need a longer oral steroid taper for a list 7 to 10 days. 3. Acute pulmonary embolus associated with hypercoagulable state in setting of acute COVID-19-on a DOAC for least 6 months. 4. Bilateral pleural effusions CODE STATUS: Full code.
[2020-12-25] MEDS: methylPREDNISolone Sodium Succinate 40 MG/1 ML SDV IVPUSH SCH ×2 (05:08→09:56)
[2020-12-25] MEDS: Levothyroxine 50 MCG Tab PO SCH (05:08)
--- NOTE | 2020-12-25 09:52 | PCM.DCSUM1 ---
Discharge Summary - Hospital Course Free Text/Narrative:: Discharge diagnoses Acute hypoxic respiratory failure due to COVID-19 pneumonia Severe COVID-19 infection Morbid obesity Asthma Connective tissue disorder Discharge medications See MAR Short history/Hospital course The patient is a 40-year-old morbid obese female with a history of asthma and connective tissue disorder who has presented to the emergency department with a complaint of shortness of breath for several days. The patient was picked up by emergency medical services and when at home was found to have pulse oximetry around 60%. The patient did have COVID-19 at the beginning of the month. The patient says that she has had shortness of breath since then. Is gotten worse over the past day or 2. The patient was previously in the emergency department on November 27, 2020 with a complaint of nausea and vomiting. The patient has been complaining of nausea and vomiting and shorted with the shortness of breath. She says that this is pretty much resolved however she still has diarrhea to the point of fecal incontinence when coughing. She will be to the hospital and treated with convulsant plasma, tocilizumab and high-dose steroids. She required high flow oxygen for several days. After about 2 weeks of inpatient stay she was weaned down to 3 to 4 L by nasal cannula. She continued to improve and was later able to go home on just 1 L of nasal cannula at rest and 3L with activity. Condition on discharge: Patient was stable Activity: As tolerated Diet: Low-fat low-carb cardiac diet Physical exam Subjective: Patient denies having any complaints overnight. This morning she was able to maintain her sats above 90% on 0.5 L nasal cannula. She required 3 to 6 L of oxygen after ambulating more than 50 feet in the hallways. Objective: Awake and alert in no distress Vitals: Stable CVS: S1-S2 appreciated. Regular rate and rhythm. No murmurs, rubs or gallops Lungs: clear without any rales or wheezes Abdomen: Obese: Soft nontender bowel sounds are present Extremities: No clubbing cyanosis edema Neuro exam: No focal deficits. Gait is normal - Discharge Data Discharge Date: 12/25/20 Discharge Disposition: Home, Self-Care 01 Condition: Good - Referral to Home Health Primary Care Physician: MIGUEL Coreas - Discharge Diagnosis/Problem(s) (1) COVID-19 SNOMED Code(s): 040409532 ICD Code: U07.1 - COVID-19 Status: Acute Priority: High Current Visit: Yes (2) Hypoxia SNOMED Code(s): 451342527 ICD Code: R09.02 - HYPOXEMIA Status: Acute Priority: High Current Visit: Yes - Patient Summary/Data Consults: Consultations 12/05/20 12:17 Respiratory Care Assess and Treatment [CONS] Routine 12/09/20 09:49 OT Evaluation and Treatment [CONS] Routine PT Evaluation and Treatment [CONS] Routine - Patient Instructions Diet: Weight Loss Diet Activity: As Tolerated Driving: May Drive Today Showering/Bathing: May Shower - Discharge Plan Prescriptions/Med Rec: Apixaban [Eliquis] 5 mg PO BID 90 Days #180 tablet predniSONE [Prednisone] 10 mg PO DAILY 9 Days #21 tab.ds.pk Home Medications: Home Meds Acetaminophen [Tylenol] 1 - 2 tab PO Q4H PRN 12/05/20 [History] Acetaminophen/Butalbital/Caff [Fioricet 325-50-40 MG] 1 - 2 tab PO Q4H PRN 12/05/20 [History] Albuterol [Ventolin HFA] 1 - 2 puff PO Q4H PRN 12/05/20 [History] Ascorbic Acid [C-500] 500 mg PO BID 12/05/20 [History] DULoxetine [Cymbalta] 60 mg PO BID 12/05/20 [History] EPINEPHrine [Epinephrine] 0.3 mg IM ASDIRECTED PRN 12/05/20 [History] Ferrous Sulfate 325 mg PO BID 12/05/20 [History] Folic Acid 1 mg PO DAILY 12/05/20 [History] Galcanezumab-Gnlm [Emgality Pen] 120 mg SUBCUT Q30D 12/05/20 [History] Hydroxychloroquine [Plaquenil] 200 mg PO BID 12/05/20 [History] Levothyroxine [Synthroid] 50 mcg PO ACBREAKFAST 12/05/20 [History] Multivitamin [Multi-Vitamin Daily] 1 tab PO DAILY 12/05/20 [History] Topiramate [Topamax] 100 mg PO BEDTIME 12/05/20 [History] diphenhydrAMINE [Benadryl] 25 mg PO DAILY PRN 12/05/20 [History] tiZANidine HCl [Tizanidine HCl] 4 - 6 mg PO BEDTIME 12/05/20 [History] Apixaban [Eliquis] 5 mg PO BID 90 Days #180 tablet 12/25/20 [Rx] Hydroxychloroquine [Plaquenil] 200 mg PO BID tablet 12/25/20 [Rx] predniSONE [Prednisone] 10 mg PO DAILY 9 Days #21 tab.ds.pk 12/25/20 [Rx] Patient Handouts: COVID-19, Prevent the Spread of COVID-19 if You Are Sick - CDC, Sepsis, Self Care, Adult Referrals: Ava Morse PA-C [Primary Care Provider] - - Discharge Summary/Plan Comment DC Time >30 min.: Yes - Patient Data Vitals - Most Recent: Last Vital Signs Temp 97.9 F 12/25/20 05:06 Pulse 75 12/25/20 05:06 Resp 14 12/25/20 05:06 BP 110/68 12/25/20 05:06 Pulse Ox 93 L 12/25/20 05:06 Weight - Most Recent: 296 lb 1.6 oz I&O - Last 24 hours: Intake & Output 12/24/20 12/25/20 12/25/20 22:59 06:59 14:59 Intake Total 980 800 Output Total 600 650 Balance 380 150 Med Orders - Current: Current Medications Acetaminophen (Acetaminophen 325 Mg Tab) 650 mg PO Q4H PRN PRN Reason: Pain (Mild 1-3)/fever Last Admin: 12/18/20 20:48 Dose: 650 mg Documented by: Albuterol (Albuterol 6.7 Gm Inhaler) 0 gm INH Q2H PRN PRN Reason: SOB/WHEEZING Last Admin: 12/20/20 19:47 Dose: 2 puff Documented by: Apixaban (Apixaban 5 Mg Tab) 5 mg PO BID [facility] Last Admin: 12/24/20 20:54 Dose: 5 mg Documented by: Ascorbic Acid (Ascorbic Acid 500 Mg Tab) 500 mg PO BID [facility] Last Admin: 12/24/20 20:54 Dose: 500 mg Documented by: Docusate Sodium (Docusate Sodium 100 Mg Cap) 100 mg PO BID PRN PRN Reason: Constipation Last Admin: 12/17/20 11:45 Dose: 100 mg Documented by: Duloxetine HCl (Duloxetine 30 Mg Cap) 60 mg PO BID [facility] Last Admin: 12/24/20 20:53 Dose: 60 mg Documented by: Folic Acid (Folic Acid 1 Mg Tab) 1 mg PO DAILY [facility] Last Admin: 12/24/20 09:32 Dose: 1 mg Documented by: Hydromorphone HCl (Hydromorphone 0.5 Mg/0.5 Ml Syringe) 0.25 mg IVPUSH Q2H PRN PRN Reason: Pain (severe 7-10) Hydroxychloroquine Sulfate (Hydroxychloroquine 200 Mg Tab) 200 mg PO BID [facility] Last Admin: 12/24/20 20:54 Dose: 200 mg Documented by: Levothyroxine Sodium (Levothyroxine 50 Mcg Tab) 50 mcg PO ACBREAKFAST [facility] Last Admin: 12/25/20 05:08 Dose: 50 mcg Documented by: Lidocaine (Lidocaine 4% 1 Each Patch) 1 each TOP DAILY [facility] Last Admin: 12/24/20 14:09 Dose: 1 each Documented by: Methylprednisolone Sodium Succinate (Methylprednisolone Sodium Succinate 40 Mg/1 Ml Sdv) 60 mg IVPUSH Q6H [facility] Last Admin: 12/25/20 05:08 Dose: 60 mg Documented by: Miscellaneous Information (Remove Lidocaine Patch) 1 ea TRDERM Q24H [facility] Last Admin: 12/24/20 20:54 Dose: 1 ea Documented by: Ondansetron HCl (Ondansetron 4 Mg Tab.Dis) 4 mg PO Q4H PRN PRN Reason: nausea, able to take PO Zinc Sulfate (Zinc Sulfate 220 Mg Cap) 220 mg PO 1200 [facility] Last Admin: 12/24/20 12:47 Dose: 220 mg Documented by: Discontinued Medications Albuterol (Albuterol 6.7 Gm Inhaler) 0 gm INH Q2H ONE Stop: 12/05/20 09:49 Last Admin: 12/05/20 10:27 Dose: 2 inhalation Documented by: Albuterol (Albuterol 0.083% 2.5 Mg/3 Ml Neb Soln) 2.5 mg NEB Q2H PRN PRN Reason: Shortness Of Breath/wheezing Apixaban (Apixaban 5 Mg Tab) 10 mg PO BID [facility] Stop: 12/21/20 09:01 Last Admin: 12/21/20 08:23 Dose: 10 mg Documented by: Azithromycin (Azithromycin 250 Mg Tab) 500 mg PO Q24H [facility] Last Admin: 12/13/20 13:34 Dose: 500 mg Documented by: Dexamethasone (Dexamethasone 10 Mg/Ml Sdv) 10 mg IVPUSH ONETIME ONE Stop: 12/05/20 11:12 Last Admin: 12/05/20 11:56 Dose: 10 mg Documented by: Dexamethasone (Dexamethasone 4 Mg/Ml Sdv) 6 mg IV DAILY [facility] Last Admin: 12/07/20 09:21 Dose: 6 mg Documented by: Dexamethasone (Dexamethasone 4 Mg Tab) 6 mg PO DAILY [facility] Stop: 12/14/20 09:01 Last Admin: 12/14/20 08:18 Dose: 6 mg Documented by: Enoxaparin Sodium (Enoxaparin 40 Mg/0.4 Ml Syringe) 40 mg SUBCUT DAILY [facility] Last Admin: 12/14/20 08:18 Dose: 40 mg Documented by: Furosemide (Furosemide 40 Mg/4 Ml Vial) 40 mg IVPUSH NOW ONE Stop: 12/16/20 09:11 Last Admin: 12/16/20 09:29 Dose: 40 mg Documented by: Hydroxychloroquine Sulfate (Hydroxychloroquine 200 Mg Tab) 200 mg PO BID [facility] Last Admin: 12/05/20 20:05 Dose: 200 mg Documented by: Hydroxychloroquine Sulfate (Hydroxychloroquine 200 Mg Tab) 200 mg PO BID [facility] Sodium Chloride (Normal Saline) 1,000 mls @ 500 mls/hr IV ONETIME ONE Stop: 12/05/20 11:47 Last Admin: 12/05/20 10:29 Dose: 500 mls/hr Documented by: Sodium Chloride (Normal Saline) 100 mls @ 75 mls/hr IV ASDIRECTED [facility] Stop: 12/05/20 14:00 Last Admin: 12/05/20 10:14 Dose: 75 mls/hr Documented by: Remdesivir 200 mg/ Sodium (Chloride) 250 mls @ 250 mls/hr IV ONETIME ONE Stop: 12/05/20 12:59 Last Admin: 12/05/20 11:58 Dose: 250 mls/hr Documented by: Sodium Chloride (Normal Saline) 1,000 mls @ 75 mls/hr IV ASDIRECTED [facility] Last Admin: 12/10/20 03:57 Dose: 75 mls/hr Documented by: Azithromycin 500 mg/ Sodium (Chloride) 250 mls @ 250 mls/hr IV Q24H [facility] Last Admin: 12/06/20 14:44 Dose: 250 mls/hr Documented by: Potassium Chloride 10 meq/ (Premix) 100 mls @ 100 mls/hr IV Q1H [facility] Stop: 12/05/20 18:59 Last Admin: 12/05/20 20:03 Dose: 100 mls/hr Documented by: Remdesivir 100 mg/ Sodium (Chloride) 100 mls @ 100 mls/hr IV Q24H [facility] Stop: 12/09/20 12:59 Last Admin: 12/09/20 12:15 Dose: 100 mls/hr Documented by: Sodium Chloride (Normal Saline) Confirm Administered Dose 100 mls @ as directed .ROUTE .STK-MED ONE Stop: 12/07/20 12:03 Last Admin: 12/07/20 13:49 Dose: Not Given Documented by: Sodium Chloride (Normal Saline) 100 mls @ 60 mls/hr IV ASDIRECTED [facility] Last Admin: 12/14/20 13:06 Dose: 60 mls/hr Documented by: Tocilizumab 800 mg/ Sodium (Chloride) 100 mls @ 100 mls/hr IV ONETIME ONE Stop: 12/16/20 11:29 Last Admin: 12/16/20 10:59 Dose: 100 mls/hr Documented by: Iopamidol (Iopamidol 755 Mg/Ml 100 Ml Bottle) 100 ml IVPUSH ONETIME ONE Stop: 12/05/20 09:50 Last Admin: 12/05/20 10:14 Dose: 100 ml Documented by: Iopamidol (Iopamidol 755 Mg/Ml 100 Ml Bottle) 100 ml IVPUSH ONETIME ONE Stop: 12/14/20 12:55 Last Admin: 12/14/20 13:06 Dose: 100 ml Documented by: Ketorolac Tromethamine (Ketorolac 30 Mg/Ml Sdv) 30 mg IVPUSH Q6H PRN PRN Reason: Pain (moderate 4-6) Potassium Chloride (Potassium Chloride 20 Meq Tab.Er) 20 meq PO ONETIME ONE Stop: 12/05/20 13:18 Last Admin: 12/05/20 15:20 Dose: 20 meq Documented by: Potassium Chloride (Potassium Chloride 20 Meq Tab.Er) 20 meq PO ONETIME ONE Stop: 12/08/20 12:01 Last Admin: 12/08/20 11:58 Dose: 20 meq Documented by: Potassium Chloride (Potassium Chloride 20 Meq Tab.Er) 20 meq PO ONETIME ONE Stop: 12/10/20 17:22 Last Admin: 12/10/20 17:38 Dose: 20 meq Documented by: Sodium Chloride (Sodium Chloride 0.9% 10 Ml Syringe) 10 ml FLUSH ONETIME PRN PRN Reason: IV FLUSH Last Admin: 12/14/20 13:06 Dose: 10 ml Documented by: Sodium Chloride (Sodium Chloride 0.9% 10 Ml Syringe) 10 ml FLUSH ONETIME ONE Stop: 12/14/20 12:55 Last Admin: 12/14/20 18:38 Dose: Not Given Documented by:
[2020-12-25] MEDS: Folic Acid 1 MG Tab PO SCH (09:56)
[2020-12-25] MEDS: DULoxetine 30 MG Cap PO SCH (09:56)
[2020-12-25] MEDS: Ascorbic Acid 500 MG Tab PO SCH (09:57)
[2020-12-25] MEDS: Apixaban 5 MG Tab PO SCH (09:57)
[2020-12-25] MEDS: Hydroxychloroquine 200 MG Tab PO SCH (09:59)
[2020-12-25] MEDS: Lidocaine 4% 1 each Patch TOP SCH (10:03)
[2020-12-25 11:56] VITALS: BP 123/69; PULSE 104
== END 2020-12-25 11:52 | disposition home or self-care (01) | DRG 137 ==
LOC: JD.ED 09:32 → JD.MS 12:17
PROVIDERS: ADMIT Internal Medicine; ATTEND Internal Medicine
PROC: XW033E5 Introduction of Remdesivir Anti-infective into Peripheral Vein, Percutaneous Approach, New Technology Group 5 (ICD-10-PCS; 2020-12-05)
PROC: 5A0955A Assistance with Respiratory Ventilation, Greater than 96 Consecutive Hours, High Flow/Velocity Cannula (ICD-10-PCS; 2020-12-05)
PROC: XW033H5 Introduction of Tocilizumab into Peripheral Vein, Percutaneous Approach, New Technology Group 5 (ICD-10-PCS; principal; 2020-12-16)
DX: U07.1 COVID-19 (principal); J96.01 Acute respiratory failure with hypoxia; J12.82 Pneumonia due to coronavirus disease 2019; I26.99 Other pulmonary embolism without acute cor pulmonale; E66.01 Morbid (severe) obesity due to excess calories; L94.9 Localized connective tissue disorder, unspecified; E03.9 Hypothyroidism, unspecified; E87.6 Hypokalemia; J90 Pleural effusion, not elsewhere classified; J45.901 Unspecified asthma with (acute) exacerbation; Z88.5 Allergy status to narcotic agent; Z88.6 Allergy status to analgesic agent; Z91.048 Other nonmedicinal substance allergy status; Z88.8 Allergy status to other drugs, medicaments and biological substances; Z79.890 Hormone replacement therapy; Z79.899 Other long term (current) drug therapy; Z90.49 Acquired absence of other specified parts of digestive tract; Z90.710 Acquired absence of both cervix and uterus; Z68.43 Body mass index [BMI] 50.0-59.9, adult
CPT/HCPCS: 36415; 36600; 71045; 71045-26; 71275; 71275-26; 80048; 80053; 82728; 82803; 83605; 83615; 83735; 83880; 84145; 84484; 85025; 85027; 85379; 85610; 85730; 86140; 87205; 87486; 87581; 87633; 87798; 93005; 93010; 93306; 93970; 93970-26; 94640; 94667; 94668; 94762; 96374; 97110-GP; 97163-GP; 97165-GO; 97530-GO; 97530-GP; 97535-GO; 99223; 99232; 99233; 99239; 99284; 99285-25; A9270-GY; J0456; J1100; J1650; J1940; J2920; J3262; J3480; J7030; J7050; J8540; Q9967